=== PATIENT | female | born 1955 | race Caucasian/White ===

== ENCOUNTER 2019-07-07 17:21 | Emergency (ER) | payer OTHER, SELFPAY ==
[2019-07-07 17:22] VITALS: BP 211/124; PULSE 124; RESP 14; TEMP 36.8; O2SAT 100; BMI 29.2
--- NOTE | 2019-07-07 17:39 | EKG12_ITS ---
Test Reason : Blood Pressure : / mmHG Vent. Rate : 112 BPM Atrial Rate : 112 BPM P-R Int : 134 ms QRS Dur : 082 ms QT Int : 340 ms P-R-T Axes : 074 058 051 degrees QTc Int : 464 ms Sinus tachycardia Otherwise normal ECG Confirmed by BRANDIE FLYNN, JENNIFER ([id number]), editor trade journal AINSLEY MAZARIEGOS ([id number]) on 07/09/2019 9:37:09 AM Referred By: PANKAJ Confirmed By:LANDRY DIEGO MD
--- NOTE | 2019-07-07 17:43 | ED.VISSUMM ---
- ER Visit Summary Date of Service: 07/07/19 Chief Complaint: Left leg swelling History of Present Illness: The patient is a 63 F who presents with left leg swelling that is been getting worse over the past 2 months. Patient states it is gradually gotten worse over this time. Patient denies any trauma or injury. Patient states the swelling is been constant. Patient states she has some aching that is intermittent in her left leg. Patient states this is worse with prolonged standing. Patient states that walking actually helps with her pain. Patient does admit to some tingling in her toes. Patient does not have a primary care physician. Physical Examination: Vital signs are stable except for an elevated blood pressure of 211/124 and a tachycardia of 124. Patient is afebrile. Patient is in no acute distress. Oral mucosa is pink and moist. Neck is supple. Trachea is midline. There is no JVD. Heart was regular and tachycardic. Lungs are clear and equal bilaterally. Abdomen is soft. Bowel sounds are normal. There is no tenderness. Extremities are intact. There is edema of the left lower extremity from the mid thigh distally. There is some tenderness over the left medial calf. There are varicose veins noted. Pedal pulses are equal bilaterally. Sensation was intact to light touch in all digits. Test Results: EKG showed sinus tachycardia with a rate of 112. There are no acute ST or T wave changes. CBC was within normal limits. Basic metabolic profile showed an elevated glucose of 259. Troponin was normal. Venous duplex of the left lower extremity shows clot in the greater saphenous vein approximately 3 mm from the junction of the common femoral vein distally. There is no evidence of deep vein thrombosis. Emergency Department Course and Treatment: Patient was given a dose of labetalol here. Patient's blood pressure improved with this. Patient was given a prescription for amlodipine. Patient was also given a prescription for Eliquis since the greater saphenous clot is very close to the common femoral vein. Patient was referred to a primary care physician for follow-up care and further evaluation of her hyperglycemia. Patient was instructed to return if worse in any way. Patient understood and was agreeable with the plan. All questions were answered. Disposition: Discharge home Impression: 1. Superficial venous thrombophlebitis 2. Hypertension This note was generated with [employer] software. It may contain incorrect words, spelling, and punctuation that were not noted in review of the chart prior to signing ED Disposition - Plan for ED Patient: Disposition: Home or Assisted Living Diagnosis: Thrombophlebitis of superficial veins of left lower extremity, Hypertension, Hyperglycemia Instructions: ED Phlebitis Superficial, ED Hypertension New Begin Treatment, ED Hyperglycemia New Susp Diabetes Prescriptions: Apixaban [Eliquis] 5 mg PO BID #74 tab Prescription Printed Amlodipine [Norvasc] 5 mg PO DAILY #30 tab Prescription Printed Referrals: NOT,DEFINED [NON-STAFF] - Funmi Muller DO [STAFF PHYSICIAN] - 3-5 Days
--- NOTE | 2019-07-07 17:44 | NURSING ---
NO OLD EKGS
--- NOTE | 2019-07-07 17:46 | US_ITS ---
STUDY: VENOUS DOPPLER ULTRASOUND - LEFT LOWER EXTREMITY REASON FOR EXAM: Female, 63 years old. LT LEG SWELLING - X 2 MONTHS TECHNIQUE: Ultrasound evaluation of the deep vein system to include rodgesr-scale imaging and compression was performed. Rodgers-scale imaging and Doppler sonographic evaluation, including duplex spectral analysis and qualitative color flow sonography, was performed. COMPARISON: None. FINDINGS: Common Femoral Vein: Normal compression, spontaneity and augmentation. Normal color Doppler. Common Femoral Vein/Greater Saphenous Junction: Normal compression, spontaneity and augmentation. Normal color Doppler. Deep Femoral Vein: Normal compression, spontaneity and augmentation. Normal color Doppler. Femoral Proximal: Normal compression, spontaneity and augmentation. Normal color Doppler. Femoral Middle: Normal compression, spontaneity and augmentation. Normal color Doppler. Femoral Distal: Normal compression, spontaneity and augmentation. Normal color Doppler. Popliteal Vein: Normal compression, spontaneity and augmentation. Normal color Doppler. Posterior Tibial Vein: Normal compression, spontaneity and augmentation. Normal color Doppler. Peroneal Vein: Normal compression, spontaneity and augmentation. Normal color Doppler. Incidental finding of intraluminal clot within the greater saphenous vein extending 3 mm from the common femoral vein to the distal calf US/Venous Duplex Imag/Limited/Uni IMPRESSION: No evidence for deep venous thrombosis. Extensive superficial venous thrombosis involving the greater saphenous vein Electronically Signed: Baldev Archer MD at 19:06 EDT , Service support ,
[2019-07-07 18:18] LABS: Absolute Lymphocyte Count 1.41 X10^3/uL (0.83-4.51); Absolute Neutrophil Count 4.8 X10^3/uL (2.0-7.7); Basophil# 0.03 X10^3/uL; Basophil% 0.4 % (0-1); Eosinophil# 0.05 X10^3/uL; Eosinophils% 0.7 % (0-5); Hematocrit 41.7 % (37-47); Lymphocyte # 1.41 X10^3/ul (4.0); Lymphocyte % 20.9 % (19-41); Mean Corp Hgb Conc 33.6 g/dL (32-36); Mean Corpuscular Hgb 29.8 pg (27.0-32.0); Mean Corpuscular Volume 88.7 fL (81-99); Mean Platelet Vol. 9.9 fl (6.2-12.0); Monocyte# 0.48 X10^3/uL; Monocyte% 7.1 % (0-10); NRBC Flagged by Analyzer 0 % (0-5); Neutrophil # 4.75 X10^3/uL (2.7-7.7); Neutrophil % 70.6 % (47-70); Platelet Count 268 K/mm3 (150-450); RBC Distribution Width CV 12.3 % (11.6-14.6); RBC Distribution Width SD 39.9 fl (35.1-43.9); White Blood Count 6.7 K/mm3 (4.4-11.0)
[2019-07-07 18:24] VITALS: BP 224/96; PULSE 108; RESP 16; O2SAT 99
[2019-07-07 18:29] VITALS: BP 186/83; PULSE 79; RESP 16; O2SAT 100
[2019-07-07 18:41] LABS: Anion Gap 5 (5-15); BUN 14 mg/dL (7-18); BUN/Creat Ratio 16.3 RATIO (10-20); Calcium,Total 9.8 mg/dL (8.5-10.1); Chloride 105 mmol/L (98-107); Creatinine, Serum 0.86 mg/dL (0.55-1.02); EST Glomerular Filtration Rate 71 mL/min (>60); Est Glom Filt Rate - Afr Amer 85 mL/min (>60); Estimated Creatinine Clearance 61.05 ml/min; Glucose 259 mg/dL (74-106); Potassium 3.7 mmol/L (3.5-5.1); Sodium Level 138 mmol/L (136-145)
[2019-07-07 19:28] VITALS: BP 186/92; PULSE 80; RESP 18; O2SAT 97
[2019-07-07 20:02] VITALS: BP 192/85; PULSE 87; RESP 18; O2SAT 98
--- NOTE | 2019-07-08 12:15 | CM.ED ---
SOCIAL WORK PATIENT WAS SEEN IN ED ON 07/07/[address] LIRA. PATIENT DISCHARGED WITH PRESCRIPTION FOR ELIQUIS. UPDATED BY DR. MACK THIS DAY THAT PATIENT WAS UNABLE TO FILL PRESCRIPTION DUE TO NEEDING PRE AUTH. THIS WORKER ATTEMPTED PRE AUTH THROUGH PATIENT'S INSURANCE [employer]. WORKER WITH MMO ASKING FOR CPT CODE/PROCEDURE CODE. DISCUSSED WITH RADHA HODGE WHO ASSISTED THIS WORKER IN OBTAINING PRE AUTH FOR ELIQUIS. CALL TO PATIENT'S TO UPDATE AUTH FOR MEDICATION HAS BEEN APPROVED. TO HAVE SCRIPT FILLED. DISCUSSED CO-PAY CARD. TO CALL THIS WORKER BACK FOR ANY FURTHER NEEDS. Apurva OLGUIN, SENIOR SALES OPERATIONS ANALYST, FINANCE PROFESSIONAL.
--- NOTE | 2019-07-08 15:32 | CASEMGMT ---
Addendum entered by Dorothea Joyce 07/08/19 15:47: Pt was approved for Eliquis from 06/08/2019-07/07/2020 and Zeny CLAYTON CM Original Note: Per Laurie MALDONADO, pt was sent home on Eliquis yesterday and ED received a call that pt needs prior auth for med at this time. Per chart, pt has an extensive superficial venous thrombosis in the greater saphenous vein extending from 3mm from the femoral artery to the distal calf. Pt does not have a current PCP and pt/ were stressed the importance of obtaining PCP at this time, voiced understanding. Laurie had attempted to get prior auth without success as they kept asking her for a CPT/procedure code so this RN CM placed call to [facility] number provided at this time. The first rep at [facility] tried to get a procedure code from this RN CM and this RN CM advised that this was for prior auth, not pre-auth for procedure. After being transferred multiple times, this RN CM finally got through to a PA rep and after answering one question, prior auth was obtained for the Eliquis at this time. Laurie MALDONADO updated at this time-voices understanding and states will call pt/ back and also provide them with numbers for the $10co-pay card as well. Zeny CLAYTON CM
== END 2019-07-07 20:33 | disposition home or self-care (01) ==
PROVIDERS: Emergency Provider Emergency Medicine
DX: I80.02 Phlebitis and thrombophlebitis of superficial vessels of left lower extremity (principal); I10 Essential (primary) hypertension; R73.9 Hyperglycemia, unspecified; I83.90 Asymptomatic varicose veins of unspecified lower extremity; R00.0 Tachycardia, unspecified; Z79.899 Other long term (current) drug therapy
CPT/HCPCS: 80048; 84484; 85025; 93005; 93971; 96374; 99283; A4216

== ENCOUNTER 2019-07-15 19:08 | Emergency (ER) | payer OTHER, SELFPAY ==
[2019-07-15 19:09] VITALS: BP 189/101; PULSE 101; RESP 18; TEMP 36.7; O2SAT 96; BMI 28.4
--- NOTE | 2019-07-15 19:25 | CT_ITS ---
STUDY: CT ABDOMEN AND PELVIS WITHOUT CONTRAST REASON FOR EXAM: Female, 63 years old. LT FLANK PAIN,VAGINAL BLEEDING RADIATION DOSAGE (If Supplied By Facility): CTDIvol = ( 9.37 ) mGy, DLP = ( 447.05 ) mGycm TECHNIQUE: Transaxial images were obtained from the dome of the diaphragm to the symphysis pubis without oral contrast, and without intravenous contrast. Sagittal and coronal images were reconstructed. Individualized dose optimization techniques were used for this CT. COMPARISON: None. FINDINGS: The visualized lung bases are unremarkable. The visualized portions of the heart are within normal limits. Normal liver. Mild nonspecific gallbladder distention without calcified stones. If concern for gallbladder disease ultrasound recommended. Normal spleen. Fatty infiltrated atrophic pancreas.. Normal bilateral adrenal glands. Normal right kidney. Moderate left hydroureteronephrosis with dilatation of the ureter to the level of a large left adnexal mass likely compressing the ureter although not well visualized. Normal visualized stomach. Normal small intestine. Normal colon. No evidence for acute appendicitis Normal abdominal aorta. Normal inferior vena cava. Normal retroperitoneum. Uterus is enlarged for age depressing the dome of the bladder which is incompletely distended and thick-walled. Complex cystic left adnexal mass measuring approximately 6.9 x 5.3 cm displacing the uterus towards the right. Small anterior inferior pelvic wall hernia containing fat Lumbar spine demonstrates degenerative change. CT/Abdomen/Pelvis without Cont IMPRESSION: Enlarged uterus for stated age which is displaced towards the right by a large complex cystic mass in left adnexa measuring approximately 6.9 x 5.3 cm. There is also moderate left hydroureteronephrosis without definitive evidence for ureteral calculus possibly due to extrinsic compression by pelvic mass. Pelvic sonogram would be helpful for further evaluation Electronically Signed: Baldev Archer MD at 20:27 EDT , Service support ,
[2019-07-15 19:42] LABS: Bacteria 0 SEEN /hpf (None Seen); Mucous, Urine 0 SEEN /hpf (<or=2+)
[2019-07-15 19:46] LABS: Color, Urine Yellow (Yellow); Glucose, Dipstick 100 mg/dl (Normal); Leukocyte Esterase-Dipstick 500 /ul (Negative); Nitrite-Dipstick Negative (Negative); Occult Blood-Urine 250 /ul (Negative); Protein-Dipstick 30 mg/dl (Negative); Urine Bilirubin Dipstick Negative (Negative); Urine Clarity Clear (Clear); Urine Urobilinogen Normal (Normal)
[2019-07-15] MEDS: Ondansetron 4 MG/2 ML Vial IV (19:51)
[2019-07-15] MEDS: 0.9% Normal Saline 1,000 ML 125 ML IV (19:51)
[2019-07-15 19:52] LABS: Absolute Lymphocyte Count 0.94 X10^3/uL (0.83-4.51); Absolute Neutrophil Count 8.1 X10^3/uL (2.0-7.7); Basophil# 0.03 X10^3/uL; Basophil% 0.3 % (0-1); Eosinophil# 0.01 X10^3/uL; Eosinophils% 0.1 % (0-5); Hematocrit 40.6 % (37-47); Hemoglobin 13.4 g/dL (12.0-15.0); Lymphocyte # 0.94 X10^3/ul (4.0); Lymphocyte % 9.8 % (19-41); Mean Corpuscular Hgb 29.3 pg (27.0-32.0); Mean Corpuscular Volume 88.6 fL (81-99); Mean Platelet Vol. 10.2 fl (6.2-12.0); Monocyte# 0.48 X10^3/uL; NRBC Flagged by Analyzer 0 % (0-5); Neutrophil # 8.13 X10^3/uL (2.7-7.7); Neutrophil % 84.5 % (47-70); Platelet Count 269 K/mm3 (150-450); RBC Distribution Width CV 12.7 % (11.6-14.6); Red Blood Count 4.58 M/mm3 (4.2-5.4); White Blood Count 9.6 K/mm3 (4.4-11.0)
[2019-07-15 19:53] LABS: Ketone-Dipstick 150 mg/dl (Negative)
[2019-07-15 19:54] LABS: Red Blood Cells-Urine 25-50 SEEN /hpf (0-5); Squamous Epithelial Cells - UA 0-5 SEEN /hpf (5-10); White Blood Cells 5-10 SEEN /hpf (0-5)
[2019-07-15 19:55] LABS: Anion Gap 12 (5-15); BUN 21 mg/dL (7-18); BUN/Creat Ratio 19.6 RATIO (10-20); Calcium,Total 9.7 mg/dL (8.5-10.1); Chloride 101 mmol/L (98-107); Creatinine, Serum 1.07 mg/dL (0.55-1.02); EST Glomerular Filtration Rate 55 mL/min (>60); Est Glom Filt Rate - Afr Amer 66 mL/min (>60); Estimated Creatinine Clearance 49.07 ml/min; Glucose 227 mg/dL (74-106); Potassium 3.8 mmol/L (3.5-5.1); Sodium Level 136 mmol/L (136-145)
--- NOTE | 2019-07-15 20:29 | US_ITS ---
STUDY: ULTRASOUND OF THE FEMALE PELVIS - COMPLETE REASON FOR EXAM: Female, 63 years old. LT ADX MASS SEEN ON CT IRREG BLEEDING HX C- SECTIONS LMP: TECHNIQUE: TECHNICAL QUALITY: Adequate. COMPARISON: None. FINDINGS: The uterus is anteverted and is in a midline position. The uterus measures 9.2 x 6.8 x 5.3 cm. Normal uterine cervix. The endometrium measures 38 mm in thickness, and is slightly hyperemic.. There is fluid within the endometrial canal and a small hyperechoic density possibly representing small hematoma There is no demonstrated endometrial mass. There is no demonstrated myometrial mass. I.U.D. - The patient does not have an I.U.D. The right ovary is visualized. The right ovary measures 2.8 x 1.8 x 1.1 cm. There is no right ovarian cyst or ovarian mass. There is no visualized right adnexal mass or complex lesion. There is normal arterial and normal venous vascularity. The left ovary is visualized. The left ovary measures 6.3 x 6 x 5.5 cm. Complex cystic mass measuring 3.9 x 3.7 x 3.4 cm. There is normal arterial and normal venous vascularity. There is no fluid in the cul-de-sac. Mild intraluminal debris within the bladder of indeterminate etiology possibly due to infection or hemorrhage however clinical correlation recommended US/Transvaginal Non- IMPRESSION: Markedly thickened endometrial lining for stated age with fluid in the cul-de-sac and probable small hematoma. Possibility of endometrial hyperplasia or neoplasia not excluded. Complex cystic mass in the left ovary measuring approximately 3.9 x 3.7 x 3.4 cm of indeterminate etiology. Cannot exclude neoplasm. Clinical correlation recommended. MRI with contrast may be helpful for further evaluation if indicated Electronically Signed: Baldev Archer MD at 21:30 EDT , Service support ,
--- NOTE | 2019-07-15 21:41 | ED.VISSUMM ---
- ER Visit Summary Date of Service: 07/15/19 Chief Complaint: [Left flank pain] History of Present Illness: The patient is a 63 F [[place] to the emergency department left leg pain is started initially 2 days ago in the middle of the night and then kind of resolved. Patient started having more pain again this afternoon with some shivers. Patient has no urinary symptoms otherwise. She has been having vaginal bleeding off and on for several years but really has not followed up with anybody for that. Patient recently was started on Eliquis for superficial thrombophlebitis of her leg. Patient is a diabetic and has history of hypertension. No history of kidney stones.] Physical Examination: [HEENT-PERRLA, EOMI. Cranial nerves II through XII grossly intact. TMs clear. Mucous membranes moist. No adenopathy. Cardiovascular-regular rate and rhythm without murmur or ectopy Lungs-clear to auscultation, chest wall stable without crepitus or subcu emphysema Abdomen-normoactive bowel sounds, soft. Patient has some mild tenderness over the left lower quadrant. Patient has CVA tenderness on the left. Patient has no rebound, rigidity, or peritoneal signs. Extremities-intact ?4, normal range of motion, normal pulses, atraumatic] Test Results: [CBC with differential obtained showed a white blood cell count of 9.6, hemoglobin 13, hematocrit 41, placed 269. Chemistries unremarkable. BUN was 21 and creatinine 1.07. Urinalysis obtained showed 500 leukocyte esterase and 150 ketones. Patient had 5-10 WBCs and 25-[address] flank showed a thickened endometrium and left adnexal mass with hydroureter and hydronephrosis on the left. No obvious ureteral stone noted. Was unclear if the ureter was dilated secondary to external compression. It was recommended that we obtain a pelvic ultrasound. The ultrasound obtained was read by radiology as markedly thickened endometrial lining for stated age with fluid in the cul-de-sac and probable small hematoma. Possibility of endometrial hyperplasia or neoplasia not excluded. Complex cystic mass in the left ovary measuring 3.9 x 3.7 x 3.4 cm of indeterminate etiology. Cannot exclude neoplasm.] Emergency Department Course and Treatment: [Patient was given Zofran for nausea and she did not want a thing for pain.] Patient case was discussed with DIGITAL SOLUTION ARCHITECT on-call Dr. Darian Villa who would be happy to see patient in follow-up in the office. Treatment Plan: [Patient will be given a prescription for Zofran and [place] for pain.] Disposition: [Discharged home in stable condition] Impression: [Flank pain -suspect passed kidney stone versus external compression from left adnexal mass Dysfunctional uterine bleeding Left adnexal mass] This note was generated with [employer] dictation software. It may contain incorrect words, spelling, and punctuation that were not noted in review of the chart prior to signing ED Disposition - Plan for ED Patient: Referrals: Cindy Griffith MD [Primary Care Provider] -
--- NOTE | 2019-07-15 21:47 | ED.DEP ---
ED Disposition - Plan for ED Patient: Instructions: ED Flank Pain Uncertain Cause Prescriptions: Hydrocodone Bitart/Apap 5-325 [[place] 5MG-325MG] 1 tab PO Q4H PRN PRN 2 Days #10 tab PRN Reason: Pain Prescription Printed Ondansetron [Zofran Odt] 4 mg PO Q8H PRN PRN #10 tab PRN Reason: Nausea Prescription Printed Referrals: Cindy Griffith MD [Primary Care Provider] - Darian Villa MD [STAFF PHYSICIAN] - 3-5 Days Additional Instructions: See TYING MACHINE OPERATOR LUMBER for abnormal vaginal bleeding and abnormality of uterine lining with concern for uterine neoplasm or cancer. You also have a left ovarian mass that will need further investigation to rule out cancer.
[2019-07-15 22:02] VITALS: BP 167/78; PULSE 82; RESP 18; TEMP 36.8; O2SAT 97
== END 2019-07-15 22:13 | disposition home or self-care (01) ==
LOC: ED 19:47
PROVIDERS: Emergency Provider Emergency Medicine; PCP Family Medicine
DX: R10.9 Unspecified abdominal pain (principal); N83.9 Noninflammatory disorder of ovary, fallopian tube and broad ligament, unspecified; N93.8 Other specified abnormal uterine and vaginal bleeding; I80.00 Phlebitis and thrombophlebitis of superficial vessels of unspecified lower extremity; E11.9 Type 2 diabetes mellitus without complications; I10 Essential (primary) hypertension; Z79.01 Long term (current) use of anticoagulants; Z79.84 Long term (current) use of oral hypoglycemic drugs; Z79.899 Other long term (current) drug therapy
CPT/HCPCS: 74176; 76830; 80048; 81001; 85025; 93976; 96361; 96374; 99284; J7030; A4216; J2405

== ENCOUNTER → 2019-07-19 | Outpatient (CLI) | payer OTHER, SELFPAY ==
[2019-07-15 19:09] VITALS: BMI 28.4
--- NOTE | 2019-07-19 | EMB_PTH ---
PATIENT: NEWTON ALANIZ LOC: CAT U#:[id number] AGE/SX: 63/F ROOM: RE07/19/[address]: Dr. Darian Villa MD : 1955 BED: DIS: 07/19/2019 SPEC #: [id number] RECD: 07/19/19 17:25 STATUS: GABRIEL LASHA #: [id number] KILO: 07/19/19 00:[address]: Darian Villa DEPT: SURGICAL PATHOLOGY RECD BY: William Foote Tissues: Endometrium, NOS Procedures: Surgery Specimen Level IV HEADER OPERATION: Endometrial biopsy PRE-OP DIAGNOSIS: Postmenopausal bleeding TISSUE SUBMITTED: Endometrial biopsy MICROSCOPIC DIAGNOSIS Endometrial biopsy: Endometrial adenocarcinoma, endometrioid type, FIGO grade 1. See comment. WAYNE:bernadine 07/21/19 COMMENT Immunohistochemistry for mismatch repair of protein (microsatellite instability) will be performed and results will be reported separately ([id number]). Case has been reviewed in consultation with Dr. Manjarrez who concurs with the above diagnosis. IDC:AM MICROSCOPIC DESCRIPTION Slides are reviewed. GROSS DESCRIPTION Received in fixative is one container labeled with the patient's name and designated endometrial biopsy. The specimen consists of multiple fragments of hemorrhagic soft tissue that in aggregate measure 3 x 2.5 x 0.3 cm. The entire specimen is submitted in one cassette. / SJ:bernadine 07/20/19 TC:0 CPT: 01842
--- NOTE | 2019-07-19 | IMM_PTH ---
PATIENT: NEWTON ALANIZ LOC: CAT U#:[id number] AGE/SX: 63/F ROOM: RE07/19/[address]: Dr. Darian Villa MD : 1955 BED: DIS: 07/19/2019 SPEC #: [id number] RECD: 07/21/19 11:46 STATUS: GABRIEL REAshwin #: [id number] KILO: 07/19/19 00:[address]: Darian Villa DEPT: IMMUNOHISTOCHEMISTRY RECD BY: Divine York Tissues: Endometrium, NOS Procedures: MSH2 (add) MLH-1 (add) MSH6 (add) Anti-PMS2 (add) P53 (add) KI-67 (initial) PHYSICIAN & INSTITUTION [place] [id number] SPECIMEN INFORMATION: Tissue Source: Endometrial biopsy Clinical Info: Postmenopausal bleeding Specimen Number: [id number] CPT code: 77458, 42004 x5 METHODOLOGY: Deparaffinized sections of prefer/formalin-fixed tissue or PAP/DQ stained slides are incubated with monoclonal/polyclonal antibodies/oligonucleotide probes. Localization is made via biotin free immunoperoxidase method. Appropriate controls are performed and reacted as expected. Results on target cell population are indicated in the following table: RESULTS: ANTIBODY / CLONE RESULT Ki-67 (30-9) positive, high P53 (DO-7) positive, focal MLH-1 (M1) negative MSH2 (25D12) positive MSH6 (44) positive PMS2 (BWB0383) positive These tests were developed and their performance characteristics determined by [facility]. They may not have been cleared or approved by the U.S. Food and Drug Administration. The FDA has determined that such clearance or approval is not necessary. The above immunohistochemical/dualISH markers are ordered and reviewed by the Pathologist. INTERPRETATION: Endometrial biopsy: Endometrial adenocarcinoma, endometrioid type. Result of Microsatellite Instability Study: Positive (loss of mismatch protein; microsatellite instability detected). Complete loss of MLH1. SJ:bernadine 07/22/19 Case has been reviewed in consultation with Dr. Manjarrez who concurs with the above diagnosis. IDC:AM
[2019-07-21 14:01] LABS: Cancer Antigen 125 184.9 U/mL (0.0-38.1)
== END | disposition home or self-care (01) ==
PROVIDERS: Visit Provider Obstetrics & Gynecology
DX: N95.0 Postmenopausal bleeding (principal)
CPT/HCPCS: 86304; 88305; 88341; 88342

== ENCOUNTER → 2019-09-01 11:13 | Outpatient (CLI) | payer OTHER, SELFPAY ==
[2019-09-01 11:42] LABS: Absolute Lymphocyte Count 1.16 X10^3/uL (0.83-4.51); Absolute Neutrophil Count 3.8 X10^3/uL (2.0-7.7); Basophil# 0.02 X10^3/uL; Basophil% 0.4 % (0-1); Eosinophil# 0.07 X10^3/uL; Eosinophils% 1.3 % (0-5); Hemoglobin 11.7 g/dL (12.0-15.0); Lymphocyte # 1.16 X10^3/ul (4.0); Lymphocyte % 21.5 % (19-41); Mean Corp Hgb Conc 31.6 g/dL (32-36); Mean Corpuscular Hgb 29.2 pg (27.0-32.0); Mean Corpuscular Volume 92.3 fL (81-99); Mean Platelet Vol. 9.3 fl (6.2-12.0); Monocyte# 0.38 X10^3/uL; Monocyte% 7.1 % (0-10); NRBC Flagged by Analyzer 0 % (0-5); Neutrophil # 3.75 X10^3/uL (2.7-7.7); Neutrophil % 69.5 % (47-70); Platelet Count 394 K/mm3 (150-450); RBC Distribution Width CV 13.4 % (11.6-14.6); RBC Distribution Width SD 45.1 fl (35.1-43.9); Red Blood Count 4.01 M/mm3 (4.2-5.4); White Blood Count 5.4 K/mm3 (4.4-11.0)
[2019-09-01 12:06] LABS: ALB/GLOB Ratio 0.9 RATIO (0.9-2.4); AST(SGOT) 14 U/L (15-37); Alanine Aminotransfer ALT/SGPT 15 U/L (13-56); Albumin, Serum 3.1 g/dL (3.2-5.0); Alkaline Phosphatase 67 U/L (45-117); Anion Gap 6 (5-15); BUN 17 mg/dL (7-18); BUN/Creat Ratio 23.1 RATIO (10-20); Chloride 107 mmol/L (98-107); Creatinine, Serum 0.74 mg/dL (0.55-1.02); EST Glomerular Filtration Rate 84 mL/min (>60); Est Glom Filt Rate - Afr Amer 102 mL/min (>60); Globulin 3.6 g/dL (2.2-4.2); Glucose 102 mg/dL (74-106); Potassium 3.9 mmol/L (3.5-5.1); Protein, Total 6.7 g/dL (6.4-8.2); Sodium Level 141 mmol/L (136-145)
== END ==
PROVIDERS: PCP Family Medicine; Visit Provider Obstetrics & Gynecology Gynecologic Oncology
DX: C54.1 Malignant neoplasm of endometrium (principal)
CPT/HCPCS: 36415; 80053; 85025

== ENCOUNTER → 2019-09-22 14:05 | Outpatient (CLI) | payer OTHER, SELFPAY ==
[2019-09-22 14:32] LABS: Absolute Lymphocyte Count 1.32 X10^3/uL (0.83-4.51); Basophil# 0.02 X10^3/uL; Basophil% 0.5 % (0-1); Eosinophil# 0.04 X10^3/uL; Hemoglobin 12.1 g/dL (12.0-15.0); Lymphocyte # 1.32 X10^3/ul (4.0); Lymphocyte % 33.9 % (19-41); Mean Corp Hgb Conc 31.8 g/dL (32-36); Mean Corpuscular Hgb 29.2 pg (27.0-32.0); Mean Corpuscular Volume 91.6 fL (81-99); Mean Platelet Vol. 9.2 fl (6.2-12.0); Monocyte# 0.48 X10^3/uL; Monocyte% 12.3 % (0-10); NRBC Flagged by Analyzer 0 % (0-5); Neutrophil # 2.02 X10^3/uL (2.7-7.7); Platelet Count 233 K/mm3 (150-450); RBC Distribution Width CV 14.6 % (11.6-14.6); Red Blood Count 4.15 M/mm3 (4.2-5.4); White Blood Count 3.9 K/mm3 (4.4-11.0)
[2019-09-22 15:00] LABS: AST(SGOT) 15 U/L (15-37); Alanine Aminotransfer ALT/SGPT 17 U/L (13-56); Albumin, Serum 3.3 g/dL (3.2-5.0); Alkaline Phosphatase 90 U/L (45-117); Anion Gap 4 (5-15); BUN 16 mg/dL (7-18); BUN/Creat Ratio 26.4 RATIO (10-20); Chloride 112 mmol/L (98-107); EST Glomerular Filtration Rate 105 mL/min (>60); Est Glom Filt Rate - Afr Amer 128 mL/min (>60); Globulin 3.4 g/dL (2.2-4.2); Glucose 104 mg/dL (74-106); Potassium 3.8 mmol/L (3.5-5.1); Protein, Total 6.7 g/dL (6.4-8.2); Sodium Level 140 mmol/L (136-145)
== END ==
PROVIDERS: PCP Family Medicine; Referring Provider Obstetrics & Gynecology Gynecologic Oncology; Visit Provider Obstetrics & Gynecology Gynecologic Oncology
DX: C54.1 Malignant neoplasm of endometrium (principal)
CPT/HCPCS: 36415; 80053; 85025

== ENCOUNTER 2019-10-13 15:27 | Outpatient (RCR) | payer OTHER, SELFPAY ==
[2019-10-13 15:59] LABS: Absolute Lymphocyte Count 1.27 X10^3/uL (0.83-4.51); Absolute Neutrophil Count 1.1 X10^3/uL (2.0-7.7); Basophil# 0.02 X10^3/uL; Basophil% 0.7 % (0-1); Eosinophil# 0.02 X10^3/uL; Eosinophils% 0.7 % (0-5); Hematocrit 35.6 % (37-47); Lymphocyte # 1.27 X10^3/ul (4.0); Lymphocyte % 44.9 % (19-41); Mean Corp Hgb Conc 33.7 g/dL (32-36); Mean Corpuscular Hgb 29.9 pg (27.0-32.0); Mean Corpuscular Volume 88.8 fL (81-99); Mean Platelet Vol. 8.8 fl (6.2-12.0); Monocyte# 0.39 X10^3/uL; Monocyte% 13.8 % (0-10); NRBC Flagged by Analyzer 0 % (0-5); Neutrophil # 1.13 X10^3/uL (2.7-7.7); Neutrophil % 39.9 % (47-70); Platelet Count 200 K/mm3 (150-450); RBC Distribution Width SD 50.8 fl (35.1-43.9); Red Blood Count 4.01 M/mm3 (4.2-5.4); White Blood Count 2.8 K/mm3 (4.4-11.0)
[2019-10-13 16:37] LABS: ALB/GLOB Ratio 1.2 RATIO (0.9-2.4); AST(SGOT) 17 U/L (15-37); Alanine Aminotransfer ALT/SGPT 18 U/L (13-56); Albumin, Serum 3.6 g/dL (3.2-5.0); Alkaline Phosphatase 79 U/L (45-117); Anion Gap 4 (5-15); BUN 16 mg/dL (7-18); BUN/Creat Ratio 19.4 RATIO (10-20); Calcium,Total 9.1 mg/dL (8.5-10.1); Chloride 111 mmol/L (98-107); Creatinine, Serum 0.83 mg/dL (0.55-1.02); EST Glomerular Filtration Rate 74 mL/min (>60); Est Glom Filt Rate - Afr Amer 89 mL/min (>60); Globulin 3.1 g/dL (2.2-4.2); Glucose 125 mg/dL (74-106); Potassium 3.6 mmol/L (3.5-5.1); Protein, Total 6.7 g/dL (6.4-8.2); Sodium Level 142 mmol/L (136-145)
== END 2019-10-13 18:00 | disposition home or self-care (01) ==
LOC: LAB 15:27
PROVIDERS: PCP Family Medicine; Referring Provider Obstetrics & Gynecology Gynecologic Oncology; Visit Provider Obstetrics & Gynecology Gynecologic Oncology
DX: C54.1 Malignant neoplasm of endometrium (principal)
CPT/HCPCS: 36415; 80053; 85025

== ENCOUNTER 2019-11-24 15:12 | Outpatient (RCR) | payer OTHER, SELFPAY ==
[2019-11-03 15:40] LABS: AST(SGOT) 16 U/L (15-37); Alanine Aminotransfer ALT/SGPT 21 U/L (13-56); Albumin, Serum 3.5 g/dL (3.2-5.0); Alkaline Phosphatase 84 U/L (45-117); Anion Gap 4 (5-15); BUN 22 mg/dL (7-18); BUN/Creat Ratio 30.9 RATIO (10-20); Calcium,Total 9.1 mg/dL (8.5-10.1); Chloride 110 mmol/L (98-107); Creatinine, Serum 0.71 mg/dL (0.55-1.02); EST Glomerular Filtration Rate 87 mL/min (>60); Est Glom Filt Rate - Afr Amer 105 mL/min (>60); Globulin 3.5 g/dL (2.2-4.2); Glucose 94 mg/dL (74-106); Sodium Level 142 mmol/L (136-145)
[2019-11-24 15:34] LABS: Absolute Lymphocyte Count 1.36 X10^3/uL (0.83-4.51); Basophil# 0.03 X10^3/uL; Eosinophil# 0.01 X10^3/uL; Eosinophils% 0.3 % (0-5); Lymphocyte # 1.36 X10^3/ul (4.0); Lymphocyte % 47.6 % (19-41); Mean Corp Hgb Conc 33.3 g/dL (32-36); Mean Corpuscular Hgb 30.7 pg (27.0-32.0); Mean Corpuscular Volume 92.1 fL (81-99); Mean Platelet Vol. 8.7 fl (6.2-12.0); Monocyte# 0.43 X10^3/uL; NRBC Flagged by Analyzer 0 % (0-5); Neutrophil # 1.02 X10^3/uL (2.7-7.7); Neutrophil % 35.8 % (47-70); Platelet Count 174 K/mm3 (150-450); RBC Distribution Width SD 56.5 fl (35.1-43.9); Red Blood Count 3.91 M/mm3 (4.2-5.4); White Blood Count 2.9 K/mm3 (4.4-11.0)
[2019-11-24 16:16] LABS: ALB/GLOB Ratio 1.1 RATIO (0.9-2.4); AST(SGOT) 17 U/L (15-37); Alanine Aminotransfer ALT/SGPT 19 U/L (13-56); Albumin, Serum 3.5 g/dL (3.2-5.0); Alkaline Phosphatase 88 U/L (45-117); Anion Gap 6 (5-15); BUN 18 mg/dL (7-18); BUN/Creat Ratio 30.5 RATIO (10-20); Calcium,Total 8.9 mg/dL (8.5-10.1); Chloride 108 mmol/L (98-107); Creatinine, Serum 0.59 mg/dL (0.55-1.02); EST Glomerular Filtration Rate 108 mL/min (>60); Est Glom Filt Rate - Afr Amer 131 mL/min (>60); Globulin 3.2 g/dL (2.2-4.2); Glucose 92 mg/dL (74-106); Potassium 3.9 mmol/L (3.5-5.1); Protein, Total 6.7 g/dL (6.4-8.2); Sodium Level 141 mmol/L (136-145)
== END 2019-11-24 18:00 | disposition home or self-care (01) ==
LOC: LAB 15:12
PROVIDERS: PCP Family Medicine; Referring Provider Obstetrics & Gynecology Gynecologic Oncology; Visit Provider Obstetrics & Gynecology Gynecologic Oncology
DX: C54.1 Malignant neoplasm of endometrium (principal)
CPT/HCPCS: 36415; 80053; 85025

== ENCOUNTER 2019-12-15 15:11 | Outpatient (RCR) | payer OTHER, SELFPAY ==
[2019-12-15 15:51] LABS: Absolute Lymphocyte Count 1.37 X10^3/uL (0.83-4.51); Absolute Neutrophil Count 1.1 X10^3/uL (2.0-7.7); Basophil# 0.02 X10^3/uL; Basophil% 0.7 % (0-1); Eosinophil# 0.02 X10^3/uL; Eosinophils% 0.7 % (0-5); Hematocrit 33.4 % (37-47); Hemoglobin 11.2 g/dL (12.0-15.0); Lymphocyte # 1.37 X10^3/ul (4.0); Lymphocyte % 48.8 % (19-41); Mean Corp Hgb Conc 33.5 g/dL (32-36); Mean Corpuscular Hgb 31.7 pg (27.0-32.0); Mean Corpuscular Volume 94.6 fL (81-99); Mean Platelet Vol. 9.4 fl (6.2-12.0); Monocyte# 0.33 X10^3/uL; Monocyte% 11.7 % (0-10); NRBC Flagged by Analyzer 0 % (0-5); Neutrophil # 1.06 X10^3/uL (2.7-7.7); Neutrophil % 37.7 % (47-70); Platelet Count 174 K/mm3 (150-450); RBC Distribution Width CV 15.9 % (11.6-14.6); RBC Distribution Width SD 54.7 fl (35.1-43.9); Red Blood Count 3.53 M/mm3 (4.2-5.4); White Blood Count 2.8 K/mm3 (4.4-11.0)
[2019-12-15 16:18] LABS: ALB/GLOB Ratio 1.1 RATIO (0.9-2.4); AST(SGOT) 13 U/L (15-37); Alanine Aminotransfer ALT/SGPT 16 U/L (13-56); Albumin, Serum 3.7 g/dL (3.2-5.0); Alkaline Phosphatase 155 U/L (45-117); Anion Gap 3 (5-15); BUN 17 mg/dL (7-18); BUN/Creat Ratio 28.5 RATIO (10-20); Calcium,Total 9.3 mg/dL (8.5-10.1); Chloride 110 mmol/L (98-107); EST Glomerular Filtration Rate 107 mL/min (>60); Est Glom Filt Rate - Afr Amer 130 mL/min (>60); Globulin 3.3 g/dL (2.2-4.2); Glucose 117 mg/dL (74-106); Potassium 3.9 mmol/L (3.5-5.1); Sodium Level 142 mmol/L (136-145)
== END 2019-12-15 18:00 | disposition home or self-care (01) ==
LOC: LAB 15:11
PROVIDERS: PCP Family Medicine; Referring Provider Obstetrics & Gynecology Gynecologic Oncology; Visit Provider Obstetrics & Gynecology Gynecologic Oncology
DX: C54.1 Malignant neoplasm of endometrium (principal)
CPT/HCPCS: 36415; 80053; 85025

== ENCOUNTER → 2019-12-16 13:00 | Outpatient (CLI) | payer OTHER, SELFPAY ==
--- NOTE | 2019-12-16 13:04 | VDLE_ITS ---
Reason For Study: Acute DVT RIGHT LEFT CFV is compressible, spontaneous, phasic, FV is compressible, spontaneous, phasic, competent and demonstrates normal competent and demonstrates normal augmentation. augmentation. Procedure POP V is compressible, spontaneous, phasic, Exam performed in department. competent and demonstrates normal A preliminary report was called and/or faxed augmentation. to [facility]. T/P Trunk is compressible. PTV is compressible. LT PerV is compressible. Acute deep vein thrombosis is noted in the CFV and EIV. Clot is extending into the CFV from the GSV. Acute superficial vein thrombosis is noted in the GSV from junction to mid thigh and prox calf. Clot is extending in the CFV. Superficial vein thrombosis is noted in the SSV from mid calf to ankle. Thrombus filled varicose veins noted in the prox-mid calf. Interpretation Summary Acute deep venous thrombosis left external iliac and common femoral veins.Superficial thrombophlebitis left great saphenous vein, mid thigh and proximal calf with extension into the common femoral vein Superficial thrombophlebitis left small saphenous vein from mid calf to ankle Superficial thrombophlebitis left proximal to mid calf varicosities Normal flow patterns right common femoral vein Ordering Physician: Cholo Allison Referring Physician: Cindy Griffith Performed By: Dorothea Tapia RVT and Student
== END ==
PROVIDERS: PCP Family Medicine; Referring Provider Obstetrics & Gynecology Gynecologic Oncology; Visit Provider Obstetrics & Gynecology Gynecologic Oncology
DX: I82.422 Acute embolism and thrombosis of left iliac vein (principal); I82.412 Acute embolism and thrombosis of left femoral vein
CPT/HCPCS: 93971

== ENCOUNTER → 2020-04-18 14:54 | Outpatient (CLI) | payer OTHER, SELFPAY ==
[2020-04-20 14:48] LABS: Cancer Antigen 125 29.2 U/mL (0.0-38.1)
== END ==
PROVIDERS: PCP Family Medicine; Referring Provider Obstetrics & Gynecology Gynecologic Oncology; Visit Provider Obstetrics & Gynecology Gynecologic Oncology
DX: C54.1 Malignant neoplasm of endometrium (principal)
CPT/HCPCS: 36415; 86304

== ENCOUNTER → 2020-04-25 12:55 | Outpatient (CLI) | payer OTHER, SELFPAY ==
[2020-04-25 13:47] LABS: Hemoglobin A1c 5.4 % (3.8-5.6)
[2020-04-25 13:49] LABS: Microalbumin,Random Urine 11.1 mg/L (NO RANGE EST.); Microalbumin:Creatinine Ratio 17.6 mg/g CRE (<30 mg/g CRE)
[2020-04-25 14:03] LABS: Anion Gap 7 (5-15); BUN 18 mg/dL (7-18); Calcium,Total 9.1 mg/dL (8.5-10.1); Chloride 108 mmol/L (98-107); Cholesterol 144 mg/dL (200); Creatinine, Serum 0.75 mg/dL (0.55-1.02); EST Glomerular Filtration Rate 82 mL/min (>60); Est Glom Filt Rate - Afr Amer 99 mL/min (>60); Glucose 97 mg/dL (74-106); High Density Lipoprotein 67 mg/dL; Potassium 3.6 mmol/L (3.5-5.1); Sodium Level 141 mmol/L (136-145); Triglycerides 47 mg/dL; Very Low Density Lipoprotein 9 mg/dL (5-40)
== END ==
PROVIDERS: PCP Family Medicine; Referring Provider Family Medicine; Visit Provider Family Medicine
DX: C54.1 Malignant neoplasm of endometrium (principal); E11.9 Type 2 diabetes mellitus without complications; I10 Essential (primary) hypertension
CPT/HCPCS: 36415; 80048; 80061; 82043; 82570; 83036

== ENCOUNTER → 2020-05-03 10:48 | Outpatient (CLI) | payer OTHER, SELFPAY ==
--- NOTE | 2020-05-03 10:56 | CT_ITS ---
STUDY: CT ABDOMEN AND PELVIS WITH CONTRAST REASON FOR EXAM: Female, 64 years old. ENDOMETRIAL CA, SURGERY JUNE 2019, 5 CHEMO TREATMENTS RADIATION DOSAGE (If Supplied By Facility): CTDIvol = ( 15.78 ) mGy, DLP = ( 1123.66 ) mGycm TECHNIQUE: Transaxial images were obtained from the dome of the diaphragm to the symphysis pubis with oral contrast. Oral and amp; IV Readi-CAT and amp; 100mL Isovue-300 was administered. Sagittal and coronal images were reconstructed. Individualized dose optimization techniques were used for this CT. COMPARISON: Comparison is made with prior study dated 07/15/2019. FINDINGS: The visualized lung bases are unremarkable. The visualized portions of the heart are within normal limits. Normal liver. Normal gallbladder and extrahepatic biliary system. Normal spleen. Normal pancreas. Normal bilateral adrenal glands. Normal right kidney. There is a moderate degree of a left hydronephrosis and left hydroureter down to the region of the left hemipelvis. There is evidence of a 6.4 cm x 5.9 cm complex cystic mass in the left hemipelvis. The size of the masses such unchanged although it has become more cystic at this time. Normal visualized stomach. Normal small intestine. Normal colon. The appendix is visualized and appears normal. Normal abdominal aorta. There is an IVC filter in place. Normal retroperitoneum. Normal urinary bladder. There is absence of the uterus consistent with a prior hysterectomy. Calcified phleboliths are seen in the pelvis. Normal abdominal wall. There are mild degenerative changes of the visualized lumbar spine. CT/Abdomen/Pelvis WITH Contrast IMPRESSION: Persistent 6.4 cm x 5.9 cm complex cystic mass in the left hemipelvis. This mass has become more cystic as compared to prior study. Stable moderate degree of left hydronephrosis and left hydroureter down to the region of the left hemipelvis at the site of the mass. The patient is status post hysterectomy. Electronically Signed: Og Kaplan MD at 12:34 EST , Service support ,
== END ==
PROVIDERS: PCP Family Medicine
DX: C54.1 Malignant neoplasm of endometrium (principal); R10.30 Lower abdominal pain, unspecified; R14.0 Abdominal distension (gaseous)
CPT/HCPCS: 74177; Q9967

== ENCOUNTER → 2020-08-23 08:04 | Outpatient (CLI) | payer OTHER, SELFPAY ==
[2020-08-21 17:48] LABS: Anion Gap 5 (5-15); BUN 22 mg/dL (7-18); BUN/Creat Ratio 23.2 RATIO (10-20); Calcium,Total 9.2 mg/dL (8.5-10.1); Chloride 109 mmol/L (98-107); Creatinine, Serum 0.95 mg/dL (0.55-1.02); EST Glomerular Filtration Rate 62 mL/min (>60); Est Glom Filt Rate - Afr Amer 76 mL/min (>60); Glucose 126 mg/dL (74-106); Sodium Level 141 mmol/L (136-145)
--- NOTE | 2020-08-23 08:07 | CT_ITS ---
STUDY: CT ABDOMEN AND PELVIS WITH CONTRAST REASON FOR EXAM: Female, 64 years old. Malignant neoplasm of endometrium. Patient presents with a left lower quadrant mass. RADIATION DOSAGE (If Supplied By Facility): CTDIvol = ( 16.78 ) mGy, DLP = ( 1976.73 ) mGycm TECHNIQUE: Transaxial images were obtained from the dome of the diaphragm to the symphysis pubis with oral contrast. Oral and amp;amp; IV Readi-CAT and amp;amp; 100mL Isovue-300 was administered. Sagittal and coronal images were reconstructed. Individualized dose optimization techniques were used for this CT. COMPARISON: Comparison is made with prior study dated 05/03/2020. FINDINGS: Stable minimal linear increased markings at the left lung base suggestive of scarring. Coronary artery calcification. Normal liver. Normal gallbladder and extrahepatic biliary system. Normal spleen. Normal pancreas. Normal bilateral adrenal glands. Normal right kidney. Stable moderate degree of left hydronephrosis and left hydroureter. Normal visualized stomach. Normal small intestine. Normal colon. The appendix is visualized and appears normal. Normal abdominal aorta. There is an IVC filter in place. There is retroperitoneal lymphadenopathy with enlarged nodes greater than 10-15mm in the short axis. 7.2 cm x 6.6 cm complex solid and cystic mass is once again seen in the left hemipelvis. This has increased in size as compared to prior study. Normal urinary bladder. There is absence of the uterus consistent with a prior hysterectomy. Normal abdominal wall. There are degenerative changes of the visualized lumbar spine. Mild loss of white of the superior endplate of the T12 and L1 vertebrae. CT/Abdomen/Pelvis WITH Contrast IMPRESSION: Stable left hydronephrosis and left hydroureter. Enlarged retroperitoneal lymphadenopathy. Since prior study, there has been enlargement of the mass in the left side of the pelvis. Electronically Signed: Og Kaplan MD at 10:13 EDT , Service support ,
== END ==
PROVIDERS: PCP Family Medicine; Referring Provider Obstetrics & Gynecology Gynecologic Oncology; Visit Provider Obstetrics & Gynecology Gynecologic Oncology
DX: C54.1 Malignant neoplasm of endometrium (principal); R19.04 Left lower quadrant abdominal swelling, mass and lump
CPT/HCPCS: 36415; 74177; 80048; Q9967

== ENCOUNTER → 2020-08-29 15:58 | Outpatient (CLI) | payer OTHER, SELFPAY ==
[2020-08-31 09:06] LABS: Cancer Antigen 125 73.4 U/mL (0.0-38.1)
== END ==
PROVIDERS: PCP Family Medicine
DX: C54.1 Malignant neoplasm of endometrium (principal)
CPT/HCPCS: 36415; 86304

== ENCOUNTER → 2020-10-06 12:40 | Outpatient (CLI) | payer OTHER, SELFPAY ==
[2020-09-26 13:32] VITALS: BMI 29.2
--- NOTE | 2020-10-06 12:43 | VDLE_ITS ---
Reason For Study: LLE Swelling RIGHT LEFT CFV is compressible, spontaneous, phasic, Acute deep vein thrombosis is noted in the competent and demonstrates normal left EIV, CFV, ProfundaV, FV, PopV, T/P augmentation. Trunk, PTV and PeroV. Procedure Minimal blood flow noted in the popliteal This is a venous duplex using B-mode, color vein. flow and spectral Doppler. GSV is partially compressible with bright Exam performed in department. intraluminal echoes consistent with Chronic A preliminary report was called and/or faxed GIANLUCAT. adrian Posadas. Pt released home, office will call with instructions. VL/Venous Duplex US, Unilateral Interpretation Summary Extensive deep venous thrombosis left external iliac vein, common femoral vein, profunda femoral vein, femoral vein, popliteal vein, tibioperoneal trunk, posterior tibial vein, and peroneal vein. There is minimal blood flow noted in the left popliteal vein The left great saphenous vein demonstrates bright intraluminal echoes more cons istent with a chronic superficial venous thrombosis The right common femoral vein demonstrates normal patent and compressible flow. Ordering Physician: Cholo Allison Referring Physician: Cindy Griffith Performed By: Dorothea Tapia RVT
== END ==
PROVIDERS: PCP Family Medicine; Referring Provider Obstetrics & Gynecology Gynecologic Oncology; Visit Provider Obstetrics & Gynecology Gynecologic Oncology
DX: M79.89 Other specified soft tissue disorders (principal)
CPT/HCPCS: 93971

== ENCOUNTER 2020-10-06 14:45 | Emergency (ER) | payer OTHER, SELFPAY ==
[2020-09-26 13:32] VITALS: BMI 29.2
[2020-10-06 14:46] VITALS: BP 148/64; PULSE 76; RESP 16; TEMP 36.7; O2SAT 100; BMI 29.0
--- NOTE | 2020-10-06 17:06 | EDS_ITS ---
HPI History of Present Illness Chief Complaint: Lower Extremity Injury Detail of Chief Complaint: Extensive DVT left lower extremity Informant: patient and spouse/S.O. Onset/Context/Timing Onset: Weeks (Approximately 2+ weeks ago) Context: Sudden Onset Timing: Continuous Quality: Left lower extremity swelling Location: Left lower leg Current Severity: Severe Maximum Severity: Severe Worsened by: DVT Relieved by: Nothing Associated Symptoms Associated Symptoms: No associated symptoms Narrative Narrative: Patient is an elderly woman who has history of prior DVT. She was on anticoagulant. 3 days prior to gynecologic surgery for cancer the Eliquis was discontinued. 2 days after surgery the Eliquis was resumed. She started at normal dose of 5 mg twice daily. Patient states day of surgery was September 18. She was discharged on September 20. She noted swelling in the left lower extremity at that time. She noted significant swelling on September 22. Nothing was said to the surgeon until recently. Venous duplex study reveals clot in the left iliac vein, common femoral vein, profunda vein, femoral vein, popliteal vein, TP trunk, PTV. There is minimal blood flow noted which would suggest there is cannulation. She denies chest pain or shortness of breath. She denies dyspnea on exertion. She states she has not missed a dose of her Eliquis since she resumed. Prior similar symptoms: Yes Recent Illness/Hospitalization: Yes [facility] Medical History Diabetes Endometrial cancer Home Medications amlodipine 5 mg PO DAILY #30 tab 07/07/19 [Rx Last Taken Unknown] apixaban 5 mg PO BID #74 tab 07/07/19 [Rx Last Taken Unknown] glipizide-metformin 1 ea PO BID 07/15/19 [History Last Taken Unknown] ondansetron 4 mg PO Q8H PRN PRN #10 tab 07/15/19 [Rx Last Taken Unknown] metformin 500 mg tablet 500 mg PO BID 09/26/20 [History Last Taken Unknown] Allergy/AdvReac Type Severity Reaction Status Date / Time No Known Allergies Allergy Verified 09/26/20 13:35 Family History Mother Diabetes Hypertension Father Diabetes Hypertension Social History household members: spouse number of children: 4 current occupational status: retired Smoking Status: Never smoker alcohol intake: never do you feel safe at home: Yes ROS ROS ED Constitutional Constitutional ED: Denies chills, fever(s), subjective, sweats or weight loss Eyes Eyes: Denies blurry vision, change in vision or diplopia ENT ENT ED: Denies ear pain, rhinorrhea or sore throat Cardiovascular Cardiovascular: Denies chest pain, palpitations or racing heartbeat Respiratory/Chest Respiratory/Chest: Denies cough, dyspnea or dyspnea on exertion Gastrointestinal Gastrointestinal: Denies abdominal pain, nausea or vomiting Musculoskeletal Musculoskeletal: Denies arthralgias, back pain, myalgias or neck pain Integumentary Denies rash Neurologic Neurologic: Denies paresthesias or weakness Hematologic/Lymphatic Hematologic/Lymphatic: Denies easy bleeding, easy bruising or lymphadenopathy EXAM Physical Exam Const Vital Signs: 10/06/20 14:46 Temperature 98.1 F Temperature Source Temporal Pulse Rate 76 Respiratory Rate 16 Blood Pressure 148/64 H Blood Pressure Mean 92 Pulse Ox 100 Oxygen Delivery Method Room Air Positive well nourished, well developed and obese General Appearance ED: well developed and NAD Nutritional Appearance: obese HEENT Reports TM's clear trauma and tenderness Tympanic Membrane ED: Yes TM's clear Eyes PERRL and EOMs intact bilaterally General Eye ED: Negative for pale conjunctiva or scleral icterus Neck no lymphadenopathy, supple and no JVD Chest Wall inspection of chest normal Resp normal respiratory effort and clear to auscultation bilaterally Cardio regular rate, regular rhythm, S1 normal heart sound, S2 normal heart sound and no murmurs GI normal to inspection, nondistended, normoactive bowel sounds and non-tender Palpation: soft Back/Spine no CVA tenderness Cervical Spine: Negative for cervical spine tenderness Thoracic Spine / Upper Back: Negative for thoracic spinal tenderness or paraspi nal muscle tenderness Extremity Negative for normal to inspection Extremity Narrative: Patient has a significantly swollen left lower extremity. There is no evidence of phlegmasia Serola Kalen's or phlegmasia alba dolens. The venous duplex study results were documented in the HPI. General Extremety ED: Yes edema; Negative for tenderness General Extremity: edema Neuro oriented x3, CN's II-XII intact bilaterally and no sensory deficits noted Sensorium / Orientation: alert Motor Exam: strength 5/5 throughout Psych mental status grossly normal Skin no rashes or lesions noted and no wounds MDM MDM MDM Narrative Medical decision making narrative: Based on history it is my professional medical opinion clot probably started on day of discharge and was significantly worse on FridaySeptember 22. Since there is flow noted peripherally 1 would suspect that patient has areas of cannulization through the clot. Case was discussed with general surgery who does filters and treatment of DVT. Recommendation to discuss with hematology and specifically of Lovenox would be preferred versus keeping patient on Eliquis versus as the oncologist recommended admission for treatment. Did speak with drill operator automatic on-call, Dr. Eller. The history was given to him. The venous duplex report was read to him. He agrees since there is flow noted in the popliteal vein and this started approximate 2 weeks ago and there is no evidence of ischemia to left lower extremity nothing further needs to be done especially since she has a Tommy filter in place. Discharge Plan Triage Chief Complaint: Lower Extremity Injury ED Provider: Hasmukh Holbrook Dx/Rx/DC Orders Clinical Impression: Acute deep vein thrombosis (DVT) of iliac vein of left lower extremity Instructions: DVT Complications, DVT Dc Prescriptions: No Action metformin 500 mg tablet 500 mg PO BID RF: 0 amlodipine 5 MG tablet 5 mg PO DAILY Qty: 30 RF: 0 apixaban 5 MG tablet 5 mg PO BID Qty: 74 RF: 0 glipizide-metformin 1 EACH tablet 1 ea PO BID RF: 0 ondansetron 4 MG tablet 4 mg PO Q8H PRN PRN (Reason: Nausea) Qty: 10 RF: 0 Primary Care Provider: Cindy Griffith Referrals: Cindy Griffith MD [Primary Care Provider] - 5-7 Days Activity Restrictions/Additional Instructions: If your leg becomes red and discolored or pale white and you are experiencing increased pain return to the emergency department immediately. If you develop chest pain with shortness of breath return to the emergency department immediately Disposition Disposition: Home, Self Care
[2020-10-06 18:43] VITALS: PULSE 61; RESP 16; O2SAT 100
== END 2020-10-06 18:44 | disposition home or self-care (01) ==
PROVIDERS: Emergency Provider Emergency Medicine; PCP Family Medicine
DX: I82.422 Acute embolism and thrombosis of left iliac vein (principal); I82.412 Acute embolism and thrombosis of left femoral vein; I82.432 Acute embolism and thrombosis of left popliteal vein; I82.442 Acute embolism and thrombosis of left tibial vein; I82.452 Acute embolism and thrombosis of left peroneal vein; Z86.718 Personal history of other venous thrombosis and embolism; C54.1 Malignant neoplasm of endometrium; E11.9 Type 2 diabetes mellitus without complications; Z79.84 Long term (current) use of oral hypoglycemic drugs; Z79.01 Long term (current) use of anticoagulants; Z79.899 Other long term (current) drug therapy
CPT/HCPCS: 99282

== ENCOUNTER → 2020-10-24 15:14 | Outpatient (CLI) | payer OTHER, SELFPAY ==
[2020-10-11 09:23] VITALS: BMI 29.5
== END ==
PROVIDERS: PCP Family Medicine; Referring Provider Family Medicine; Visit Provider Family Medicine
DX: N39.0 Urinary tract infection, site not specified (principal)
CPT/HCPCS: 87077; 87086; 87088

== ENCOUNTER → 2020-11-16 14:11 | Outpatient (CLI) | payer OTHER, SELFPAY ==
[2020-11-16 15:19] LABS: Hemoglobin 10.7 g/dL (12.0-15.0); Mean Corp Hgb Conc 33.4 g/dL (32-36); Mean Corpuscular Hgb 31.8 pg (27.0-32.0); Mean Corpuscular Volume 95.2 fL (81-99); Mean Platelet Vol. 9.8 fl (6.2-12.0); Platelet Count 190 K/mm3 (150-450); RBC Distribution Width CV 13.2 % (11.6-14.6); RBC Distribution Width SD 46.3 fl (35.1-43.9); Red Blood Count 3.36 M/mm3 (4.2-5.4); White Blood Count 3.4 K/mm3 (4.4-11.0)
[2020-11-16 16:01] LABS: Anion Gap 6 (5-15); BUN 14 mg/dL (7-18); BUN/Creat Ratio 17.9 RATIO (10-20); Calcium,Total 8.5 mg/dL (8.5-10.1); Chloride 108 mmol/L (98-107); Creatinine, Serum 0.78 mg/dL (0.55-1.02); EST Glomerular Filtration Rate 78 mL/min (>60); Est Glom Filt Rate - Afr Amer 94 mL/min (>60); Glucose 169 mg/dL (74-106); Potassium 4.3 mmol/L (3.5-5.1); Sodium Level 140 mmol/L (136-145)
== END ==
PROVIDERS: PCP Family Medicine; Referring Provider Obstetrics & Gynecology Gynecologic Oncology; Visit Provider Obstetrics & Gynecology Gynecologic Oncology
DX: C54.1 Malignant neoplasm of endometrium (principal)
CPT/HCPCS: 36415; 80048; 85027

== ENCOUNTER → 2020-11-23 15:04 | Outpatient (CLI) | payer OTHER, SELFPAY ==
--- NOTE | 2020-11-23 15:07 | CT_ITS ---
STUDY: CT CHEST, ABDOMEN T PELVIS WITH CONTRAST REASON FOR EXAM: Female, 65 years old. RESTAGING ENDOMETRIAL CA RADIATION DOSAGE (If Supplied By Facility): CTDIvol = ( 13.77 ) mGy, DLP = ( 1325.78 ) mGycm TECHNIQUE: Transaxial imaging was performed following intravenous administration of IV 100mL Isovue-300. Individualized dose optimization techniques were used for this CT. COMPARISON: No relevant priors. FINDINGS: CHEST The lungs are normal. There is no demonstrated pleural abnormality. Normal heart and pericardium. Normal mediastinum. Normal hilar regions. Normal unenhanced pulmonary arteries. Normal aorta arch and descending thoracic aorta. Normal osseous structures. There is no demonstrated abnormality of the visualized upper abdomen. ABDOMEN The visualized lung bases are unremarkable. The visualized portions of the heart are within normal limits. Normal liver. Normal gallbladder and extrahepatic biliary system. Normal spleen. Normal pancreas. Normal bilateral adrenal glands. Normal right kidney. Ureteral stent with the proximal pigtail within the proximal left ureter with moderate hydronephrosis. Normal visualized stomach. Normal small intestine. Large amount of stool throughout the colon suggestive of constipation. The appendix is visualized and appears normal. Normal abdominal aorta. There is an IVC filter in place. Necrotic left. Periaortic Lymphadenopathy measuring 2 x 3 cm and 2.2 x 2.4 cm. Normal abdominal wall. Mild chronic compression fractures of T12 and L1. PELVIS Normal urinary bladder. Normal visualized small intestine. Large amount of stool throughout the colon suggestive of constipation. There is no pelvic fluid. Necrotic left iliac lymphadenopathy measuring 5.8 x 6.0 cm. Normal visualized pelvic arteries. Normal abdominal wall. Normal osseous structures. CT/CT Chest, Abd, Pel w/Contrast IMPRESSION: 1. Necrotic metastatic left iliac and periaortic lymphadenopathy. 2. Left ureteral stent with the proximal pigtail in the proximal ureter with moderate hydronephrosis. 3. Suspect constipation. Electronically Signed: Mikey Caro MD at 16:10 EDT Tel , Service support ,
== END ==
PROVIDERS: PCP Family Medicine; Referring Provider Obstetrics & Gynecology Gynecologic Oncology; Visit Provider Obstetrics & Gynecology Gynecologic Oncology
DX: C54.1 Malignant neoplasm of endometrium (principal)
CPT/HCPCS: 71260; 74177; Q9967

== ENCOUNTER → 2022-02-05 | Outpatient (CLI) | payer OTHER, SELFPAY ==
--- NOTE | 2022-02-05 14:14 | US_ITS ---
STUDY: ULTRASOUND BREAST - RIGHT REASON FOR EXAM: Female, 66 years old. Abnormal screening mammogram. TECHNIQUE: Axial and longitudinal images of the RIGHT breast were performed with a high resolution ultrasound transducer. # OF IMAGES: 36 COMPARISON: Comparison is made with prior mammogram done earlier today. FINDINGS: RIGHT Breast: The mammographic abnormality corresponds to a 2.3 cm x 2.7 cm x 2.4 cm hypoechoic slightly irregular solid mass at the 9 o''clock position of the breast at 5 to 6 cm from the nipple. There is evidence of increased vascularity. Biopsy recommended. US/Breast Limited Unilateral IMPRESSION: The mammographic and mildly corresponds to a 2.3 cm x 2.7 cm x 2.4 cm hypoechoic slightly irregular mass at the 9 o''clock position the breast at 5-6 on some nipple with increased vascularity. Biopsy recommended. ASSESSMENT CATEGORY: BIRADS Category 5: Highly Suggestive of Malignancy - Appropriate Action Should Be Taken. A letter regarding these results will be sent to the patient by the facility within 30 days. Electronically Signed: Og Kaplan MD at 15:37 EST ,
--- NOTE | 2022-02-05 14:14 | BI_ITS ---
MAMMOGRAPHY - BILATERAL DIAGNOSTIC REASON FOR EXAM: Female, [address] scan. PERTINENT HISTORY: Aunt with breast cancer. Personal history of uterine carcinoma. TECHNIQUE: Digital bilateral breast onur (3D mammographic acquisition) in the CC and MLO projections. 2-D mediolateral oblique (MLO) and craniocaudad (CC) views of both breasts were obtained. CAD: Full Field Digital Mammography with Computer Added Detection was performed. COMPARISON: None. FINDINGS: Breast Composition: The breasts are heterogeneously dense, which may obscure small masses. There is a 2.7 cm x 3 cm mass in the deep central lateral aspect of the right breast. Correlation with ultrasound is recommended. No other significant abnormalities are identified. BI/DIAG MAMM W/CAD, BILAT IMPRESSION: 2.7 cm x 3 cm mass in the deep central lateral aspect of the right breast. Correlation with ultrasound is recommended. ASSESSMENT CATEGORY: BIRADS Category 0: Incomplete. Need additional imaging evaluation. A letter regarding these results will be sent to the patient by the facility within 30 days. Approximately 10% of breast cancers are not detected by mammography. A normal mammogram should not delay biopsy of a clinically suspicious abnormality. Electronically Signed: Og Kaplan MD at 15:30 EST ,
== END | disposition home or self-care (01) ==
LOC: OPBI 14:12
PROVIDERS: PCP Family Medicine; Visit Provider Internal Medicine Hematology & Oncology
DX: N63.11 Unspecified lump in the right breast, upper outer quadrant (principal)
CPT/HCPCS: 76642; 77062; 77066; G0279

== ENCOUNTER 2022-09-18 11:59 | Inpatient (IN) | payer OTHER, SELFPAY ==
[2022-09-18] VITALS (12 sets, daily range): BP systolic 152–185; BP diastolic 73–136; PULSE 70–107; RESP 16–18; TEMP 35.5–37; O2SAT 98–100; BMI 30.3; BMI 25.3
--- NOTE | 2022-09-18 12:22 | EX.ED.DYSGE1 ---
HPI History of Present Illness Chief Complaint: GI Bleed [facility] Medical History Acute deep vein thrombosis (DVT) of iliac vein of left lower extremity Anemia Deep vein thrombosis, lower left extremity Diabetes Diabetes mellitus Endometrial cancer Hematuria History of blood clots Hypertension Lymphedema of left lower extremity Peripheral neuropathy Pre-procedure lab exam Regional lymph node metastasis present Home Medications amlodipine 5 mg tablet 5 mg PO DAILY #30 tabs 07/07/19 [Rx Last Taken Unknown] apixaban 5 mg tablet 5 mg PO BID #74 tabs 07/07/19 [Rx Last Taken Unknown] ondansetron 4 mg disintegrating tablet 4 mg PO Q8H PRN PRN Nausea #10 tabs 07/15/19 [Rx Last Taken Unknown] metformin 500 mg tablet 500 mg PO BID 09/26/20 [History Last Taken Unknown] furosemide 20 mg tablet (Lasix) 20 mg PO DAILY 01/10/22 [History Last Taken Unknown] simethicone 125 mg capsule (Gas-X Extra Strength) 125 mg PO QD-BID PRN 02/13/22 [History Last Taken Unknown] clonidine 0.1 mg/24 hr weekly transdermal patch 1 patch transdermal QWEEK 08/16/22 [History Last Taken Unknown] sodium bicarbonate 325 mg tablet 325 mg PO DAILY 08/16/22 [History Last Taken Unknown] Allergy/AdvReac Type Severity Reaction Status Date / Time No Known Allergies Allergy Verified 08/16/22 11:08 Family History Mother Diabetes Hypertension Father Diabetes Hypertension Surgical History History of section History of excision of pilonidal cyst History of hysterectomy History of laparoscopy S/P insertion of IVC (inferior vena caval) filter Social History household members: spouse number of children: 4 current occupational status: retired Smoking Status: Never smoker second hand exposure: No alcohol intake: never substance use type: does not use diet: vegan yesi/anglican: Restorationism seatbelt use: always do you feel safe at home: Yes EXAM Physical Exam Const Vital Signs: 09/18/22 12:00 09/18/22 13:04 Temperature 95.9 F L Temperature Source Temporal Pulse Rate 107 H 81 Respiratory Rate 18 16 Blood Pressure 164/136 H 162/78 H Blood Pressure Mean 145 106 Pulse Ox 100 99 Oxygen Delivery Method Room Air Room Air [facility] Narrative Medical decision making narrative: HISTORY OF PRESENT ILLNESS: 66-year-old female here with concern for GI bleeding. Told to come in by her oncologist (Dr. Sandhu) who called and provided history states he is concerned about a upper GI bleed in the setting of Eliquis. States her hemoglobin recently has been 7 and down to 5.1 most recently.. The patient states she is not feeling more fatigued, short of breath for the last several days to weeks. She denies any chest pain. My PE risk REVIEW OF SYSTEMS: Pertinent positives: Fatigue, shortness of breath Pertinent negatives: Syncope, chest pain PHYSICAL EXAM: Nursing triage notes reviewed, Vital signs reviewed Constitutional: please see mdm HENT: MMM Eyes: Pupils equal round and reactive to light, Extraocular muscles intact Neck: No stridor, no JVD, full neck ROM Lungs: Clear to auscultation, No wheezing or rales. No increased work of breathing, no conversational dyspnea, no accessory muscle use, no nasal flaring. No respiratory distress noted Heart: Regular rate and rhythm, No murmurs, No rubs and No gallops, 2+ distal pulses (radial, femoral, posterior tibial) in all extremities Abdomen: Soft, there is no tenderness, rigidity, rebound or guarding, no obvious peritoneal signs, no palpable pulsatile abdominal masses, no auscultated abdominal bruit : No CVAT Extremities: No edema Neuro: No focal neurological deficits, cranial nerves II through XII intact, 5/5 strength in all extremities. Intact sensation to light touch in all extremities, 2+ reflexes bilateral patella tendons. Normal gait. No ataxia. Skin: No rash or lesions noted MEDICAL DECISION MAKING: Chief Complaint: GI bleed External records reviewed: Per clinic sync patient is a positive occult blood sample on 09/05/2022 Factors affecting care: On Eliquis Social determinants of health: Elderly History obtained from others: The patient's oncologist Consults: Oncology, internal medicine (Dr. Farah), Gastroenterology (Dr. Rock) ALL IMAGES (IF OBTAINED) HAVE BEEN PERSONALLY REVIEWED AND INTERPRETED BY MYSELF. [facility] Narrative: 66-year-old female here with concern for GI bleed. States has been feeling more fatigued and tired with shortness of breath. has been compliant with Eliquis. Last dose was this morning. I considered the following differential diagnosis: GI bleed, anemia, pneumonia, heart failure, ACS, arrhythmia I obtained a broad lab work-up as well as a chest x-ray. Labs images are unremarkable for I suspect the etiology the patient complaint is anemia induced by GI bleed exacerbated by Eliquis. I did consult gastroenterology Dr. Rock who agrees to follow the patient in the hospital. I did talk to hospitalist as well who accepted the patient's case. The patient and/or family, caregivers express understanding. The patient and/or family, caregivers agrees with the plan. Total critical care time today provided was at least 0 minutes. This excludes separately billable procedures. Critical care time (if documented) is secondary to the patient having high probability of clinically significant/life threatening deterioration in the patient's condition which required my urgent intervention. Shared decision making: I will have a discussion with the patient and or visitors regarding risk/benefits of further testing or admission. They will be made aware of of the risk/benefits inherent in this decision they will be given the opportunity to voice understanding. Lab Data Attestation: I reviewed the patient's lab results. Lab results narrative: CBC with severe anemia, no leukocytosis, no thrombocytopenia BMP without significant [place] abnormalities, anion gap to suggest endorgan hypoperfusion, acute kidney injury noted LFTs show no evidence of hepatobiliary pathology. Troponin is negative, no evidence of myocardial ischemia Labs: Laboratory Results - last 24 hr 09/18/22 09/18/22 09/18/22 12:44 12:44 12:44 WBC 8.9 RBC 1.72 L Hgb 5.4 L* Hct 16.9 L MCV 98.3 MCH 31.4 MCHC 32.0 RDW Std Deviation 54.3 H RDW Coeff of Tiffanie 15.4 H Plt Count 256 MPV 8.9 Immature Gran % (Auto) 1.500 H Neut % (Auto) 91.8 H Lymph % (Auto) 2.7 L [place] % (Auto) 3.9 Eos % (Auto) 0.0 Baso % (Auto) 0.1 Absolute Neuts (auto) 8.2 H Absolute Lymphs (auto) 0.24 L Nucleated RBC % 0.2 Differential Comment SCANNED Diff Path Review May foll Sodium 138 Potassium 4.4 Chloride 112 H Carbon Dioxide 16.0 L Anion Gap 10 BUN 68 H Creatinine 2.92 H Estim Creat Clear Calc 17.93 Est GFR (MDRD) Af Amer 21 L Est GFR (MDRD) Non-Af 17 L BUN/Creatinine Ratio 23.3 H Glucose 177 H Calcium 8.4 L Total Bilirubin 0.30 AST 17 ALT 34 Alkaline Phosphatase 87 Troponin I High Sens 12 Total Protein 6.9 Albumin 3.6 Globulin 3.3 Albumin/Globulin Ratio 1.1 Crossmatch See Detail Radiography Diagnostic Testing: Clinical Impression(s) from Imaging Studies Chest X-Ray 09/18/22 12:52 IMPRESSION: No acute pulmonary process Electronically Signed: Minh Marinelli MD at 13:09 EDT , Discharge Plan Dx/Rx/DC Orders Clinical Impression: Acute GI bleeding, Acute kidney injury Disposition Disposition: Acute Care [facility]
--- NOTE | 2022-09-18 12:52 | RAD_ITS ---
STUDY: X-RAY CHEST REASON FOR EXAM: Female, 66 years old. SOB TECHNIQUE: Single AP portable view of the chest. COMPARISON: CT chest from 2020 FINDINGS: EKG leads overlie the chest The lungs are clear and expanded. There is no demonstrated pleural abnormality. Normal size heart. Normal mediastinum and ken. Normal visualized pulmonary arteries. Normal visualized aortic arch and descending thoracic aorta. There are diffuse degenerative changes of the visualized thoracic spine. Normal visualized ribs, clavicles, and shoulders. There is no demonstrated abnormality of the visualized soft tissue structures of the upper abdomen. RAD/Chest 1 View (Portable) IMPRESSION: No acute pulmonary process Electronically Signed: Minh Marinelli MD at 13:09 EDT ,
[2022-09-18 12:53] LABS: Absolute Lymphocyte Count 0.24 X10^3/uL (0.83-4.51); Absolute Neutrophil Count 8.2 X10^3/uL (2.0-7.7); Basophil# 0.01 X10^3/uL; Basophil% 0.1 % (0-1); Hematocrit 16.9 % (37-47); Lymphocyte # 0.24 X10^3/ul (0.83-4.51); Lymphocyte % 2.7 % (19-41); Mean Corpuscular Hgb 31.4 pg (27.0-32.0); Mean Corpuscular Volume 98.3 fL (81-99); Mean Platelet Vol. 8.9 fl (6.2-12.0); Monocyte# 0.35 X10^3/uL; Monocyte% 3.9 % (0-10); NRBC Flagged by Analyzer 0.2 % (0-5); Neutrophil # 8.17 X10^3/uL (2.7-7.7); Neutrophil % 91.8 % (47-70); POSITIVE COUNT YES; POSITIVE DIFFERENTIAL YES; Platelet Count 256 K/mm3 (150-450); RBC Distribution Width CV 15.4 % (11.6-14.6); RBC Distribution Width SD 54.3 fl (35.1-43.9); Red Blood Count 1.72 M/mm3 (4.2-5.4); White Blood Count 8.9 K/mm3 (4.4-11.0)
[2022-09-18 12:56] LABS: Differential Indicated SCAN CRITERIA MET
[2022-09-18 12:57] LABS: Hemoglobin 5.4 g/dL (12.0-15.0)
[2022-09-18 13:11] LABS: ALB/GLOB Ratio 1.1 RATIO (0.9-2.4); AST(SGOT) 17 U/L (15-37); Alanine Aminotransfer ALT/SGPT 34 U/L (13-56); Albumin, Serum 3.6 g/dL (3.2-5.0); Alkaline Phosphatase 87 U/L (45-117); Anion Gap 10 (5-15); BUN 68 mg/dL (7-18); BUN/Creat Ratio 23.3 RATIO (10-20); Calcium,Total 8.4 mg/dL (8.5-10.1); Chloride 112 mmol/L (98-107); Creatinine, Serum 2.92 mg/dL (0.55-1.02); EST Glomerular Filtration Rate 17 mL/min (>60); Est Glom Filt Rate - Afr Amer 21 mL/min (>60); Estimated Creatinine Clearance 17.93 ml/min; Globulin 3.3 g/dL (2.2-4.2); Glucose 177 mg/dL (74-106); Potassium 4.4 mmol/L (3.5-5.1); Protein, Total 6.9 g/dL (6.4-8.2); Sodium Level 138 mmol/L (136-145); Troponin-I HS 12 pg/mL (3.0-54.0)
[2022-09-18 13:21] LABS: Differential Comment SCANNED
[2022-09-18] MEDS: 0.9% Normal Saline 1,000 ML 999 ML IV (13:24)
[2022-09-18 14:11] LABS: Platelet Count 279 K/mm3 (150-450); RET-HE 29.8 pg (30-35); Reticulocyte Count 4.86 % (0.5-1.5)
--- NOTE | 2022-09-18 14:21 | PCM.HP.STD ---
HPI - General General Date of Admission: 09/18/22 Date of Service: 09/18/22 Chief Complaint: Severe anemia HPI Narrative NEWTON ALANIZ, is a 66 F with a history of endometrial cancer status post total abdominal hysterectomy and bilateral salpingo-oophorectomy, radiation treatment and chemotherapy/immunotherapy and more recently stage I right breast cancer status postlumpectomy, radiation therapy and currently on hormonal therapy. Patient presents to the hospital from oncologist office with severe anemia. Hemoglobin 5.4 from a recent baseline of about 7 and a baseline of about 12 several months ago. Patient also admits to fatigue and easy fatigability and exertional dyspnea and generalized weakness. States that her stools are dark but of note is that she is on iron supplements. Patient has a history of DVT status post IVC filter and currently on Eliquis. She has not noted any bright red blood per rectum and she is known to have hemorrhoids. FOBT in the ED was positive. She denies any abdominal pain nausea vomiting. [facility]MERLY [facility], [facility] Medical History Acute deep vein thrombosis (DVT) of iliac vein of left lower extremity Anemia Deep vein thrombosis, lower left extremity Diabetes Diabetes mellitus Endometrial cancer Hematuria History of blood clots Hypertension Lymphedema of left lower extremity Peripheral neuropathy Pre-procedure lab exam Regional lymph node metastasis present Home Medications simethicone 125 mg capsule (Gas-X Extra Strength) 125 mg PO DAILY PRN GAS RELIEF 02/13/22 [History Last Taken 2 Days Ago ~09/16/22] clonidine 0.1 mg/24 hr weekly transdermal patch 1 patch transdermal FR BLOOD PRESSURE 08/16/22 [History Last Taken 09/13/22] sodium bicarbonate 325 mg tablet 325 mg PO BID HEARTBURN RELIEF 08/16/22 [History Last Taken 09/18/22] amlodipine 10 mg tablet 10 mg PO DAILY BLOOD PRESSURE 09/18/22 [History Last Taken 09/18/22] anastrozole 1 mg tablet 1 mg PO DAILY BREAST CANCER 09/18/22 [History Last Taken 09/18/22] apixaban 5 mg tablet 5 mg PO BID BLOOD THINNER 09/18/22 [History Last Taken 09/18/22] ferrous gluconate 324 mg (38 mg iron) tablet 324 mg PO DAILY SUPPLEMENT 09/18/22 [History Last Taken 09/18/22] multivitamin 1 tab PO DAILY HEALTH MAINTENANCE 09/18/22 [History Last Taken 09/18/22] omeprazole 20 mg capsule,delayed release 20 mg PO DAILY ACID REFLUX 09/18/22 [History Last Taken 09/18/22] prednisone 10 mg tablet See Taper PO UD STEROID 09/18/22 [History Last Taken 09/18/22] sulfamethoxazole 400 mg-trimethoprim 80 mg tablet 1 tab PO DAILY ANTIBIOTIC 09/18/22 [History Last Taken 09/18/22] Allergy/AdvReac Type Severity Reaction Status Date / Time No Known Allergies Allergy Verified 08/16/22 11:08 Family History Mother Diabetes Hypertension Father Diabetes Hypertension Surgical History History of section History of excision of pilonidal cyst History of hysterectomy History of laparoscopy S/P insertion of IVC (inferior vena caval) filter Social History household members: spouse number of children: 4 current occupational status: retired Smoking Status: Never smoker second hand exposure: No alcohol intake: never substance use type: does not use diet: vegan yesi/bahai: Judaism seatbelt use: always do you feel safe at home: Yes ROS ROS Narrative Denies any chest pain or shortness of breath at rest. All other systems reviewed and essentially negative as above in the body of the history. Vital Signs Vital Signs Vital Signs: 09/18/22 12:00 09/18/22 13:04 09/18/22 14:10 Temperature 35.5 C L 36.4 C L Temperature Source Temporal Oral Pulse Rate 107 H 81 82 Respiratory Rate 18 16 18 Blood Pressure 164/136 H 162/78 H 174/83 H Blood Pressure Mean 145 106 113 Pulse Ox 100 99 99 Oxygen Delivery Method Room Air Room Air Room Air Weight Weight: 87.952 kg Body Mass Index (BMI) 30.3 Physical Exam Narrative General exam. Middle-aged woman, not in any obvious distress, not acutely ill looking, just generally weak appearing. Skin. Skin is quite pale. Neck. Neck is supple. Heart. First and second heart sounds heard, occasional ectopics and hemic murmur noted. Lungs. Clear to auscultation Abdomen. Obese. Nontender no organomegaly and no palpable masses. 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 Cranial 2-12 grossly intact. Extremities. No ulcers. Results Medical Records Data Attestation: I reviewed the patient's medical records Lab / Micro Data Attestation: I reviewed the patient's lab results. Result Diagrams: 09/18/22 12:44 09/18/22 12:44 Labs: Laboratory Results - last 24 hr 09/18/22 12:44: WBC 8.9, RBC 1.72 L, Hgb 5.4 L*, Hct 16.9 L, MCV 98.3, MCH 31.4, MCHC 32.0, RDW Std Deviation 54.3 H, RDW Coeff of Tiffanie 15.4 H, Plt Count 256, MPV 8.9, Immature Gran % (Auto) 1.500 H, Neut % (Auto) 91.8 H, Lymph % (Auto) 2.7 L, Tate % (Auto) 3.9, Eos % (Auto) 0.0, Baso % (Auto) 0.1, Absolute Neuts (auto) 8.2 H, Absolute Lymphs (auto) 0.24 L, Nucleated RBC % 0.2, Differential Comment SCANNED, Diff Path Review July09/18/22 12:44: Sodium 138, Potassium 4.4, Chloride 112 H, Carbon Dioxide 16.0 L, Anion Gap 10, BUN 68 H, Creatinine 2.92 H, Estim Creat Clear Calc 17.93, Est GFR (MDRD) Af Amer 21 L, Est GFR (MDRD) Non-Af 17 L, BUN/Creatinine Ratio 23.3 H, Glucose 177 H, Calcium 8.4 L, Total Bilirubin 0.30, AST 17, ALT 34, Alkaline Phosphatase 87, Troponin I High Sens 12, Total Protein 6.9, Albumin 3.6, Globulin 3.3, Albumin/Globulin Ratio 1.1 09/18/22 12:44: Blood Type A NEGATIVE, Antibody Screen NEGATIVE, Crossmatch See Detail 09/18/22 12:44: Retic Count 4.86 H, Immature Retic Fraction 42.40 H, Retic Hgb Equivalent 29.8 L Radiology Impression Chest X-Ray 09/18/22 12:52 IMPRESSION: No acute pulmonary process Electronically Signed: Minh Marinelli MD at 13:09 EDT , Assessment & Plan Assessment/Plan (1) Severe anemia: PLAN: Plan Assessment and plan 1. Severe anemia. Patient is on anticoagulation with Eliquis and has been on steroids and with elevation in BUN this raises the possibility of occult and possible upper GI bleeding. Nonetheless we will need to rule out other possible etiologies especially in light of her history of malignancies and treatments of the same. We will check iron studies, B12, reticulocyte count. 2 units of packed red blood cells being prepared already for transfusion by the ED. we will consult gastroenterology as well. Hold Eliquis. Keep n.p.o. after midnight. 2. Elevated BUN and creatinine. Based on patient report, she has had renal impairment for several months now which has been attributed to the Keytruda she was receiving. Was referred to a stress engineer and has been on steroids. Wonder if AIN. Unsure what patient's new baseline is. We will give gentle IV fluids and transfusion as above. 3. Endometrial cancer and breast cancer status post surgery, radiation, chemotherapy, immunotherapy and currently on hormonal therapy for breast cancer. Charges/Coding Visit Charges Inpatient E&M: 05972 Init Hosp L3
[2022-09-18 15:58] LABS: Ferritin 12 ng/mL (8-252); Iron 123 ug/dL (50-170); Iron Binding Capacity,Total 369 ug/dL (250-450); PERCENT IRON SATURATION 33.3 % (15.0-55.0)
[2022-09-18 18:04] LABS: Vitamin B12 > 2000 pg/mL (211-911)
[2022-09-18] MEDS: Polyethylene Glycol 3350 BOWEL PREP PO (18:14)
[2022-09-18] MEDS: Bisacodyl 5 MG Tablet 20 MG PO (18:14)
--- NOTE | 2022-09-18 18:16 | CON.PCM.GI_ITS ---
HPI Consult Data Date of Consult: 09/18/22 HPI Narrative Reason for Consultation: GI bleed HPI Narrative: NEWTON ALANIZ, is a 66 F who presents with dark stools, fatigue and weakness.with concern for GI bleeding.?She was told to come in by her oncologist (Dr. Sandhu) who called and provided history states he is concerned about a upper GI bleed in the setting of Eliquis.? States her hemoglobin recently has been 7 and down to 5.1 most recently..? The patient states she is not feeling more fatigued, short of breath for the last several days to weeks.? She was diagnosed with recurrent endometrial adenocarcinoma status post LATRELL/BSO, adjuvant chemotherapy completed November 2019, CT abdomen/pelvis and exploratory laparotomy and placement of left ureteral stent as well as biopsy .? She is now diagnosed with Stage IA (pT1b (m) N0 (sn) Mx) grade 2 invasive ductal carcinoma of the right breast s/p lumpectomy and SLNBx . I was consulted for management of anemia and possible GI blood loss. She has never had a colonoscopy. [facility] Medical History Acute deep vein thrombosis (DVT) of iliac vein of left lower extremity Anemia Deep vein thrombosis, lower left extremity Diabetes Diabetes mellitus Endometrial cancer Hematuria History of blood clots Hypertension Lymphedema of left lower extremity Peripheral neuropathy Pre-procedure lab exam Regional lymph node metastasis present Home Medications simethicone 125 mg capsule (Gas-X Extra Strength) 125 mg PO DAILY PRN GAS RELIEF 02/13/22 [History Last Taken 2 Days Ago ~09/16/22] clonidine 0.1 mg/24 hr weekly transdermal patch 1 patch transdermal FR BLOOD PRESSURE 08/16/22 [History Last Taken 09/13/22] sodium bicarbonate 325 mg tablet 325 mg PO BID HEARTBURN RELIEF 08/16/22 [History Last Taken 09/18/22] amlodipine 10 mg tablet 10 mg PO DAILY BLOOD PRESSURE 09/18/22 [History Last Taken 09/18/22] anastrozole 1 mg tablet 1 mg PO DAILY BREAST CANCER 09/18/22 [History Last Taken 09/18/22] apixaban 5 mg tablet 5 mg PO BID BLOOD THINNER 09/18/22 [History Last Taken 09/18/22] ferrous gluconate 324 mg (38 mg iron) tablet 324 mg PO DAILY SUPPLEMENT 09/18/22 [History Last Taken 09/18/22] multivitamin 1 tab PO DAILY HEALTH MAINTENANCE 09/18/22 [History Last Taken 09/18/22] omeprazole 20 mg capsule,delayed release 20 mg PO DAILY ACID REFLUX 09/18/22 [History Last Taken 09/18/22] prednisone 10 mg tablet See Taper PO UD STEROID 09/18/22 [History Last Taken 09/18/22] sulfamethoxazole 400 mg-trimethoprim 80 mg tablet 1 tab PO DAILY ANTIBIOTIC 09/18/22 [History Last Taken 09/18/22] Allergy/AdvReac Type Severity Reaction Status Date / Time No Known Allergies Allergy Verified 08/16/22 11:08 Family History Mother Diabetes Hypertension Father Diabetes Hypertension Surgical History History of section History of excision of pilonidal cyst History of hysterectomy History of laparoscopy S/P insertion of IVC (inferior vena caval) filter Social History household members: spouse number of children: 4 current occupational status: retired Smoking Status: Never smoker second hand exposure: No alcohol intake: never substance use type: does not use diet: vegan yesi/yazidism: Orthodoxy seatbelt use: always do you feel safe at home: Yes ROS ROS Narrative Denies any chest pain or shortness of breath at rest. All other systems reviewed and essentially negative as above in the body of the history. Physical Exam Narrative General exam. Middle-aged woman, not in any obvious distress, not acutely ill looking, just generally weak appearing. Skin. Skin is quite pale. Neck. Neck is supple. Heart. First and second heart sounds heard, occasional ectopics and hemic murmur noted. Lungs. Clear to auscultation Abdomen. Obese. Nontender no organomegaly and no palpable masses. 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 Cranial 2-12 grossly intact. Extremities. No ulcers. Lab / Micro Data Result Diagrams: 09/18/22 12:44 09/18/22 12:44 Labs: Laboratory Results - last 24 hr 09/18/22 12:44: WBC 8.9, RBC 1.72 L, Hgb 5.4 L*, Hct 16.9 L, MCV 98.3, MCH 31.4, MCHC 32.0, RDW Std Deviation 54.3 H, RDW Coeff of Tiffanie 15.4 H, Plt Count 256, MPV 8.9, Immature Gran % (Auto) 1.500 H, Neut % (Auto) 91.8 H, Lymph % (Auto) 2.7 L, Weld % (Auto) 3.9, Eos % (Auto) 0.0, Baso % (Auto) 0.1, Absolute Neuts (auto) 8.2 H, Absolute Lymphs (auto) 0.24 L, Nucleated RBC % 0.2, Differential Comment SCANNED, Diff Path Review July09/18/22 12:44: Sodium 138, Potassium 4.4, Chloride 112 H, Carbon Dioxide 16.0 L , Anion Gap 10, BUN 68 H, Creatinine 2.92 H, Estim Creat Clear Calc 17.93, Est GFR (MDRD) Af Amer 21 L, Est GFR (MDRD) Non-Af 17 L, BUN/Creatinine Ratio 23.3 H , Glucose 177 H, Calcium 8.4 L, Total Bilirubin 0.30, AST 17, ALT 34, Alkaline Phosphatase 87, Troponin I High Sens 12, Total Protein 6.9, Albumin 3.6, Globulin 3.3, Albumin/Globulin Ratio 1.1 09/18/22 12:44: Blood Type A NEGATIVE, Antibody Screen NEGATIVE, Crossmatch See Detail 09/18/22 12:44: Retic Count 4.86 H, Immature Retic Fraction 42.40 H, Retic Hgb Equivalent 29.8 L 09/18/22 12:44: Iron 123, TIBC 369, Iron Saturation 33.3, Ferritin 12 09/18/22 16:56: Vitamin B12 > 2000 H Radiology Impression Chest X-Ray 09/18/22 12:52 IMPRESSION: No acute pulmonary process Electronically Signed: Minh Marinelli MD at 13:09 EDT , Assessment & Plan Assessment/Plan (1) Severe anemia: PLAN: Plan 66-year-old with past medical history of breast cancer and endometrial cancer with metastasis status post radiation, chemotherapy and Keytruda who was recently started on prednisone therapy. She presents with fatigue and weakness and was discovered to have a hemoglobin of 5.1. Assessment and plan 1. Severe anemia. Patient is on anticoagulation with Eliquis and has been on steroids and with elevation in BUN this raises the possibility of occult and possible upper GI bleeding. She will undergo an upper and lower endoscopy to evaluate upper and lower GI tract. She is never had a colonoscopy in the past. She is high risk for colon malignancy due to history of endometrial and breast cancer. I suspect it is an upper GI bleed secondary to elevated BUN/creatinine ratio in a patient that recently started on prednisone. Recommend Protonix 40 mg IV every 12 hours. 2. Elevated BUN and creatinine. Based on patient report, she has had renal impairment for several months now which has been attributed to the Keytruda she was receiving. Was referred to a light technician and has been on steroids. Wonder if AIN. Unsure what patient's new baseline is. We will give gentle IV fluids and transfusion as above. 3. Endometrial cancer and breast cancer status post surgery, radiation, chemotherapy, immunotherapy and currently on hormonal therapy for breast cancer. Charges/Coding Visit Charges Inpatient E&M: 68879 Init Hosp L3
[2022-09-18] MEDS: 0.9% Normal Saline 1,000 ML 75 ML IV (18:51)
[2022-09-18] MEDS: Sodium Bicarbonate 650 MG Tablet 325 MG PO (21:37)
[2022-09-18] MEDS: Magnesium Hydroxide 30 ML UDC PO (23:16)
[2022-09-18] MEDS: 0.9% Saline Lock 10 ML Syringe IV (23:17)
[2022-09-18] MEDS: Ondansetron 4 MG/2 ML Vial IV (23:17)
[2022-09-19] VITALS (17 sets, daily range): BP systolic 122–193; BP diastolic 71–88; PULSE 72–81; RESP 16–18; TEMP 36.5–36.8; O2SAT 96–100; BMI 25.3
[2022-09-19] MEDS: hydrALAZINE 20 MG/ML Vial 5 MG IV (03:12)
[2022-09-19] MEDS: Metoclopramide 10 MG/2 ML Vial 5 MG IV (03:14)
[2022-09-19] MEDS: 0.9% Saline Lock 10 ML Syringe IV ×4 (03:15→18:38)
[2022-09-19] MEDS: 0.9% Normal Saline 1,000 ML 75 ML IV ×2 (05:04→22:21)
[2022-09-19 05:45] LABS: Absolute Lymphocyte Count 0.26 X10^3/uL (0.83-4.51); Basophil# 0.01 X10^3/uL; Basophil% 0.1 % (0-1); Hematocrit 24.3 % (37-47); Lymphocyte # 0.26 X10^3/ul (0.83-4.51); Lymphocyte % 2.1 % (19-41); Mean Corp Hgb Conc 32.9 g/dL (32-36); Mean Corpuscular Hgb 29.7 pg (27.0-32.0); Mean Corpuscular Volume 90.3 fL (81-99); Mean Platelet Vol. 8.5 fl (6.2-12.0); Monocyte# 0.76 X10^3/uL; Monocyte% 6.3 % (0-10); NRBC Flagged by Analyzer 0.2 % (0-5); Neutrophil # 10.96 X10^3/uL (2.7-7.7); Neutrophil % 90.1 % (47-70); POSITIVE DIFFERENTIAL YES; Platelet Count 250 K/mm3 (150-450); RBC Distribution Width CV 19.1 % (11.6-14.6); RBC Distribution Width SD 62.7 fl (35.1-43.9); Red Blood Count 2.69 M/mm3 (4.2-5.4); White Blood Count 12.2 K/mm3 (4.4-11.0)
[2022-09-19 05:46] LABS: Differential Indicated SCAN CRITERIA MET
[2022-09-19] MEDS: Labetalol (Prefilled) 20 MG/4 ML 10 MG IV (05:48)
[2022-09-19 05:53] LABS: International Normalized Ratio 1.3; Prothrombin Time (Protime)PT. 15.9 SECONDS (11.7-14.9)
[2022-09-19 05:54] LABS: Partial Thromboplast Time 25.9 Seconds (24.1-36.2)
[2022-09-19 06:04] LABS: Differential Comment SCANNED
[2022-09-19 06:05] LABS: Hypochromasia RARE
[2022-09-19 06:11] LABS: ALB/GLOB Ratio 1.1 RATIO (0.9-2.4); AST(SGOT) 20 U/L (15-37); Alanine Aminotransfer ALT/SGPT 39 U/L (13-56); Albumin, Serum 3.4 g/dL (3.2-5.0); Alkaline Phosphatase 90 U/L (45-117); Anion Gap 8 (5-15); BUN 66 mg/dL (7-18); BUN/Creat Ratio 23.2 RATIO (10-20); Calcium,Total 8.6 mg/dL (8.5-10.1); Chloride 113 mmol/L (98-107); Creatinine, Serum 2.84 mg/dL (0.55-1.02); EST Glomerular Filtration Rate 18 mL/min (>60); Est Glom Filt Rate - Afr Amer 21 mL/min (>60); Estimated Creatinine Clearance 18.44 ml/min; Globulin 3.1 g/dL (2.2-4.2); Glucose 231 mg/dL (74-106); Magnesium 1.8 mg/dL (1.6-2.6); Phosphorus 5.4 mg/dL (2.5-4.9); Potassium 4.4 mmol/L (3.5-5.1); Protein, Total 6.5 g/dL (6.4-8.2); Sodium Level 138 mmol/L (136-145); Thyroid Stim Hormone (TSH) 1.24 uIU/mL (0.358-3.74)
[2022-09-19 08:54] LABS: Hemoglobin A1c 5.1 % (3.8-5.6)
--- NOTE | 2022-09-19 09:01 | PCM.PN.HOSP ---
Subjective Subjective Doing well, hemoglobin is 2:08 units of blood transfusion so he was an appropriate correction Objective Data Objective Data Vital Signs: Vital Signs Temp Pulse Resp BP Pulse Ox O2 Del Method 97.8 F 81 18 172/76 H 100 Room Air 09/19/22 04:24 09/19/22 04:24 09/19/22 04:24 09/19/22 06:21 09/19/22 04:24 09/19/22 04:24 Oxygen Delivery Method Room Air Weight: 161 lb 13.109 oz Body Mass Index (BMI) 25.3 Intake & Output: Intake and Output for Last 24 Hours 09/18/22 09/19/22 09/20/22 03:59 03:59 03:59 Intake Total 2019 766.25 / 766.25 Balance 2019 766.25 / 766.25 Lab / Micro Data Result Diagrams: 09/19/22 05:30 09/19/22 05:30 Labs: Laboratory Results - last 24 hr 09/18/22 12:44: WBC 8.9, RBC 1.72 L, Hgb 5.4 L*, Hct 16.9 L, MCV 98.3, MCH 31.4, MCHC 32.0, RDW Std Deviation 54.3 H, RDW Coeff of Tiffanie 15.4 H, Plt Count 256, MPV 8.9, Immature Gran % (Auto) 1.500 H, Neut % (Auto) 91.8 H, Lymph % (Auto) 2.7 L, Billings % (Auto) 3.9, Eos % (Auto) 0.0, Baso % (Auto) 0.1, Absolute Neuts (auto) 8.2 H, Absolute Lymphs (auto) 0.24 L, Nucleated RBC % 0.2, Differential Comment SCANNED, Diff Path Review July09/18/22 12:44: Sodium 138, Potassium 4.4, Chloride 112 H, Carbon Dioxide 16.0 L, Anion Gap 10, BUN 68 H, Creatinine 2.92 H, Estim Creat Clear Calc 17.93, Est GFR (MDRD) Af Amer 21 L, Est GFR (MDRD) Non-Af 17 L, BUN/Creatinine Ratio 23.3 H, Glucose 177 H, Calcium 8.4 L, Total Bilirubin 0.30, AST 17, ALT 34, Alkaline Phosphatase 87, Troponin I High Sens 12, Total Protein 6.9, Albumin 3.6, Globulin 3.3, Albumin/Globulin Ratio 1.1 09/18/22 12:44: Blood Type A NEGATIVE, Antibody Screen NEGATIVE, Crossmatch See Detail 09/18/22 12:44: Retic Count 4.86 H, Immature Retic Fraction 42.40 H, Retic Hgb Equivalent 29.8 L 09/18/22 12:44: Iron 123, TIBC 369, Iron Saturation 33.3, Ferritin 12 09/18/22 16:56: Vitamin B12 > 2000 H 09/19/22 05:30: WBC 12.2 H, RBC 2.69 L, Hgb 8.0 L, Hct 24.3 L, MCV 90.3 D, MCH 29.7, MCHC 32.9, RDW Std Deviation 62.7 H, RDW Coeff of Tiffanie 19.1 H, Plt Count 250, MPV 8.5, Immature Gran % (Auto) 1.400 H, Neut % (Auto) 90.1 H, Lymph % (Auto) 2.1 L, Billings % (Auto) 6.3, Eos % (Auto) 0.0, Baso % (Auto) 0.1, Absolute Neuts (auto) 11.0 H, Absolute Lymphs (auto) 0.26 L, Nucleated RBC % 0.2, Differential Comment SCANNED, Hypochromasia RARE 09/19/22 05:30: Sodium 138, Potassium 4.4, Chloride 113 H, Carbon Dioxide 17.0 L, Anion Gap 8, BUN 66 H, Creatinine 2.84 H, Estim Creat Clear Calc 18.44, Est GFR (MDRD) Af Amer 21 L, Est GFR (MDRD) Non-Af 18 L, BUN/Creatinine Ratio 23.2 H, Glucose 231 H, Calcium 8.6, Phosphorus 5.4 H, Magnesium 1.8, Total Bilirubin 0.70, AST 20, ALT 39, Alkaline Phosphatase 90, Total Protein 6.5, Albumin 3.4, Globulin 3.1, Albumin/Globulin Ratio 1.1, TSH 1.24 09/19/22 05:30: PT 15.9 H, INR 1.3, APTT 25.9 09/19/22 05:30: Hemoglobin A1c 5.1 Radiography Diagnostic Testing: Radiology Impression Chest X-Ray 09/18/22 12:52 IMPRESSION: No acute pulmonary process Electronically Signed: Minh Marinelli MD at 13:09 EDT , Physical Exam Narrative General: Alert, Oriented x3, Cooperative, No apparent distress HEENT: Atraumatic, PERRLA, EOMI, Normocephalic, pale Oral: Moist Mucosa Neck: Supple, No JVD Lungs: Diminished, Normal air movement, No rhonchi, No wheeze, No rales Cardiovascular: Regular rate, Regular Rhythm, Normal S1, Normal S2, no murmurs Abdomen: Soft, Non Tender, Non-Distended, No Hepato-splenomegaly Extremities: No edema, Capillary Refill Less than 3 Seconds Skin: No rashes, No breakdown Musculoskeletal: No Tenderness to Palpation of Joints or Extremities Neurological: Motor Exam 5/5 strength throughout, Sensory exam intact to light touch and pain Psych/Mental Status: Normal Affect, Appropriate Assessment & Plan Assessment/Plan (1) Severe anemia: PLAN: Plan 1. Acute blood loss anemia/iron deficiency anemia ? Possibly due to upper GI bleed EGD is pending ? Continue with twice daily Protonix ? Of concern is her anticoagulation with Eliquis ? Her GI bleeding is potentially complicated by being on prednisone for her recent kidney failure that she is seeing a [facility] supervisor drapery hanging for ? We will continue with her iron replacement ?Hemoccult is positive 2. HTN ? Stable ? Continue with her home blood pressure medications 3. History of endometrial cancer and breast cancer status post surgery, radiation, chemotherapy, immunotherapy ? Currently undergoing hormonal therapy for breast cancer which we will continue DVT: SCDs Charges/Coding Visit Charges Inpatient E&M: 71207 Subs Hosp L2
--- NOTE | 2022-09-19 09:19 | NURSING ---
This RN went in to talk to pt about getting started with another gallon of prep per Dr. Rock. Pt stated she was nauseated and vomitted despite antimetics given last night with prep. 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 Pt does not think she can take more prep and refused at this time. Pt states Dr. Luis said she could have an NG tube and not the prep. Preeit, Charge Nurse is unaware of any plans for this pt. Dr. Rock was notfied this morning around 0715 via [employer] that pt is not clear. Ronit from [facility] is also aware.
[2022-09-19] MEDS: proCHLORPERazine 10 MG/2 ML Vial 5 MG IV (10:17)
[2022-09-19] MEDS: Electrolyte Solution/Peg's 4000 ML PO (10:57)
--- NOTE | 2022-09-19 11:55 | CASEMGMT ---
MATILDE HODGE Discharge Planning Assessment: Face to Face with patient for initial transition planning/care coordination assessment.?MATILDE HODGE introduced self and role at [facility], Pt alert, oriented, voices understanding and is agreeable to participating in assessment.? Care providers, pharmacy,?and demographics verified. ? Admitting Dx: Anemia PCP: Nacho Specialists: Edson (oncologist), Allison (radiation oncology), neurologist and vascular specialist both in [facility] Preferred Pharmacy: [facility] Insurance: MMO Prescription Benefit: Yes? Living Will/HPOA: none LNOK: spouse [place] Living Arrangements: Pt resides with her spouse in a single story home with a few steps to enter. Pt denies any concerns with navigating steps. Pt states she is independent with ADLs and IADLs Transportation: pt drives and family is able to assist if needed DME: has a cane and walker available if needed but does not use routinely. shower chair SNF/HHC: none Plan: Pt plans to return home with the support of her family and denies any dc needs at this time. Will continue to monitor and assist with DC needs as identified. Olimpia Rosado RN CM
[2022-09-19] MEDS: Ondansetron 4 MG/2 ML Vial IV (12:50)
[2022-09-19 13:42] LABS: Pathologist Review Reviewed
--- NOTE | 2022-09-19 14:56 | NURSING ---
Pt leaving floor at this time via bed to go to [facility].
--- NOTE | 2022-09-19 16:32 | OP.EGD_ITS ---
Patient Name: Thais Dubose Procedure Date: 09/19/2022 4:00 PM Date of : 1955 Age: 66 Procedure: Upper GI endoscopy Indications: Iron deficiency anemia Providers: Yousif Rock DO Medicines: Monitored Anesthesia Care Patient Profile: This is a 66 year old female. Refer to note in patient chart for documentation of history and physical. Patient has symptoms of acute nausea. Complications: No immediate complications. Procedure: Pre-Anesthesia Assessment: - Prior to the procedure, a History and Physical was performed, and patient medications and allergies were reviewed. The patient is competent. The risks and benefits of the procedure and the sedation options and risks were discussed with the patient. All questions were answered and informed consent was obtained. Patient identification and proposed procedure were verified by the physician in the pre-procedure area. Mental Status Examination: alert and oriented. Airway Examination: normal oropharyngeal airway and neck mobility. Respiratory Examination: clear to auscultation. CV Examination: normal. Prophylactic Antibiotics: The patient does not require prophylactic antibiotics. Prior Anticoagulants: The patient has taken no previous anticoagulant or antiplatelet agents. ASA Grade Assessment: II - A patient with mild systemic disease. After reviewing the risks and benefits, the patient was deemed in satisfactory condition to undergo the procedure. The anesthesia plan was to use monitored anesthesia care (MAC). Immediately prior to administration of medications, the patient was re-assessed for adequacy to receive sedatives. The heart rate, respiratory rate, oxygen saturations, blood pressure, adequacy of pulmonary ventilation, and response to care were monitored throughout the procedure. The physical status of the patient was re-assessed after the procedure. After obtaining informed consent, the endoscope was passed under direct vision. Throughout the procedure, the patient's blood pressure, pulse, and oxygen saturations were monitored continuously. The Endoscope was introduced through the mouth, and advanced to the second part of duodenum. The upper GI endoscopy was accomplished without difficulty. The patient tolerated the procedure well. Scope In: 4:23:05 PM Scope Out: 4:25:41 PM Total Procedure Duration Time 0 hours 2 minutes 36 seconds Findings: Non-severe esophagitis with no bleeding was found 34 to 37 cm from the incisors. Biopsies were taken with a cold forceps for histology. Verification of patient identification for the specimen was done. Estimated blood loss was minimal. A hiatal hernia was present. No other significant abnormalities were identified in a careful examination of the stomach. No gross lesions were noted in the second portion of the duodenum. Impression: - Non-severe non-erosive esophagitis. Biopsied. - Hiatal hernia. - No gross lesions in the second portion of the duodenum. Recommendation: - [facility] to [facility] care. - Resume previous diet. - Continue present medications. Procedure Code(s): --- Professional --- 26539, Esophagogastroduodenoscopy, flexible, transoral; with biopsy, single or multiple CPT copyright 2017 [employer]. All rights reserved. The codes documented in this report are preliminary and upon certified procedural coder review may be revised to meet current compliance requirements. Yousif Rock DO 09/19/2022 4:32:05 PM This report has been signed electronically. Number of Addenda: 0 Note Initiated On: 09/19/2022 4:00 PM
--- NOTE | 2022-09-19 16:33 | OP.CCLET_ITS ---
09/19/2022 Cindy Griffith [place] [id number] [address] Re : Upper GI endoscopy procedure for Thais Dubose Dear Dr. Griffith This procedure was performed on , September 19, 2022. My impressions and recommendations are as follows: Impressions : - Non-severe non-erosive esophagitis. Biopsied. - Hiatal hernia. - No gross lesions in the second portion of the duodenum. Recommendations : - [facility] patient to [facility]. - Resume previous diet. - Continue present medications. My findings are described in the full procedure note, which is enclosed. If I can be of further assistance, please feel free to contact me at . Sincerely, Yousif Rock, 09/19/2022 4:32:05 PM This report has been signed electronically.
[2022-09-19] MEDS: predniSONE 10 MG Tablet 60 MG PO (18:11)
[2022-09-19] MEDS: amLODIPine 10 MG Tablet PO (18:12)
[2022-09-19] MEDS: hydrALAZINE 20 MG/ML Vial 10 MG IV (18:37)
[2022-09-19 18:40] LABS: Hemoglobin 8.8 g/dL (12.0-15.0)
[2022-09-19] MEDS: Sodium Bicarbonate 650 MG Tablet 325 MG PO (20:34)
[2022-09-20] VITALS (11 sets, daily range): BP systolic 107–204; BP diastolic 49–132; PULSE 62–100; RESP 16–18; TEMP 36.2–37.1; O2SAT 96–100; BMI 25.4
[2022-09-20 05:39] LABS: Absolute Lymphocyte Count 0.23 X10^3/uL (0.83-4.51); Absolute Neutrophil Count 6.9 X10^3/uL (2.0-7.7); Hematocrit 26.6 % (37-47); Hemoglobin 9.1 g/dL (12.0-15.0); Lymphocyte # 0.23 X10^3/ul (0.83-4.51); Lymphocyte % 3.2 % (19-41); Mean Corp Hgb Conc 34.2 g/dL (32-36); Mean Corpuscular Hgb 31.2 pg (27.0-32.0); Mean Corpuscular Volume 91.1 fL (81-99); Mean Platelet Vol. 8.4 fl (6.2-12.0); Monocyte# 0.08 X10^3/uL; Monocyte% 1.1 % (0-10); NRBC Flagged by Analyzer 0 % (0-5); Neutrophil # 6.92 X10^3/uL (2.7-7.7); Neutrophil % 94.7 % (47-70); POSITIVE DIFFERENTIAL YES; Platelet Count 248 K/mm3 (150-450); RBC Distribution Width CV 19.1 % (11.6-14.6); RBC Distribution Width SD 63.8 fl (35.1-43.9); Red Blood Count 2.92 M/mm3 (4.2-5.4); White Blood Count 7.3 K/mm3 (4.4-11.0)
[2022-09-20 05:42] LABS: Differential Indicated SCAN CRITERIA MET
[2022-09-20 05:51] LABS: International Normalized Ratio 1.2; Prothrombin Time (Protime)PT. 15.5 SECONDS (11.7-14.9)
[2022-09-20 05:52] LABS: Partial Thromboplast Time 25.7 Seconds (24.1-36.2)
[2022-09-20 06:10] LABS: Anion Gap 12 (5-15); BUN 61 mg/dL (7-18); BUN/Creat Ratio 20.2 RATIO (10-20); Calcium,Total 8.5 mg/dL (8.5-10.1); Chloride 116 mmol/L (98-107); Creatinine, Serum 3.02 mg/dL (0.55-1.02); EST Glomerular Filtration Rate 16 mL/min (>60); Est Glom Filt Rate - Afr Amer 20 mL/min (>60); Estimated Creatinine Clearance 17.34 ml/min; Glucose 196 mg/dL (74-106); Potassium 4.6 mmol/L (3.5-5.1); Sodium Level 145 mmol/L (136-145)
[2022-09-20 06:18] LABS: Differential Comment SCANNED
[2022-09-20] MEDS: 0.9% Normal Saline 1,000 ML 75 ML IV (07:52)
[2022-09-20] MEDS: Ondansetron 4 MG/2 ML Vial IV (07:52)
[2022-09-20] MEDS: hydrALAZINE 20 MG/ML Vial 10 MG IV (07:52)
--- NOTE | 2022-09-20 11:05 | NURSING ---
off unit for procedure
--- NOTE | 2022-09-20 11:28 | NURSING ---
pt remains off unit for procedure
--- NOTE | 2022-09-20 13:10 | NURSING ---
pt remains off unit
--- NOTE | 2022-09-20 13:21 | OP.COLON_ITS ---
Patient Name: Thais Dubose Procedure Date: 09/20/2022 12:22 PM Date of : 1955 Age: 66 Procedure: Colonoscopy Indications: Iron deficiency anemia Providers: Yousif Rock DO Medicines: Monitored Anesthesia Care Patient Profile: This is a 66 year old female. Refer to note in patient chart for documentation of history and physical. Last Colonoscopy: none. The patient's first colonoscopy is today. Complications: No immediate complications. Procedure: Pre-Anesthesia Assessment: - Prior to the procedure, a History and Physical was performed, and patient medications and allergies were reviewed. The patient is competent. The risks and benefits of the procedure and the sedation options and risks were discussed with the patient. All questions were answered and informed consent was obtained. Patient identification and proposed procedure were verified by the physician. Mental Status Examination: alert and oriented. Airway Examination: normal oropharyngeal airway and neck mobility. Respiratory Examination: clear to auscultation. CV Examination: normal. Prophylactic Antibiotics: The patient does not require prophylactic antibiotics. Prior Anticoagulants: The patient has taken Coumadin (warfarin), last dose was 1 day prior to procedure. ASA Grade Assessment: III - A patient with severe systemic disease. After reviewing the risks and benefits, the patient was deemed in satisfactory condition to undergo the procedure. The anesthesia plan was to use monitored anesthesia care (MAC). Immediately prior to administration of medications, the patient was re-assessed for adequacy to receive sedatives. The heart rate, respiratory rate, oxygen saturations, blood pressure, adequacy of pulmonary ventilation, and response to care were monitored throughout the procedure. The physical status of the patient was re-assessed after the procedure. After I obtained informed consent, the scope was passed under direct vision. Throughout the procedure, the patient's blood pressure, pulse, and oxygen saturations were monitored continuously. The pediatric colonoscope was introduced through the anus and advanced to the cecum, identified by the appendiceal orifice, ileocecal valve and palpation. The colonoscopy was performed without difficulty. Scope In: 12:36:41 PM Scope Withdrawal Time 0 hours 9 minutes 19 seconds Scope Out: 12:59:23 PM Total Procedure Duration Time 0 hours 22 minutes 42 seconds Findings: The perianal and digital rectal examinations were normal. A few small-mouthed diverticula were found in the recto-sigmoid colon and sigmoid colon. Impression: - Diverticulosis in the recto-sigmoid colon and in the sigmoid colon. - No specimens collected. Recommendation: - Discharge patient to home. - Resume previous diet. - Continue present medications. - Repeat colonoscopy in 10 years for screening purposes. Procedure Code(s): --- Professional --- 06720, Colonoscopy, flexible; diagnostic, including collection of specimen(s) by brushing or washing, when performed (separate procedure) CPT copyright 2017 [employer]. All rights reserved. The codes documented in this report are preliminary and upon low heel builder review may be revised to meet current compliance requirements. Yousif Rock DO 09/20/2022 1:21:08 PM This report has been signed electronically. Number of Addenda: 0 Note Initiated On: 09/20/2022 12:22 PM
--- NOTE | 2022-09-20 13:21 | OP.CCLET_ITS ---
09/20/2022 Cindy Griffith [place] [id number] [address] Re : Colonoscopy procedure for Thais Dubose Dear Dr. Griffith This procedure was performed on Tuesday, September 20, 2022. My impressions and recommendations are as follows: Impressions : - Diverticulosis in the recto-sigmoid colon and in the sigmoid colon. - No specimens collected. Recommendations : - Discharge patient to home. - Resume previous diet. - Continue present medications. - Repeat colonoscopy in 10 years for screening purposes. My findings are described in the full procedure note, which is enclosed. If I can be of further assistance, please feel free to contact me at . Sincerely, Yousif Rock, 09/20/2022 1:21:08 PM This report has been signed electronically.
--- NOTE | 2022-09-20 13:43 | CASEMGMT ---
Social Work SW met w/pt briefly, offered support. Pt states has supportive family, has 4 children, , and 5 grandchildren. Pt states they are all supportive. No further needs at this time, SW available should any supportive needs arise, it is anticipated pt will go home today. MATTHIAS Conley
--- NOTE | 2022-09-20 14:02 | NURSING ---
pt being dc'd-wishes to take all her meds at home
--- NOTE | 2022-09-20 14:16 | DCINST_ITS ---
Discharge Instructions Diet Discharge Diet: Low fat / Low cholesterol Activity Discharge Activity: Return to Normal Activity Dressing / Incision Call your doctor if you observe: Fever of 101 or Higher, Shortness of breath, Dizziness, Fainting spells, Swelling in the ankles, Chest pain and Increased palpitations (irregular heartbeat) Follow Up Care Test Results: Test results from this visit will be discussed in further detail at your follow- up appointment, if applicable. Discharge Plan Admission Admit Date/Time: 09/18/22 14:10 Attending Provider: Jono Luis Primary Care Provider: Cindy Griffith Consulting Providers: Yousif Rock ; Madiha Farah Instructions Additional Instructions / Restrictions: Follow-up with your PCP in 3 to 5 days to obtain outpatient lab work to monitor your anemia. Discharge Orders/Prescriptions Prescriptions: Continued simethicone [Gas-X Extra Strength] 125 mg capsule 125 mg PO DAILY PRN (Reason: GAS RELIEF) clonidine 0.1 mg/24 hr patch weekly 1 patch transdermal FR sodium bicarbonate 325 mg tablet 325 mg PO BID multivitamin Tablet 1 tab PO DAILY anastrozole 1 mg tablet 1 mg PO DAILY prednisone 10 mg tablet See Taper PO UD Taper: Prednisone Taper 60 mg DAILY for 7 Days and 0 Hour 40 mg DAILY for 7 Days and 0 Hour 30 mg DAILY for 7 Days and 0 Hour 20 mg DAILY for 7 Days and 0 Hour 10 mg DAILY for 7 Days and 0 Hour 5 mg DAILY for 14 Days and 0 Hour sulfamethoxazole-trimethoprim 400-80 mg tablet 1 tab PO DAILY amlodipine 10 mg tablet 10 mg PO DAILY ferrous gluconate 324 mg (38 mg iron) Tablet 324 mg PO DAILY apixaban 5 MG tablet 5 mg PO BID Sutab 1.479-0.188- 0.225 gram tablet See Rx Instructions PO PER PKG DIR Qty: 24 0RF Rx Instructions: PO PER PKG DIR Changed omeprazole 20 mg capsule,delayed release(DR/EC) 40 mg PO DAILY Qty: 1 0RF Referrals / Follow Up: Cindy Griffith MD [Primary Care Provider] - Within 1 Week Disposition Disposition (needs filled in before D/C Order can be placed): Home, Self Care
--- NOTE | 2022-09-20 14:20 | DS.PCM_ITS ---
Providers Date of Admission: 09/18/22 Primary Care Physician: Dr. Cindy Griffith MD Consultations 09/18/22 14:09 Consult: Gastroenterology Routine Consulting Provider: Ra Pranavhsaan Reason for Consult: possible occult GI bleeding EMERGENT Consult: No MD Notified: Yes Date Notified: 09/18/22 Time Notified: 14:10 Method of Notification: via backline Reason For Visit: SEVERE ANEMIA Diagnosis Discharge Diagnosis (1) Severe anemia: Status: Acute Code(s): D64.9 - Anemia, unspecified Medications at Discharge Home Medications simethicone 125 mg capsule (Gas-X Extra Strength) 125 mg PO DAILY PRN GAS RELIEF 02/13/22 clonidine 0.1 mg/24 hr weekly transdermal patch 1 patch transdermal FR BLOOD PRESSURE 08/16/22 sodium bicarbonate 325 mg tablet 325 mg PO BID HEARTBURN RELIEF 08/16/22 amlodipine 10 mg tablet 10 mg PO DAILY BLOOD PRESSURE 09/18/22 anastrozole 1 mg tablet 1 mg PO DAILY BREAST CANCER 09/18/22 apixaban 5 mg tablet 5 mg PO BID BLOOD THINNER 09/18/22 ferrous gluconate 324 mg (38 mg iron) tablet 324 mg PO DAILY SUPPLEMENT 09/18/22 multivitamin 1 tab PO DAILY HEALTH MAINTENANCE 09/18/22 prednisone 10 mg tablet See Taper PO UD STEROID 09/18/22 sulfamethoxazole 400 mg-trimethoprim 80 mg tablet 1 tab PO DAILY ANTIBIOTIC 09/18/22 sodium sul 1.479 gram-potas ch 0.188 gram-magnes sul 0.225 gram tablet (Sutab) See Rx Instructions PO PER PKG DIR #24 tabs 09/19/22 omeprazole 20 mg capsule,delayed release 40 mg PO DAILY ACID REFLUX #1 cap 08/30 06/20 Hospital Course Operations None Procedures Colonoscopy and EGD Summary of Care Provided Minutes Spent on Discharge: 36 Hospital Course: Per HPI: NEWTON ALANIZ, is a 66 F with a history of endometrial cancer status post total abdominal hysterectomy and bilateral salpingo-oophorectomy, radiation treatment and chemotherapy/immunotherapy and more recently stage I right breast cancer status postlumpectomy, radiation therapy and currently on hormonal therapy.? Patient presents to the hospital from oncologist office with severe anemia.? Hemoglobin 5.4 from a recent baseline of about 7 and a baseline of about 12 several months ago.? Patient also admits to fatigue and easy fatigability and exertional dyspnea and generalized weakness.? States that her stools are dark but of note is that she is on iron supplements.? Patient has a history of DVT status post IVC filter and currently on Eliquis.? She has not noted any bright red blood per rectum and she is known to have hemorrhoids.? FOBT in the ED was positive.? She denies any abdominal pain nausea vomiting. Hospital Course: 1. Acute anemia iron deficiency versus anemia of chronic disease?66-year-old female presented to the hospital from her oncologist office with significant anemia. Her hemoglobin on arrival was 5.4. She was transfused 2 units and she corrected today on the day of discharge to 9.1. She did have a colonoscopy and an EGD both of which did not show any source of bleeding. Initially there was concern for possible gastric ulcer secondary to the prednisone she is on as an outpatient, but this was ruled out. We will increase her omeprazole to 40 mg daily p.o. I discussed with her the plan for discharge today she expressed understanding of the risk benefits of going home and would like to go home today. I do recommend that she follow-up with her PCP in 3 to 5 days for outpatient monitoring of her hemoglobin. 2. Chemo induced renal failure?history of endometrial cancer and breast cancer?she is on steroids for this and in discussion with nephrology who has access to her outpatient lab work, her renal function today of 3.02 is baseline for her. We will recommend that she follow-up with her look out tower fire watcher as an outpatient continue with the steroid taper that she has been prescribed. 3. Hypertension, DVTs are chronic medical conditions which complicate her care. Her home medications were continued where appropriate since there is no obvious source of bleeding she can restart her Eliquis. Physical Exam Narrative General: Alert, Oriented x3, Cooperative, No apparent distress HEENT: Atraumatic, PERRLA, EOMI, Normocephalic, pale Oral: Moist Mucosa Neck: Supple, No JVD Lungs: Diminished, Normal air movement, No rhonchi, No wheeze, No rales Cardiovascular: Regular rate, Regular Rhythm, Normal S1, Normal S2, no murmurs Abdomen: Soft, Non Tender, Non-Distended, No Hepato-splenomegaly Extremities: No edema, Capillary Refill Less than 3 Seconds Skin: No rashes, No breakdown Musculoskeletal: No Tenderness to Palpation of Joints or Extremities Neurological: Motor Exam 5/5 strength throughout, Sensory exam intact to light touch and pain Psych/Mental Status: Normal Affect, Appropriate Weight / BMI Weight Weight: 161 lb 13.109 oz Body Mass Index (BMI) 25.4 ABG / Lab / Microbiology Data Result Diagrams: 09/20/22 05:25 09/20/22 05:25 Laboratory: Laboratory Results - last 24 hr 09/19/22 18:32: Hgb 8.8 L, Hct 26.0 L 09/20/22 05:25: WBC 7.3, RBC 2.92 L, Hgb 9.1 L, Hct 26.6 L, MCV 91.1, MCH 31.2, MCHC 34.2, RDW Std Deviation 63.8 H, RDW Coeff of [place]iff[place] 19.1 H, Plt Count 248, MPV 8.4, Immature Gran % (Auto) 1.000 H, Neut % (Auto) 94.7 H, Lymph % (Auto) 3.2 L, [place] % (Auto) 1.1, Eos % (Auto) 0.0, Baso % (Auto) 0.0, Absolute Neuts (auto) 6.9, Absolute Lymphs (auto) 0.23 L, Nucleated RBC % 0, Differential Comment SCANNED 09/20/22 05:25: Sodium 145, Potassium 4.6, Chloride 116 H, Carbon Dioxide 17.0 L , Anion Gap 12, BUN 61 H, Creatinine 3.02 H, Estim Creat Clear Calc 17.34, Est GFR (MDRD) Af Amer 20 L, Est GFR (MDRD) Non-Af 16 L, BUN/Creatinine Ratio 20.2 H , Glucose 196 H, Calcium 8.5 09/20/22 05:25: PT 15.5 H, INR 1.2, APTT 25.7 D/C Instructions Discharge Diet: Low fat / Low cholesterol Call your doctor if you observe: Fever of 101 or Higher, Shortness of breath, Dizziness, Fainting spells, Swelling in the ankles, Chest pain and Increased palpitations (irregular heartbeat) Meaningful Use Info Meaningful Use Diagnoses (Choose all that apply): None applicable Discharge Plan Admission Admit Date/Time: 09/18/22 14:10 Attending Provider: Jono Luis Primary Care Provider: Cindy Griffith Consulting Providers: Yousif Rock ; Madiha Farah Instructions Additional Instructions / Restrictions: Follow-up with your PCP in 3 to 5 days to obtain outpatient lab work to monitor your anemia. Discharge Orders/Prescriptions Prescriptions: Continued simethicone [Gas-X Extra Strength] 125 mg capsule 125 mg PO DAILY PRN (Reason: GAS RELIEF) clonidine 0.1 mg/24 hr patch weekly 1 patch transdermal FR sodium bicarbonate 325 mg tablet 325 mg PO BID multivitamin Tablet 1 tab PO DAILY anastrozole 1 mg tablet 1 mg PO DAILY prednisone 10 mg tablet See Taper PO UD Taper: Prednisone Taper 60 mg DAILY for 7 Days and 0 Hour 40 mg DAILY for 7 Days and 0 Hour 30 mg DAILY for 7 Days and 0 Hour 20 mg DAILY for 7 Days and 0 Hour 10 mg DAILY for 7 Days and 0 Hour 5 mg DAILY for 14 Days and 0 Hour sulfamethoxazole-trimethoprim 400-80 mg tablet 1 tab PO DAILY amlodipine 10 mg tablet 10 mg PO DAILY ferrous gluconate 324 mg (38 mg iron) Tablet 324 mg PO DAILY apixaban 5 MG tablet 5 mg PO BID Sutab 1.479-0.188- 0.225 gram tablet See Rx Instructions PO PER PKG DIR Qty: 24 0RF Rx Instructions: PO PER PKG DIR Changed omeprazole 20 mg capsule,delayed release(DR/EC) 40 mg PO DAILY Qty: 1 0RF Referrals / Follow Up: Cindy Griffith MD [Primary Care Provider] - Within 1 Week Disposition Disposition (needs filled in before D/C Order can be placed): Home, Self Care Charges/Coding Visit Charges Inpatient E&M: 00000 Disch Hosp >30min
--- NOTE | 2022-09-20 15:17 | PHA.DC.MC ---
Pharmacy Service has performed discharge medication reconciliation and counseling for this patient. The patient was counseled on the following discharge medications and changes in medications for homegoing were reviewed. 1. PRILOSEC --> DOSE CHANGED FROM 20MG PO DAILY TO 40MG PO DAILY The Reason for Use, instructions for use, and potential side effects were reviewed for all new medications. The patient's questions regarding all of their medications were answered. The patient was able to verbally demonstrate an understanding of their discharge medications. Home Medications simethicone 125 mg capsule (Gas-X Extra Strength) 125 mg PO DAILY PRN GAS RELIEF 02/13/22 clonidine 0.1 mg/24 hr weekly transdermal patch 1 patch transdermal FR BLOOD PRESSURE 08/16/22 sodium bicarbonate 325 mg tablet 325 mg PO BID HEARTBURN RELIEF 08/16/22 amlodipine 10 mg tablet 10 mg PO DAILY BLOOD PRESSURE 09/18/22 anastrozole 1 mg tablet 1 mg PO DAILY BREAST CANCER 09/18/22 apixaban 5 mg tablet 5 mg PO BID BLOOD THINNER 09/18/22 ferrous gluconate 324 mg (38 mg iron) tablet 324 mg PO DAILY SUPPLEMENT 09/18/22 multivitamin 1 tab PO DAILY HEALTH MAINTENANCE 09/18/22 prednisone 10 mg tablet See Taper PO UD STEROID 09/18/22 sulfamethoxazole 400 mg-trimethoprim 80 mg tablet 1 tab PO DAILY ANTIBIOTIC 09/18/22 sodium sul 1.479 gram-potas ch 0.188 gram-magnes sul 0.225 gram tablet (Sutab) See Rx Instructions PO PER PKG DIR #24 tabs 09/19/22 omeprazole 20 mg capsule,delayed release 40 mg PO DAILY ACID REFLUX #1 cap 09/20/22 The patient's discharge medication list was reviewed for discrepancies and discrepancies were resolved.
== END 2022-09-20 15:35 | disposition home or self-care (01) | DRG 378 ==
LOC: ED 13:39 → MS3 14:29
PROVIDERS: Anesthesiology; Internal Medicine Gastroenterology; Admitting Provider Internal Medicine; Emergency Provider Emergency Medicine; PCP Family Medicine; Visit Provider Family Medicine
PROC: 0DJD8ZZ Inspection of Lower Intestinal Tract, Via Natural or Artificial Opening Endoscopic (ICD-10-PCS; CPT 45378; principal; 2022-09-19 11:25)
DX: K92.2 Gastrointestinal hemorrhage, unspecified (principal); D62 Acute posthemorrhagic anemia; N17.9 Acute kidney failure, unspecified; C50.911 Malignant neoplasm of unspecified site of right female breast; E11.42 Type 2 diabetes mellitus with diabetic polyneuropathy; I10 Essential (primary) hypertension; K44.9 Diaphragmatic hernia without obstruction or gangrene; K57.30 Diverticulosis of large intestine without perforation or abscess without bleeding; K20.90 Esophagitis, unspecified without bleeding; T45.1X5A Adverse effect of antineoplastic and immunosuppressive drugs, initial encounter; Z79.01 Long term (current) use of anticoagulants; Z79.811 Long term (current) use of aromatase inhibitors; Z79.2 Long term (current) use of antibiotics; Z79.899 Other long term (current) drug therapy; Z92.21 Personal history of antineoplastic chemotherapy; Z92.3 Personal history of irradiation; Z85.42 Personal history of malignant neoplasm of other parts of uterus; Z86.718 Personal history of other venous thrombosis and embolism
CPT/HCPCS: 36415; 71045; 80048; 80053; 82607; 82728; 83036; 83540; 83550; 83735; 84100; 84443; 84484; 85014; 85018; 85025; 85045; 85610; 85730; 86850; 86900; 86901; 86920; 86922; 93005; 99284; J7030; J7040; J7120; P9016; A4216; J2405

== ENCOUNTER 2022-09-24 08:42 | Outpatient (CLI) | payer OTHER, SELFPAY ==
[2022-09-24] MEDS: 0.9% NaCl Peripheral Flush Adult/Peds IV (08:56)
[2022-09-24 08:57] VITALS: BP 156/78; PULSE 62; RESP 16; TEMP 36.3; O2SAT 100; BMI 30.9
[2022-09-24 09:24] VITALS: BP 158/79; PULSE 61; RESP 14; TEMP 36.2; O2SAT 98
[2022-09-24 10:24] VITALS: BP 189/78; PULSE 66; RESP 16; TEMP 36.3
[2022-09-24 11:24] VITALS: BP 180/81; PULSE 67; RESP 16; TEMP 36.2; O2SAT 100
[2022-09-24 12:02] VITALS: BP 182/85; PULSE 79; RESP 16; TEMP 36.1; O2SAT 99
[2022-09-24 13:02] VITALS: BP 185/86; PULSE 72; RESP 16; TEMP 36.2
== END 2022-09-24 08:43 | disposition home or self-care (01) ==
LOC: MEDOUTP 08:42
PROVIDERS: PCP Family Medicine; Referring Provider Internal Medicine Hematology & Oncology; Visit Provider Internal Medicine Hematology & Oncology
DX: N18.9 Chronic kidney disease, unspecified (principal); D63.1 Anemia in chronic kidney disease
CPT/HCPCS: 36430; 86850; 86900; 86901; 86920; 86922; J7040; P9016; A4216

== ENCOUNTER 2022-10-08 20:32 | Emergency (ER) | payer OTHER, SELFPAY ==
[2022-10-08 20:33] VITALS: BP 232/116; PULSE 71; RESP 15; TEMP 36.4; O2SAT 100; BMI 32.4
[2022-10-08 21:49] VITALS: PULSE 68; RESP 15; O2SAT 98
--- NOTE | 2022-10-08 22:08 | EKG12_ITS ---
Test Reason : DYSRHYTHMIA Blood Pressure : / mmHG Vent. Rate : 064 BPM Atrial Rate : 064 BPM P-R Int : 140 ms QRS Dur : 082 ms QT Int : 416 ms P-R-T Axes : 057 047 041 degrees QTc Int : 429 ms Normal sinus rhythm Normal ECG Confirmed by TALI FLYNN, MARBELLA ([id number]), editor department LILIAN RAYMOND ([id number]) on 10/09/2022 10:46:43 AM Referred By: GAIL Confirmed By:MARBELLA CESAR MD
--- NOTE | 2022-10-08 22:09 | EX.ED.DYSGE1 ---
HPI <Dr. Ling Dockery DO - Last Filed: 10/09/22 01:08> History of Present Illness Chief Complaint: Hypertension Informant: patient Narrative Narrative: Patient is a 66-year-old female with history of endometrial cancer, right breast cancer, hypertension and diabetes mellitus as well as CKD presenting with elevated blood pressure reading. Patient appointment for radiation therapy today and her blood pressure was elevated (235/101). She is currently on 10 mg of amlodipine as well as a clonidine patch 0.1 mg per 24-hour. She is on a 7-week steroid taper due to diminished kidney function thought to be secondary to her Keytruda which she has been taken off of. She states she is 3 weeks left of this taper. Patient also notes that she was recently admitted for anemia and actually had an EGD and colonoscopy with Dr. Rock. She is currently not taking her Eliquis. She did receive a blood transfusion. She she had blood work yesterday. She had blurry vision a few weeks ago but has no acute complaints today. She states she only came in when her oncologist told her to come in because of elevated blood pressure. She denies any chest pain, shortness of breath difficulty breathing. She denies any numbness or tingling. Notes that since starting the steroid she has had elevated blood pressure readings at home as well and also states that she has been having worsening of her left lower leg. [facility] <Dr. Ling Dockery DO - Last Filed: 10/09/22 01:08> [facility] Medical History Acute deep vein thrombosis (DVT) of iliac vein of left lower extremity Acute kidney injury Anemia Deep vein thrombosis, lower left extremity Diabetes Diabetes mellitus Endometrial cancer Hematuria History of blood clots Hypertension Lymphedema of left lower extremity Peripheral neuropathy Pre-procedure lab exam Regional lymph node metastasis present Home Medications clonidine 0.1 mg/24 hr weekly transdermal patch 1 patch transdermal FR BLOOD PRESSURE 08/16/22 [History Last Taken 09/13/22] sodium bicarbonate 325 mg tablet 325 mg PO BID HEARTBURN RELIEF 08/16/22 [History Last Taken 09/18/22] amlodipine 10 mg tablet 10 mg PO DAILY BLOOD PRESSURE 09/18/22 [History Last Taken 09/18/22] anastrozole 1 mg tablet 1 mg PO DAILY BREAST CANCER 09/18/22 [History Last Taken 09/18/22] ferrous gluconate 324 mg (38 mg iron) tablet 324 mg PO DAILY SUPPLEMENT 09/18/22 [History Last Taken 09/18/22] multivitamin 1 tab PO DAILY HEALTH MAINTENANCE 09/18/22 [History Last Taken 09/18/22] prednisone 10 mg tablet See Taper PO UD STEROID 09/18/22 [History Last Taken 09/18/22] sulfamethoxazole 400 mg-trimethoprim 80 mg tablet 1 tab PO DAILY ANTIBIOTIC 09/18/22 [History Last Taken 09/18/22] omeprazole 20 mg capsule,delayed release 40 mg (2 x 20 mg) PO DAILY ACID REFLUX #1 cap 09/20/22 [Rx Last Taken 09/18/22] apixaban 5 mg tablet (Eliquis) mg 10/08/22 [History Last Taken Unknown] hydralazine 50 mg tablet 50 mg PO TID #90 tabs 10/09/22 [Rx Last Taken Unknown] Allergy/AdvReac Type Severity Reaction Status Date / Time No Known Allergies Allergy Verified 10/08/22 14:39 Family History Mother Diabetes Hypertension Father Diabetes Hypertension Surgical History History of section History of excision of pilonidal cyst History of hysterectomy History of laparoscopy S/P insertion of IVC (inferior vena caval) filter Social History household members: spouse number of children: 4 current occupational status: retired Smoking Status: Never smoker second hand exposure: No alcohol intake: never substance use type: does not use diet: vegan yesi/episcopalian: Restorationist seatbelt use: always do you feel safe at home: Yes ROS <Dr. Ling Dockery DO - Last Filed: 10/09/22 01:08> ROS ED Constitutional Constitutional ED: Denies chills or fever(s) Eyes Eyes: Reports blurry vision Cardiovascular Cardiovascular: Denies chest pain or palpitations Respiratory/Chest Respiratory/Chest: Denies cough or dyspnea Gastrointestinal Gastrointestinal: Denies abdominal pain, nausea or vomiting Musculoskeletal Musculoskeletal: Reports other Details: Lower extremity edema, left worse than right ; Denies arthralgias or myalgias Integumentary Denies rash Neurologic Neurologic: Denies headache(s), paresthesias or weakness Psychiatric Psychiatric: Denies anxiety Hematologic/Lymphatic Hematologic/Lymphatic: Reports easy bruising EXAM <Dr. Ling Dockery, DO - Last Filed: 10/09/22 01:08> Physical Exam Const Vital Signs: 10/08/22 20:33 10/08/22 21:49 10/08/22 21:57 Temperature 97.5 F L Temperature Source Temporal Pulse Rate 71 68 Respiratory Rate 15 15 Respiratory Effort Non-Labored Respiratory Pattern Normal Blood Pressure 232/116 H Blood Pressure Mean 154 Pulse Ox 100 98 Oxygen Delivery Method Room Air Room Air 10/08/22 22:31 10/08/22 23:55 10/09/22 02:00 Temperature Temperature Source Pulse Rate 64 68 64 Respiratory Rate 16 15 15 Respiratory Effort Respiratory Pattern Blood Pressure 218/95 H 220/97 H 240/110 H Blood Pressure Mean 136 138 153 Pulse Ox 99 98 99 Oxygen Delivery Method Room Air Room Air Room Air 10/09/22 03:10 Temperature Temperature Source Pulse Rate 64 Respiratory Rate 12 Respiratory Effort Respiratory Pattern Blood Pressure 230/100 H Blood Pressure Mean 143 Pulse Ox 99 Oxygen Delivery Method Room Air Positive well nourished and well developed General Appearance ED: well developed and NAD HEENT Reports moist mucous membranes Eyes PERRL and EOMs intact bilaterally Neck supple and no JVD Chest Wall inspection of chest normal and palpation of chest normal Resp normal respiratory effort and clear to auscultation bilaterally Cardio regular rate, regular rhythm and no murmurs GI normal to inspection, nondistended, normoactive bowel sounds and non-tender Extremity Extremity Narrative: Significant pitting edema of the left lower extremity compared to the right. Compartments are soft. No deformity appreciated. Neuro oriented x3, CN's II-XII intact bilaterally and no sensory deficits noted Motor Exam: strength 5/5 throughout Psych mental status grossly normal Skin no rashes or lesions noted and no wounds <Dr. Reymundo Vela, DO - Last Filed: 10/09/22 03:27> Physical Exam Const Vital Signs: 10/08/22 20:33 10/08/22 21:49 10/08/22 21:57 Temperature 97.5 F L Temperature Source Temporal Pulse Rate 71 68 Respiratory Rate 15 15 Respiratory Effort Non-Labored Respiratory Pattern Normal Blood Pressure 232/116 H Blood Pressure Mean 154 Pulse Ox 100 98 Oxygen Delivery Method Room Air Room Air 10/08/22 22:31 10/08/22 23:55 10/09/22 02:00 Temperature Temperature Source Pulse Rate 64 68 64 Respiratory Rate 16 15 15 Respiratory Effort Respiratory Pattern Blood Pressure 218/95 H 220/97 H 240/110 H Blood Pressure Mean 136 138 153 Pulse Ox 99 98 99 Oxygen Delivery Method Room Air Room Air Room Air 10/09/22 03:10 Temperature Temperature Source Pulse Rate 64 Respiratory Rate 12 Respiratory Effort Respiratory Pattern Blood Pressure 230/100 H Blood Pressure Mean 143 Pulse Ox 99 Oxygen Delivery Method Room Air [facility] <Dr. Ling Dockery, DO - Last Filed: 10/09/22 01:08> [facility] Narrative Medical decision making narrative: Patient evaluated for asymptomatic hypertension. She has no complaints at this time besides having elevated blood pressure reading. She did not initially want to come in but only came in at the insistence of her oncologist. She had blood work done yesterday which is reviewed by myself on Clinisync-CBC showed a hemoglobin of 8.4, Hemacrit of 25, white blood cell count of 5.62 and platelets of 111. BMP showed glucose of 174, BUN of 56, creatinine of 3.09, chloride of 111, sodium 141, CO2 of 16 with an anion gap of 14. EKG does not show any acute ischemic changes. This is asymptomatic hypertension. Her labs are at her baseline. She does not have shortness of breath/flash pulm edema, acute stroke, ACS or acute renal failure. Patient is given hydralazine orally in the ER. She has some mild improvement is still hypertensive and we will give her a dose of clonidine. Goal is for blood pressure reduction of 20%. Outpatient likely will be started on oral hydralazine. I did speak with her oncologist, Dr. Sandhu, who states she has been referred to sergeant of officers that specializes in oncologic patients at the [facility]. He will continue to follow-up with her outpatient. As patient is asymptomatic do not think she needs admission for this as it also sounds like she is had ongoing issues of high blood pressure for the least the past month. Patient does have clot in her greater saphenous vein but does not go into the femoral vein. It appears that this is likely more chronic if she does not have a prior chronic clot in that vein as well. Possible this could be superficial thrombophlebitis. I do not think she requires acute anticoagulation in this. This is also discussed with her oncologist who is agreeable. Radiography Diagnostic Testing: Clinical Impression(s) from Imaging Studies Venous Duplex 10/08/22 22:14 IMPRESSION: 1. Nonocclusive thrombus within the left greater saphenous vein near the junction of the common femoral vein consistent with superficial thrombophlebitis. No thrombus seen extending into the common femoral vein. 2. No evidence of deep venous thrombosis of the left lower extremity. Electronically Signed: Baldev Morton DO at 23:58 EDT , Rhythm Strip Rhythm Strip: Sinus Rhythm Rate: 64 Ectopy: None EKG Initial EKG: Attestation: I personally reviewed and interpreted this EKG as follows: Interpretation: Sinus Rhythm Comments: Normal sinus rhythm rate of 64 bpm Normal axis Normal intervals Normal ST segments Management Discussion w/another healthcare provider: [employer] <Dr. Reymundo Vela, - Last Filed: 10/09/22 03:27> MDM Radiography Diagnostic Testing: Clinical Impression(s) from Imaging Studies Venous Duplex 10/08/22 22:14 IMPRESSION: 1. Nonocclusive thrombus within the left greater saphenous vein near the junction of the common femoral vein consistent with superficial thrombophlebitis. No thrombus seen extending into the common femoral vein. 2. No evidence of deep venous thrombosis of the left lower extremity. Electronically Signed: Baldev Morton DO at 23:58 EDT , Treatment and Re-Evaluation Comments:: The patient was signed out to me while awaiting possible improvement of her blood pressure with medication. Despite adding further oral intervention there was no further improvement in her blood pressure. The patient was reevaluated and she is neurologically intact and awake and alert with GCS of 15. Her lab work that was done in the last 24 hours shows chronic kidney disease without acute kidney injury present and EKG reveals no signs of cardiovascular event or acute coronary syndrome. Therefore at this time patient does not have signs of endorgan damage. I discussed with patient the potential of placing an IV and providing IV medication to see if this helps reduce blood pressure between 15 and 25% or even possible admission secondary to the persistent hypertension. As she does not have signs of endorgan damage and there is reason for her persistent hypertension and the high-dose steroid and recent development of chronic kidney disease the patient states that she would prefer to treat this with further oral medications on an outpatient basis. The patient is awake and alert and competent to make this decision. At this time blood pressure remains elevated but she has no signs of endorgan. The treatment options have been reviewed with the patient at this time we will comply with her wishes and she will continue oral medications on outpatient basis as blood pressure will most likely remain high secondary to her persistent high-dose oral steroid use. Discharge Plan Triage Chief Complaint: Hypertension ED Provider: Ling Dockery Dx/Rx/DC Orders Clinical Impression: Hypertension, Anemia, CKD (chronic kidney disease), Leg edema, left Instructions: ED Peripheral Edema, Bilateral Prescriptions: New hydralazine 50 mg tablet 50 mg PO TID Qty: 90 0RF No Action clonidine 0.1 mg/24 hr patch weekly 1 patch transdermal FR sodium bicarbonate 325 mg tablet 325 mg PO BID multivitamin Tablet 1 tab PO DAILY anastrozole 1 mg tablet 1 mg PO DAILY prednisone 10 mg tablet See Taper PO UD Taper: Prednisone Taper 60 mg DAILY for 7 Days and 0 Hour 40 mg DAILY for 7 Days and 0 Hour 30 mg DAILY for 7 Days and 0 Hour 20 mg DAILY for 7 Days and 0 Hour 10 mg DAILY for 7 Days and 0 Hour 5 mg DAILY for 14 Days and 0 Hour sulfamethoxazole-trimethoprim 400-80 mg tablet 1 tab PO DAILY Hold Instructions: PT NOT TAKING amlodipine 10 mg tablet 10 mg PO DAILY ferrous gluconate 324 mg (38 mg iron) Tablet 324 mg PO DAILY omeprazole 20 mg capsule,delayed release(DR/EC) 40 mg PO DAILY Qty: 1 0RF Eliquis 5 mg tablet Hold Instructions: PT WAS TOLD NOT TO TAKE IT FOR NOW Patient Comments: TAKE 1 TABLET BY MOUTH TWICE A DAY Primary Care Provider: Cindy Griffith Referrals: Cindy Griffith MD [Primary Care Provider] - Activity Restrictions/Additional Instructions: Your EKG was normal today. No signs of acute heart stress. Your labs from yesterday are stable. Please continue to follow-up patient with your sergeant of officers and oncologist. We will start her on new blood pressure medicine to try to slowly bring it down. Continue your clonidine patch and amlodipine as well. Disposition Disposition: Home, Self Care
--- NOTE | 2022-10-08 22:14 | US_ITS ---
INDICATION: LT LEG SWELLING EXAMINATION: Ultrasound US Venous Duplex LE Unilat / Limited TECHNIQUE: Rodgers scale, pulse wave, and color flow Doppler imaging was performed of the left lower extremity venous system. The left greater saphenous, common femoral, femoral and popliteal veins were interrogated. COMPARISON: None. FINDINGS: No evidence of an intraluminal thrombus within the deep veins. There is nonocclusive thrombus seen within the left greater saphenous vein near the junction of the common femoral vein. The veins are compressible. Color and wave-form images appear normal. US/Venous Duplex Imag/Limited/Uni IMPRESSION: 1. Nonocclusive thrombus within the left greater saphenous vein near the junction of the common femoral vein consistent with superficial thrombophlebitis. No thrombus seen extending into the common femoral vein. 2. No evidence of deep venous thrombosis of the left lower extremity. Electronically Signed: Baldev Morton DO at 23:58 EDT ,
[2022-10-08] MEDS: hydrALAZINE 50 MG Tablet PO (22:27)
[2022-10-08 22:31] VITALS: BP 218/95; PULSE 64; RESP 16; O2SAT 99
[2022-10-08 23:55] VITALS: BP 220/97; PULSE 68; RESP 15; O2SAT 98
[2022-10-09] MEDS: cloNIDine HCl 0.1 MG Tablet PO (00:36)
[2022-10-09 02:00] VITALS: BP 240/110; PULSE 64; RESP 15; O2SAT 99
[2022-10-09] MEDS: hydrALAZINE 50 MG Tablet 100 MG PO (02:08)
[2022-10-09 03:10] VITALS: BP 230/100; PULSE 64; RESP 12; O2SAT 99
== END 2022-10-09 03:32 | disposition home or self-care (01) ==
PROVIDERS: Emergency Provider Emergency Medicine; PCP Family Medicine; Visit Provider Emergency Medicine
DX: I12.9 Hypertensive chronic kidney disease with stage 1 through stage 4 chronic kidney disease, or unspecified chronic kidney disease (principal); E11.22 Type 2 diabetes mellitus with diabetic chronic kidney disease; E11.42 Type 2 diabetes mellitus with diabetic polyneuropathy; I82.812 Embolism and thrombosis of superficial veins of left lower extremity; N18.9 Chronic kidney disease, unspecified; D64.9 Anemia, unspecified; Z79.899 Other long term (current) drug therapy
CPT/HCPCS: 93005; 93971; 99283

== ENCOUNTER → 2022-10-24 | Outpatient (CLI) | payer OTHER, SELFPAY ==
[2022-10-24 18:33] LABS: Anion Gap 11 (5-15); BUN 76 mg/dL (7-18); BUN/Creat Ratio 18.2 RATIO (10-20); Calcium,Total 8.2 mg/dL (8.5-10.1); Chloride 107 mmol/L (98-107); Creatinine, Serum 4.17 mg/dL (0.55-1.02); EST Glomerular Filtration Rate 11 mL/min (>60); Est Glom Filt Rate - Afr Amer 14 mL/min (>60); Glucose 131 mg/dL (74-106); Potassium 3.8 mmol/L (3.5-5.1); Sodium Level 141 mmol/L (136-145)
== END | disposition home or self-care (01) ==
LOC: BFHLAB 14:31
PROVIDERS: PCP Family Medicine; Referring Provider Family Medicine; Visit Provider Family Medicine
DX: N18.4 Chronic kidney disease, stage 4 (severe) (principal)
CPT/HCPCS: 36415; 80048

== ENCOUNTER 2022-11-02 12:13 | Emergency (ER) | payer OTHER, SELFPAY ==
[2022-11-02 12:13] VITALS: BP 162/88; PULSE 85; RESP 16; TEMP 35.9; O2SAT 100
--- NOTE | 2022-11-02 12:37 | EX.ED.DYSGE1 ---
HPI <MAIRA Caro - Last Filed: 11/02/22 16:58> History of Present Illness Chief Complaint: General Illness Narrative Narrative: 66-year-old female with PMH of uterine cancer presents with midsternal chest pain when taking a deep breath that started this morning. A couple days ago she had a fever, sore throat and headache she attributed to having a sick roommate during a recent hospitalization. These symptoms resolved but today she woke up with chest pain when taking a deep breath. She denies feeling short of breath or exertional pain or dyspnea. No cough. Regarding her history she discontinued Keytruda for uterine cancer 6 months ago due to issues with cytokine storms. Right now she is just on an aromatase inhibitor. She was hospitalized at [facility] about 1.5 weeks ago and they assessed her worsening renal function with a kidney biopsy. Due to worsening CKD they stopped Eliquis for history of DVT and started heparin and bridged to warfarin. She had lower extremity ultrasounds during her stay which showed left superficial phlebitis. PFSH <MAIRA Caro - Last Filed: 11/02/22 16:58> [facility] Medical History Acute deep vein thrombosis (DVT) of iliac vein of left lower extremity Acute kidney injury Anemia Deep vein thrombosis, lower left extremity Diabetes Diabetes mellitus Endometrial cancer Hematuria History of blood clots Hypertension Lymphedema of left lower extremity Peripheral neuropathy Pre-procedure lab exam Regional lymph node metastasis present Home Medications clonidine 0.1 mg/24 hr weekly transdermal patch 1 patch transdermal FR BLOOD PRESSURE 08/16/22 [History Last Taken 09/13/22] sodium bicarbonate 325 mg tablet 325 mg PO BID HEARTBURN RELIEF 08/16/22 [History Last Taken 09/18/22] amlodipine 10 mg tablet 10 mg PO DAILY BLOOD PRESSURE 09/18/22 [History Last Taken 09/18/22] anastrozole 1 mg tablet 1 mg PO DAILY BREAST CANCER 09/18/22 [History Last Taken 09/18/22] ferrous gluconate 324 mg (38 mg iron) tablet 324 mg PO DAILY SUPPLEMENT 09/18/22 [History Last Taken 09/18/22] multivitamin 1 tab PO DAILY HEALTH MAINTENANCE 09/18/22 [History Last Taken 09/18/22] prednisone 10 mg tablet See Taper PO UD STEROID 09/18/22 [History Last Taken 09/18/22] sulfamethoxazole 400 mg-trimethoprim 80 mg tablet 1 tab PO DAILY ANTIBIOTIC 09/18/22 [History Last Taken 09/18/22] omeprazole 20 mg capsule,delayed release 40 mg (2 x 20 mg) PO DAILY ACID REFLUX #1 cap 09/20/22 [Rx Last Taken 09/18/22] apixaban 5 mg tablet (Eliquis) mg 10/08/22 [History Last Taken Unknown] hydralazine 50 mg tablet 50 mg PO TID #90 tabs 10/09/22 [Rx Last Taken Unknown] enoxaparin 100 mg/mL subcutaneous syringe (Lovenox) 90 mg (0.9 mL) subcut DAILY #10 mL 11/02/22 [Rx Last Taken Unknown] Allergy/AdvReac Type Severity Reaction Status Date / Time No Known Allergies Allergy Verified 11/02/22 12:15 Family History Mother Diabetes Hypertension Father Diabetes Hypertension Surgical History History of section History of excision of pilonidal cyst History of hysterectomy History of laparoscopy S/P insertion of IVC (inferior vena caval) filter Social History household members: spouse number of children: 4 current occupational status: retired Smoking Status: Never smoker second hand exposure: No alcohol intake: never substance use type: does not use diet: vegan yesi/synagogue: [employer]od[employer] seatbelt use: always do you feel safe at home: Yes ROS <MAIRA Caro - Last Filed: 11/02/22 16:58> ROS ED ROS Narrative Constitutional: Negative for fever, chills, malaise. CVS: Positive for chest pain. Negative for palpitations, syncope. Respiratory: Negative for shortness of breath, cough, orthopnea. GI: Negative for abdominal pain, nausea, vomiting, diarrhea. Neuro: Negative for headache. EXAM <MAIRA Caro - Last Filed: 11/02/22 16:58> Physical Exam Narrative Exam Narrative: CONST: Patient sitting in no acute distress. EYES: Normal inspection. ENT: Normal oropharynx, moist mucous membranes. NECK: Normal inspection. No meningismus. RESP: No respiratory distress, CTAB. CVS: Regular rate and rhythm, no murmur, no gallop. ABD: Soft and nontender, no guarding or rebound, nondistended. SKIN: Color normal, no rash, warm, dry, intact. EXTREMITIES: Bilateral lower leg edema, left greater than right with compression hose on. NEURO: Oriented x4. PSYCH: Normal affect. Const Vital Signs: 11/02/22 12:13 11/02/22 12:32 11/02/22 14:13 Temperature 96.7 F L Temperature Source Temporal Pulse Rate 85 Respiratory Rate 16 16 Respiratory Effort Normal Non-Labored Respiratory Pattern Normal Blood Pressure 162/88 H Blood Pressure Mean 112 Pulse Ox 100 Oxygen Delivery Method Room Air 11/02/22 16:13 Temperature Temperature Source Pulse Rate Respiratory Rate 18 Respiratory Effort Respiratory Pattern Blood Pressure Blood Pressure Mean Pulse Ox Oxygen Delivery Method <Dr. Sina Bean DO - Last Filed: 11/03/22 08:03> Physical Exam Const Vital Signs: 11/02/22 12:13 11/02/22 12:32 11/02/22 14:13 Temperature 96.7 F L Temperature Source Temporal Pulse Rate 85 Respiratory Rate 16 16 Respiratory Effort Normal Non-Labored Respiratory Pattern Normal Blood Pressure 162/88 H Blood Pressure Mean 112 Pulse Ox 100 Oxygen Delivery Method Room Air 11/02/22 16:13 Temperature Temperature Source Pulse Rate Respiratory Rate 18 Respiratory Effort Respiratory Pattern Blood Pressure Blood Pressure Mean Pulse Ox Oxygen Delivery Method [facility] <MAIRA Caro - Last Filed: 11/02/22 16:58> [facility] Narrative Medical decision making narrative: History was gathered from the patient and her Patient was evaluated for pleuritic chest pain. She appears well and nontoxic. She is slightly hypertensive with otherwise normal vital signs. She has normal heart and lung sounds on exam. She has chronic lower extremity swelling with left greater than right. CBC shows normal white count at 6.1 and stable hemoglobin at 8.5. BMP has normal electrolytes and chronic kidney disease with creatinine of 3.91 around baseline. INR is subtherapeutic at 1.6. On my review 2 view chest x-ray shows tiny bilateral pleural effusions. I am concerned with her history of SVT/DVT and the subtherapeutic INR that her clot burden could have progressed and she could have a PE but due to her renal function I cannot order a CTA. I spoke with vascular surgeon Dr. Saucedo who agreed with this assessment and recommended admission with heparin bridge until Coumadin level is therapeutic. He also advised getting repeat lower extremity ultrasounds but this is not available today. On reassessment of the patient she states she has an IVC filter placed 3 years ago at [facility] by Dr. Saucedo. Since this is in place a large clot should not be able to pass through to the pulmonary system. If there is a small clot it is subclinical as her vital signs are stable. My attending spoke with pharmacy who stated that at her GFR level she can be on Lovenox 1 mg/kg once daily. In speaking with pharmacy, vascular surgery, and the hospitalist they feel she can be discharged with a Lovenox bridge until Coumadin level is therapeutic. I will speak with her primary care doctor to inform them of this and to make sure her INR is rechecked on Friday. Lovenox given here prior to discharge and all questions answered. Consults: Hospitalist, vascular surgery, pharmacy Differential: Viral URI, pneumonia, pleurisy, PE among others 35 minutes of critical care time were consumed by reevaluation of patient, treatment and planning, discussion with multiple consultants. Lab Data Attestation: I reviewed the patient's lab results. Labs: Laboratory Results - last 24 hr 11/02/22 11/02/22 12:57 13:17 WBC 6.1 RBC 2.76 L Hgb 8.5 L Hct 27.7 L MCV 100.4 H MCH 30.8 MCHC 30.7 L RDW Std Deviation 59.0 H RDW Coeff of Tiffanie 16.0 H Plt Count 179 MPV 9.5 Immature Gran % (Auto) 1.000 H Neut % (Auto) 84.4 H Lymph % (Auto) 5.6 L [place] % (Auto) 8.2 Eos % (Auto) 0.3 Baso % (Auto) 0.5 Absolute Neuts (auto) 5.1 Absolute Lymphs (auto) 0.34 L Nucleated RBC % 0 Differential Comment SCANNED PT 19.0 H INR 1.6 Sodium 139 Potassium 3.8 Chloride 110 H Carbon Dioxide 20.0 L Anion Gap 9 BUN 58 H Creatinine 3.91 H Est GFR (MDRD) Af Amer 15 L Est GFR (MDRD) Non-Af 12 L BUN/Creatinine Ratio 14.8 Glucose 104 Calcium 7.6 L Radiography Diagnostic Testing: Clinical Impression(s) from Imaging Studies Chest X-Ray 11/02/22 13:23 IMPRESSION: 1. Small bilateral pleural effusions are present. No demonstrated consolidation or infiltrates. Electronically Signed: Pavan Salas MD at 15:22 EDT Reading Location ID and State: [facility] / [place] , Service support , ED attending interpretation of chest x-ray shows normal heart size, small bilateral pleural effusions. <Dr. Sina Bean, DO - Last Filed: 11/03/22 08:03> [facility] Narrative Medical decision making narrative: History was gathered from the patient and her Patient was evaluated for pleuritic chest pain. She appears well and nontoxic. She is slightly hypertensive with otherwise normal vital signs. She has normal heart and lung sounds on exam. She has chronic lower extremity swelling with left greater than right. CBC shows normal white count at 6.1 and stable hemoglobin at 8.5. BMP has normal electrolytes and chronic kidney disease with creatinine of 3.91 around baseline. INR is subtherapeutic at 1.6. On my review 2 view chest x-ray shows tiny bilateral pleural effusions. I am concerned with her history of SVT/DVT and the subtherapeutic INR that her clot burden could have progressed and she could have a PE but due to her renal function I cannot order a CTA. I spoke with vascular surgeon Dr. Saucedo who agreed with this assessment and recommended admission with heparin bridge until Coumadin level is therapeutic. He also advised getting repeat lower extremity ultrasounds but this is not available today. On reassessment of the patient she states she has an IVC filter placed 3 years ago at [facility] by Dr. Saucedo. Since this is in place a large clot should not be able to pass through to the pulmonary system. If there is a small clot it is subclinical as her vital signs are stable. My attending spoke with pharmacy who stated that at her GFR level she can be on Lovenox 1 mg/kg once daily. In speaking with pharmacy, vascular surgery, and the hospitalist they feel she can be discharged with a Lovenox bridge until Coumadin level is therapeutic. I will speak with her primary care doctor to inform them of this and to make sure her INR is rechecked on Friday. Lovenox given here prior to discharge and all questions answered. Consults: Hospitalist, vascular surgery, pharmacy Differential: Viral URI, pneumonia, pleurisy, PE among others 35 minutes of critical care time were consumed by reevaluation of patient, treatment and planning, discussion with multiple consultants. This patient was seen with a PA/JET MECHANIC Individually assessed they patient including history and physical. I have reviewed everything on the chart that is available and agree with the documentation provided by the PA/JET MECHANIC including discussion about the assessment, treatment plan, discussion, and return precautions. Patient presenting with pleuritic chest pain cardiac work-up was otherwise normal. Her renal function is a little bit improved but still poor. INR ended up being subtherapeutic so we discussed the case with Dr. Saucedo who initially recommended admission and heparin drip to your therapeutic and bridge her. Discussed case with hospitalist who felt she could be discharged on Lovenox. Case was discussed with Dr. Saucedo again and he recommended discussing with the pharmacy. Case was discussed with pharmacy to get the correct dosing for her renal function. Patient also later told us that she had a had an IVC filter which was placed by Dr. Saucedo 3 years ago. We again spoke with Dr. Saucedo who recommended following the pharmacy guidelines and an INR on Friday. Patient will be discharged on Lovenox. Case was discussed with her primary care physician to have an INR checked on Friday. Return precautions discussed at length. Lab Data Labs: Laboratory Results - last 24 hr 11/02/22 11/02/22 12:57 13:17 WBC 6.1 RBC 2.76 L Hgb 8.5 L Hct 27.7 L MCV 100.4 H MCH 30.8 MCHC 30.7 L RDW Std Deviation 59.0 H RDW Coeff of Tiffanie 16.0 H Plt Count 179 MPV 9.5 Immature Gran % (Auto) 1.000 H Neut % (Auto) 84.4 H Lymph % (Auto) 5.6 L [place] % (Auto) 8.2 Eos % (Auto) 0.3 Baso % (Auto) 0.5 Absolute Neuts (auto) 5.1 Absolute Lymphs (auto) 0.34 L Nucleated RBC % 0 Differential Comment SCANNED PT 19.0 H INR 1.6 Sodium 139 Potassium 3.8 Chloride 110 H Carbon Dioxide 20.0 L Anion Gap 9 BUN 58 H Creatinine 3.91 H Est GFR (MDRD) Af Amer 15 L Est GFR (MDRD) Non-Af 12 L BUN/Creatinine Ratio 14.8 Glucose 104 Calcium 7.6 L Radiography Diagnostic Testing: Clinical Impression(s) from Imaging Studies Chest X-Ray 11/02/22 13:23 IMPRESSION: 1. Small bilateral pleural effusions are present. No demonstrated consolidation or infiltrates. Electronically Signed: Pavan Salas MD at 15:22 EDT Reading Location ID and State: [facility] / [place] , Service support , Discharge Plan Triage Chief Complaint: General Illness ED Midlevel Provider: Funmi Bradford ED Provider: Sina Bean Dx/Rx/DC Orders Clinical Impression: Subtherapeutic international normalized ratio (INR), Pleuritic chest pain Instructions: ED Chest Pain, Uncertain Cause Prescriptions: New enoxaparin [Lovenox] 100 mg/mL syringe 90 mg subcut DAILY Qty: 10 0RF Rx Instructions: pt weighs 91 kg. she is taking 1 mg/kg daily to bridge her warfarin until INR is therapeutic No Action clonidine 0.1 mg/24 hr patch weekly 1 patch transdermal FR sodium bicarbonate 325 mg tablet 325 mg PO BID multivitamin Tablet 1 tab PO DAILY anastrozole 1 mg tablet 1 mg PO DAILY prednisone 10 mg tablet See Taper PO UD Taper: Prednisone Taper 60 mg DAILY for 7 Days and 0 Hour 40 mg DAILY for 7 Days and 0 Hour 30 mg DAILY for 7 Days and 0 Hour 20 mg DAILY for 7 Days and 0 Hour 10 mg DAILY for 7 Days and 0 Hour 5 mg DAILY for 14 Days and 0 Hour sulfamethoxazole-trimethoprim 400-80 mg tablet 1 tab PO DAILY Hold Instructions: PT NOT TAKING amlodipine 10 mg tablet 10 mg PO DAILY ferrous gluconate 324 mg (38 mg iron) Tablet 324 mg PO DAILY omeprazole 20 mg capsule,delayed release(DR/EC) 40 mg PO DAILY Qty: 1 0RF Eliquis 5 mg tablet Hold Instructions: PT WAS TOLD NOT TO TAKE IT FOR NOW Patient Comments: TAKE 1 TABLET BY MOUTH TWICE A DAY hydralazine 50 mg tablet 50 mg PO TID Qty: 90 0RF Primary Care Provider: Cindy Griffith Referrals: Cindy Griffith MD [Primary Care Provider] - Activity Restrictions/Additional Instructions: Continue your Coumadin and take the Lovenox injections once a day and see your primary care doctor on Friday to have them recheck your INR. Disposition Disposition: Home, Self Care Discharge Date/Time: 11/02/22 17:28
[2022-11-02 13:08] LABS: Absolute Lymphocyte Count 0.34 X10^3/uL (0.83-4.51); Absolute Neutrophil Count 5.1 X10^3/uL (2.0-7.7); Basophil# 0.03 X10^3/uL; Basophil% 0.5 % (0-1); Eosinophil# 0.02 X10^3/uL; Eosinophils% 0.3 % (0-5); Hematocrit 27.7 % (37-47); Hemoglobin 8.5 g/dL (12.0-15.0); Lymphocyte # 0.34 X10^3/ul (0.83-4.51); Lymphocyte % 5.6 % (19-41); Mean Corp Hgb Conc 30.7 g/dL (32-36); Mean Corpuscular Hgb 30.8 pg (27.0-32.0); Mean Corpuscular Volume 100.4 fL (81-99); Mean Platelet Vol. 9.5 fl (6.2-12.0); Monocyte% 8.2 % (0-10); NRBC Flagged by Analyzer 0 % (0-5); Neutrophil # 5.12 X10^3/uL (2.7-7.7); Neutrophil % 84.4 % (47-70); POSITIVE DIFFERENTIAL YES; Platelet Count 179 K/mm3 (150-450); Red Blood Count 2.76 M/mm3 (4.2-5.4); White Blood Count 6.1 K/mm3 (4.4-11.0)
[2022-11-02 13:13] LABS: Differential Indicated SCAN CRITERIA MET
[2022-11-02 13:20] LABS: Anion Gap 9 (5-15); BUN 58 mg/dL (7-18); BUN/Creat Ratio 14.8 RATIO (10-20); Calcium,Total 7.6 mg/dL (8.5-10.1); Chloride 110 mmol/L (98-107); Creatinine, Serum 3.91 mg/dL (0.55-1.02); EST Glomerular Filtration Rate 12 mL/min (>60); Est Glom Filt Rate - Afr Amer 15 mL/min (>60); Glucose 104 mg/dL (74-106); Potassium 3.8 mmol/L (3.5-5.1); Sodium Level 139 mmol/L (136-145)
--- NOTE | 2022-11-02 13:23 | RAD_ITS ---
STUDY: X-RAY CHEST REASON FOR EXAM: Female, 66 years old. chest pain TECHNIQUE: PA and lateral views of the chest. COMPARISON: September 18, 2022 FINDINGS: Small bilateral pleural effusions are present. No demonstrated consolidation or infiltrates. Normal size heart. Normal mediastinum and ken. Normal visualized pulmonary arteries. There is atherosclerotic calcification of the aortic arch with tortuosity. There are diffuse degenerative changes of the visualized thoracic spine. Normal visualized ribs, clavicles, and shoulders. There is no demonstrated abnormality of the visualized soft tissue structures of the upper abdomen. IVC filter noted. RAD/Chest PA and Lateral IMPRESSION: 1. Small bilateral pleural effusions are present. No demonstrated consolidation or infiltrates. Electronically Signed: Pavan Salas MD at 15:22 EDT ,
[2022-11-02 13:33] LABS: International Normalized Ratio 1.6
[2022-11-02 13:58] LABS: Differential Comment SCANNED
[2022-11-02 14:13] VITALS: RESP 16
[2022-11-02 16:13] VITALS: RESP 18
[2022-11-02 16:14] VITALS: BMI 32.5
[2022-11-02] MEDS: Enoxaparin 100 MG/ML Syringe 90 MG SC (17:04)
--- NOTE | 2022-11-02 17:13 | ED.RN ---
THIS RN GIVES STEP BY STEP INSTRUCTION ON HOW TO ADMINISTER LOVENOX SHOTS AT HOME TO PT AND PTS . PT AND DEMONSTRATE ADEQUATE KNOWLEDGE FOR HOME FILM OR TAPE LIBRARIAN. DENIES QUESTIONS OR CONCERNS AT THIS TIME.
== END 2022-11-02 17:28 | disposition home or self-care (01) ==
PROVIDERS: Physician Assistant; Emergency Provider Student in an Organized Health Care Education/Training Program; PCP Family Medicine; Visit Provider Student in an Organized Health Care Education/Training Program
DX: R79.1 Abnormal coagulation profile (principal); E11.22 Type 2 diabetes mellitus with diabetic chronic kidney disease; E11.42 Type 2 diabetes mellitus with diabetic polyneuropathy; R07.81 Pleurodynia; M79.89 Other specified soft tissue disorders; N18.9 Chronic kidney disease, unspecified; I12.9 Hypertensive chronic kidney disease with stage 1 through stage 4 chronic kidney disease, or unspecified chronic kidney disease; Z79.01 Long term (current) use of anticoagulants; Z86.718 Personal history of other venous thrombosis and embolism
CPT/HCPCS: 71046; 80048; 85025; 85610; 87428; 96372; 99283; A4216

== ENCOUNTER 2022-11-12 14:30 | Outpatient (RCR) | payer OTHER, SELFPAY ==
--- NOTE | 2022-10-30 09:48 | HP.OTEVAL_ITS ---
Patient's Visit Information Visit Information Visit Information: NEWTON ALANIZ is a 66 year old F, referred to Occupational Therapy by Dr. Luis Cooper DO, with a diagnosis of lymphedema. Date of Evaluation: 10/29/22 Occupational Therapist: CARMEL Larios/Pan, CHT Subjective Subjective: This 66 year old female presented with a dx of lymphedema. Pt reports she has experiencing swelling for the last 3 years that has been off and on. In August she noted more swelling and at the time was taking Eliquis, Eliquis was discontinued on 09/18. Pt on prednisone and states she noted R ankle swelling due to medication. Then pt was receiving an ultrasound for a blood clot and US tech with a chronic superficial clot with a clot on top of it, was on Heparin ~3-4 days now has been on Warfarin for 4 days thus far, will be on for 14 days. Pt wa s recently hospitalized with is now on Warfarin. Pt has tried multiple avenues to assist in decreasing edema such as exercise, has an athletic automatic compression and notes an increase in utilizing bathroom post utilizing it. Pt reports a decrease in edema after laying down. Pt reports decrease in edema when in cooler months such as December/November. Pt does report she has a filter in her groin by Dr Saucedo. Pt reports the edema has affected ability to walk at times and has to pick her leg up to get to into her vehicle. Pt currently wearing 15mmHg compression socks. pt would like to know what more she can do to decrease her limb size. Lymphedema (Circumferential Measure) Mid-foot: R 24cm L 25cm Ankle: R 28cm L 32.5cm Lower calf: R 29cm L 33cm Largest calf: R 42.5cm L 54cm Below knee: R 40cm L 53cm Above knee: R 47.5cm L 60cm Mid-thigh: R 51.5cm L 62.5cm Lower Limb Functional Index Lower Extremity Functional Score: 45 Goals Goal: Patient will demonstrate a 20% reduction in edema by discharge: Yes Goal: Patient will demonstrate adequate knowledge of self-bandaging by the end of the first week.: Yes Goal: Patient will demonstrate adequate knowledge of self-massage by the end of the second week.: Yes Goal: Patient will demonstrate adequate knowledge of skin care and precautions by the end of the first week.: Yes Goal: Patient will demonstrate adequate knowledge of therapeutic exercises by discharge.: Yes Goal: Patient will select an appropriate compression garment and demonstrate adequate knowledge of correct donning technique, care and wearing schedule by discharge.: Yes Goal: Patient will voice understanding of need to replace compression garment every four to six months by discharge.: Yes Rehabilitation General Assessment: Pt arrived for OT eval for lymphedema of bilateral lower limb. Pt demonstrates increased edema L>R. The edema is limiting the patients ability to perform ADL and IADL tasks effectively as pt reports will she has been stumbling and decreased endurance. Pt will benefit from skilled occupational therapist for 2-3 more visits to ed. pt on life long mtg of LE lymphedema, decrease pts left LLE skin tightness/edema, education in garments and application, and cont with lymphedema treatments. Therapist educated patient in lymphedema management including self-massage techniques, healing process, and garment recommendations 20-30mmHg thigh high compression sock. Pt agreeable to POC and verbalizes understanding of exercises given. therapy session was directly supervised and doc. approved by Dolly BURT/Pan,CHT. Rehabilitation Potential: Good Anticipated Interventions Anticipated Interventions: Edema Control, Joint Protection/Energy Conservation, Ergonomic Education, Education re assistive Equipment, Education re Diagnosis, Manual Lymph Drainage, Education re Life-long lymphedema Management, Education re Skin Care and Precautions, Education re Self Massage Techniques, Education re Correct Donning Tech,Care&Wearing Sched Comp Garments and Home Program Visit Plan General Plan: Self-care and massage Garment education Dx education Joint protection TEXT: Thank you for the opportunity to evaluate your patient. For Medicare and Medicare HMO plans, please review the plan of care and approve it. It will need to be FAXED BACK to us at [phone] for Medicare purposes. Please let me know if there are questions or concerns regarding this plan of care. Physician Signature: Date:
== END 2022-11-12 19:00 | disposition home or self-care (01) ==
LOC: OT 14:30
PROVIDERS: PCP Family Medicine; Referring Provider Student in an Organized Health Care Education/Training Program; Visit Provider Student in an Organized Health Care Education/Training Program
DX: I89.0 Lymphedema, not elsewhere classified (principal)
CPT/HCPCS: 97166; 97530

== ENCOUNTER 2022-11-15 10:31 | Outpatient (CLI) | payer OTHER, SELFPAY ==
[2022-11-15 10:52] VITALS: BP 130/76; PULSE 71; RESP 16; TEMP 36.4; O2SAT 98; BMI 31.4
[2022-11-15 11:36] VITALS: BP 129/57; PULSE 67; RESP 16; TEMP 36.5; O2SAT 94
[2022-11-15 12:31] VITALS: BP 135/65; PULSE 69; RESP 16; TEMP 36.9
[2022-11-15 13:07] VITALS: BP 124/61; PULSE 70; RESP 14; TEMP 36.6; O2SAT 96
== END 2022-11-15 10:32 | disposition home or self-care (01) ==
LOC: MEDOUTP 10:31
PROVIDERS: PCP Family Medicine; Visit Provider Internal Medicine Hematology & Oncology
DX: D64.89 Other specified anemias (principal)
CPT/HCPCS: 36430; 86850; 86900; 86901; 86920; 86922; J7040; P9016; A4216

== ENCOUNTER 2023-02-05 15:28 | Inpatient (IN) | payer OTHER, SELFPAY ==
[2023-02-05 15:29] VITALS: BP 213/112; PULSE 85; RESP 18; TEMP 36.2; O2SAT 99
--- NOTE | 2023-02-05 16:08 | EX.ED.DYSGE1 ---
HPI History of Present Illness Chief Complaint: Other, Pain/Inj Informant: patient Onset/Context/Timing Onset: Weeks Context: Gradual Onset Timing: Continuous Quality: Aching but sharp with ambulation Location: Bilateral lower extremities Worsened by: Ambulation Relieved by: Nothing Narrative Narrative: Presents with possible cellulitis to both lower extremities that has been getting worse over the past 1-1/2 weeks. Patient states she was started on Keytruda several weeks ago. Patient states she was having difficulty tolerating this and affected her kidneys. Patient states she was then started on prednisone. The patient has been taking the prednisone for a couple weeks with no improvement of her symptoms. Patient states she was then started on Keflex 4 days ago for possible cellulitis in her legs. Patient states she has been having high fevers at home but did not take her temperature. Patient also admits to some sweats. Patient admits to some nausea and vomiting a few days ago but currently denies any nausea or vomiting. Patient admits to some urinary frequency but denies any dysuria or hematuria. [facility] Medical History Acute deep vein thrombosis (DVT) of iliac vein of left lower extremity Acute kidney injury Anemia Deep vein thrombosis, lower left extremity Diabetes Diabetes mellitus Endometrial cancer Hematuria History of blood clots Hypertension Lymphedema of left lower extremity Peripheral neuropathy Pre-procedure lab exam Regional lymph node metastasis present Home Medications sodium bicarbonate 325 mg tablet 325 mg PO TID HEARTBURN RELIEF 08/16/22 [History Last Taken 09/18/22] anastrozole 1 mg tablet 1 mg PO DAILY BREAST CANCER 09/18/22 [History Last Taken 09/18/22] multivitamin 1 tab PO DAILY HEALTH MAINTENANCE 09/18/22 [History Last Taken 09/18/22] potassium citrate 5 mEq (540 mg) tablet,extended release 5 meq PO DAILY 11/15/22 [History Last Taken Unknown] warfarin 2 mg tablet 5 mg PO QODAY 11/15/22 [History Last Taken Unknown] warfarin 2.5 mg tablet 4 mg PO QODAY 11/15/22 [History Last Taken Unknown] clonidine 0.2 mg/24 hr weekly transdermal patch 1 patch transdermal .COMPLEX 02/05/23 [History Last Taken Unknown] nifedipine 90 mg tablet,extended release 90 mg PO BID 02/05/23 [History Last Taken Unknown] Allergy/AdvReac Type Severity Reaction Status Date / Time No Known Allergies Allergy Verified 02/05/23 15:29 Family History Mother Diabetes Hypertension Father Diabetes Hypertension Surgical History History of section History of excision of pilonidal cyst History of hysterectomy History of laparoscopy S/P insertion of IVC (inferior vena caval) filter Social History household members: spouse number of children: 4 current occupational status: retired Smoking Status: Never smoker second hand exposure: No alcohol intake: never substance use type: does not use diet: vegan yesi/adventist: Voodoo seatbelt use: always do you feel safe at home: Yes ROS ROS ED Constitutional Constitutional ED: Reports fever(s), subjective and sweats; Denies chills Eyes Eyes: Denies blurry vision or change in vision ENT ENT ED: Reports rhinorrhea; Denies sore throat Cardiovascular Cardiovascular: Denies chest pain or palpitations Respiratory/Chest Respiratory/Chest: Denies cough or dyspnea Gastrointestinal Gastrointestinal: Reports nausea and vomiting Genitourinary Genitourinary ED: Reports urinary frequency; Denies dysuria or hematuria Musculoskeletal Musculoskeletal: Denies back pain or neck pain Integumentary Reports rash; Denies abscess Neurologic Neurologic: Denies headache(s) or weakness Allergic/Immunologic Allergic/Immunologic ED: Denies mouth swelling or urticaria EXAM Physical Exam Const Vital Signs: 02/05/23 15:29 02/05/23 15:49 02/05/23 17:48 Temperature 97.2 F L Temperature Source Temporal Pulse Rate 85 72 Respiratory Rate 18 16 Respiratory Effort Normal Non-Labored Respiratory Pattern Normal Blood Pressure 213/112 H 124/69 H Blood Pressure Mean 145 87 Pulse Ox 99 98 Oxygen Delivery Method Room Air 02/05/23 20:26 Temperature 98 F Temperature Source Pulse Rate 65 Respiratory Rate 18 Respiratory Effort Respiratory Pattern Blood Pressure 216/86 H Blood Pressure Mean 129 Pulse Ox 98 Oxygen Delivery Method Positive well nourished and well developed General Appearance ED: well developed and NAD HEENT Reports moist mucous membranes Neck supple and no JVD Extremity General Extremety ED: Yes tenderness; Negative for edema General Extremity: Negative for edema Neuro oriented x3, CN's II-XII intact bilaterally and no sensory deficits noted Sensorium / Orientation: alert Motor Exam: strength 5/5 throughout Psych mental status grossly normal Skin Skin Narrative: There is some mild erythema over the lateral aspect of the left distal thigh. There is no fluctuance. There is mild induration. There is tenderness to palpation over this area. There is no discharge or drainage. There is some mild erythema and ecchymotic areas over the right distal lower leg. There is no discharge or drainage. There is no fluctuance. There is no bleeding noted. There is no edema noted. MDM MDM MDM Narrative Medical decision making narrative: Differential diagnosis includes vasculitis, cellulitis, nonspecific dermatitis, and urinary tract infection. CBC will be obtained to assess for leukocytosis and anemia. Basic metabolic profile will be obtained to assess for electrolyte abnormality and renal function. Urinalysis will be obtained to assess for urinary tract infection. History & Record Review Additional record(s) reviewed:: Prior labs Lab Data Attestation: I reviewed the patient's lab results. Lab results narrative: CBC was reviewed. White blood cell count was normal. There is a mild anemia with a hemoglobin of 7.8 and hematocrit 23.7. Platelets were normal. Basic metabolic profile was reviewed. CO2 was low at 17. BUN was elevated at 73 and creatinine was 6.33. These are increased from previous results. Urinalysis was reviewed. There is no evidence of urinary tract infection or hematuria. Labs: Laboratory Results - last 24 hr 02/05/23 02/05/23 16:38 17:57 WBC 5.5 RBC 2.43 L Hgb 7.8 L Hct 23.7 L MCV 97.5 MCH 32.1 H MCHC 32.9 RDW Std Deviation 47.6 H RDW Coeff of Tiffanie 13.3 Plt Count 185 MPV 9.6 Immature Gran % (Auto) 0.700 Neut % (Auto) 90.4 H Lymph % (Auto) 3.3 L [place] % (Auto) 4.9 Eos % (Auto) 0.5 Baso % (Auto) 0.2 Absolute Neuts (auto) 4.9 Absolute Lymphs (auto) 0.18 L Nucleated RBC % 0 Differential Comment Sodium 136 Potassium 4.3 Chloride 111 H Carbon Dioxide 17.0 L Anion Gap 8 BUN 73 H Creatinine 6.33 H Est GFR (MDRD) Af Amer 8 L Est GFR (MDRD) Non-Af 7 L BUN/Creatinine Ratio 11.5 Glucose 152 H Calcium 8.5 Urine Color Yellow Urine Clarity Clear Urine pH 5.0 Ur Specific [place] 1.020 Urine Protein 100 H Urine Glucose (UA) Normal Urine Ketones Negative Urine Occult Blood 25 H Urine Nitrite Negative Urine Bilirubin Negative Urine Urobilinogen Normal Ur Leukocyte Esterase 25 H Urine RBC 0 SEEN Urine WBC 0-5 SEEN Ur Squamous Epith Cells 0 SEEN Ur Transition Epith Cell 0-5 SEEN Urine Bacteria 0 SEEN Urine Mucus 0 SEEN Management Discussion w/another healthcare provider: Hospitalist Treatment and Re-Evaluation :: Patient was given IV fluids. Patient was advised of her findings. Case was discussed with the hospitalist. He will admit the patient to his service. Patient understood and was agreeable with the plan. All questions were answered. Discharge Plan Triage Chief Complaint: Other, Pain/Inj ED Provider: Kehinde Crowe Dx/Rx/DC Orders Clinical Impression: Diabetes mellitus, Anemia, Acute kidney injury superimposed on CKD Prescriptions: No Action sodium bicarbonate 325 mg tablet 325 mg PO TID multivitamin Tablet 1 tab PO DAILY anastrozole 1 mg tablet 1 mg PO DAILY warfarin 2 mg tablet 5 mg PO QODAY warfarin 2.5 mg tablet 4 mg PO QODAY potassium citrate 5 mEq (540 mg) tablet extended release 5 meq PO DAILY nifedipine 90 mg tablet extended release 90 mg PO BID Patient Comments: TAKE 1 TABLET BY MOUTH TWICE A DAY clonidine 0.2 mg/24 hr patch weekly 1 patch transdermal .COMPLEX Patient Comments: APPLY 1 PATCH DIRECTED ONE TIME A WEEK. Rx Instructions: 1 patch transdermally; placed on saturdays Primary Care Provider: Cindy Griffith Referrals: Cindy Griffith MD [Primary Care Provider] - Disposition Disposition: Acute Care Hospital [facility]
[2023-02-05 16:50] LABS: Absolute Lymphocyte Count 0.18 X10^3/uL (0.83-4.51); Absolute Neutrophil Count 4.9 X10^3/uL (2.0-7.7); Basophil# 0.01 X10^3/uL; Basophil% 0.2 % (0-1); Eosinophil# 0.03 X10^3/uL; Eosinophils% 0.5 % (0-5); Hematocrit 23.7 % (37-47); Hemoglobin 7.8 g/dL (12.0-15.0); Lymphocyte # 0.18 X10^3/ul (0.83-4.51); Lymphocyte % 3.3 % (19-41); Mean Corp Hgb Conc 32.9 g/dL (32-36); Mean Corpuscular Hgb 32.1 pg (27.0-32.0); Mean Corpuscular Volume 97.5 fL (81-99); Mean Platelet Vol. 9.6 fl (6.2-12.0); Monocyte# 0.27 X10^3/uL; Monocyte% 4.9 % (0-10); NRBC Flagged by Analyzer 0 % (0-5); Neutrophil # 4.93 X10^3/uL (2.7-7.7); Neutrophil % 90.4 % (47-70); POSITIVE DIFFERENTIAL YES; Platelet Count 185 K/mm3 (150-450); RBC Distribution Width CV 13.3 % (11.6-14.6); RBC Distribution Width SD 47.6 fl (35.1-43.9); Red Blood Count 2.43 M/mm3 (4.2-5.4); White Blood Count 5.5 K/mm3 (4.4-11.0)
[2023-02-05 16:52] LABS: Differential Indicated SCAN CRITERIA MET
[2023-02-05 17:01] LABS: Anion Gap 8 (5-15); BUN 73 mg/dL (7-18); BUN/Creat Ratio 11.5 RATIO (10-20); Calcium,Total 8.5 mg/dL (8.5-10.1); Chloride 111 mmol/L (98-107); Creatinine, Serum 6.33 mg/dL (0.55-1.02); EST Glomerular Filtration Rate 7 mL/min (>60); Est Glom Filt Rate - Afr Amer 8 mL/min (>60); Glucose 152 mg/dL (74-106); Potassium 4.3 mmol/L (3.5-5.1); Sodium Level 136 mmol/L (136-145)
[2023-02-05 17:48] VITALS: BP 124/69; PULSE 72; RESP 16; O2SAT 98
[2023-02-05 17:56] VITALS: BMI 26.2
[2023-02-05 18:02] LABS: Bacteria 0 SEEN /hpf (None Seen); Mucous, Urine 0 SEEN /hpf (<or=2+); Red Blood Cells-Urine 0 SEEN /hpf (0-5); Squamous Epithelial Cells - UA 0 SEEN /hpf (5-10)
[2023-02-05 18:06] LABS: Color, Urine Yellow (Yellow); Glucose, Dipstick Normal (Normal); Ketone-Dipstick Negative (Negative); Leukocyte Esterase-Dipstick 25 /ul (Negative); Nitrite-Dipstick Negative (Negative); Occult Blood-Urine 25 /ul (Negative); Protein-Dipstick 100 mg/dl (Negative); Urine Bilirubin Dipstick Negative (Negative); Urine Clarity Clear (Clear); Urine Urobilinogen Normal (Normal)
[2023-02-05 18:13] LABS: Transitional Epithelial - Ur 0-5 SEEN /hpf (0-5); White Blood Cells 0-5 SEEN /hpf (0-5)
[2023-02-05] MEDS: 0.9% Normal Saline (1000mL) 1,000 ML 1000 ML IV (20:20)
[2023-02-05 20:26] VITALS: BP 216/86; PULSE 65; RESP 18; TEMP 36.6; O2SAT 98
--- NOTE | 2023-02-05 20:27 | PCM.HP.STD ---
[facility] - General General Date of Admission: 02/05/23 Date of Service: 02/05/23 Chief Complaint: Leg pain, dehydration and malaise. [facility] Narrative NEWTON DUBOSE, is a 67 F with a past medical history of essential hypertension, diabetes mellitus type 2; of unknown control, chronic kidney disease; stage IV followed by Dr. Horta of nephrology, history of endometrial carcinoma first diagnosed in the spring 2019; status post hysterectomy treated with Keytruda for approximately 18 months (which had to be stopped due to side effects) now on anastrozole, history of DVT of the left lower extremity; status post IVC filter placement (06/2020) by Dr. Saucedo of vascular surgery on chronic Coumadin (since Eliquis had to be stopped due to worsening chronic kidney disease), chronic left lower extremity lymphedema, peripheral neuropathy; with chronic left lower extremity pain, chronic anemia; likely primarily due to chronic kidney disease and recently diagnosed cellulitis proximately 4 days ago; with the patient started on Keflex who presents to [facility] ER complaining of severe and worsening bilateral leg pain, dehydration and malaise. Mrs. Dubose reports her symptoms began approximately 1-1/2 weeks prior to admission after she began taking prednisone. She then noticed reddish blotchy discoloration of her right lower extremity with pain that was made worse with movement, was gradual in onset and continuous but became aching and sharp with ambulation, ~10/10 and was improved with rest but made significantly better by nothing. She also admits to feeling dehydrated with poor oral intake of solids and liquids due to severe pain and distress. Her decided to take off of work for the past 2 days to help care for her at home due to her escalating pattern of illness and decreasing ability to function independently. Her also reports that she had a near syncopal event approximately 3 days ago when she stood up and nearly passed out with her blood pressure cuff reading low so she removed her clonidine patch and tried to increase her fluid intake. She admits to having high subjective fevers at night with associated night sweats (but she never did take her temperature) along with some urinary frequency but she denies dysuria or hematuria. Both the patient and her suspect she was retaining fluid secondary to her prednisone and she had contacted her grain unloader machine about not being able to take this agent due to side effects. She also was apparently recently supratherapeutic on her Coumadin with an INR greater than 6 with dizziness, fatigue and malaise. In the ER she was noted to have laboratory evidence of severe acute kidney injury on stage IV chronic kidney disease with a baseline creatinine of approximately 3.91 on her last admission now up to 6.33 mg/dL this admission complicated by clinical evidence of right lower extremity cellulitis with near syncope due to a combination of severe dehydration compounded by an adverse drug reaction to prednisone with labile hypertension with a blood pressure of 213/112 mm Hg present on admission. She was then admitted to the general medical floor for ongoing care for a stay that is expected to be greater than 48 hours. [facility] Medical History Acute deep vein thrombosis (DVT) of iliac vein of left lower extremity Acute kidney injury Anemia Deep vein thrombosis, lower left extremity Diabetes Diabetes mellitus Endometrial cancer Hematuria History of blood clots Hypertension Lymphedema of left lower extremity Peripheral neuropathy Pre-procedure lab exam Regional lymph node metastasis present Home Medications sodium bicarbonate 325 mg tablet 325 mg PO TID HEARTBURN RELIEF 08/16/22 [History Last Taken 09/18/22] anastrozole 1 mg tablet 1 mg PO DAILY BREAST CANCER 09/18/22 [History Last Taken 09/18/22] multivitamin 1 tab PO DAILY HEALTH MAINTENANCE 09/18/22 [History Last Taken 09/18/22] potassium citrate 5 mEq (540 mg) tablet,extended release 5 meq PO DAILY 11/15/22 [History Last Taken Unknown] warfarin 2 mg tablet 5 mg PO QODAY 11/15/22 [History Last Taken Unknown] warfarin 2.5 mg tablet 4 mg PO QODAY 11/15/22 [History Last Taken Unknown] cephalexin 500 mg capsule 500 mg PO Q8H atb 02/05/23 [History Last Taken 02/05/23] clonidine 0.2 mg/24 hr weekly transdermal patch 1 patch transdermal .COMPLEX 02/05/23 [History Last Taken Unknown] nifedipine 90 mg tablet,extended release 90 mg PO BID 02/05/23 [History Last Taken Unknown] Allergy/AdvReac Type Severity Reaction Status Date / Time No Known Allergies Allergy Verified 02/05/23 15:29 Family History Mother Diabetes Hypertension Father Diabetes Hypertension Surgical History History of section History of excision of pilonidal cyst History of hysterectomy History of laparoscopy S/P insertion of IVC (inferior vena caval) filter Social History household members: spouse number of children: 4 current occupational status: retired Smoking Status: Never smoker second hand exposure: No alcohol intake: never substance use type: does not use diet: vegan yesi/cheondoism: Temple seatbelt use: always do you feel safe at home: Yes ROS ROS Narrative Review of systems: Constitutional: Patient admits to subjective fever and night sweats along with severe malaise Eyes: Patient denies blurry vision or changes in her vision ENT: Patient reports rhinorrhea but denies dysphagia or sore throat Cardiovascular: Patient denies chest pain or palpitations Gastrointestinal: Patient reports nausea and bilious emesis Genitourinary: Patient admits to urinary frequency but denies dysuria or hematuria Musculoskeletal: Patient admits to severe pain in her legs that is made worse with with ambulation suspicious for claudication Skin: Patient has a blotchy red spots over the anterior surface of her right lower extremity that are tender and painful to palpation Neurologic: Patient denies headache or focal neurologic weakness Allergic: Patient denies mild swelling or urticaria 14 point review systems otherwise negative except for positives noted in HPI above. Vital Signs Vital Signs Vital Signs: 02/05/23 15:29 02/05/23 15:49 02/05/23 17:48 Temperature 97.2 F L Temperature Source Temporal Pulse Rate 85 72 Respiratory Rate 18 16 Respiratory Effort Normal Non-Labored Respiratory Pattern Normal Blood Pressure 213/112 H 124/69 H Blood Pressure Mean 145 87 Pulse Ox 99 98 Oxygen Delivery Method Room Air 02/05/23 20:26 Temperature 98 F Temperature Source Pulse Rate 65 Respiratory Rate 18 Respiratory Effort Respiratory Pattern Blood Pressure 216/86 H Blood Pressure Mean 129 Pulse Ox 98 Oxygen Delivery Method Weight Weight: 162 lb 6.4 oz Body Mass Index (BMI) 26.2 Physical Exam Const alert, oriented x3, no apparent distress, average body habitus and healthy appearing General Appearance: cooperative HEENT normocephalic, head/scalp atraumatic and hearing grossly normal bilaterally HEENT Narrative: Mucous membranes dry. Eyes PERRL, EOMs intact bilaterally and conjunctivae normal Neck no lymphadenopathy, supple, no JVD and no carotid bruits Resp normal respiratory effort, no retractions, no use of accessory muscles and clear to auscultation bilaterally Cardio regular rate and regular rhythm GI normal to inspection, nondistended, normoactive bowel sounds, soft to palpation, non-tender and non-distended Extremity Extremity Narrative: Patient has splotchy reddened discoloration of the anterior lennon approximately 2.5 cm in diameter lesions that are tender to palpation. Neuro oriented x3, CN's II-XII intact bilaterally, moves all extremities and no focal motor deficits Sensorium / Orientation: awake, alert, oriented to person, oriented to place and oriented to time Speech: speech normal Motor Exam: strength 5/5 throughout Psych affect normal Results Medical Records Data Attestation: I reviewed the patient's medical records Lab / Micro Data Attestation: I reviewed the patient's lab results. 02/05/23 16:38 02/05/23 16:38 Labs: Laboratory Results - last 24 hr 02/05/23 16:38: WBC 5.5, RBC 2.43 L, Hgb 7.8 L, Hct 23.7 L, MCV 97.5, MCH 32.1 H, MCHC 32.9, RDW Std Deviation 47.6 H, RDW Coeff of [place]iffanie 13.3, Plt Count 185, MPV 9.6, Immature Gran % (Auto) 0.700, Neut % (Auto) 90.4 H, Lymph % (Auto) 3.3 L, [place] % (Auto) 4.9, Eos % (Auto) 0.5, Baso % (Auto) 0.2, Absolute Neuts (auto) 4.9, Absolute Lymphs (auto) 0.18 L, Nucleated RBC % 0, Differential Comment , Sodium 136, Potassium 4.3, Chloride 111 H, Carbon Dioxide 17.0 L, Anion Gap 8, BUN 73 H, Creatinine 6.33 H, Est GFR (MDRD) Af Amer 8 L, Est GFR (MDRD) Non-Af 7 L, BUN/Creatinine Ratio 11.5, Glucose 152 H, Calcium 8.5 02/05/23 17:57: Urine Color Yellow, Urine Clarity Clear, Urine pH 5.0, Ur Specific [place] 1.020, Urine Protein 100 H, Urine Glucose (UA) Normal, Urine Ketones Negative, Urine Occult Blood 25 H, Urine Nitrite Negative, Urine Bilirubin Negative, Urine Urobilinogen Normal, Ur Leukocyte Esterase 25 H, Urine RBC 0 SEEN, Urine WBC 0-5 SEEN, Ur Squamous Epith Cells 0 SEEN, Ur Transition Epith Cell 0-5 SEEN, Urine Bacteria 0 SEEN, Urine Mucus 0 SEEN Assessment & Plan Assessment/Plan (1) Acute kidney injury superimposed on CKD: PLAN: Plan 1. Severe acute kidney injury complicating chronic kidney disease stage IV with baseline creatinine of 3.91 mg/dL on her last admission now up to 6.33 mg/dL this admission - Admit to general medical floor. Continue volume resuscitation with IV fluid and recheck BMP in the a.m. to ensure improvement. Avoid potentially nephrotoxic medications. Finally, we will consult Dr. Horta of the nephrology service to see this patient on rounds in the a.m. for further recommendations with help appreciated in advance. 2. Right lower extremity cellulitis that failed outpatient treatment with Keflex with clinical signs of claudication including severe pain with activity in the setting of a known history of left lower extremity DVT with IVC filter in place on chronic Coumadin after Eliquis had to be stopped due to declining kidney function complicating #1 - Continue IV Rocephin and monitor for improvement. Check bilateral lower extremity ultrasounds to evaluate for DVT. PT/OT and case management to consult and treat in case this patient with require subacute rehabilitation with help appreciated in advance. Finally, we will consult Dr. Saucedo of vascular surgery to see this patient in the a.m. on rounds for further recommendations with help appreciated in advance. 3. Hypertensive urgency with a blood pressure of 213/112 mmHg present on admission suspected to be due at least in part to an adverse drug reaction to prednisone - Stop prednisone. Give IV hydralazine as needed for systolic blood pressure greater than 180 mmHg. 4. Recent near syncopal event likely due to dehydration culminating in patient removing her clonidine patch - Patient's antihypertensive regimen will likely need to be further optimized given her increasingly brittle health as evidenced by #1 through #3. 5. History of Endometrial carcinoma (2019); status post hysterectomy initially treated with Keytruda for approximately 18 months but had to be stopped due to side effects with patient now on anastrozole - Resume anastrozole as previous. Continue supportive care. 6. Diabetes mellitus type 2 of unknown control -ADA/renal diet. Check fingerstick blood sugars before every meal and at bedtime plus sliding scale insulin. Check hemoglobin A1c. 7. DVT prophylaxis - Patient is already on Coumadin which will be continued. Check daily PT and INR with goal from 2-3. Total time: Approximately 75 minutes. Charges/Coding Visit Charges Inpatient E&M: 47909 Init Hosp L3
[2023-02-05 21:00] VITALS: BP 212/80; PULSE 68
--- NOTE | 2023-02-05 21:03 | VDLE_ITS ---
Reason For Study: Bilateral leg pain RIGHT LEFT GSV is normal. CFV is compressible, spontaneous, phasic, CFV is compressible, spontaneous, phasic, competent, and demonstrates normal competent and demonstrates normal augmentation. augmentation. FV is compressible, spontaneous, phasic, Acute deep vein thrombosis is noted in the FV competent and demonstrates normal mid-distal, PopV, T/P Trunk,PTV, PeroV and augmentation. SoleusV. It is dilated and NONCOMPRESSIBLE. POP V is compressible, spontaneous, phasic, Procedure competent and demonstrates normal This is a venous duplex using B-mode, color augmentation. flow and spectral Doppler. T/P Trunk is compressible. Exam performed portable in patient room. PTV is compressible. A preliminary report was called and/or faxed LT PerV is compressible. to Jade RAO. Acute superficial vein thrombosis is noted in the left GSV from junction to prox calf and SSV. It is dilated an NONCOMPRESSIBLE. Thrombus is 0.68 cm from CFV. Thrombus filled varicose veins noted in the prox calf, connect GSV to SSV. VL/Venous Duplex US - Darin Extrem Interpretation Summary Acute deep vein thrombosis is noted in the right femoral vein, popliteal vein, tibioperoneal trunk vein, peroneal vein, soleus vein. Acute superficial vein thrombosis is noted in the left great saphenous vein, sm all saphenous vein and adjacent varicosities Ordering Physician: Keith Butler Referring Physician: Cindy Griffith Performed By: Dorothea Tapia RVT
[2023-02-05 21:16] VITALS: BMI 25.8
[2023-02-05 21:28] VITALS: BP 226/102; PULSE 68; RESP 18; TEMP 36.6; O2SAT 100
[2023-02-05] MEDS: Morphine 4 MG/ML Syringe IV (21:37)
[2023-02-05 21:38] VITALS: BP 226/102; PULSE 68
[2023-02-05] MEDS: hydrALAZINE 20 MG/ML Vial 5 MG IV (21:38)
[2023-02-05] MEDS: CLARIFY ORDER NOTE (21:49)
[2023-02-05] MEDS: 0.9% Normal Saline (1000mL) 1,000 ML 125 ML IV (22:19)
[2023-02-05] MEDS: NIFEdipine 90 MG Tablet PO (22:20)
[2023-02-05] MEDS: Sodium Bicarbonate 650 MG Tablet 325 MG PO (22:20)
[2023-02-05] MEDS: Ceftriaxone 1 GM/50 ML BAG IV (22:24)
[2023-02-05] MEDS: Ondansetron 4 MG/2 ML Vial IV (22:24)
[2023-02-05] MEDS: Vancomycin HCl 1,750 MG in 0.9% Normal Saline (500mL Bag) 500 ML 250 MG IV (22:36)
[2023-02-06] VITALS (11 sets, daily range): BP systolic 146–198; BP diastolic 63–101; PULSE 79–124; RESP 14–18; TEMP 36.6–37.3; O2SAT 98–100; BMI 25.7; BMI 26.6
[2023-02-06] MEDS: Acetaminophen 325 MG Tablet 650 MG PO ×3 (02:30→22:04)
[2023-02-06] MEDS: hydrALAZINE 20 MG/ML Vial 5 MG IV ×2 (02:37→17:13)
[2023-02-06] MEDS: 0.9% Normal Saline (1000mL) 1,000 ML 125 ML IV (04:56)
[2023-02-06] MEDS: Sodium Bicarbonate 650 MG Tablet 325 MG PO ×3 (06:19→22:05)
[2023-02-06 07:57] LABS: Absolute Lymphocyte Count 0.33 X10^3/uL (0.83-4.51); Absolute Neutrophil Count 3.1 X10^3/uL (2.0-7.7); Basophil# 0.01 X10^3/uL; Basophil% 0.3 % (0-1); Eosinophil# 0.13 X10^3/uL; Eosinophils% 3.3 % (0-5); Hematocrit 21.8 % (37-47); Hemoglobin 7.1 g/dL (12.0-15.0); Lymphocyte # 0.33 X10^3/ul (0.83-4.51); Lymphocyte % 8.4 % (19-41); Mean Corp Hgb Conc 32.6 g/dL (32-36); Mean Corpuscular Hgb 32.3 pg (27.0-32.0); Mean Corpuscular Volume 99.1 fL (81-99); Mean Platelet Vol. 9.5 fl (6.2-12.0); Monocyte# 0.31 X10^3/uL; Monocyte% 7.9 % (0-10); NRBC Flagged by Analyzer 0 % (0-5); Neutrophil % 78.6 % (47-70); POSITIVE DIFFERENTIAL YES; Platelet Count 166 K/mm3 (150-450); RBC Distribution Width CV 13.3 % (11.6-14.6); RBC Distribution Width SD 47.5 fl (35.1-43.9); White Blood Count 3.9 K/mm3 (4.4-11.0)
[2023-02-06 08:02] LABS: Differential Indicated SCAN CRITERIA MET
[2023-02-06 08:06] LABS: International Normalized Ratio 1.4; Prothrombin Time (Protime)PT. 17.1 SECONDS (11.7-14.9)
[2023-02-06 08:42] LABS: ALB/GLOB Ratio 0.7 RATIO (0.9-2.4); AST(SGOT) 10 U/L (15-37); Alanine Aminotransfer ALT/SGPT 11 U/L (13-56); Albumin, Serum 2.4 g/dL (3.2-5.0); Alkaline Phosphatase 86 U/L (45-117); Anion Gap 9 (5-15); BUN 66 mg/dL (7-18); BUN/Creat Ratio 11.3 RATIO (10-20); Calcium,Total 8.1 mg/dL (8.5-10.1); Chloride 115 mmol/L (98-107); Creatinine, Serum 5.82 mg/dL (0.55-1.02); EST Glomerular Filtration Rate 8 mL/min (>60); Est Glom Filt Rate - Afr Amer 9 mL/min (>60); Estimated Creatinine Clearance 8.54 ml/min; Globulin 3.5 g/dL (2.2-4.2); Glucose 103 mg/dL (74-106); Protein, Total 5.9 g/dL (6.4-8.2); Sodium Level 138 mmol/L (136-145); Thyroid Stim Hormone (TSH) 2.04 uIU/mL (0.358-3.74)
--- NOTE | 2023-02-06 08:46 | PN.HOSP_ITS ---
Reason for Visit Reason for Visit: Diagnoses Acute kidney failure, unspecified (02/05/23) Chronic kidney disease, unspecified (02/05/23) Objective Data Objective Data Vital Signs: Vital Signs Temp Pulse Resp BP Pulse Ox O2 Del Method 98.8 F 79 16 158/63 H 98 Room Air 02/06/23 02:33 02/06/23 02:37 02/06/23 02:33 02/06/23 03:07 02/06/23 07:25 02/06/23 07:25 Oxygen Delivery Method Room Air Weight: 160 lb 0.889 oz Body Mass Index (BMI) 25.7 Intake & Output: Intake and Output for Last 24 Hours 02/04/23 02/05/23 02/06/23 23:59 23:59 23:59 Intake Total 1050 / 1350 1962.08 / 1962.08 Output Total 200 / 200 Balance 1050 / 1150 1762.08 / 1762.08 Lab / Micro Data 02/06/23 07:35 02/06/23 07:35 Labs: Laboratory Results - last 24 hr 02/05/23 16:38: WBC 5.5, RBC 2.43 L, Hgb 7.8 L, Hct 23.7 L, MCV 97.5, MCH 32.1 H , MCHC 32.9, RDW Std Deviation 47.6 H, RDW Coeff of Tiffanie 13.3, Plt Count 185, MPV 9.6, Immature Gran % (Auto) 0.700, Neut % (Auto) 90.4 H, Lymph % (Auto) 3.3 L, [place] % (Auto) 4.9, Eos % (Auto) 0.5, Baso % (Auto) 0.2, Absolute Neuts (auto) 4.9, Absolute Lymphs (auto) 0.18 L, Nucleated RBC % 0, Differential Comment , Sodium 136, Potassium 4.3, Chloride 111 H, Carbon Dioxide 17.0 L, Anion Gap 8, B UN 73 H, Creatinine 6.33 H, Est GFR (MDRD) Af Amer 8 L, Est GFR (MDRD) Non-Af 7 L, BUN/Creatinine Ratio 11.5, Glucose 152 H, Calcium 8.5 02/05/23 17:57: Urine Color Yellow, Urine Clarity Clear, Urine pH 5.0, Ur Specific [place] 1.020, Urine Protein 100 H, Urine Glucose (UA) Normal, Urine Ketones Negative, Urine Occult Blood 25 H, Urine Nitrite Negative, Urine Bilirubin Negative, Urine Urobilinogen Normal, Ur Leukocyte Esterase 25 H, Urine RBC 0 SEEN, Urine WBC 0-5 SEEN, Ur Squamous Epith Cells 0 SEEN, Ur Transition Epith Cell 0-5 SEEN, Urine Bacteria 0 SEEN, Urine Mucus 0 SEEN 02/06/23 07:35: WBC 3.9 L, RBC 2.20 L, Hgb 7.1 L, Hct 21.8 L, MCV 99.1 H, MCH 32.3 H, MCHC 32.6, RDW Std Deviation 47.5 H, RDW Coeff of [place] 13.3, Plt Count 166, MPV 9.5, Immature Gran % (Auto) 1.500 H, Neut % (Auto) 78.6 H, Lymph % (Auto) 8.4 L, [place] % (Auto) 7.9, Eos % (Auto) 3.3, Baso % (Auto) 0.3, Absolute Neuts (auto) 3.1, Absolute Lymphs (auto) 0.33 L, Nucleated RBC % 0, PT 17.1 H, INR 1.4, Sodium 138, Potassium 4.0, Chloride 115 H, Carbon Dioxide 14.0 L, Anion Gap 9, BUN 66 H, Creatinine 5.82 H, Estim Creat Clear Calc 8.54, Est GFR (MDRD) Af Amer 9 L, Est GFR (MDRD) Non-Af 8 L, BUN/Creatinine Ratio 11.3, Glucose 103, Calcium 8.1 L, Magnesium 2.0, Total Bilirubin 0.20, AST 10 L, ALT 11 L, Alkaline Phosphatase 86, Total Protein 5.9 L, Albumin 2.4 L, Globulin 3.5, Albumin/Globulin Ratio 0.7 L, TSH 2.04 Physical Exam Narrative Seen and examined. She has history of DVT x2, last 1 left lower extremity status post IVC filter. Patient complaining of bilateral lower extremity pain more on the left lateral aspect of thigh. Physical exam General: Alert, Oriented x3, Cooperative HEENT: Atraumatic, PERRLA, EOMI, Normocephalic Oral: Oral mucosa moist. No Gingival or Mucosal Lesions/ Ulcerations Neck: Supple, No JVD, Negative Carotid Bruits Lungs: Air entry diminished in bilateral lung bases. No crepitation/rhonchi Cardiovascular: Regular rate, Regular Rhythm, Normal S1, Normal S2, No murmurs Abdomen: Bowel Sounds Present, Soft, Non Tender, Non-Distended : No renal angle tenderness. No suprapubic tenderness. Extremities: No edema, Capillary Refill Less than 3 Seconds Skin: No rashes, No breakdown Musculoskeletal: Tenderness present over left lateral aspect of thigh. Right knee and right calf is swollen. ROM severely restricted at left hip and knee due to pain. Neurological: Cranial nerves II-XII grossly intact, DTR 2+/4. No acute focal neurological deficit. Psych/Mental Status: Flat affect. Assessment & Plan Assessment/Plan (1) Acute kidney injury superimposed on CKD: PLAN: Plan 1. Severe acute kidney injury most likely prerenal from volume depletion complicating chronic kidney disease stage IV with baseline creatinine of 3.91 mg/dL on her last admission now up to 6.33 mg/dL this admission [facility] pressure is on higher side will 75/83. Neurologist consulted. Does not have obstructive symptoms. IV fluid changed. Avoid potentially nephrotoxic medications. Dr. Horta was consulted and discussed with him. 2. Acute diffuse DVT of right lower extremity from femoral vein to soleus vein and superficial vein thrombosis of left great saphenous vein, small saphenous vein: Patient hemoglobin is 7-1. Patient has IVC filter. Patient is on warfarin at home and warfarin was held because of coagulopathy, was high more than 6. Currently INR is subtherapeutic. Vascular surgery consulted and discussed with him. IV heparin drip without bolus. PT OT and case management. Warfarin low-dose 3 mg started. Check H&H at 9 PM. She has IVC filter inserted by Dr. Saucedo couple years ago in [place]. 3. Hypertensive urgency with a blood pressure of 213/112 mmHg present on admission suspected to be due at least in part to an adverse drug reaction to prednisone - Stop prednisone. Give IV hydralazine as needed for systolic blood pressure greater than 180 mmHg. 4. Severe anemia, hemoglobin is 7.1. Platelet count 160,000. Patient has double-edged sword problem of severe anemia and acute DVT of right lower extremity and generalized superficial vein thrombosis of left lower extremity and therefore IV heparin drip with careful monitoring of H&H. Recent near syncopal event likely due to dehydration culminating in patient removing her clonidine patch - Patient's antihypertensive regimen will likely need to be further optimized given her increasingly brittle health as evidenced by #1 through #3. 5. History of Endometrial carcinoma (2019); status post hysterectomy initially treated with Keytruda for approximately 18 months but had to be stopped due to side effects with patient now on anastrozole - Resume anastrozole as previous. Continue supportive care. After discussion with Dr. Saucedo it seems patient has history of endometrial cancer and breast cancer. 6. Diabetes mellitus type 2 of unknown control -ADA/renal diet. Check fingerstick blood sugars before every meal and at bedtime plus sliding scale insulin. Check hemoglobin A1c. 7. DVT prophylaxis - Patient is already on Coumadin, dose lowered as mentioned below. Check daily PT and INR with goal from 2-3. Clinical Impression(s) from Imaging Studies Venous Doppler Study 02/05/23 21:03 Interpretation Summary Acute deep vein thrombosis is noted in the right femoral vein, popliteal vein, tibioperoneal trunk vein, peroneal vein, soleus vein. Acute superficial vein thrombosis is noted in the left great saphenous vein, small saphenous vein and adjacent varicosities Lower Extremity CT 02/06/23 10:53 IMPRESSION: Swelling of the left lower extremity with evidence of a increased markings in the subcutaneous fat as well as skin thickening suggestive of a cellulitis. No focal hematoma or fluid collection is seen. Atherosclerotic calcification. Total time: Approximately 75 minutes. Charges/Coding Addendum Addendum: Total time of the visit including total time spent in counseling or coordination of care, (more than 50% of the total time, spent in obtaining medical information from nurses and other ancillary care providers,explaining to the patient about labs, imaging, diagnosis and management of active complex medical conditions), discussion with vascular surgeon and head filter tank tender helper, review of labs and imaging and clinical update given to the patient is 50 minutes. Visit Charges Inpatient E&M: 43114 Subs Hosp L3
[2023-02-06 09:13] LABS: CPK Total, Creatine Kinase 35 U/L (26-192)
[2023-02-06 09:25] LABS: Differential Comment SCANNED
[2023-02-06] MEDS: Sodium Bicarbonate 150 MEQ in Dextrose 5%-Water (1000mL Bag) 1,000 ML 100 MEQ IV (09:26)
[2023-02-06] MEDS: NIFEdipine 90 MG Tablet PO ×2 (09:27→22:05)
[2023-02-06] MEDS: Multivitamins,Therapeutic Tablet 1 TABLET PO (09:27)
[2023-02-06] MEDS: Anastrozole 1 MG TABLET PO (09:28)
--- NOTE | 2023-02-06 10:53 | CT_ITS ---
CT BILATERAL LOWER EXTREMITY WITH 3-D IMAGING CLINICAL INDICATION: hematoma? In both legs, coagulopathy TECHNIQUE: Axial CT images of the BILATERAL lower extremity was performed without IV contrast material. Coronal and sagittal reformats were provided. RADIATION DOSAGE (If Supplied By Facility): CTDIvol = ( 15.86 ) mGy, DLP = ( 1431.87 ) mGycm COMPARISON: No relevant prior comparison study available FINDINGS: Bones: Osseous structures are normal without evidence of fracture or dislocation. No lytic or blastic osseous masses. Soft Tissues: Lower anterior abdominal pelvic ventral hernia containing nondilated bowel. The left lower extremity is larger than the right. This evidence of subcutaneous edema involving the left lower extremity with overlying skin thickening suggestive of cellulitis. No focal fluid collection or hematoma is seen. Diffuse vascular atherosclerotic changes. CT/Extremity Lower without Contra IMPRESSION: Swelling of the left lower extremity with evidence of a increased markings in the subcutaneous fat as well as skin thickening suggestive of a cellulitis. No focal hematoma or fluid collection is seen. Atherosclerotic calcification. Electronically Signed: Og Kaplan MD at 13:38 EST ,
--- NOTE | 2023-02-06 11:50 | CASEMGMT ---
MATILDE HODGE Assessment: Face to Face with pt for initial transition planning/care coordination assessment. MATILDE HODGE introduced self and role at [facility], pt voices understanding and consents to assessment. Pt is A&O x4 and answers all questions appropriately at this time. Care providers, pharmacy, and demographics verified/updated. Admitting Dx: Severe BRITTNEY PCP: Nacho Specialists: Mychal (Nephrology), Sarahi (Oncologist) Preferred Pharmacy:[facility] ([place]) Insurance: MMO Prescription Benefit: yes LNOK: [place] () Living Will/HCPOA: No and no. Pt. declines to receive information on ADs. Pt. informed that is it a free service offered through [facility] if she desires. Living Arrangements: Pt lives with her in a 1 story home FFSU except laundry. 9 steps w/railing to basement and 2 steps no railing to eneter home. Prior to this admission pt. states she did well ambulating most of the time but did have a misstep on her steps earlier this year and fell. Pt. states she has not fallen since then. Pt. states she is I in all ADLs/IADLs. Transportation: Self and DME: Tub Bench, cane, walker, glucometer/supplies (states she does not take medication to manage her diabetes and does not check her BG every day but feels comfortable with know how to check her BG). Asked pt. if her PCP recommends checking her BG daily and pt. states she was not instructed to do so at her most recent PCP visit. Pt. states she would like information on medical alert systems and this information was provided to pt. Pt. denies need for any additional DME. HHC/SNF: Denies any previous HHC/SNF Pt states no concerns with going home at time of dc. Pt states no further concerns/needs. CM to follow. Advised pt to ask CM if any further question/concerns/needs arise, voices understanding. Pt Goal: Home with family support Plan: Home with family support and follow-up plans in place. Follow PT/OT.
--- NOTE | 2023-02-06 12:56 | CON.PCM.RE_ITS ---
Assessment & Plan Assessment/Plan (1) Acute kidney injury superimposed on CKD: PLAN: CKD stage IV, baseline creatinine was around 3.0. At the time of last visit, creatinine was 4. We increased the prednisone at that time empirically. Now presents with acute renal failure with creatinine of more than 6. Denies any obstructive symptoms. Urine output is present. She had nausea, vomiting, diarrhea for last several days. Poor appetite. Likely volume depletion related. Creatinine is already improved. We will change IV fluids Lower extremity? Cellulitis. On examination she has somewhat tender, hard lesions over the left thigh laterally and over the right lenn[place] just above the ankle. Does not have erythema to suggest cellulitis. Apparently her INR was high at 6. Is possible that she has small hematoma. Acidosis. Change IV fluids to bicarbonate Anemia. Hemoglobin has dropped significantly. Possible hematoma. She does see Dr. Gayle and was recommended Aranesp for chronic anemia in the setting of CKD. Apparently she did not like the side effect profile and has not started it yet. Advised her to start since she may need blood transfusions if she does not take Aranesp. Hypertension. Blood pressure was fairly high, again. She usually has a clonidine patch which she took it off about 3 to 4 days ago when she had syncopal episode. Most likely this is clonidine withdrawal. Resume clonidine patch. Blood pressure is better Discussed with hospitalist HPI Consult Data Date of Consult: 02/06/23 HPI Narrative Reason for Consultation: Acute renal failure HPI Narrative: NEWTON ALANIZ, is a 67 F who presents To the hospital with high blood pressure, lower extremity pain. Nephrology on consultation in view of acute renal failure. She is well-known to me from office. She had somewhat subacute renal failure over the last 1 year. Most recent creatinine is between 3.5-4. She had known history of endometrial carcinoma, s/p hysterectomy. Received Keytruda. 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 Kidney biopsy was not impressive. We saw her last in November and at that time her creatinine went from 3.0-4.0. Empirically started on prednisone again. She did extremely poorly with the prednisone and stopped taking it about 2 weeks ago. Started having chills, lumpy painful lesions in the lower extremity. She saw her primary care physician and was told that her INR was high at 6.0. Coumadin was held for few days. Received cephalexin for suspected cellulitis. No urinary complaints. She also had nausea, vomiting, diarrhea. Extremely poor appetite over the last several days. Denies any obstructive symptoms. [facility] Medical History Acute deep vein thrombosis (DVT) of iliac vein of left lower extremity Acute kidney injury Anemia Deep vein thrombosis, lower left extremity Diabetes Diabetes mellitus Endometrial cancer Hematuria History of blood clots Hypertension Lymphedema of left lower extremity Peripheral neuropathy Pre-procedure lab exam Regional lymph node metastasis present Home Medications sodium bicarbonate 325 mg tablet 325 mg PO TID HEARTBURN RELIEF 08/16/22 [History Last Taken 09/18/22] anastrozole 1 mg tablet 1 mg PO DAILY BREAST CANCER 09/18/22 [History Last Taken 09/18/22] multivitamin 1 tab PO DAILY HEALTH MAINTENANCE 09/18/22 [History Last Taken 09/18/22] potassium citrate 5 mEq (540 mg) tablet,extended release 5 meq PO DAILY 11/15/22 [History Last Taken Unknown] warfarin 2 mg tablet 5 mg PO QODAY 11/15/22 [History Last Taken Unknown] warfarin 2.5 mg tablet 4 mg PO QODAY 11/15/22 [History Last Taken Unknown] cephalexin 500 mg capsule 500 mg PO Q8H atb 02/05/23 [History Last Taken 11/20] clonidine 0.2 mg/24 hr weekly transdermal patch 1 patch transdermal .COMPLEX 02/05/23 [History Last Taken Unknown] nifedipine 90 mg tablet,extended release 90 mg PO BID 02/05/23 [History Last Ta katherine Unknown] Allergy/AdvReac Type Severity Reaction Status Date / Time No Known Allergies Allergy Verified 02/05/23 15:29 Family History Mother Diabetes Hypertension Father Diabetes Hypertension Surgical History History of section History of excision of pilonidal cyst History of hysterectomy History of laparoscopy S/P insertion of IVC (inferior vena caval) filter Social History household members: spouse number of children: 4 current occupational status: retired Smoking Status: Never smoker second hand exposure: No alcohol intake: never substance use type: does not use diet: vegan yesi/sabianist: Holiness seatbelt use: always do you feel safe at home: Yes ROS ROS Narrative Negative except above Physical Exam Narrative Alert awake oriented x 3 no obvious distress no pallor no icterus no JVD s1s2 no murmurs lungs clear abdomen soft no organomegaly no edema no cyanosis Lab / Micro Data 02/06/23 07:35 02/06/23 07:35 Labs: Laboratory Results - last 24 hr 02/05/23 16:38: WBC 5.5, RBC 2.43 L, Hgb 7.8 L, Hct 23.7 L, MCV 97.5, MCH 32.1 H , MCHC 32.9, RDW Std Deviation 47.6 H, RDW Coeff of [place] 13.3, Plt Count 185, MPV 9.6, Immature Gran % (Auto) 0.700, Neut % (Auto) 90.4 H, Lymph % (Auto) 3.3 L, [place] % (Auto) 4.9, Eos % (Auto) 0.5, Baso % (Auto) 0.2, Absolute Neuts (auto) 4.9, Absolute Lymphs (auto) 0.18 L, Nucleated RBC % 0, Differential Comment , Sodium 136, Potassium 4.3, Chloride 111 H, Carbon Dioxide 17.0 L, Anion Gap 8, BUN 73 H, Creatinine 6.33 H, Est GFR (MDRD) Af Amer 8 L, Est GFR (MDRD) Non-Af 7 L, BUN/Creatinine Ratio 11.5, Glucose 152 H, Calcium 8.5 02/05/23 17:57: Urine Color Yellow, Urine Clarity Clear, Urine pH 5.0, Ur Specific [place] 1.020, Urine Protein 100 H, Urine Glucose (UA) Normal, Urine Ketones Negative, Urine Occult Blood 25 H, Urine Nitrite Negative, Urine Bilirubin Negative, Urine Urobilinogen Normal, Ur Leukocyte Esterase 25 H, Urine RBC 0 SEEN, Urine WBC 0-5 SEEN, Ur Squamous Epith Cells 0 SEEN, Ur Transition Epith Cell 0-5 SEEN, Urine Bacteria 0 SEEN, Urine Mucus 0 SEEN 02/06/23 07:35: WBC 3.9 L, RBC 2.20 L, Hgb 7.1 L, Hct 21.8 L, MCV 99.1 H, MCH 32.3 H, MCHC 32.6, RDW Std Deviation 47.5 H, RDW Coeff of [place] 13.3, Plt Count 166, MPV 9.5, Immature Gran % (Auto) 1.500 H, Neut % (Auto) 78.6 H, Lymph % (Auto) 8.4 L, [place] % (Auto) 7.9, Eos % (Auto) 3.3, Baso % (Auto) 0.3, Absolute Neuts (auto) 3.1, Absolute Lymphs (auto) 0.33 L, Nucleated RBC % 0, Differential Comment SCANNED, PT 17.1 H, INR 1.4, Sodium 138, Potassium 4.0, Chloride 115 H, Carbon Dioxide 14.0 L, Anion Gap 9, BUN 66 H, Creatinine 5.82 H, Estim Creat Clear Calc 8.54, Est GFR (MDRD) Af Amer 9 L, Est GFR (MDRD) Non-Af 8 L, BUN/Creatinine Ratio 11.3, Glucose 103, Calcium 8.1 L, Magnesium 2.0, Total Bilirubin 0.20, AST 10 L, ALT 11 L, Alkaline Phosphatase 86, Total Creatine Kinase 35, Total Protein 5.9 L, Albumin 2.4 L, Globulin 3.5, Albumin/Globulin Ratio 0.7 L, TSH 2.04 02/06/23 11:10: Blood Type A NEGATIVE, Antibody Screen NEGATIVE, Crossmatch See Detail
[2023-02-06] MEDS: oxyCODONE 5 MG Tablet PO ×3 (14:45→22:04)
--- NOTE | 2023-02-06 16:44 | CON.PCM.SX_ITS ---
Assessment & Plan Assessment/Plan (1) Deep vein thrombosis (DVT) of right lower extremity: (2) Acute superficial venous thrombosis of left lower extremity: (3) Presence of IVC filter: PLAN: Plan Venous Doppler today revealed acute DVT in the right femoral, popliteal, TP trunk, peroneal, soleus veins as well as acute DVT in the left great saphenous vein, small saphenous vein, and the adjacent/adjoining varicosities. Patient had IVC filter placed in 2019 and reports this remains in place. She is typically chronically anticoagulated with Coumadin though would appear that this has been held for uncertain amount of time leading up to her presentation and current INR is 1.6. With IVC filter in place and DVT only up to the mid right femoral vein, no surgical intervention indicated at this time. Ultimately, patient would benefit symptomatically from returning to therapeutic dose of Coumadin once H&H are stable/improved. For now, can apply warm compresses to the legs to help ease her symptoms. If she can tolerate, she would also benefit from compression to help with the edema. CT did not reveal any evidence of hematoma or abscess. It did reveal increased markings in the subcutaneous fat as well as skin thickening in the general area of the noted thrombosed superficial veins/varicosities so suspect this is related to her superficial thrombophlebitis over a cellulitis. Based on symptoms and exam, do not think she has significant peripheral arterial disease which would be contributing to her current presentation. Will defer arterial studies for now. She may follow-up with us in the office as an outpatient for potential work-up of PAD as indicated. HPI Consult Data Date of Consult: 02/06/23 HPI Narrative HPI Narrative: NEWTON ALANIZ, is a 67 F who presented to the [facility] ER with complaints of redness, swelling, pain in the lower extremities that have been getting progressively worse over the last 1 to 2 weeks. Patient was also noted to have BRITTNEY superimposed on chronic stage IV kidney disease. She was admitted for management of her kidney disease as well as question of lower extremity cellulitis. Patient does have a history of breast and endometrial cancer. She is status post hysterectomy in 2019 at which time she had also had extensive left lower extremity DVT and is status post IVC filter placement by Dr. Saucedo at [facility]. She has been on Keytruda for continued treatment of her cancer, but this was felt to possibly be contributing to her worsening kidney disease so she was switched to anastrozole. She follows with Dr. Horta for management of her kidney disease and he is seeing her here in the hospital as well. Regarding the lower extremity, she started noticing this increased pain bilaterally about 2 weeks ago. At the same time noticed increased redness and focal swelling to the left thigh. She did call her PCP and describe her symptoms and they empirically started on Keflex but this did not help. She denies any known injury or wounds. Both legs but particularly the left are tender to touch. The pain gets worse with movement/ambulation so there has been some question of claudication but she denies claudication prior to the onset of this redness/swelling. She does have a history of prior extensive DVT as mentioned above and subsequent chronic swelling of the left lower extremity. About 2 weeks ago as well her Coumadin was reportedly held due to supratherapeutic INRs. Today, INR is 1.6. She is also noted to have acute on chronic anemia with hemoglobin 7.1 today. She has been recommended Aranesp in the past but has not received. [facility] Medical History Acute deep vein thrombosis (DVT) of iliac vein of left lower extremity Acute kidney injury Anemia Deep vein thrombosis, lower left extremity Diabetes Diabetes mellitus Endometrial cancer Hematuria History of blood clots Hypertension Lymphedema of left lower extremity Peripheral neuropathy Pre-procedure lab exam Regional lymph node metastasis present Home Medications sodium bicarbonate 325 mg tablet 325 mg PO TID HEARTBURN RELIEF 08/16/22 [History Last Taken 09/18/22] anastrozole 1 mg tablet 1 mg PO DAILY BREAST CANCER 09/18/22 [History Last Taken 09/18/22] multivitamin 1 tab PO DAILY HEALTH MAINTENANCE 09/18/22 [History Last Taken 09/18/22] potassium citrate 5 mEq (540 mg) tablet,extended release 5 meq PO DAILY 11/15/22 [History Last Taken Unknown] warfarin 2 mg tablet 5 mg PO QODAY 11/15/22 [History Last Taken Unknown] warfarin 2.5 mg tablet 4 mg PO QODAY 11/15/22 [History Last Taken Unknown] cephalexin 500 mg capsule 500 mg PO Q8H atb 02/05/23 [History Last Taken 02/05/23] clonidine 0.2 mg/24 hr weekly transdermal patch 1 patch transdermal .COMPLEX 02/05/23 [History Last Taken Unknown] nifedipine 90 mg tablet,extended release 90 mg PO BID 02/05/23 [History Last Taken Unknown] Allergy/AdvReac Type Severity Reaction Status Date / Time No Known Allergies Allergy Verified 02/05/23 15:29 Family History Mother Diabetes Hypertension Father Diabetes Hypertension Surgical History History of section History of excision of pilonidal cyst History of hysterectomy History of laparoscopy S/P insertion of IVC (inferior vena caval) filter Social History household members: spouse number of children: 4 current occupational status: retired Smoking Status: Never smoker second hand exposure: No alcohol intake: never substance use type: does not use diet: vegan yesi/mandaen: Yazidism seatbelt use: always do you feel safe at home: Yes Physical Exam Const alert, oriented x3 and no apparent distress General Appearance: cooperative HEENT normocephalic, head/scalp atraumatic, hearing grossly normal bilaterally, external ears normal and external nose normal Eyes EOMs intact bilaterally General Eye: normal appearance of both eyes Neck General: normal visual inspection and trachea midline Resp normal respiratory effort, normal air movement, no retractions and no use of accessory muscles Effort and Inspection: able to speak in complete sentences Cardio Rate: regular rate Rhythm: regular rhythm Extremity Extremity Narrative: Bilateral lower extremity edema, left worse than right. Left medial thigh with focal swelling, redness, and hardness and tenderness to palpation consistent with superficial thrombophlebitis. No apparent hematoma/ecchymosis in this area and no fluctuance. Do not notice any disruption of the skin integrity. No streaking of erythema towards the groin or throughout the rest of the leg. Right calf and thigh tender to palpation but do not appreciate any skin erythema, focal swelling. Neuro oriented x3, CN's II-XII intact bilaterally, moves all extremities, no focal motor deficits and no sensory deficits noted Psych mental status grossly normal Appearance: grossly normal Attitude: calm and engaged Activity / Motor Behavior: appropriate eye contact Speech: normal speech Mood & Affect: euthymic mood Judgement: judgement good Lab / Micro Data 02/06/23 07:35 02/06/23 07:35 Labs: Laboratory Results - last 24 hr 02/05/23 16:38: WBC 5.5, RBC 2.43 L, Hgb 7.8 L, Hct 23.7 L, MCV 97.5, MCH 32.1 H , MCHC 32.9, RDW Std Deviation 47.6 H, RDW Coeff of Tiffanie 13.3, Plt Count 185, MPV 9.6, Immature Gran % (Auto) 0.700, Neut % (Auto) 90.4 H, Lymph % (Auto) 3.3 L, [place] % (Auto) 4.9, Eos % (Auto) 0.5, Baso % (Auto) 0.2, Absolute Neuts (auto) 4.9, Absolute Lymphs (auto) 0.18 L, Nucleated RBC % 0, Differential Comment , Sodium 136, Potassium 4.3, Chloride 111 H, Carbon Dioxide 17.0 L, Anion Gap 8, BUN 73 H, Creatinine 6.33 H, Est GFR (MDRD) Af Amer 8 L, Est GFR (MDRD) Non-Af 7 L, BUN/Creatinine Ratio 11.5, Glucose 152 H, Calcium 8.5 02/05/23 17:57: Urine Color Yellow, Urine Clarity Clear, Urine pH 5.0, Ur Specific [place] 1.020, Urine Protein 100 H, Urine Glucose (UA) Normal, Urine Ketones Negative, Urine Occult Blood 25 H, Urine Nitrite Negative, Urine Bilirubin Negative, Urine Urobilinogen Normal, Ur Leukocyte Esterase 25 H, Urine RBC 0 SEEN, Urine WBC 0-5 SEEN, Ur Squamous Epith Cells 0 SEEN, Ur Transition Epith Cell 0-5 SEEN, Urine Bacteria 0 SEEN, Urine Mucus 0 SEEN 02/06/23 07:35: WBC 3.9 L, RBC 2.20 L, Hgb 7.1 L, Hct 21.8 L, MCV 99.1 H, MCH 32.3 H, MCHC 32.6, RDW Std Deviation 47.5 H, RDW Coeff of Tiffanie 13.3, Plt Count 166, MPV 9.5, Immature Gran % (Auto) 1.500 H, Neut % (Auto) 78.6 H, Lymph % (Auto) 8.4 L, [place] % (Auto) 7.9, Eos % (Auto) 3.3, Baso % (Auto) 0.3, Absolute Neuts (auto) 3.1, Absolute Lymphs (auto) 0.33 L, Nucleated RBC % 0, Differential Comment SCANNED, PT 17.1 H, INR 1.4, Sodium 138, Potassium 4.0, Chloride 115 H, Carbon Dioxide 14.0 L, Anion Gap 9, BUN 66 H, Creatinine 5.82 H, Estim Creat Clear Calc 8.54, Est GFR (MDRD) Af Amer 9 L, Est GFR (MDRD) Non-Af 8 L, BUN/Creatinine Ratio 11.3, Glucose 103, Calcium 8.1 L, Magnesium 2.0, Total Bilirubin 0.20, AST 10 L, ALT 11 L, Alkaline Phosphatase 86, Total Creatine Kinase 35, Total Protein 5.9 L, Albumin 2.4 L, Globulin 3.5, Albumin/Globulin Ratio 0.7 L, TSH 2.04 02/06/23 11:10: Blood Type A NEGATIVE, Antibody Screen NEGATIVE, Crossmatch See Detail Radiology Impression Venous Doppler Study 02/05/23 21:03 Interpretation Summary Acute deep vein thrombosis is noted in the right femoral vein, popliteal vein, tibioperoneal trunk vein, peroneal vein, soleus vein. Acute superficial vein thrombosis is noted in the left great saphenous vein, small saphenous vein and adjacent varicosities Ordering Physician: Keith Butler Referring Physician: Cindy Griffith Performed By: Dorothea Tapia RVT Lower Extremity CT 02/06/23 10:53 IMPRESSION: Swelling of the left lower extremity with evidence of a increased markings in the subcutaneous fat as well as skin thickening suggestive of a cellulitis. No focal hematoma or fluid collection is seen. Atherosclerotic calcification. Electronically Signed: Og Kaplan MD at 13:38 EST , Charges/Coding Visit Charges Inpatient E&M: 36548 Init Hosp L2
[2023-02-06] MEDS: 0.9% Saline Lock 10 ML Syringe IV (17:13)
[2023-02-06] MEDS: cloNIDine HCl 0.2 MG Tablet PO (18:23)
--- NOTE | 2023-02-06 18:57 | NURSING ---
lab is now in room drawing ptt. unable to start 2nd iv site, will notify next shift nurse
[2023-02-06 19:28] LABS: Partial Thromboplast Time 40.3 Seconds (24.1-36.2)
[2023-02-06 19:48] LABS: Hematocrit 27.8 % (37-47); Hemoglobin 9.2 g/dL (12.0-15.0)
[2023-02-06] MEDS: Ceftriaxone 1 GM/50 ML BAG IV (20:40)
[2023-02-06] MEDS: HEPARIN/D5w 25,000 UNITS 25,000 UNITS/250 ML IV.SOLN. 0.1 UNITS CONT INF (20:46)
[2023-02-06] MEDS: Heparin Injection (Vial) 5,000 UNIT/ML VIAL IV (20:48)
[2023-02-07 02:55] LABS: Absolute Lymphocyte Count 0.34 X10^3/uL (0.83-4.51); Absolute Neutrophil Count 3.6 X10^3/uL (2.0-7.7); Basophil# 0.01 X10^3/uL; Basophil% 0.2 % (0-1); Eosinophil# 0.21 X10^3/uL; Eosinophils% 4.6 % (0-5); Hematocrit 22.6 % (37-47); Hemoglobin 7.5 g/dL (12.0-15.0); Lymphocyte # 0.34 X10^3/ul (0.83-4.51); Lymphocyte % 7.4 % (19-41); Mean Corp Hgb Conc 33.2 g/dL (32-36); Mean Corpuscular Hgb 32.1 pg (27.0-32.0); Mean Corpuscular Volume 96.6 fL (81-99); Mean Platelet Vol. 9.6 fl (6.2-12.0); Monocyte# 0.34 X10^3/uL; Monocyte% 7.4 % (0-10); NRBC Flagged by Analyzer 0 % (0-5); Neutrophil # 3.64 X10^3/uL (2.7-7.7); Neutrophil % 78.9 % (47-70); POSITIVE DIFFERENTIAL YES; Platelet Count 151 K/mm3 (150-450); RBC Distribution Width CV 13.9 % (11.6-14.6); RBC Distribution Width SD 49.1 fl (35.1-43.9); Red Blood Count 2.34 M/mm3 (4.2-5.4); White Blood Count 4.6 K/mm3 (4.4-11.0)
[2023-02-07 03:09] LABS: International Normalized Ratio 1.5; Prothrombin Time (Protime)PT. 17.8 SECONDS (11.7-14.9)
[2023-02-07 03:10] LABS: Differential Indicated SCAN CRITERIA MET
[2023-02-07 03:11] LABS: Anion Gap 10 (5-15); BUN 66 mg/dL (7-18); BUN/Creat Ratio 11.7 RATIO (10-20); Calcium,Total 7.7 mg/dL (8.5-10.1); Chloride 112 mmol/L (98-107); Creatinine, Serum 5.63 mg/dL (0.55-1.02); EST Glomerular Filtration Rate 8 mL/min (>60); Est Glom Filt Rate - Afr Amer 10 mL/min (>60); Estimated Creatinine Clearance 8.83 ml/min; Glucose 154 mg/dL (74-106); Partial Thromboplast Time 232.4 Seconds (24.1-36.2); Potassium 4.1 mmol/L (3.5-5.1); Sodium Level 140 mmol/L (136-145)
[2023-02-07] MEDS: Sodium Bicarbonate 150 MEQ in Dextrose 5%-Water (1000mL Bag) 1,000 ML 100 MEQ IV ×2 (03:23→15:30)
[2023-02-07] MEDS: oxyCODONE 5 MG Tablet PO ×3 (03:23→21:26)
[2023-02-07 03:36] LABS: Differential Comment SCANNED
[2023-02-07 05:00] VITALS: BP 127/64; PULSE 74; RESP 16; TEMP 37.1; O2SAT 97
[2023-02-07 06:00] VITALS: BMI 26.6
[2023-02-07] MEDS: Sodium Bicarbonate 650 MG Tablet 325 MG PO ×3 (06:37→20:37)
[2023-02-07 06:45] LABS: Partial Thromboplast Time 49.7 Seconds (24.1-36.2)
[2023-02-07 07:09] VITALS: O2SAT 96
[2023-02-07 08:23] VITALS: BP 119/60; PULSE 77; RESP 18; TEMP 36.5; O2SAT 97
[2023-02-07] MEDS: NIFEdipine 90 MG Tablet PO ×2 (08:26→20:35)
[2023-02-07] MEDS: Multivitamins,Therapeutic Tablet 1 TABLET PO (08:27)
[2023-02-07] MEDS: Anastrozole 1 MG TABLET PO (08:27)
[2023-02-07] MEDS: Acetaminophen 325 MG Tablet 650 MG PO ×2 (12:58→20:06)
[2023-02-07 13:33] LABS: Partial Thromboplast Time 47.9 Seconds (24.1-36.2)
[2023-02-07] MEDS: Heparin Injection (Vial) 5,000 UNIT/ML VIAL IV (14:14)
[2023-02-07 14:22] VITALS: BP 121/61; PULSE 80; RESP 18; TEMP 37.3; O2SAT 97
--- NOTE | 2023-02-07 16:19 | PN.RENAL_ITS ---
Subjective Subjective no new complaints. feels better somewhat. urine output has improved Objective Data Objective Data Vital Signs: Vital Signs Temp Pulse Resp BP Pulse Ox O2 Del Method 99.1 F 80 18 121/61 H 97 Room Air 02/07/23 14:22 02/07/23 14:22 02/07/23 14:22 02/07/23 14:22 02/07/23 14:22 02/07/23 14:22 Oxygen Delivery Method Room Air Weight: 75 kg Body Mass Index (BMI) 26.6 Intake & Output: Intake and Output for Last 24 Hours 02/05/23 02/06/23 02/07/23 23:59 23:59 23:59 Intake Total 1050 / 1350 2831.25 / 2831.25 2468.21 / 2468.21 Output Total 200 / 200 Balance 1050 / 1150 2631.25 / 2631.25 2468.21 / 2468.21 Lab / Micro Data 02/07/23 02:45 02/07/23 02:45 Labs: Laboratory Results - last 24 hr 02/06/23 11:10: Crossmatch See Detail 02/06/23 19:00: Hgb 9.2 L, Hct 27.8 L, APTT 40.3 H 02/07/23 02:45: WBC 4.6, RBC 2.34 L, Hgb 7.5 L, Hct 22.6 L, MCV 96.6, MCH 32.1 H , MCHC 33.2, RDW Std Deviation 49.1 H, RDW Coeff of Tiffanie 13.9, Plt Count 151, MPV 9.6, Immature Gran % (Auto) 1.500 H, Neut % (Auto) 78.9 H, Lymph % (Auto) 7.4 L, [place] % (Auto) 7.4, Eos % (Auto) 4.6, Baso % (Auto) 0.2, Absolute Neuts (auto) 3.6, Absolute Lymphs (auto) 0.34 L, Nucleated RBC % 0, Differential Comment SCANNED, PT 17.8 H, INR 1.5, APTT 232.4 H*, Sodium 140, Potassium 4.1, Chloride 112 H, Carbon Dioxide 18.0 L, Anion Gap 10, BUN 66 H, Creatinine 5.63 H, Estim Creat Clear Calc 8.83, Est GFR (MDRD) Af Amer 10 L, Est GFR (MDRD) Non-Af 8 L, BUN/Creatinine Ratio 11.7, Glucose 154 H, Calcium 7.7 L 02/07/23 05:30: APTT 49.7 H 02/07/23 12:54: APTT 47.9 H Physical Exam Narrative Alert awake oriented x 3 no obvious distress no pallor no icterus no JVD s1s2 no murmurs lungs clear abdomen soft no organomegaly no edema no cyanosis Assessment & Plan Assessment/Plan (1) Acute kidney injury superimposed on CKD: PLAN: CKD stage IV, baseline creatinine was around 3.0. At the time of last office visit, creatinine was 4. We increased the prednisone at that time empirically. Now presents with acute renal failure with creatinine of more than 6. Denies any obstructive symptoms. Urine output is present. She had nausea, vomiting, diarrhea for last several days. Poor appetite. Likely volume depletion related. Creatinine is already improved. I have explained to her she will probably need dialysis soon. she understands. wants to see if fluids will improve renal function. Background CKD etiology unclear. 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 she did not tolerate prednisone due to adverse events. Lower extremity? Cellulitis. On examination she has somewhat tender, hard lesions over the left thigh laterally and over the right lennon just above the ankle. Does not have erythema to suggest cellulitis. Apparently her INR was high at 6. Is possible that she has small hematoma. CT is reading as cellulitis. pain is improving, more softer lesions today Acidosis. better. continue bicarbonate one more day Anemia. Hemoglobin has dropped significantly. She does see Dr. Sandhu and was recommended Aranesp for chronic anemia in the setting of CKD. Apparently she did not like the side effect profile. Advised her to start since she may need blood transfusions if she does not take Aranesp. Hypertension. Blood pressure was fairly high. She usually has a clonidine patch which she took it off about 3 to 4 days ago when she had syncopal episode. Most likely this is clonidine withdrawal. Resumed clonidine patch. Blood pressure is better
--- NOTE | 2023-02-07 16:24 | PN.HOSP_ITS ---
Reason for Visit Reason for Visit: Diagnoses Acute kidney failure, unspecified (02/05/23) Chronic kidney disease, unspecified (02/05/23) Subjective Subjective Follow-up for diffuse right lower extremity DVT and left saphenous vein thrombosis with severe anemia Objective Data Objective Data Vital Signs: Vital Signs Temp Pulse Resp BP Pulse Ox O2 Del Method 99.1 F 80 18 121/61 H 97 Room Air 02/07/23 14:22 02/07/23 14:22 02/07/23 14:22 02/07/23 14:22 02/07/23 14:22 02/07/23 14:22 Oxygen Delivery Method Room Air Weight: 165 lb 5.547 oz Body Mass Index (BMI) 26.6 Intake & Output: Intake and Output for Last 24 Hours 02/05/23 02/06/23 02/07/23 23:59 23:59 23:59 Intake Total 1050 / 1350 2831.25 / 2831.25 2468.21 / 2468.21 Output Total 200 / 200 Balance 1050 / 1150 2631.25 / 2631.25 2468.21 / 2468.21 Lab / Micro Data 02/07/23 02:45 02/07/23 02:45 Labs: Laboratory Results - last 24 hr 02/06/23 11:10: Crossmatch See Detail 02/06/23 19:00: Hgb 9.2 L, Hct 27.8 L, APTT 40.3 H 02/07/23 02:45: WBC 4.6, RBC 2.34 L, Hgb 7.5 L, Hct 22.6 L, MCV 96.6, MCH 32.1 H , MCHC 33.2, RDW Std Deviation 49.1 H, RDW Coeff of Tiffanie 13.9, Plt Count 151, MPV 9.6, Immature Gran % (Auto) 1.500 H, Neut % (Auto) 78.9 H, Lymph % (Auto) 7.4 L, [place] % (Auto) 7.4, Eos % (Auto) 4.6, Baso % (Auto) 0.2, Absolute Neuts (auto) 3.6, Absolute Lymphs (auto) 0.34 L, Nucleated RBC % 0, Differential Comment SCANNED, PT 17.8 H, INR 1.5, APTT 232.4 H*, Sodium 140, Potassium 4.1, Chloride 112 H, Carbon Dioxide 18.0 L, Anion Gap 10, BUN 66 H, Creatinine 5.63 H, Estim Creat Clear Calc 8.83, Est GFR (MDRD) Af Amer 10 L, Est GFR (MDRD) Non-Af 8 L, BUN/Creatinine Ratio 11.7, Glucose 154 H, Calcium 7.7 L 02/07/23 05:30: APTT 49.7 H 02/07/23 12:54: APTT 47.9 H Physical Exam Narrative Seen and examined. Overall feels better than yesterday. Lower extremity pain is better. Hemoglobin low but patient tolerating IV heparin drip. She has history of DVT x2, last 1 left lower extremity status post IVC filter. Patient complaining of bilateral lower extremity pain more on the left lateral aspect of thigh. Physical exam General: Alert, Oriented x3, Cooperative HEENT: Atraumatic, PERRLA, EOMI, Normocephalic Oral: Oral mucosa moist. No Gingival or Mucosal Lesions/ Ulcerations Neck: Supple, No JVD, Negative Carotid Bruits Lungs: Air entry diminished in bilateral lung bases. No crepitation/rhonchi Cardiovascular: Regular rate, Regular Rhythm, Normal S1, Normal S2, No murmurs Abdomen: Bowel Sounds Present, Soft, Non Tender, Non-Distended : No renal angle tenderness. No suprapubic tenderness. Extremities: No edema, Capillary Refill Less than 3 Seconds Skin: No rashes, No breakdown Musculoskeletal: Tenderness present over left lateral aspect of thigh. Improvement in right knee and right calf swelling. ROM restricted at left hip and knee due to pain. Neurological: Cranial nerves II-XII grossly intact, DTR 2+/4. No acute focal neurological deficit. Psych/Mental Status: Flat affect. Assessment & Plan Assessment/Plan (1) Acute kidney injury superimposed on CKD: PLAN: Plan 1. Severe acute kidney injury most likely prerenal from volume depletion complicating chronic kidney disease stage IV with baseline creatinine of 3.91 mg/dL on her last admission now up to 6.33 mg/dL this admission [facility]Blood pressure is on higher side will 75/83. Neurologist consulted. Does not have obstructive symptoms. IV fluid changed. Avoid potentially nephrotoxic medications. Dr. Horta was consulted and discussed with him. 2. Acute diffuse DVT of right lower extremity from femoral vein to soleus vein and superficial vein thrombosis of left great saphenous vein, small saphenous vein: Patient hemoglobin is 7-1. Patient has IVC filter. Patient is on warfarin at home and warfarin was held because of coagulopathy, was high more than 6. Currently INR is subtherapeutic. Vascular surgery consulted and discussed with him. IV heparin drip without bolus. PT OT and case management. Warfarin low-dose 3 mg started. She has IVC filter inserted by Dr. Saucedo couple years ago in [place]. 02/07: Hemoglobin 9.2 yesterday and today 7.5. Iron infusion ordered. Continue IV heparin drip and warfarin. INR gradually increasing 1.5. 3. Hypertensive urgency with a blood pressure of 213/112 mmHg present on admission suspected to be due at least in part to an adverse drug reaction to prednisone - Stop prednisone. Give IV hydralazine as needed for systolic blood pressure greater than 180 mmHg. 4. Severe anemia, hemoglobin is 7.1. Platelet count 160,000. Patient has double-edged sword problem of severe anemia and acute DVT of right lower extremity and generalized superficial vein thrombosis of left lower extremity and therefore IV heparin drip with careful monitoring of H&H. 02/07: Patient took Anasept for about 2-[address] Sandhu. She likes side/adverse effect profile and concerned about hypertension, stroke and polycythemia. Ordnance Engineering Technician also reconcile that she should take it but hold it if hemoglobin is 10 g. Iron infusion ordered. Recent near syncopal event likely due to dehydration culminating in patient removing her clonidine patch - Patient's antihypertensive regimen will likely need to be further optimized given her increasingly brittle health as evidenced by #1 through #3. 5. History of Endometrial carcinoma (2019); status post hysterectomy initially treated with Keytruda for approximately 18 months but had to be stopped due to side effects with patient now on anastrozole - Resume anastrozole as previous. Continue supportive care. After discussion with Dr. Saucedo it seems patient has history of endometrial cancer and breast cancer. 6. Diabetes mellitus type 2 of unknown control -ADA/renal diet. Check fingerstick blood sugars before every meal and at bedtime plus sliding scale insulin. Check hemoglobin A1c. 7. DVT prophylaxis - Patient is already on Coumadin, dose lowered as mentioned below. Check daily PT and INR with goal from 2-3. Clinical Impression(s) from Imaging Studies Venous Doppler Study 02/05/23 21:03 Interpretation Summary Acute deep vein thrombosis is noted in the right femoral vein, popliteal vein, tibioperoneal trunk vein, peroneal vein, soleus vein. Acute superficial vein thrombosis is noted in the left great saphenous vein, small saphenous vein and adjacent varicosities Lower Extremity CT 02/06/23 10:53 IMPRESSION: Swelling of the left lower extremity with evidence of a increased markings in the subcutaneous fat as well as skin thickening suggestive of a cellulitis. No focal hematoma or fluid collection is seen. Atherosclerotic calcification. Total time: Approximately 75 minutes. Charges/Coding Visit Charges Inpatient E&M: 56739 Subs Hosp L2
[2023-02-07] MEDS: 0.9% Normal Saline (250mL Bag) 250 ML 15 ML IV (18:42)
[2023-02-07] MEDS: 0.9% Saline Lock 10 ML Syringe IV ×2 (18:42→19:06)
[2023-02-07] MEDS: Sodium Ferric Gluconat/Sucrose 250 MG in 0.9% Normal Saline (250mL Bag) 250 ML 135 MG IV (18:42)
[2023-02-07 20:34] VITALS: BP 126/59; PULSE 78; RESP 18; TEMP 36.7; O2SAT 95
[2023-02-07 20:43] LABS: Partial Thromboplast Time 152.3 Seconds (24.1-36.2)
[2023-02-07 21:24] VITALS: BP 127/56; PULSE 75; RESP 18; TEMP 36.7; O2SAT 98
[2023-02-07] MEDS: Ceftriaxone 1 GM/50 ML BAG IV (21:29)
[2023-02-08] VITALS (9 sets, daily range): BP systolic 122–147; BP diastolic 57–76; PULSE 70–93; RESP 16–18; TEMP 36.7–37.3; O2SAT 92–99; BMI 26.8
[2023-02-08] MEDS: oxyCODONE 5 MG Tablet PO ×2 (01:27→10:07)
[2023-02-08] MEDS: MELATONIN 3 MG TABLET PO (01:27)
[2023-02-08] MEDS: Sodium Bicarbonate 150 MEQ in Dextrose 5%-Water (1000mL Bag) 1,000 ML 100 MEQ IV ×2 (02:50→13:26)
[2023-02-08] MEDS: Acetaminophen 325 MG Tablet 650 MG PO ×3 (03:22→20:06)
[2023-02-08 05:38] LABS: Absolute Lymphocyte Count 0.51 X10^3/uL (0.83-4.51); Absolute Neutrophil Count 4.2 X10^3/uL (2.0-7.7); Basophil# 0.01 X10^3/uL; Basophil% 0.2 % (0-1); Eosinophil# 0.26 X10^3/uL; Eosinophils% 4.7 % (0-5); Hematocrit 22.7 % (37-47); Hemoglobin 7.3 g/dL (12.0-15.0); Lymphocyte # 0.51 X10^3/ul (0.83-4.51); Lymphocyte % 9.1 % (19-41); Mean Corp Hgb Conc 32.2 g/dL (32-36); Mean Corpuscular Hgb 31.3 pg (27.0-32.0); Mean Corpuscular Volume 97.4 fL (81-99); Mean Platelet Vol. 9.4 fl (6.2-12.0); Monocyte# 0.55 X10^3/uL; Monocyte% 9.8 % (0-10); NRBC Flagged by Analyzer 0 % (0-5); Neutrophil # 4.21 X10^3/uL (2.7-7.7); Neutrophil % 75.3 % (47-70); POSITIVE DIFFERENTIAL YES; Platelet Count 152 K/mm3 (150-450); RBC Distribution Width CV 13.7 % (11.6-14.6); RBC Distribution Width SD 48.7 fl (35.1-43.9); Red Blood Count 2.33 M/mm3 (4.2-5.4); White Blood Count 5.6 K/mm3 (4.4-11.0)
[2023-02-08 05:46] LABS: Differential Indicated SCAN CRITERIA MET
[2023-02-08 06:09] LABS: International Normalized Ratio 1.5; Prothrombin Time (Protime)PT. 18.2 SECONDS (11.7-14.9)
[2023-02-08 06:12] LABS: Partial Thromboplast Time 95.9 Seconds (24.1-36.2)
[2023-02-08 06:13] LABS: Anion Gap 10 (5-15); BUN 61 mg/dL (7-18); Calcium,Total 7.5 mg/dL (8.5-10.1); Chloride 103 mmol/L (98-107); Creatinine, Serum 5.55 mg/dL (0.55-1.02); EST Glomerular Filtration Rate 8 mL/min (>60); Est Glom Filt Rate - Afr Amer 10 mL/min (>60); Estimated Creatinine Clearance 8.96 ml/min; Glucose 129 mg/dL (74-106); Potassium 3.5 mmol/L (3.5-5.1); Sodium Level 138 mmol/L (136-145)
[2023-02-08] MEDS: Sodium Bicarbonate 650 MG Tablet 325 MG PO ×3 (06:48→20:08)
[2023-02-08 07:22] LABS: Differential Comment SCANNED
[2023-02-08] MEDS: HEPARIN/D5w 25,000 UNITS 25,000 UNITS/250 ML IV.SOLN. 4 UNITS CONT INF (07:44)
--- NOTE | 2023-02-08 08:36 | PN.HOSP_ITS ---
Reason for Visit Reason for Visit: Diagnoses Acute kidney failure, unspecified (02/05/23) Chronic kidney disease, unspecified (02/05/23) Objective Data Objective Data Vital Signs: Vital Signs Temp Pulse Resp BP Pulse Ox O2 Del Method 98.0 F 84 18 128/70 H 94 Room Air 02/08/23 03:19 02/08/23 03:19 02/08/23 03:19 02/08/23 03:19 02/08/23 08:20 02/08/23 08:20 Oxygen Delivery Method Room Air Weight: 166 lb 0.129 oz Body Mass Index (BMI) 26.8 Intake & Output: Intake and Output for Last 24 Hours 02/06/23 02/07/23 02/08/23 23:59 23:59 23:59 Intake Total 2831.25 / 2831.25 3455.04 / 3455.04 743.55 / 743.55 Output Total 200 / 200 900 / 900 Balance 2631.25 / 2631.25 2555.04 / 2555.04 743.55 / 743.55 Lab / Micro Data 02/08/23 05:29 02/08/23 05:29 Labs: Laboratory Results - last 24 hr 02/07/23 12:54: APTT 47.9 H 02/07/23 20:00: APTT 152.3 H* 02/08/23 05:29: WBC 5.6, RBC 2.33 L, Hgb 7.3 L, Hct 22.7 L, MCV 97.4, MCH 31.3, MCHC 32.2, RDW Std Deviation 48.7 H, RDW Coeff of Tiffanie 13.7, Plt Count 152, MPV 9.4, Immature Gran % (Auto) 0.900, Neut % (Auto) 75.3 H, Lymph % (Auto) 9.1 L, [place] % (Auto) 9.8, Eos % (Auto) 4.7, Baso % (Auto) 0.2, Absolute Neuts (auto) 4.2, Absolute Lymphs (auto) 0.51 L, Nucleated RBC % 0, Differential Comment SCANNED, PT 18.2 H, INR 1.5, APTT 95.9 H*, Sodium 138, Potassium 3.5, Chloride 103, Carbon Dioxide 25.0, Anion Gap 10, BUN 61 H, Creatinine 5.55 H, Estim Creat Clear Calc 8.96, Est GFR (MDRD) Af Amer 10 L, Est GFR (MDRD) Non-Af 8 L, BUN/Creatinine Ratio 11.0, Glucose 129 H, Calcium 7.5 L Physical Exam Narrative Seen and examined. Today she was feeling good in the morning but around noon time she complained of severe pain in the lower extremity. Hemoglobin is still 7.3 even after giving IV iron infusion. Warfarin dose increased to 4 mg daily with continuation of IV heparin drip for bridging. She has history of DVT x2, last 1 left lower extremity status post IVC filter. Patient complaining of bilateral lower extremity pain more on the left lateral aspect of thigh. Physical exam General: Alert, Oriented x3, Cooperative HEENT: Atraumatic, PERRLA, EOMI, Normocephalic Oral: Oral mucosa moist. No Gingival or Mucosal Lesions/ Ulcerations Neck: Supple, No JVD, Negative Carotid Bruits Lungs: Air entry diminished in bilateral lung bases. No crepitation/rhonchi Cardiovascular: Regular rate, Regular Rhythm, Normal S1, Normal S2, No murmurs Abdomen: Bowel Sounds Present, Soft, Non Tender, Non-Distended : No renal angle tenderness. No suprapubic tenderness. Extremities: No edema, Capillary Refill Less than 3 Seconds Skin: No rashes, No breakdown Musculoskeletal: Tenderness with hardness and induration present over left lateral aspect of thigh. Improvement in right knee and right calf swelling. ROM restricted at left hip and knee due to pain. Neurological: Cranial nerves II-XII grossly intact, DTR 2+/4. No acute focal neurological deficit. Psych/Mental Status: Flat affect. Assessment & Plan Assessment/Plan (1) Acute kidney injury superimposed on CKD: PLAN: Plan 1. Severe acute kidney injury most likely prerenal from volume depletion complicating chronic kidney disease stage IV with baseline creatinine of 3.91 mg/dL on her last admission now up to 6.33 mg/dL this admission -[facility].Blood pressure is on higher side will 75/83. Neurologist consulted. Does not have obstructive symptoms. IV fluid changed. Avoid potentially nephrotoxic medications. Dr. Horta was consulted and discussed with him. 2. Acute diffuse DVT of right lower extremity from femoral vein to soleus vein and superficial vein thrombosis of left great saphenous vein, small saphenous vein: Patient hemoglobin is 7-1. Patient has IVC filter. Patient is on warfar in at home and warfarin was held because of coagulopathy, was high more than 6. Currently INR is subtherapeutic. Vascular surgery consulted and discussed with him. IV heparin drip without bolus. PT OT and case management. Warfarin low- dose 3 mg started. She has IVC filter inserted by Dr. Saucedo couple years ago in [place]. 02/07: Hemoglobin 9.2 yesterday and today 7.5. Iron infusion ordered. Continue IV heparin drip and warfarin. INR gradually increasing 1.5. 02/08: Hemoglobin 7.3. Warfarin dose increased to 4 mg as INR remains 1.5. Work-up ordered for tomorrow a.m. but my believe is she might have high ferritin with kidney failure and might be benefited by darbepoetin geni. Pain medication also increased and changed to morphine to Dilaudid. 3. Hypertensive urgency with a blood pressure of 213/112 mmHg present on admission suspected to be due at least in part to an adverse drug reaction to prednisone - Stop prednisone. Give IV hydralazine as needed for systolic blood pressure greater than 180 mmHg. 4. Severe anemia, hemoglobin is 7.1. Platelet count 160,000. Patient has double-edged sword problem of severe anemia and acute DVT of right lower extremity and generalized superficial vein thrombosis of left lower extremity and therefore IV heparin drip with careful monitoring of H&H. 02/07: Patient took darbepoetin geni for about 2-[address] Sandhu. She likes side/adverse effect profile and concerned about hypertension, stroke and polycythemia. [employer] Consultant also reconcile that she should take it but hold it if hemoglobin is 10 g. Iron infusion ordered. Recent near syncopal event likely due to dehydration culminating in patient removing her clonidine patch - Patient's antihypertensive regimen will likely need to be further optimized given her increasingly brittle health as evidenced by #1 through #3. 5. History of Endometrial carcinoma (2019); status post hysterectomy initially treated with Keytruda for approximately 18 months but had to be stopped due to side effects with patient now on anastrozole - Resume anastrozole as previous. Continue supportive care. After discussion with Dr. Saucedo it seems patient has history of endometrial cancer and breast cancer. 6. Diabetes mellitus type 2 of unknown control -ADA/renal diet. Check fingerstick blood sugars before every meal and at bedtime plus sliding scale insulin. Check hemoglobin A1c. 7. DVT prophylaxis - Patient is already on Coumadin, dose lowered as mentioned below. Check daily PT and INR with goal from 2-3. Clinical Impression(s) from Imaging Studies Venous Doppler Study 02/05/23 21:03 Interpretation Summary Acute deep vein thrombosis is noted in the right femoral vein, popliteal vein, tibioperoneal trunk vein, peroneal vein, soleus vein. Acute superficial vein thrombosis is noted in the left great saphenous vein, small saphenous vein and adjacent varicosities Lower Extremity CT 02/06/23 10:53 IMPRESSION: Swelling of the left lower extremity with evidence of a increased markings in the subcutaneous fat as well as skin thickening suggestive of a cellulitis. No focal hematoma or fluid collection is seen. Atherosclerotic calcification. Total time: Approximately 75 minutes. Charges/Coding Visit Charges Inpatient E&M: 85665 Subs Hosp L2
[2023-02-08] MEDS: Multivitamins,Therapeutic Tablet 1 TABLET PO (09:59)
[2023-02-08] MEDS: Anastrozole 1 MG TABLET PO (10:00)
[2023-02-08] MEDS: NIFEdipine 90 MG Tablet PO ×2 (10:01→20:05)
--- NOTE | 2023-02-08 10:17 | CASEMGMT ---
Updated by PT that they are recommending placement for pt as she is very painful and had 2 LOB and needs 1x assist during session today. RN CM into pt room, pt sitting up in chair. She states her is home in the mornings and works second shift. She states that she would consider a SNF. She is aware that SW will provide a list and she would like to speak to her about this.
[2023-02-08] MEDS: Ondansetron 4 MG/2 ML Vial IV (11:42)
[2023-02-08] MEDS: Morphine 2 MG/ML Syringe IV (11:43)
--- NOTE | 2023-02-08 11:51 | NURSING ---
pt up in chair, tearful w/ burning pain in BLE which are elevated on foot rest-k-pad to BLE for comfort as suggested per TEMPERING MACHINE OPERATOR/vascular-oxy 5 mg and tylenol don't seem to be effective for her pain and she is still crying out-morphine 2 mg and zofran given iv for hx of vomiting after last dose of morphone without zofran
[2023-02-08] MEDS: HYDROmorphone 0.5 MG/0.5 ML SYRINGE IV (12:48)
[2023-02-08 14:21] LABS: Partial Thromboplast Time 59.2 Seconds (24.1-36.2)
--- NOTE | 2023-02-08 15:25 | CASEMGMT ---
Social Work SW notified that patient could use additional therapy and PT is recommending SNF. A list SNF of providers including quality and resource use data and consistent with patient?s preferred geographic region, medical needs, and insurance network were provided from the [employer] Guide. Pt is requesting to review list with her spouse. SW to follow up. Ashleigh Mitchell DRUG DEPARTMENT WORKER, DIRECTOR APPOINTMENT
[2023-02-08] MEDS: tiZANidine HCl 2 MG Tablet 4 MG PO (17:31)
[2023-02-08] MEDS: cloNIDine HCl 0.1 MG Tablet PO (20:07)
[2023-02-08] MEDS: Ceftriaxone 1 GM/50 ML BAG IV (20:21)
[2023-02-08 20:26] LABS: Partial Thromboplast Time 62.7 Seconds (24.1-36.2)
[2023-02-09] VITALS (11 sets, daily range): BP systolic 107–169; BP diastolic 57–86; PULSE 69–90; RESP 18–20; TEMP 36.9–37.3; O2SAT 93–98; BMI 28.6
[2023-02-09] MEDS: MELATONIN 3 MG TABLET PO ×2 (00:18→22:50)
[2023-02-09] MEDS: oxyCODONE 5 MG Tablet PO ×4 (00:18→19:47)
[2023-02-09] MEDS: Sodium Bicarbonate 150 MEQ in Dextrose 5%-Water (1000mL Bag) 1,000 ML 100 MEQ IV ×2 (00:20→10:40)
[2023-02-09] MEDS: 0.9% Saline Lock 10 ML Syringe IV ×2 (00:52→22:36)
[2023-02-09] MEDS: HYDROmorphone 0.5 MG/0.5 ML SYRINGE IV ×2 (00:52→22:35)
[2023-02-09] MEDS: tiZANidine HCl 2 MG Tablet 4 MG PO (01:46)
[2023-02-09] MEDS: Acetaminophen 325 MG Tablet 650 MG PO ×2 (04:30→19:47)
[2023-02-09] MEDS: Sodium Bicarbonate 650 MG Tablet 325 MG PO ×3 (04:33→20:23)
[2023-02-09 05:55] LABS: International Normalized Ratio 1.5; Prothrombin Time (Protime)PT. 18.3 SECONDS (11.7-14.9)
[2023-02-09 06:00] LABS: Ferritin 918 ng/mL (8-252); Iron 35 ug/dL (50-170); Iron Binding Capacity,Total 215 ug/dL (250-450); PERCENT IRON SATURATION 16.3 % (15.0-55.0)
[2023-02-09] MEDS: Multivitamins,Therapeutic Tablet 1 TABLET PO (08:55)
--- NOTE | 2023-02-09 09:49 | PCM.PN.HOSP ---
Reason for Visit Reason for Visit: Diagnoses Acute kidney failure, unspecified (02/05/23) Chronic kidney disease, unspecified (02/05/23) Objective Data Objective Data Vital Signs: Vital Signs Temp Pulse Resp BP Pulse Ox O2 Del Method 99.1 F 81 18 109/64 94 Room Air 02/09/23 08:43 02/09/23 08:48 02/09/23 08:43 02/09/23 08:43 02/09/23 08:43 02/09/23 08:43 Oxygen Delivery Method Room Air Weight: 177 lb 7.554 oz Body Mass Index (BMI) 28.6 Intake & Output: Intake and Output for Last 24 Hours 02/07/23 02/08/23 02/09/23 23:59 23:59 23:59 Intake Total 3455.04 / 3455.04 3248.08 / 3248.08 1090 / 1090 Output Total 900 / 900 500 / 500 Balance 2555.04 / 2555.04 2748.08 / 2748.08 1090 / 1090 Lab / Micro Data 02/09/23 05:20 02/09/23 05:20 Labs: Laboratory Results - last 24 hr 02/08/23 13:52: APTT 59.2 H 02/08/23 19:47: APTT 62.7 H 02/09/23 05:20: PT 18.3 H, INR 1.5, APTT 62.0 H, Iron 35 L, TIBC 215 L, Iron Saturation 16.3, Ferritin 918 H Physical Exam Narrative Seen and examined. Patient complaining of intermittent spasm over right posterior lateral calf region. Hemoglobin dropped to 7.0. On warfarin 5 mg daily. She has history of DVT x2, last 1 left lower extremity status post IVC filter. Patient complaining of bilateral lower extremity pain more on the left lateral aspect of thigh. Physical exam General: Alert, Oriented x3, Cooperative HEENT: Atraumatic, PERRLA, EOMI, Normocephalic Oral: Oral mucosa moist. No Gingival or Mucosal Lesions/ Ulcerations Neck: Supple, No JVD, Negative Carotid Bruits Lungs: Air entry diminished in bilateral lung bases. No crepitation/rhonchi Cardiovascular: Regular rate, Regular Rhythm, Normal S1, Normal S2, No murmurs Abdomen: Bowel Sounds Present, Soft, Non Tender, Non-Distended : No renal angle tenderness. No suprapubic tenderness. Extremities: No edema, Capillary Refill Less than 3 Seconds Skin: No rashes, No breakdown Musculoskeletal: Tenderness present on right posterior lateral calf but seems soft and dorsalis pedis and PT palpable therefore does not seem compartment syndrome. Tenderness with hardness and induration present over distal left lateral aspect of thigh with improvement in proximal posterior lateral thigh. ROM restricted at left hip and knee due to pain. Neurological: Cranial nerves II-XII grossly intact, DTR 2+/4. No acute focal neurological deficit. Psych/Mental Status: Flat affect. Assessment & Plan Assessment/Plan (1) Acute kidney injury superimposed on CKD: PLAN: Plan 1. Severe acute kidney injury most likely prerenal from volume depletion complicating chronic kidney disease stage IV with baseline creatinine of 3.91 mg/dL on her last admission now up to 6.33 mg/dL this admission -patient admitted to [facility] floor.Blood pressure is on higher side will 75/83. Neurologist consulted. Does not have obstructive symptoms. IV fluid changed. Avoid potentially nephrotoxic medications. Dr. Horta was consulted and discussed with him. 02/09: BUNs/creatinine not improving, 60/5.6. Patient is making urine. Corrected serum calcium is 8.4. I would not give calcium supplement as it might theoretically increase the chances of clotting. 2. Acute diffuse DVT of right lower extremity from femoral vein to soleus vein and superficial vein thrombosis of left great saphenous vein, small saphenous vein: Patient hemoglobin is 7-1. Patient has IVC filter. Patient is on warfarin at home and warfarin was held because of coagulopathy, was high more than 6. Currently INR is subtherapeutic. Vascular surgery consulted and discussed with him. IV heparin drip without bolus. PT OT and case management. Warfarin low-dose 3 mg started. She has IVC filter inserted by Dr. Saucedo couple years ago in [place]. 02/07: Hemoglobin 9.2 yesterday and today 7.5. Iron infusion ordered. Continue IV heparin drip and warfarin. INR gradually increasing 1.5. 02/08: Hemoglobin 7.3. Warfarin dose increased to 4 mg as INR remains 1.5. Work-up ordered for tomorrow a.m. but my believe is she might have high ferritin with kidney failure and might be benefited by darbepoetin geni. Pain medication also increased and changed to morphine to Dilaudid. 02/09: Hemoglobin dropped to 7.0, hematocrit 21%. Iron profile shows low iron, iron saturation 16.3% ferritin 918 high. LDH and folate normal. Immature reticulocyte fraction high therefore suggestive of reactive bone marrow. 1 unit of PRBC ordered. Continue IV heparin drip. Warfarin 5 mg daily. INR 1.5 for last 3 days. 3. Hypertensive urgency with a blood pressure of 213/112 mmHg present on admission suspected to be due at least in part to an adverse drug reaction to prednisone - Stop prednisone. Give IV hydralazine as needed for systolic blood pressure greater than 180 mmHg. 4. Severe anemia, hemoglobin is 7.1. Platelet count 160,000. Patient has double-edged sword problem of severe anemia and acute DVT of right lower extremity and generalized superficial vein thrombosis of left lower extremity and therefore IV heparin drip with careful monitoring of H&H. 02/07: Patient took darbepoetin geni for about 2-[address] Sandhu. She likes side/adverse effect profile and concerned about hypertension, stroke and polycythemia. Oil Pipe Inspector also reconcile that she should take it but hold it if hemoglobin is 10 g. Iron infusion ordered. Recent near syncopal event likely due to dehydration culminating in patient removing her clonidine patch -clonidine patch was changed to clonidine tablet. Blood pressure is better controlled 136/64. 5. History of Endometrial carcinoma (2019); status post hysterectomy initially treated with Keytruda for approximately 18 months but had to be stopped due to side effects with patient now on anastrozole - Resume anastrozole as previous. Continue supportive care. After discussion with Dr. Saucedo it seems patient has history of endometrial cancer and breast cancer. 6. Diabetes mellitus type 2 of unknown control -ADA/renal diet. Check fingerstick blood sugars before every meal and at bedtime plus sliding scale insulin. Check hemoglobin A1c. 7. DVT prophylaxis - Patient is already on Coumadin, dose lowered as mentioned below. Check daily PT and INR with goal from 2-3. Laboratory Results 02/08/23 13:52: APTT 59.2 H 02/08/23 19:47: APTT 62.7 H 02/09/23 05:20: WBC 4.8, RBC 2.12 L, Hgb 7.0 L, Hct 20.9 L, MCV 98.6, MCH 33.0 H, MCHC 33.5, RDW Std Deviation 47.4 H, RDW Coeff of Tiffanie 13.2, Plt Count 172, MPV 10.8, Immature Gran % (Auto) 1.000 H, Neut % (Auto) 79.0 H, Lymph % (Auto) 6.7 L, [place] % (Auto) 10.8 H, Eos % (Auto) 2.3, Baso % (Auto) 0.2, Absolute Neuts (auto) 3.8, Absolute Lymphs (auto) 0.32 L, Nucleated RBC % 0, Retic Count 1.44, Immature Retic Fraction 19.90 H, Retic Hgb Equivalent 31.4, PT 18.3 H, INR 1.5, APTT 62.0 H, Sodium 135 L, Potassium 3.8, Chloride 98, Carbon Dioxide 27.0, Anion Gap 10, BUN 60 H, Creatinine 5.60 H, Estim Creat Clear Calc 8.88, Est GFR (MDRD) Af Amer 10 L, Est GFR (MDRD) Non-Af 8 L, BUN/Creatinine Ratio 10.7, Glucose 136 H, Calcium 7.1 L, Iron 35 L, TIBC 215 L, Iron Saturation 16.3, Ferritin 918 H, Lactate Dehydrogenase 210, Folate 12.50 Clinical Impression(s) from Imaging Studies Venous Doppler Study 02/05/23 21:03 Interpretation Summary Acute deep vein thrombosis is noted in the right femoral vein, popliteal vein, tibioperoneal trunk vein, peroneal vein, soleus vein. Acute superficial vein thrombosis is noted in the left great saphenous vein, small saphenous vein and adjacent varicosities Lower Extremity CT 02/06/23 10:53 IMPRESSION: Swelling of the left lower extremity with evidence of a increased markings in the subcutaneous fat as well as skin thickening suggestive of a cellulitis. No focal hematoma or fluid collection is seen. Atherosclerotic calcification. Total time: Approximately 75 minutes. Charges/Coding Addendum Addendum: Total time of the visit including total time spent in counseling or coordination of care, (more than 50% of the total time, spent in obtaining medical information from nurses and other ancillary care providers,explaining to the patient about labs, imaging, diagnosis and management of active complex medical conditions), discussion with consulting vascular surgeon and complex management issues of severe anemia and diffuse DVT, review of labs and imaging is 40 minutes. Visit Charges Inpatient E&M: 33819 Subs Hosp L3
[2023-02-09] MEDS: NIFEdipine 90 MG Tablet PO ×2 (09:58→20:24)
[2023-02-09] MEDS: tiZANidine HCl 2 MG Tablet PO ×3 (09:59→20:24)
[2023-02-09] MEDS: Anastrozole 1 MG TABLET PO (10:00)
[2023-02-09 10:09] LABS: Absolute Lymphocyte Count 0.32 X10^3/uL (0.83-4.51); Absolute Neutrophil Count 3.8 X10^3/uL (2.0-7.7); Basophil# 0.01 X10^3/uL; Basophil% 0.2 % (0-1); Eosinophil# 0.11 X10^3/uL; Eosinophils% 2.3 % (0-5); Hematocrit 20.9 % (37-47); Lymphocyte # 0.32 X10^3/ul (0.83-4.51); Lymphocyte % 6.7 % (19-41); Mean Corp Hgb Conc 33.5 g/dL (32-36); Mean Corpuscular Volume 98.6 fL (81-99); Mean Platelet Vol. 10.8 fl (6.2-12.0); Monocyte# 0.52 X10^3/uL; Monocyte% 10.8 % (0-10); NRBC Flagged by Analyzer 0 % (0-5); Neutrophil # 3.79 X10^3/uL (2.7-7.7); POSITIVE DIFFERENTIAL YES; Platelet Count 172 K/mm3 (150-450); RBC Distribution Width CV 13.2 % (11.6-14.6); RBC Distribution Width SD 47.4 fl (35.1-43.9); RET-HE 31.4 pg (30-35); Red Blood Count 2.12 M/mm3 (4.2-5.4); Reticulocyte Count 1.44 % (0.5-1.5); White Blood Count 4.8 K/mm3 (4.4-11.0)
[2023-02-09 10:24] LABS: Differential Indicated SCAN CRITERIA MET
[2023-02-09 10:43] LABS: Anion Gap 10 (5-15); BUN 60 mg/dL (7-18); BUN/Creat Ratio 10.7 RATIO (10-20); Calcium,Total 7.1 mg/dL (8.5-10.1); Chloride 98 mmol/L (98-107); EST Glomerular Filtration Rate 8 mL/min (>60); Est Glom Filt Rate - Afr Amer 10 mL/min (>60); Estimated Creatinine Clearance 8.88 ml/min; Glucose 136 mg/dL (74-106); LDH 210 U/L (84-246); Potassium 3.8 mmol/L (3.5-5.1); Sodium Level 135 mmol/L (136-145)
[2023-02-09] MEDS: Gabapentin 100 MG Capsule PO ×3 (10:48→22:50)
[2023-02-09] MEDS: Sodium Ferric Gluconat/Sucrose 250 MG in 0.9% Normal Saline (250mL Bag) 250 ML 135 MG IV (10:49)
[2023-02-09] MEDS: cloNIDine HCl 0.1 MG Tablet PO (20:24)
[2023-02-10 03:58] VITALS: BP 119/60; PULSE 78; RESP 16; TEMP 36.4; O2SAT 95
[2023-02-10] MEDS: oxyCODONE 5 MG Tablet PO ×3 (03:58→15:49)
[2023-02-10] MEDS: Acetaminophen 325 MG Tablet 650 MG PO ×3 (03:59→15:49)
[2023-02-10] MEDS: Sodium Bicarbonate 150 MEQ in Dextrose 5%-Water (1000mL Bag) 1,000 ML 100 MEQ IV (03:59)
[2023-02-10] MEDS: Sodium Bicarbonate 650 MG Tablet 325 MG PO ×3 (04:01→21:45)
[2023-02-10] MEDS: tiZANidine HCl 2 MG Tablet PO ×3 (04:01→21:52)
[2023-02-10 05:22] LABS: Absolute Lymphocyte Count 0.33 X10^3/uL (0.83-4.51); Absolute Neutrophil Count 4.8 X10^3/uL (2.0-7.7); Basophil# 0.03 X10^3/uL; Basophil% 0.5 % (0-1); Eosinophil# 0.12 X10^3/uL; Hematocrit 26.3 % (37-47); Hemoglobin 8.5 g/dL (12.0-15.0); Lymphocyte # 0.33 X10^3/ul (0.83-4.51); Lymphocyte % 5.6 % (19-41); Mean Corp Hgb Conc 32.3 g/dL (32-36); Mean Corpuscular Hgb 31.6 pg (27.0-32.0); Mean Corpuscular Volume 97.8 fL (81-99); Mean Platelet Vol. 10.1 fl (6.2-12.0); Monocyte# 0.47 X10^3/uL; NRBC Flagged by Analyzer 0 % (0-5); Neutrophil # 4.84 X10^3/uL (2.7-7.7); Neutrophil % 82.7 % (47-70); POSITIVE DIFFERENTIAL YES; Platelet Count 192 K/mm3 (150-450); RBC Distribution Width CV 13.8 % (11.6-14.6); RBC Distribution Width SD 48.4 fl (35.1-43.9); Red Blood Count 2.69 M/mm3 (4.2-5.4); White Blood Count 5.9 K/mm3 (4.4-11.0)
[2023-02-10 05:35] LABS: Differential Indicated SCAN CRITERIA MET
[2023-02-10 05:44] LABS: International Normalized Ratio 2.8
[2023-02-10 05:46] LABS: Anion Gap 10 (5-15); BUN 59 mg/dL (7-18); BUN/Creat Ratio 9.9 RATIO (10-20); Calcium,Total 7.5 mg/dL (8.5-10.1); Chloride 95 mmol/L (98-107); Creatinine, Serum 5.98 mg/dL (0.55-1.02); EST Glomerular Filtration Rate 7 mL/min (>60); Est Glom Filt Rate - Afr Amer 9 mL/min (>60); Estimated Creatinine Clearance 8.31 ml/min; Glucose 134 mg/dL (74-106); Potassium 3.8 mmol/L (3.5-5.1); Sodium Level 136 mmol/L (136-145)
[2023-02-10 06:00] VITALS: BMI 29.7
[2023-02-10 06:16] LABS: Differential Comment SCANNED
[2023-02-10 07:42] VITALS: BP 102/59; PULSE 62; RESP 18; TEMP 36.6; O2SAT 95
[2023-02-10] MEDS: Gabapentin 100 MG Capsule PO ×2 (07:51→15:49)
[2023-02-10] MEDS: Multivitamins,Therapeutic Tablet 1 TABLET PO (07:51)
[2023-02-10] MEDS: Folic Acid 1 MG Tablet PO (07:51)
[2023-02-10] MEDS: NIFEdipine 90 MG Tablet PO ×2 (07:52→21:51)
[2023-02-10] MEDS: Anastrozole 1 MG TABLET PO (07:52)
--- NOTE | 2023-02-10 09:38 | NURSING ---
heparin gtt stopped per MD order- unable to document on MAY for some reason
[2023-02-10] MEDS: Docusate Sodium 100 MG Capsule PO (09:42)
[2023-02-10 11:41] LABS: Vitamin B12 > 2000 pg/mL (211-911)
--- NOTE | 2023-02-10 11:44 | PCM.PN.REN ---
Documented by User: IVANA Peoples 02/10/23 11:58 Subjective Subjective Resting in bed. No overnight events. Reports appetite is fair but she is trying to follow a plant based diet, limiting protein. Denies any vomiting or diarrhea. Complains of feeling tired. Complains of pain in both legs. Objective Data Objective Data Vital Signs: Vital Signs Temp Pulse Resp BP Pulse Ox O2 Del Method 97.9 F 62 18 102/59 L 95 Room Air 02/10/23 07:42 02/10/23 07:42 02/10/23 07:42 02/10/23 07:42 02/10/23 07:42 02/10/23 07:42 Oxygen Delivery Method Room Air Weight: 83.4 kg Body Mass Index (BMI) 29.7 Intake & Output: Intake and Output for Last 24 Hours 02/08/23 02/09/23 02/10/23 23:59 23:59 23:59 Intake Total 3248.08 / 3248.08 5248.06 / 5248.06 55.33 / 55.33 Output Total 500 / 500 Balance 2748.08 / 2748.08 5248.06 / 5248.06 55.33 / 55.33 Lab / Micro Data 02/11/23 07:10 02/10/23 05:06 Labs: Laboratory Results - last 24 hr 02/06/23 11:10: Crossmatch See Detail 02/09/23 13:45: Blood Type A NEGATIVE, Antibody Screen NEGATIVE, Crossmatch See Detail 02/10/23 05:06: WBC 5.9, RBC 2.69 L, Hgb 8.5 L, Hct 26.3 L, MCV 97.8, MCH 31.6, MCHC 32.3, RDW Std Deviation 48.4 H, RDW Coeff of [place]iffanie 13.8, Plt Count 192, MPV 10.1, Immature Gran % (Auto) 1.200 H, Neut % (Auto) 82.7 H, Lymph % (Auto) 5.6 L, [place] % (Auto) 8.0, Eos % (Auto) 2.0, Baso % (Auto) 0.5, Absolute Neuts (auto) 4.8, Absolute Lymphs (auto) 0.33 L, Nucleated RBC % 0, Differential Comment SCANNED, PT 30.0 H, INR 2.8, Sodium 136, Potassium 3.8, Chloride 95 L, Carbon Dioxide 31.0, Anion Gap 10, BUN 59 H, Creatinine 5.98 H, Estim Creat Clear Calc 8.31, Est GFR (MDRD) Af Amer 9 L, Est GFR (MDRD) Non-Af 7 L, BUN/Creatinine Ratio 9.9 L, Glucose 134 H, Calcium 7.5 L, Vitamin B12 > 2000 H Physical Exam Narrative Alert awake oriented x 3 no obvious distress s1s2 no murmurs lungs clear, no wheezes, rhonchi or rales noted abdomen soft, nontender Trace edema bilateral lower legs Assessment & Plan Assessment/Plan (1) Acute kidney injury superimposed on CKD: PLAN: - CKD stage IV, baseline creatinine was around 3.0. At the time of last office visit, creatinine was 4. We increased the prednisone at that time empirically. Background CKD etiology unclear. 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 she did not tolerate prednisone due to adverse events. - Patient presented to [facility] with acute renal failure with creatinine of more than 6. No obstructive symptoms. Urine output is present. She had nausea, vomiting, diarrhea for several days with poor appetite before admission therefore it was felt creatinine of 6.33 possibly from volume depletion related and with IV fluids kidney function did improve with serum creatinine improved to 5.55 on 02/08 however today creatinine is back up to 5.98 mg/dL still with IV fluids. Quite possibly patient is heading towards needing renal replacement therapy. She is having some mild uremic symptoms. Today I had a very long discussion with patient about hemodialysis, role of hemodialysis, risks and benefits of doing dialysis versus not doing dialysis. Patient reports she wants to discuss her options with her . At this time there is no emergent or acute indication for renal replacement therapy today, potassium and acid-base acceptable and volume status acceptable. If patient does decide to undergo starting hemodialysis in hospital then would recommend for patient to have tunneled hemodialysis catheter placed and arrangements for outpatient ANTICHECKING IRON WORKER - Acute diffuse DVT of right lower extremity from femoral vein to soleus vein and superficial vein thrombosis of left great saphenous vein, small saphenous vein, on Coumadin. Vascular consulted. Patient did have IVC filter placed 2019, CT lower extremities did not reveal evidence of hematoma or abscess, no intervention at this time - Acidosis. Bicarb was 14, improved on bicarb drip. Today bicarb 31.0. We will stop bicarb drip. She is also on oral bicarb. Will monitor bicarb level - Anemia. Hemoglobin has dropped significantly. She does see Dr. Sandhu and was recommended [facility] for chronic anemia in the setting of CKD. Apparently she did not like the side effect profile. Hemoglobin is 8.5, patient did receive PRBC and iron transfusion - Hypertension. Blood pressures have improved, currently on nifedipine and clonidine twice daily Documented by User: Dr. Robbie Horta MD 02/11/23 09:28 Objective Data Lab / Micro Data 02/11/23 07:10 02/10/23 05:06 Assessment & Plan Assessment/Plan (1) Acute kidney injury superimposed on CKD: PLAN: - CKD stage IV, baseline creatinine was around 3.0. At the time of last office visit, creatinine was 4. We increased the prednisone at that time empirically. Background CKD etiology unclear. 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 she did not tolerate prednisone due to adverse events. - Patient presented to [facility] with acute renal failure with creatinine of more than 6. No obstructive symptoms. Urine output is present. She had nausea, vomiting, diarrhea for several days with poor appetite before admission therefore it was felt creatinine of 6.33 possibly from volume depletion related and with IV fluids kidney function did improve with serum creatinine improved to 5.55 on 02/08 however today creatinine is back up to 5.98 mg/dL still with IV fluids. Quite possibly patient is heading towards needing renal replacement therapy. She is having some mild uremic symptoms. Today I had a very long discussion with patient about hemodialysis, role of hemodialysis, risks and benefits of doing dialysis versus not doing dialysis. Patient reports she wants to discuss her options with her . At this time there is no emergent or acute indication for renal replacement therapy today, potassium and acid-base acceptable and volume status acceptable. If patient does decide to undergo starting hemodialysis in hospital then would recommend for patient to have tunneled hemodialysis catheter placed and arrangements for outpatient ANTICHECKING IRON WORKER - Acute diffuse DVT of right lower extremity from femoral vein to soleus vein and superficial vein thrombosis of left great saphenous vein, small saphenous vein, on Coumadin. Vascular consulted. Patient did have IVC filter placed 2019, CT lower extremities did not reveal evidence of hematoma or abscess, no intervention at this time - Acidosis. Bicarb was 14, improved on bicarb drip. Today bicarb 31.0. We will stop bicarb drip. She is also on oral bicarb. Will monitor bicarb level - Anemia. Hemoglobin has dropped significantly. She does see Dr. Sandhu and was [facility] for [facility] anemia in the setting of CKD. Apparently she did not like the side effect profile. Hemoglobin is 8.5, patient did receive PRBC and iron transfusion - Hypertension. Blood pressures have improved, currently on nifedipine and clonidine twice daily Attending addendum abdi TORRES. cr is not significantly better. she is pretty close to dialysis even before but has been hesitant. so far no uremia
[2023-02-10] MEDS: 0.9% Saline Lock 10 ML Syringe IV (12:15)
[2023-02-10] MEDS: HYDROmorphone 0.5 MG/0.5 ML SYRINGE IV (12:15)
[2023-02-10 14:42] VITALS: BP 121/75; PULSE 85; RESP 20; TEMP 37.1; O2SAT 93
--- NOTE | 2023-02-10 16:17 | PCM.PN.HOSP ---
Reason for Visit Reason for Visit: Diagnoses Acute embolism and thrombosis of unspecified deep veins of right lower extremity (02/05/23) Embolism and thrombosis of superficial veins of left lower extremity (02/05/23) Acute kidney failure, unspecified (02/05/23) Chronic kidney disease, unspecified (02/05/23) Presence of other vascular implants and grafts (02/05/23) Subjective Subjective Patient seen at bedside this morning. Laying comfortably in bed, conversing normally, no acute distress. Patient states that she does feel more fatigued than her baseline, similar to previous days. States she did have 1 episode of urination overnight, is unsure if she is urinating much less than normal. Does report continued bilateral leg pain, cramping in upper left leg and neuropathic type pain in right lower leg, mildly improved yesterday. Denies any fever/chills, chest pain, shortness of breath at rest. Denies any other acute pain or discomfort. No other acute concerns this time. Objective Data Objective Data Vital Signs: Vital Signs Temp Pulse Resp BP Pulse Ox O2 Del Method 98.7 F 85 20 H 121/75 H 93 Room Air 02/10/23 14:42 02/10/23 14:42 02/10/23 14:42 02/10/23 14:42 02/10/23 14:42 02/10/23 14:42 Oxygen Delivery Method Room Air Weight: 83.4 kg Body Mass Index (BMI) 29.7 Intake & Output: Intake and Output for Last 24 Hours 02/08/23 02/09/23 02/10/23 23:59 23:59 23:59 Intake Total 3248.08 / 3248.08 5248.06 / 5248.06 882.00 / 882.00 Output Total 500 / 500 Balance 2748.08 / 2748.08 5248.06 / 5248.06 882.00 / 882.00 Lab / Micro Data 02/10/23 05:06 02/10/23 05:06 Labs: Laboratory Results - last 24 hr 02/06/23 11:10: Crossmatch See Detail 02/09/23 13:45: Blood Type A NEGATIVE, Antibody Screen NEGATIVE, Crossmatch See Detail 02/10/23 05:06: WBC 5.9, RBC 2.69 L, Hgb 8.5 L, Hct 26.3 L, MCV 97.8, MCH 31.6, MCHC 32.3, RDW Std Deviation 48.4 H, RDW Coeff of Tiffanie 13.8, Plt Count 192, MPV 10.1, Immature Gran % (Auto) 1.200 H, Neut % (Auto) 82.7 H, Lymph % (Auto) 5.6 L, Zavala % (Auto) 8.0, Eos % (Auto) 2.0, Baso % (Auto) 0.5, Absolute Neuts (auto) 4.8, Absolute Lymphs (auto) 0.33 L, Nucleated RBC % 0, Differential Comment SCANNED, PT 30.0 H, INR 2.8, Sodium 136, Potassium 3.8, Chloride 95 L, Carbon Dioxide 31.0, Anion Gap 10, BUN 59 H, Creatinine 5.98 H, Estim Creat Clear Calc 8.31, Est GFR (MDRD) Af Amer 9 L, Est GFR (MDRD) Non-Af 7 L, BUN/Creatinine Ratio 9.9 L, Glucose 134 H, Calcium 7.5 L, Vitamin B12 > 2000 H Physical Exam Const alert, oriented x3, no apparent distress, average body habitus, healthy appearing and well nourished General Appearance: cooperative and comfortable HEENT normocephalic, head/scalp atraumatic, hearing grossly normal bilaterally, nasal mucous membranes and turbinates normal and moist oral mucous membranes Eyes PERRL, EOMs intact bilaterally and conjunctivae normal Neck full ROM, no lymphadenopathy and supple Lymph Lymphatic: no lymphadenopathy noted Chest inspection of chest normal Resp normal respiratory effort, normal air movement, no use of accessory muscles and clear to auscultation bilaterally Cardio regular rate, regular rhythm, no murmurs and peripheral pulses 2+ throughout GI normal to inspection, nondistended, normoactive bowel sounds, soft to palpation, non-tender and non-distended Back/Spine normal ROM Extremity normal to inspection, full ROM and no pedal edema Skin no rashes or lesions noted Psych mental status grossly normal Assessment & Plan Assessment/Plan (1) Deep vein thrombosis (DVT) of right lower extremity: (2) Acute kidney injury superimposed on CKD: (3) Anemia: QUALIFIERS: Anemia type: unspecified type Qualified Code(s): D64.9 - Anemia, unspecified PLAN: Plan Patient is a 67-year-old female who presented to [facility] ED on 02/05/2023 with worsening bilateral leg pain, dehydration and malaise. 1. BRITTNEY on CKD stage IV Suspected prerenal etiology complaint patient on admission, now with concern for some degree of ATN. No obstructive symptoms noted. Baseline creatinine around 3.9, creatinine 6.33 on admit. ? Nephrology following. Creatinine unfortunately has remained significantly elevated between 5.5 and 6.0 during admission. Patient has had fairly minimal urine output. Seems to have some mild uremic symptoms at this time. No urgent need for dialysis but per nephrology, patient may need dialysis during this admission. Patient to discuss further with her . If she decides to undergo dialysis, recommendation is for tunneled HD catheter placement and initiation of dialysis while inpatient. Monitor BMP daily. Continue bicarbonate supplement. Pain control with Tylenol as needed, scheduled gabapentin, IV Dilaudid as needed, oxycodone as needed, tizanidine as needed. 2. 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 Warfarin was being held apparently due to supratherapeutic INR prior to admission. Patient also had recently been diagnosed with right lower extremity cellulitis and was being treated with Keflex for this. Patient had previous history of DVT, had IVC filter inserted by Dr. Saucedo with vascular surgery a few years ago, IVC filter remains in place. Patient was initially anticoagulated with Eliquis, was switched to warfarin due to declining kidney function. Lower extremity Doppler admission showed acute DVT in right femoral vein down to soleus vein, as well as acute SVT in left great saphenous vein. ? Vascular surgery evaluated, no surgical intervention indicated at this time. Recommended heparin drip as bridge to therapeutic INR; INR reached therapeutic level on 02/10, heparin drip discontinued. Continue home warfarin. 3. Acute on chronic anemia Baseline hemoglobin around 8-9. Hemoglobin 7.8 on admission, slowly down trended to hemoglobin 7.0 on 02/09. Chronic anemia presumed secondary to severe chronic kidney disease. Patient took darbepoetin geni for about 2-[address] Sandhu, however she was concerned about the side/adverse effect profile of hypertension, stroke and polycythemia and discontinued it. S/p transfusion of 1 unit of packed red blood cells on 02/09 with improvement hemoglobin 8.5 on 02/10. ? Monitor CBC daily. Appreciate nephrology input regarding EPO versus iron infusion as needed. 4. Hypertension BP significantly elevated to 213/112 on admission. Suspected this was in part due to drug reaction to prednisone, prednisone discontinued on admission. Blood pressure has remained stable and much improved since that time. ? Continue home nifedipine and clonidine. 5. Debility ? Secondary to multiple medical issues as noted above. PT/OT/case management consulted. Chronic medical conditions: ? History of endometrial carcinoma: Diagnosed in spring 2019, s/p hysterectomy and treated with Keytruda for approximately 18 months (discontinued due to side effects). Continue home anastrozole. DVT prophylaxis: Warfarin CODE STATUS: Full code, verified Expected disposition: Home with C vs SNF, TBD Total clinical time spent by myself addressing the patient's medical issues, reviewing all the data, and collaborating with patient's care team: 35 minutes. Charges/Coding Visit Charges Inpatient E&M: 17652 Subs Hosp L2
--- NOTE | 2023-02-10 17:00 | CASEMGMT ---
Social Work Noted that patient was given choice list for [facility] facilities, and open to discussion regarding this. Presented to patient's room to discuss, and patient sleeping soundly, even with this administrative underwriter knocking on the door and entering the room and calling the patient's name loudly. Decided to allow patient to sleep. Undetermined when patient will be ready, this administrative underwriter received report dialysis is still a possibility of needing to be set up. Plan: Social work to follow and will try again to meet with patient for SNF choices. -MATTHIAS Menjivar, TRACING [employer] SET UP OPERATOR
[2023-02-10 21:54] VITALS: BP 111/56; PULSE 72; RESP 16; TEMP 36.8; O2SAT 95
[2023-02-10 22:50] VITALS: O2SAT 90
[2023-02-11] VITALS (7 sets, daily range): BP systolic 112–122; BP diastolic 54–70; PULSE 71–83; RESP 16–20; TEMP 36.6–38.2; O2SAT 87–97; BMI 29.7
[2023-02-11] MEDS: Gabapentin 100 MG Capsule PO ×3 (00:21→15:48)
[2023-02-11] MEDS: oxyCODONE 5 MG Tablet PO ×3 (03:56→14:37)
[2023-02-11] MEDS: Acetaminophen 325 MG Tablet 650 MG PO ×3 (03:56→22:31)
[2023-02-11 05:07] LABS: Haptoglobin 308 mg/dL (37-355)
[2023-02-11] MEDS: HYDROmorphone 0.5 MG/0.5 ML SYRINGE IV ×2 (05:35→12:34)
[2023-02-11] MEDS: Sodium Bicarbonate 650 MG Tablet 325 MG PO ×3 (05:35→22:31)
[2023-02-11] MEDS: tiZANidine HCl 2 MG Tablet PO ×2 (05:36→13:37)
[2023-02-11 07:51] LABS: Hematocrit 24.7 % (37-47); Hemoglobin 7.8 g/dL (12.0-15.0); Mean Corp Hgb Conc 31.6 g/dL (32-36); Mean Corpuscular Hgb 31.5 pg (27.0-32.0); Mean Corpuscular Volume 99.6 fL (81-99); Mean Platelet Vol. 10.3 fl (6.2-12.0); Platelet Count 208 K/mm3 (150-450); RBC Distribution Width CV 13.1 % (11.6-14.6); RBC Distribution Width SD 47.1 fl (35.1-43.9); Red Blood Count 2.48 M/mm3 (4.2-5.4); White Blood Count 8.1 K/mm3 (4.4-11.0)
[2023-02-11 07:57] LABS: International Normalized Ratio 2.2; Prothrombin Time (Protime)PT. 24.3 SECONDS (11.7-14.9)
[2023-02-11] MEDS: Docusate Sodium 100 MG Capsule PO (09:02)
[2023-02-11] MEDS: Anastrozole 1 MG TABLET PO (09:03)
[2023-02-11] MEDS: NIFEdipine 90 MG Tablet PO (09:03)
[2023-02-11] MEDS: Multivitamins,Therapeutic Tablet 1 TABLET PO (09:03)
[2023-02-11] MEDS: Folic Acid 1 MG Tablet PO (09:03)
[2023-02-11 09:44] LABS: Pathologist Review Reviewed
[2023-02-11 09:51] LABS: Anion Gap 10 (5-15); BUN 66 mg/dL (7-18); BUN/Creat Ratio 10.2 RATIO (10-20); Calcium,Total 7.5 mg/dL (8.5-10.1); Chloride 95 mmol/L (98-107); Creatinine, Serum 6.47 mg/dL (0.55-1.02); EST Glomerular Filtration Rate 7 mL/min (>60); Est Glom Filt Rate - Afr Amer 8 mL/min (>60); Estimated Creatinine Clearance 7.68 ml/min; Glucose 108 mg/dL (74-106); Potassium 4.2 mmol/L (3.5-5.1); Sodium Level 135 mmol/L (136-145)
[2023-02-11] MEDS: Lactulose 20 GM/30 ML UDC 10 GM PO (10:15)
--- NOTE | 2023-02-11 10:29 | CASEMGMT ---
Social Work SW spoke w/pt in room in regard to discharge plan. Pt aware will likely need dialysis and is undecided about whether or not to do dialysis. Support offered. SW reiterated to pt it's her choice, if she starts dialysis and decides she does not want to continue, this is okay also. Pt states understanding. Pt has some questions for the renal doctor, SW encouraged her to write down the questions to ask when the PUBLIC RELATIONS COUNSELOR or doctor comes in. We then talked about plans once she is ready to leave the hospital. Pt does seem agreeable to SNF, has a list that was given to her by the SW earlier in the stay. SW explained that if she does go with dialysis, [facility] has it on site. SW explained other places may be able to transport her back and forth, explained we would send referrals and see who is able to take pt. Pt states understanding. The renal PUBLIC RELATIONS COUNSELOR then walked in to speak w/pt. SW will continue to follow for potential placement and support. MATTHIAS Conley
--- NOTE | 2023-02-11 11:20 | PN.RENAL_ITS ---
Subjective Subjective Patient is resting in bed. No overnight events. Denies any nausea, vomiting or diarrhea. Reports appetite is good. Objective Data Objective Data Vital Signs: Vital Signs Temp Pulse Resp BP Pulse Ox O2 Del Method O2 Flow Rate 98.7 F 71 18 112/64 94 Nasal Cannula 2 02/11/23 08:29 02/11/23 08:29 02/11/23 08:29 02/11/23 08:29 02/11/23 08:29 02/11/23 08:29 02/11/23 08:29 Oxygen Flow Rate (L/min) 2 Oxygen Delivery Method Nasal Cannula Weight: 83.5 kg Body Mass Index (BMI) 29.7 Intake & Output: Intake and Output for Last 24 Hours 02/09/23 02/10/23 02/11/23 23:59 23:59 23:59 Intake Total 5248.06 / 5248.06 1082.00 / 1082.00 Output Total 200 / 200 Balance 5248.06 / 5248.06 1082.00 / 1082.00 -200 / -200 Lab / Micro Data 02/11/23 07:10 02/11/23 07:10 Labs: Laboratory Results - last 24 hr 02/07/23 02:45: Diff Path Review Reviewed 02/10/23 05:06: Haptoglobin 308, Vitamin B12 > 2000 H 02/11/23 07:10: WBC 8.1, RBC 2.48 L, Hgb 7.8 L, Hct 24.7 L, MCV 99.6 H, MCH 31.5, MCHC 31.6 L, RDW Std Deviation 47.1 H, RDW Coeff of Tiffanie 13.1, Plt Count 208, MPV 10.3, PT 24.3 H, INR 2.2, Sodium 135 L, Potassium 4.2, Chloride 95 L, Carbon Dioxide 30.0, Anion Gap 10, BUN 66 H, Creatinine 6.47 H, Estim Creat Clear Calc 7.68, Est GFR (MDRD) Af Amer 8 L, Est GFR (MDRD) Non-Af 7 L, BUN/Creatinine Ratio 10.2, Glucose 108 H, Calcium 7.5 L, Phosphorus 7.0 H Physical Exam Narrative Alert awake oriented x 3 no obvious distress s1s2 no murmurs lungs clear, no wheezes, rhonchi or rales noted abdomen soft, nontender Trace edema bilateral lower legs Assessment & Plan Assessment/Plan (1) Acute kidney injury superimposed on CKD: PLAN: - CKD stage IV, baseline creatinine was around 3.0. At the time of last office visit, creatinine was 4. We increased the prednisone at that time empirically. Background CKD etiology unclear. 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 she did not tolerate prednisone due to adverse events. - Patient presented to [facility] with acute renal failure with creatinine of more than 6. No obstructive symptoms. Urine output is present. She had nausea, vomiting, diarrhea for several days with poor appetite before admission therefore it was felt creatinine of 6.33 possibly from volume depletion related and with IV fluids kidney function did improve with serum creatinine improved to 5.55 on 02/08 however SCr increased to 5.98 mg/dL with IV fluids. IVF stopped yester day due to worsening lower extremity edema and patient had been eating/drinking without any problems. Today SCr is up to 6.47. Patient is heading towards needing renal replacement therapy. Yesterday and again today I had a very long discussion with patient about hemodialysis, role of hemodialysis, risks and benefits of doing dialysis versus not doing dialysis. Patient reports she discussed hemodialysis with her last evening but she still has not made decision of whether or not she wants to start hemodialysis. Patient reports prior to hospitalization she had bought three books on plant based diet with hope to improve renal function by diet/amino acids alone. Patient remains unde cided as to whether or not she would start dialysis. Patient reports she will talk with her again tonight and make final decision this evening. At this time there is no emergent or acute indication for renal replacement therapy today, potassium and acid-base acceptable and volume status acceptable. If patient does decide to undergo starting hemodialysis in hospital then would recommend for patient to have tunneled hemodialysis catheter placed and arrangements for outpatient ELEVATOR OPERATOR [employer]. She is on coumadin so likely would need bridging with heparin drip. I explained this in detail with patient. Questions were answered. - Acute diffuse DVT of right lower extremity from femoral vein to soleus vein and superficial vein thrombosis of left great saphenous vein, small saphenous vein, on Coumadin. Vascular consulted. Patient did have IVC filter placed 2019, CT lower extremities did not reveal evidence of hematoma or abscess, no intervention at this time - Acidosis. Bicarb was 14, improved on bicarb drip. Continue oral bicarb - Anemia. Hemoglobin had dropped significantly. She does see Dr. Sandhu and was recommended Aranesp for chronic anemia in the setting of CKD. Apparently she did not like the side effect profile. Hemoglobin improved this hospitalization after receiving PRBC and iron transfusion - Hypertension. Blood pressures have improved, currently on nifedipine and clonidine twice daily - discussed nephrology plan with Dr. Brown
[2023-02-11] MEDS: 0.9% Saline Lock 10 ML Syringe IV ×3 (12:34→22:31)
--- NOTE | 2023-02-11 13:11 | CT_ITS ---
CT LEFT LOWER EXTREMITY WITH 3-D IMAGING CLINICAL INDICATION: worsening pain and swelling, known DVT/cellulitis TECHNIQUE: Axial CT images of the LEFT lower extremity was performed without IV contrast material. Coronal and sagittal reformats were provided. RADIATION DOSAGE (If Supplied By Facility): CTDIvol = ( 15.5 ) mGy, DLP = ( 1340.39 ) mGycm COMPARISON: Prior study dated: February 06, 2023. FINDINGS: Bones: Osseous structures are normal without evidence of fracture or dislocation. No lytic or blastic osseous masses. Soft Tissues: Surgical clips are seen in the left groin. Small benign-appearing lymph nodes are seen in the left groin. Diffuse vascular calcification. There is evidence of skin thickening as well as increased markings in the subcutaneous tissues suggestive of a cellulitis. CT/Extremity Lower without Contra IMPRESSION: Stable cellulitis of the left lower extremity with overlying skin thickening and increased markings in the subcutaneous tissues. Electronically Signed: Og Kaplan MD at 14:35 EST ,
[2023-02-11] MEDS: Furosemide 40 MG/4 ML Vial IV ×2 (15:48→22:30)
--- NOTE | 2023-02-11 17:11 | PN.HOSP_ITS ---
Reason for Visit Reason for Visit: Diagnoses Anemia, unspecified (02/05/23) Acute embolism and thrombosis of unspecified deep veins of right lower extremity (02/05/23) Embolism and thrombosis of superficial veins of left lower extremity (02/05/23) Acute kidney failure, unspecified (02/05/23) Chronic kidney disease, unspecified (02/05/23) Presence of other vascular implants and grafts (02/05/23) Subjective Subjective Patient seen at bedside this morning. Sitting in bedside chair, conversing normally. Patient is in mild distress due to bilateral lower extremity pain. States that her upper legs feel fairly tense and fluid overloaded, and she has significant pain with palpation. Has mild tenderness with palpation in lower legs as well. Patient also reports mild abdominal discomfort and bloating this morning. Has not been eating or drinking much. Reports fairly minimal urine output. Denies any nausea or vomiting. Has not been able to get up out of bed without assistance and has not ambulated much at all due to her lower extremity pain. No other acute concerns at this time. Objective Data Objective Data Vital Signs: Vital Signs Temp Pulse Resp BP Pulse Ox O2 Del Method O2 Flow Rate 98.8 F 83 20 H 122/70 H 97 Room Air 2 02/11/23 14:30 02/11/23 14:30 02/11/23 14:30 02/11/23 14:30 02/11/23 14:30 02/11/23 14:30 02/11/23 11:32 Oxygen Flow Rate (L/min) 2 Oxygen Delivery Method Room Air Weight: 83.5 kg Body Mass Index (BMI) 29.7 Intake & Output: Intake and Output for Last 24 Hours 02/09/23 02/10/23 02/11/23 23:59 23:59 23:59 Intake Total 5248.06 / 5248.06 1082.00 / 1082.00 Output Total 1400 / 1400 Balance 5248.06 / 5248.06 1082.00 / 1082.00 -1400 / -1400 Lab / Micro Data 02/11/23 07:10 02/11/23 07:10 Labs: Laboratory Results - last 24 hr 02/07/23 02:45: Diff Path Review Reviewed 02/10/23 05:06: Haptoglobin 308 02/11/23 07:10: WBC 8.1, RBC 2.48 L, Hgb 7.8 L, Hct 24.7 L, MCV 99.6 H, MCH 31.5, MCHC 31.6 L, RDW Std Deviation 47.1 H, RDW Coeff of Tiffanie 13.1, Plt Count 208, MPV 10.3, PT 24.3 H, INR 2.2, Sodium 135 L, Potassium 4.2, Chloride 95 L, Carbon Dioxide 30.0, Anion Gap 10, BUN 66 H, Creatinine 6.47 H, Estim Creat Clear Calc 7.68, Est GFR (MDRD) Af Amer 8 L, Est GFR (MDRD) Non-Af 7 L, BUN/Creatinine Ratio 10.2, Glucose 108 H, Calcium 7.5 L, Phosphorus 7.0 H Radiography Diagnostic Testing: Radiology Impression Lower Extremity CT 02/11/23 13:11 IMPRESSION: Stable cellulitis of the left lower extremity with overlying skin thickening and increased markings in the subcutaneous tissues. Electronically Signed: Og Kaplan MD at 14:35 EST , Physical Exam Const alert, oriented x3 and average body habitus General Appearance: cooperative HEENT normocephalic, head/scalp atraumatic, hearing grossly normal bilaterally, nasal mucous membranes and turbinates normal and moist oral mucous membranes Eyes PERRL, EOMs intact bilaterally and conjunctivae normal Neck full ROM, no lymphadenopathy and supple Lymph Lymphatic: no lymphadenopathy noted Chest inspection of chest normal Resp normal respiratory effort, normal air movement, no use of accessory muscles and clear to auscultation bilaterally Cardio regular rate, regular rhythm, no murmurs and peripheral pulses 2+ throughout GI normal to inspection, nondistended, normoactive bowel sounds, soft to palpation and non-tender GI Narrative: Mildly distended. Back/Spine normal ROM Extremity Extremity Narrative: Moderate to severe tenderness to palpation in upper legs bilaterally, mild to moderate tenderness in lower legs bilaterally. No overt findings of cellulitis. +3-4 bilateral lower extremity pitting edema. Skin no rashes or lesions noted Psych mental status grossly normal Assessment & Plan Assessment/Plan (1) Deep vein thrombosis (DVT) of right lower extremity: (2) Acute kidney injury superimposed on CKD: (3) Anemia: QUALIFIERS: Anemia type: unspecified type Qualified Code(s): D64.9 - Anemia, unspecified PLAN: Plan Patient is a 67-year-old female who presented to [facility] ED on 02/05/2023 with worsening bilateral leg pain, dehydration and malaise. 1. BRITTNYE on CKD stage IV Suspected prerenal etiology complaint patient on admission, now with concern for some degree of ATN. No obstructive symptoms noted. Baseline creatinine around 3.9, creatinine 6.33 on admit. Creatinine mildly improved to 5.5, now mildly worsening on a daily basis, most recent creatinine 6.47, BUN 66 on 02/11. ? Nephrology following. No urgent need for dialysis but it appears likely that patient will need dialysis in the near future. Nephrology myself have had multiple discussions with patient regarding need for dialysis, patient has been hesitant on decision to this point. If patient decides to undergo dialysis, will need tunneled HD catheter placement and dialysis initiation while inpatient. Continue to monitor BMP daily. Monitor urine output. Continue bicarbonate supplement. 2. 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 Warfarin was being held apparently due to supratherapeutic INR prior to admission. Patient also had recently been diagnosed with right lower extremity cellulitis and was being treated with Keflex for this. Patient had previous history of DVT, had IVC filter inserted by Dr. Saucedo with vascular surgery a few years ago, IVC filter remains in place. Patient was initially anticoagulated with Eliquis, was switched to warfarin due to declining kidney function. Lower extremity Doppler admission showed acute DVT in right femoral vein down to soleus vein, as well as acute SVT in left great saphenous vein. Patient required heparin drip as bridge to therapeutic INR on admission, reached therapeutic level on 02/10, heparin drip discontinued. ? Patient appeared to have worsening bilateral lower extremity pain 02/11. Repeat CT lower extremity stable. Does appear overly volume overloaded and with Marcus catheter now and for urinary retention as below, will initiate IV diuresis and assess response. Continue pain management medications as needed. Vascular surgery evaluated on admission, no surgical invention indicated at this time. Continue home warfarin, monitor daily INR. 3. Acute on chronic anemia Baseline hemoglobin around 8-9. Hemoglobin 7.8 on admission, slowly down trended to hemoglobin 7.0 on 02/09. Chronic anemia presumed secondary to severe chronic kidney disease. Patient took darbepoetin geni for about 2-[address] Sandhu, however she was concerned about the side/adverse effect profile of hypertension, stroke and polycythemia and discontinued it. S/p transfusion of 1 unit of packed red blood cells on 02/09 with improvement hemoglobin 8.5 on 02/10. Mildly worsened to hemoglobin 7.8 on 02/11. ? Monitor CBC daily. Appreciate nephrology input regarding EPO versus iron infusion as needed. 4. Acute urinary retention ? Suspect secondary to acute lower extremity pain and effective immobility since admission. Bladder scan on 02/11 revealed greater than 800 cc of urine in bladder, s/p Marcus placement. Monitor urine output. Will plan for void trial prior to discharge. 4. Hypertension BP significantly elevated to 213/112 on admission. Suspected this was in part due to drug reaction to prednisone, prednisone discontinued on admission. Blood pressure has remained stable and much improved since that time. ? Continue home nifedipine and clonidine. 5. Debility ? Secondary to multiple medical issues as noted above. PT/OT/case management consulted. Chronic medical conditions: ? History of endometrial carcinoma: Diagnosed in spring 2019, s/p hysterectomy and treated with Keytruda for approximately 18 months (discontinued due to side effects). Continue home anastrozole. DVT prophylaxis: Warfarin CODE STATUS: Full code, verified Expected disposition: SNF, D Total clinical time spent by myself addressing the patient's medical issues, reviewing all the data, and collaborating with patient's care team: 50 minutes. Charges/Coding Visit Charges Inpatient E&M: 29784 Subs Hosp L3
[2023-02-12] VITALS (9 sets, daily range): BP systolic 106–139; BP diastolic 50–67; PULSE 69–82; RESP 16; TEMP 36.8–38.2; O2SAT 92–98; BMI 28.9
[2023-02-12] MEDS: Gabapentin 100 MG Capsule PO ×2 (00:34→14:18)
[2023-02-12] MEDS: Sodium Bicarbonate 650 MG Tablet 325 MG PO ×3 (06:39→23:22)
[2023-02-12] MEDS: tiZANidine HCl 2 MG Tablet PO ×3 (06:39→23:22)
[2023-02-12 08:46] LABS: Hematocrit 23.6 % (37-47); Hemoglobin 7.6 g/dL (12.0-15.0); Mean Corp Hgb Conc 32.2 g/dL (32-36); Mean Corpuscular Hgb 32.3 pg (27.0-32.0); Mean Corpuscular Volume 100.4 fL (81-99); Mean Platelet Vol. 9.9 fl (6.2-12.0); Platelet Count 190 K/mm3 (150-450); RBC Distribution Width CV 12.8 % (11.6-14.6); RBC Distribution Width SD 45.8 fl (35.1-43.9); Red Blood Count 2.35 M/mm3 (4.2-5.4); White Blood Count 7.1 K/mm3 (4.4-11.0)
[2023-02-12 09:06] LABS: Anion Gap 12 (5-15); BUN 71 mg/dL (7-18); BUN/Creat Ratio 10.1 RATIO (10-20); Calcium,Total 7.5 mg/dL (8.5-10.1); Chloride 97 mmol/L (98-107); Creatinine, Serum 7.05 mg/dL (0.55-1.02); EST Glomerular Filtration Rate 6 mL/min (>60); Est Glom Filt Rate - Afr Amer 7 mL/min (>60); Estimated Creatinine Clearance 7.05 ml/min; Glucose 100 mg/dL (74-106); Sodium Level 137 mmol/L (136-145)
--- NOTE | 2023-02-12 09:06 | WOUNDNOTE ---
wound photo: left posterior thigh
--- NOTE | 2023-02-12 09:07 | WOUNDNOTE ---
wound photo: left medial thigh
--- NOTE | 2023-02-12 09:09 | WOUNDNOTE ---
Was asked to see patient to monitor blisters to the left thigh. there are intact fluid filled blisters to the left posterolateral and medial thigh. some mild redness noted. patient states the legs are both very tender to touch. did not drain blisters at this time. will monitor. WBC normal and patient denies any fever or chills.
[2023-02-12] MEDS: Furosemide 40 MG/4 ML Vial IV (09:15)
[2023-02-12] MEDS: 0.9% Saline Lock 10 ML Syringe IV ×5 (09:15→19:52)
[2023-02-12 09:23] LABS: International Normalized Ratio 2.8; Prothrombin Time (Protime)PT. 29.6 SECONDS (11.7-14.9)
--- NOTE | 2023-02-12 10:37 | PN.RENAL_ITS ---
Subjective Subjective Very sleepy today. Objective Data Objective Data Vital Signs: Vital Signs Temp Pulse Resp BP Pulse Ox O2 Del Method O2 Flow Rate 99.1 F 69 16 112/59 L 98 Nasal Cannula 3 02/12/23 09:07 02/12/23 09:07 02/12/23 09:07 02/12/23 09:07 02/12/23 09:07 02/12/23 09:07 02/12/23 09:07 Oxygen Flow Rate (L/min) 3 Oxygen Delivery Method Nasal Cannula Weight: 81.647 kg Body Mass Index (BMI) 28.9 Intake & Output: Intake and Output for Last 24 Hours 02/10/23 02/11/23 02/12/23 23:59 23:59 23:59 Intake Total 1082.00 / 1082.00 Output Total 1750 / 1750 1250 / 1250 Balance 1082.00 / 1082.00 -1750 / -1750 -1250 / -1250 Lab / Micro Data 02/12/23 08:20 02/12/23 08:20 Labs: Laboratory Results - last 24 hr 02/12/23 08:20: WBC 7.1, RBC 2.35 L, Hgb 7.6 L, Hct 23.6 L, MCV 100.4 H, MCH 32.3 H, MCHC 32.2, RDW Std Deviation 45.8 H, RDW Coeff of Tiffanie 12.8, Plt Count 190, MPV 9.9, PT 29.6 H, INR 2.8, Sodium 137, Potassium 4.0, Chloride 97 L, Ca rbon Dioxide 28.0, Anion Gap 12, BUN 71 H, Creatinine 7.05 H, Estim Creat Clear Calc 7.05, Est GFR (MDRD) Af Amer 7 L, Est GFR (MDRD) Non-Af 6 L, BUN/Creatinine Ratio 10.1, Glucose 100, Calcium 7.5 L Radiography Diagnostic Testing: Radiology Impression Lower Extremity CT 02/11/23 13:11 IMPRESSION: Stable cellulitis of the left lower extremity with overlying skin thickening and increased markings in the subcutaneous tissues. Electronically Signed: Og Kaplan MD at 14:35 EST , Physical Exam Narrative Alert awake oriented x 3 no obvious distress s1s2 no murmurs lungs clear, no wheezes, rhonchi or rales noted abdomen soft, nontender +++ edema bilateral lower legs Assessment & Plan Assessment/Plan (1) Acute kidney injury superimposed on CKD: PLAN: - CKD stage IV, baseline creatinine was around 3.0. At the time of last office visit, creatinine was 4. We increased the prednisone at that time empirically. Background CKD etiology unclear. 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 she did not tolerate prednisone due to adverse events. -Creatinine is worsening, now up to 7. She is agreeable for dialysis. We will have a catheter placed and start dialysis today if possible. She is on full anticoagulation in view of DVT. Remote history of IVC filter. She may need a heparin bridge for a while. Will wait on surgery input. Anemia. We will start erythropoietin with dialysis Discussed with hospitalist
[2023-02-12] MEDS: HYDROmorphone 0.5 MG/0.5 ML SYRINGE IV ×3 (11:48→23:21)
[2023-02-12] MEDS: Furosemide 100 MG/10 ML Vial 80 MG IV ×2 (11:58→18:31)
[2023-02-12 12:12] LABS: Partial Thromboplast Time 71.2 Seconds (24.1-36.2)
--- NOTE | 2023-02-12 12:59 | CASEMGMT ---
Addendum entered by Leena Juares 02/12/23 16:21: Social Work SW spoke with Wandy at [facility] and they are unable to accept pt due to transportation to dialysis. SW updated pt and next choice is [facility] for Rehab. Referral made via [facility]. SW spoke with pt regarding transportation and pt confirms family cannot provide transportation. HUGO Shields Addendum entered by Leena Juares 02/12/23 15:09: Social work [facility] is not able to accept pt. SW met with pt and updated and pt's next choice of facility is [facility]. Referral sent in [facility] and VM left for Celsa at [facility]. HUGO Mitchell Original Note: Social Work SW met with pt and introduced self and role of SW. Pt stating she and have decided to accept dialysis treatments. pt is aware that she will need short term SNF and preferred provider is [facility]. Referral sent to [facility]. SW will await determination of acceptance. HUGO Shields
[2023-02-12] MEDS: HEPARIN/D5w 25,000 UNITS 25,000 UNITS/250 ML IV.SOLN. 12 UNITS CONT INF (13:02)
[2023-02-12] MEDS: Phytonadione (Vit K1) 5 MG TABLET PO (13:11)
--- NOTE | 2023-02-12 14:36 | EX.PCM.CON.S ---
Assessment & Plan Assessment/Plan (1) Acute kidney injury superimposed on CKD: PLAN: I have been consulted in conjunction with Dr. Reyes. He will independently evaluate this patient. Dr. Reyes will plan to perform a right possible left chest tunneled dialysis catheter tomorrow in the OR. Procedure details, risks and benefits have been explained. Patient and her have had the opportunity to ask and have questions answered. Plan to give Vitamin K today and FFP tomorrow morning. Plan to hold Heparin 6 hours prior to the procedure. Patient verbally understands and agrees with the plan. Thank you for allowing us to participate in this patient's care. HPI Consult Data Date of Consult: 02/12/23 HPI Narrative HPI Narrative: NEWTON ALANIZ, is a 67 F who presents to the [facility] ED with complaints of bilateral lower extremity weakness, redness and swelling. Patient notes she was not able to walk due to the pain. She notes her symptoms were progressively becoming worse over the last 1-2 weeks. She was noted to have worsening renal function. Patient states she has a history of metastatic endometrial cancer diagnosed in 2019. Patient notes she was started on Keytruda for cancer treatment by her oncologist. Patient started having severe side effects, one being worsening renal function. Patient was referred to a quilt sewer at [facility]. She was placed on prednisone and an antibiotic to assist with renal function, patient believes. She was then established with Dr. Horta who she has seen twice prior to her hospitalization. Patient has since been switched from Keytruda to anastrozole. Patient was also recently diagnosed with breast cancer in May and had a lumpectomy. She has also been receiving radiation by Dr. Cooper. She has never been on dialysis or had a tunneled dialysis catheter placed. Patient creatinine continues to increase and is currently 7.05. Patient also notes a history of lower extremity blood clots. Patient notes she was placed on Eliquis and developed blood clot son Eliquis and was switched to Coumadin. Patient notes she was evaluated by her PCP approximately 2 weeks ago due to increased bilateral lower extremity pain. Patient's INR was 6 at that time. Patient's Coumadin was held by her PCP. Patient notes she has an IVC filter placed by Dr. Saucedo several years ago. An ultrasound duplex on 02/05 demonstrates that she currently has bilateral acute DVT's. Patient has also noted developing fluid filled blisters on the medial and lateral aspect of the left thigh. [facility] Medical History Acute deep vein thrombosis (DVT) of iliac vein of left lower extremity Acute kidney injury Anemia Deep vein thrombosis, lower left extremity Diabetes Diabetes mellitus Endometrial cancer Hematuria History of blood clots Hypertension Lymphedema of left lower extremity Peripheral neuropathy Pre-procedure lab exam Regional lymph node metastasis present Home Medications sodium bicarbonate 325 mg tablet 325 mg PO TID HEARTBURN RELIEF 08/16/22 [History Last Taken 09/18/22] anastrozole 1 mg tablet 1 mg PO DAILY BREAST CANCER 09/18/22 [History Last Taken 09/18/22] multivitamin 1 tab PO DAILY HEALTH MAINTENANCE 09/18/22 [History Last Taken 09/18/22] potassium citrate 5 mEq (540 mg) tablet,extended release 5 meq PO DAILY 11/15/22 [History Last Taken Unknown] warfarin 2 mg tablet 5 mg PO QODAY 11/15/22 [History Last Taken Unknown] warfarin 2.5 mg tablet 4 mg PO QODAY 11/15/22 [History Last Taken Unknown] cephalexin 500 mg capsule 500 mg PO Q8H atb 02/05/23 [History Last Taken 02/05/23] clonidine 0.2 mg/24 hr weekly transdermal patch 1 patch transdermal .COMPLEX 02/05/23 [History Last Taken Unknown] nifedipine 90 mg tablet,extended release 90 mg PO BID 02/05/23 [History Last Taken Unknown] Allergy/AdvReac Type Severity Reaction Status Date / Time No Known Allergies Allergy Verified 02/05/23 15:29 Family History Mother Diabetes Hypertension Father Diabetes Hypertension Surgical History History of section History of excision of pilonidal cyst History of hysterectomy History of laparoscopy S/P insertion of IVC (inferior vena caval) filter Social History household members: spouse number of children: 4 current occupational status: retired Smoking Status: Never smoker second hand exposure: No alcohol intake: never substance use type: does not use diet: vegan yesi/nondenominational: Confucianist seatbelt use: always do you feel safe at home: Yes ROS Constitutional Constitutional: Reports fatigue, lethargy and weakness Eyes Eyes: Reports systems reviewed and no addt'l complaints, except as documented ENT HEENT: Reports systems reviewed and no addt'l complaints, except as documented Cardiovascular Cardiovascular: Reports systems reviewed and no addt'l complaints, except as documented Respiratory/Chest Respiratory/Chest: Reports systems reviewed and no addt'l complaints, except as documented Gastrointestinal Gastrointestinal: Reports systems reviewed and no addt'l complaints, except as documented Genitourinary Genitourinary: Reports systems reviewed and no addt'l complaints, except as documented Musculoskeletal Musculoskeletal: Reports systems reviewed and no addt'l complaints, except as documented Integumentary Integumentary: Reports systems reviewed and no addt'l complaints, except as documented Neurologic Neurologic: Reports systems reviewed and no addt'l complaints, except as documented Psychiatric Psychiatric: Reports systems reviewed and no addt'l complaints, except as documented Endocrine Endocrinology: Reports systems reviewed and no addt'l complaints, except as documented Hematologic/Lymphatic Hematologic/Lymphatic: Reports systems reviewed and no addt'l complaints, except as documented Allergic/Immunologic Allergic/Immunologic: Reports systems reviewed and no addt'l complaints, except as documented Physical Exam Const alert, oriented x3 and no apparent distress HEENT normocephalic and head/scalp atraumatic Eyes PERRL Neck full ROM Chest inspection of chest normal Resp normal respiratory effort and clear to auscultation bilaterally Cardio regular rate and regular rhythm GI normal to inspection, nondistended, normoactive bowel sounds no CVA tenderness Back/Spine no CVA tenderness Extremity Extremity Narrative: Bilateral lower extremities- swelling noted bilaterally. Fluid-filled blister noted on the lateral aspect of the thigh. Medial aspect of the thigh with resolving cellulitis with another elongated fluid filled blisters. Skin Lesions: lesion noted Neuro oriented x3 Psych mental status grossly normal Mood & Affect: tearful Lab / Micro Data 02/12/23 08:20 02/12/23 08:20 Labs: Laboratory Results - last 24 hr 02/12/23 08:20: WBC 7.1, RBC 2.35 L, Hgb 7.6 L, Hct 23.6 L, MCV 100.4 H, MCH 32.3 H, MCHC 32.2, RDW Std Deviation 45.8 H, RDW Coeff of Tiffanie 12.8, Plt Count 190, MPV 9.9, PT 29.6 H, INR 2.8, Sodium 137, Potassium 4.0, Chloride 97 L, Carbon Dioxide 28.0, Anion Gap 12, BUN 71 H, Creatinine 7.05 H, Estim Creat Clear Calc 7.05, Est GFR (MDRD) Af Amer 7 L, Est GFR (MDRD) Non-Af 6 L, BUN/Creatinine Ratio 10.1, Glucose 100, Calcium 7.5 L 02/12/23 11:50: APTT 71.2 H Radiology Impression Lower Extremity CT 02/11/23 13:11 IMPRESSION: Stable cellulitis of the left lower extremity with overlying skin thickening and increased markings in the subcutaneous tissues. Electronically Signed: Og Kaplan MD at 14:35 EST , Charges/Coding Visit Charges Office Visits / Consults: 09187 IP Consult L3
--- NOTE | 2023-02-12 15:34 | PN.HOSP_ITS ---
Reason for Visit Reason for Visit: Diagnoses Anemia, unspecified (02/05/23) Acute embolism and thrombosis of unspecified deep veins of right lower extremity (02/05/23) Embolism and thrombosis of superficial veins of left lower extremity (02/05/23) Acute kidney failure, unspecified (02/05/23) Chronic kidney disease, unspecified (02/05/23) Presence of other vascular implants and grafts (02/05/23) Subjective Subjective No acute events overnight. Patient seen at bedside this morning. Was sleeping on my arrival to the room. Upon awakening, patient reports feeling very fatigued this morning. Feels more fatigued than previous days. Continues to report bilateral upper leg pain, similar to previous days. States that the blistering on her upper legs is similar to yesterday. Patient reports having minimal appetite today. She otherwise denies any chest pain, shortness of breath, fevers or chills. No other acute concerns this morning. Objective Data Objective Data Vital Signs: Vital Signs Temp Pulse Resp BP Pulse Ox O2 Del Method O2 Flow Rate 99.1 F 69 16 112/59 L 98 Nasal Cannula 3 02/12/23 09:07 02/12/23 09:07 02/12/23 09:07 02/12/23 09:07 02/12/23 09:07 02/12/23 09:07 02/12/23 09:07 Oxygen Flow Rate (L/min) 3 Oxygen Delivery Method Nasal Cannula Weight: 81.647 kg Body Mass Index (BMI) 28.9 Intake & Output: Intake and Output for Last 24 Hours 02/10/23 02/11/23 02/12/23 23:59 23:59 23:59 Intake Total 1082.00 / 1082.00 Output Total 1750 / 1750 2049 Balance 1082.00 / 1082.00 -1750 / -1750 -2049 / -2049 Lab / Micro Data 02/12/23 08:20 02/12/23 08:20 Labs: Laboratory Results - last 24 hr 02/12/23 08:20: WBC 7.1, RBC 2.35 L, Hgb 7.6 L, Hct 23.6 L, MCV 100.4 H, MCH 32.3 H, MCHC 32.2, RDW Std Deviation 45.8 H, RDW Coeff of Tiffanie 12.8, Plt Count 190, MPV 9.9, PT 29.6 H, INR 2.8, Sodium 137, Potassium 4.0, Chloride 97 L, Carbon Dioxide 28.0, Anion Gap 12, BUN 71 H, Creatinine 7.05 H, Estim Creat Clear Calc 7.05, Est GFR (MDRD) Af Amer 7 L, Est GFR (MDRD) Non-Af 6 L, BUN/Creatinine Ratio 10.1, Glucose 100, Calcium 7.5 L 02/12/23 11:50: APTT 71.2 H Physical Exam Const alert, oriented x3 and average body habitus Constitutional Narrative: Pleasant elderly female, fatigued and chronically ill-appearing, laying in bed, conversing normally. Mild distress due to lower extremity pain. General Appearance: cooperative HEENT normocephalic, head/scalp atraumatic, hearing grossly normal bilaterally, nasal mucous membranes and turbinates normal and moist oral mucous membranes Eyes PERRL, EOMs intact bilaterally and conjunctivae normal Neck full ROM, no lymphadenopathy and supple Lymph Lymphatic: no lymphadenopathy noted Chest inspection of chest normal Resp normal respiratory effort, normal air movement, no use of accessory muscles and clear to auscultation bilaterally Cardio regular rate, regular rhythm, no murmurs and peripheral pulses 2+ throughout GI normal to inspection, nondistended, normoactive bowel sounds, soft to palpation and non-tender GI Narrative: Mildly distended. Back/Spine normal ROM Extremity Extremity Narrative: Moderate to severe tenderness to palpation in upper legs bilaterally, mild to moderate tenderness in lower legs bilaterally. No overt findings of cellulitis. +3-4 bilateral lower extremity pitting edema. Small areas of blistering noted on upper thighs bilaterally. Skin no rashes or lesions noted Psych mental status grossly normal Assessment & Plan Assessment/Plan (1) Deep vein thrombosis (DVT) of right lower extremity: (2) Acute kidney injury superimposed on CKD: (3) Anemia: QUALIFIERS: Anemia type: unspecified type Qualified Code(s): D64.9 - Anemia, unspecified PLAN: Plan Patient is a 67-year-old female who presented to [facility] ED on 02/05/2023 with worsening bilateral leg pain, dehydration and malaise. 1. BRITTNEY on CKD stage IV Suspected prerenal etiology complaint patient on admission, now with concern for some degree of ATN. No obstructive symptoms noted. Baseline creatinine around 3.9, creatinine 6.33 on admit. Creatinine mildly improved to 5.5, now mildly worsening on a daily basis, most recent creatinine 7.05, BUN 71 on 02/12. ? Nephrology following. Patient agreeable to dialysis. Surgery consulted, planning for tunneled HD catheter line placement tomorrow. Reversing anticoagulation for procedure as noted below. Continue to monitor BMP daily. Monitor urine output. Continue bicarbonate supplement. 2. 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 Warfarin was being held apparently due to supratherapeutic INR prior to admission. Patient also had recently been diagnosed with right lower extremity cellulitis and was being treated with Keflex for this. Patient had previous history of DVT, had IVC filter inserted by Dr. Saucedo with vascular surgery a few years ago, IVC filter remains in place. Patient was initially anticoagulated with Eliquis, was switched to warfarin due to declining kidney function. Lower extremity Doppler admission showed acute DVT in right femoral vein down to soleus vein, as well as acute SVT in left great saphenous vein. Patient required heparin drip as bridge to therapeutic INR on admission, reached therapeutic level on 02/10, heparin drip discontinued. ? INR 2.8 on 02/12, currently on home warfarin dosing. Home warfarin will be held tomorrow. Per surgery, will need INR to be less than 1.[address] tunneled HD line tomorrow. Patient given 1 dose of p.o. vitamin K 5 mg on afternoon 02/12. We will plan to give 1 dose of FFP tonight at 10 PM. Check INR tomorrow morning at 4 AM. If INR remains above 1.5, will need to give another dose of FFP and recheck INR 2 to 4 hours after that. Plan is for HD catheter placement tomorrow in early afternoon. 3. Bilateral lower extremity pain Patient presumed to have bilateral lower extremity pain on admission due to acute DVT and SVT extremities. However, patient has now developed blistering and areas of upper thighs and has moderate to severe tenderness to palpation in those areas. Also has bruising noted in lower legs bilaterally with moderate tenderness to palpation. Repeat CT lower extremity on 02/11 was stable from previous. Initiated on IV Lasix 40 mg twice daily on 02/11 as patient had severe lower extremity volume overload. ? Vascular surgery consulted for further recommendations. Continue IV Lasix for now. Continue pain control medications as needed. 4. Acute on chronic anemia Baseline hemoglobin around 8-9. Hemoglobin 7.8 on admission, slowly down trended to hemoglobin 7.0 on 02/09. Chronic anemia presumed secondary to severe chronic kidney disease. Patient took darbepoetin geni for about 2-[address] Sandhu, however she was concerned about the side/adverse effect profile of hypertension, stroke and polycythemia and discontinued it. S/p transfusion of 1 unit of packed red blood cells on 02/09 with improvement hemoglobin 8.5 on 01/29 3. Slowly downtrending, hemoglobin 7.6 on 02/12. ? Monitor CBC daily. Appreciate nephrology input regarding EPO versus iron infusion as needed. Plan to transfuse for hemoglobin less than 7 as needed. 5. Acute urinary retention ? Suspect secondary to acute lower extremity pain and effective immobility since admission. Bladder scan on 02/11 revealed greater than 800 cc of urine in bladder, s/p Marcus placement. Monitor urine output. Will plan for void trial prior to discharge. 6. Hypertension BP significantly elevated to 213/112 on admission. Suspected this was in part due to drug reaction to prednisone, prednisone discontinued on admission. Blood pressure has remained stable and much improved since that time. ? Continue home nifedipine and clonidine. 7. Debility ? Secondary to multiple medical issues as noted above. PT/OT/case management consulted. Planning for SNF on discharge. Chronic medical conditions: ? History of endometrial carcinoma: Diagnosed in spring 2019, s/p hysterectomy and treated with Keytruda for approximately 18 months (discontinued due to side effects). Continue home anastrozole. DVT prophylaxis: Warfarin CODE STATUS: Full code, verified Expected disposition: SNF, TBD Total clinical time spent by myself addressing the patient's medical issues, reviewing all the data, and collaborating with patient's care team: 50 minutes. Charges/Coding Visit Charges Inpatient E&M: 68593 [facility] Hosp L3
[2023-02-12 20:08] LABS: Partial Thromboplast Time 159.5 Seconds (24.1-36.2)
[2023-02-12] MEDS: Acetaminophen 325 MG Tablet 650 MG PO (20:12)
[2023-02-12] MEDS: NIFEdipine 90 MG Tablet PO (23:22)
[2023-02-12] MEDS: cloNIDine HCl 0.1 MG Tablet PO (23:22)
[2023-02-13] VITALS (23 sets, daily range): BP systolic 75–154; BP diastolic 53–80; PULSE 70–95; RESP 14–19; TEMP 36.3–37.6; O2SAT 91–99; BMI 29.5; BMI 29.2
[2023-02-13 05:35] LABS: Hematocrit 23.6 % (37-47); Hemoglobin 7.5 g/dL (12.0-15.0); Mean Corp Hgb Conc 31.8 g/dL (32-36); Mean Corpuscular Hgb 31.4 pg (27.0-32.0); Mean Corpuscular Volume 98.7 fL (81-99); Mean Platelet Vol. 9.5 fl (6.2-12.0); Platelet Count 169 K/mm3 (150-450); RBC Distribution Width CV 12.4 % (11.6-14.6); RBC Distribution Width SD 45.2 fl (35.1-43.9); Red Blood Count 2.39 M/mm3 (4.2-5.4); White Blood Count 8.2 K/mm3 (4.4-11.0)
[2023-02-13 05:47] LABS: International Normalized Ratio 1.8; Prothrombin Time (Protime)PT. 20.8 SECONDS (11.7-14.9)
[2023-02-13 06:00] LABS: Partial Thromboplast Time 123.2 Seconds (24.1-36.2)
[2023-02-13 06:45] LABS: Anion Gap 13 (5-15); BUN 77 mg/dL (7-18); BUN/Creat Ratio 10.1 RATIO (10-20); Calcium,Total 7.2 mg/dL (8.5-10.1); Chloride 96 mmol/L (98-107); Creatinine, Serum 7.65 mg/dL (0.55-1.02); EST Glomerular Filtration Rate 6 mL/min (>60); Est Glom Filt Rate - Afr Amer 7 mL/min (>60); Glucose 106 mg/dL (74-106); Potassium 3.8 mmol/L (3.5-5.1); Sodium Level 136 mmol/L (136-145)
--- NOTE | 2023-02-13 09:03 | PN.RENAL_ITS ---
Subjective Subjective No overnight events. No nausea, vomiting or diarrhea. Complains of leg pain. Objective Data Objective Data Vital Signs: Vital Signs Temp Pulse Resp BP Pulse Ox O2 Del Method O2 Flow Rate 98.8 F 70 16 128/61 H 94 Nasal Cannula 2 02/13/23 08:09 02/13/23 08:09 02/13/23 08:09 02/13/23 08:09 02/13/23 08:09 02/13/23 08:09 02/13/23 08:09 Oxygen Flow Rate (L/min) 2 Oxygen Delivery Method Nasal Cannula Weight: 83.3 kg Body Mass Index (BMI) 29.5 Intake & Output: Intake and Output for Last 24 Hours 02/11/23 02/12/23 02/13/23 23:59 23:59 23:59 Intake Total 85.8 / 85.8 267.65 / 267.65 Output Total 1750 / 1750 3950 / 3950 1600 / 1600 Balance -1750 / -1750 -3864.2 / -3864.2 -1332.35 / -1332.35 Lab / Micro Data 02/13/23 05:20 02/13/23 05:20 Labs: Laboratory Results - last 24 hr 02/12/23 08:20: PT 29.6 H, INR 2.8, Sodium 137, Potassium 4.0, Chloride 97 L, Carbon Dioxide 28.0, Anion Gap 12, BUN 71 H, Creatinine 7.05 H, Estim Creat Clear Calc 7.05, Est GFR (MDRD) Af Amer 7 L, Est GFR (MDRD) Non-Af 6 L, BUN/Creatinine Ratio 10.1, Glucose 100, Calcium 7.5 L 02/12/23 11:50: APTT 71.2 H 02/12/23 19:15: APTT 159.5 H*, Blood Type A NEGATIVE 02/13/23 05:20: WBC 8.2, RBC 2.39 L, Hgb 7.5 L, Hct 23.6 L, MCV 98.7, MCH 31.4, MCHC 31.8 L, RDW Std Deviation 45.2 H, RDW Coeff of Tiffanie 12.4, Plt Count 169, MPV 9.5, PT 20.8 H, INR 1.8, APTT 123.2 H*, Sodium 136, Potassium 3.8, Chloride 96 L , Carbon Dioxide 27.0, Anion Gap 13, BUN 77 H, Creatinine 7.65 H*, Estim Creat Clear Calc 6.50, Est GFR (MDRD) Af Amer 7 L, Est GFR (MDRD) Non-Af 6 L, BUN/Creatinine Ratio 10.1, Glucose 106, Calcium 7.2 L Physical Exam Narrative Alert awake oriented x 3 no obvious distress s1s2 no murmurs lungs clear, no wheezes, rhonchi or rales noted abdomen soft, nontender +++ edema bilateral lower legs Assessment & Plan Assessment/Plan (1) Acute kidney injury superimposed on CKD: PLAN: - CKD stage IV, baseline creatinine was around 3.0. At the time of last office visit, creatinine was 4. We increased the prednisone at that time empirically. Background CKD etiology unclear. 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 she did not tolerate prednisone due to adverse events. -Creatinine is worsening, now up to 7.6. On lasix for worsening edema. She is agreeable for dialysis. Appreciate surgery seeing patient for tunneled dialysis catheter placement. Patient to have tunneled HD catheter placed today and then will dialyze. Plan for dialysis again tomorrow with fluid removal - Outpatient dialysis arrangements underway, Dx: ESRD. Discharge planning possibly to ECF for therapy.
[2023-02-13 09:15] LABS: Hemoglobin A1c 5.2 % (3.8-5.6)
--- NOTE | 2023-02-13 09:20 | WOUNDNOTE ---
blisters remain intact to the left medial and lateral thigh. patient tearful this am about getting a dialysis catheter placed and needing dialysis. Pt comforted. will continue to monitor the blisters.
[2023-02-13 09:59] LABS: Hepatitis B Surface Antigen Non-Reactive (Nonreactive)
[2023-02-13] MEDS: oxyCODONE 5 MG Tablet PO ×2 (10:03→18:05)
[2023-02-13] MEDS: Anastrozole 1 MG TABLET PO (10:04)
[2023-02-13] MEDS: Gabapentin 100 MG Capsule PO ×2 (10:04→17:52)
[2023-02-13] MEDS: Multivitamins,Therapeutic Tablet 1 TABLET PO (10:04)
[2023-02-13] MEDS: Folic Acid 1 MG Tablet PO (10:04)
[2023-02-13] MEDS: NIFEdipine 90 MG Tablet PO (10:05)
[2023-02-13] MEDS: cloNIDine HCl 0.1 MG Tablet PO (10:05)
[2023-02-13] MEDS: Furosemide 100 MG/10 ML Vial 80 MG IV ×2 (10:05→17:52)
[2023-02-13] MEDS: HYDROmorphone 0.5 MG/0.5 ML SYRINGE IV (11:32)
[2023-02-13 13:05] LABS: International Normalized Ratio 1.6; Prothrombin Time (Protime)PT. 18.7 SECONDS (11.7-14.9)
[2023-02-13] MEDS: Cefazolin 2 GM in 0.9% Normal Saline (100mL Bag) 100 ML IV (14:04)
[2023-02-13] MEDS: Lidocaine 1%/Epi 1:200 (30ml) 30 ML AMPUL (14:08)
[2023-02-13] MEDS: Heparin 10,000 UNITS/10 ML Vial 10000 UNITS (14:09)
--- NOTE | 2023-02-13 14:27 | OP.PCM_ITS ---
Report of Operation Date of Procedure: 02/13/23 Pre-Operative Diagnosis: Acute on chronic kidney disease with need for dialysis access Post-Operative Diagnosis: Same Surgery/Procedure Performed:: Ultrasound and fluoroscopy guided right tunneled dialysis temporary catheter placement utilizing right IJ Type of Anesthesia: Local MAC Specimen's removed: None Estimated Blood Loss (mL): 5 Description of Procedure: Patient was brought back to the operating room and MAC anesthesia was induced. The right neck and chest were prepped and draped in usual sterile fashion. Ul trasound was used to localize the right IJ and the skin overlying it was injected with local anesthetic. A small area of the chest was chosen and this was injected with local anesthetic as well as was the tract between the 2 incisions. Both incisions were made with a scalpel. Next under ultrasound guidance the IJ was accessed with the access needle and the guidewire was placed through the needle under fluoroscopy guidance. There was no resistance. The needle was removed and over the guidewire serial dilators were placed as well as the peel-away sheath and the wire was removed and the peel-away sheath was capped. The catheter was then tunneled from the lower incision to the upper incision and placed through the peel-away sheath and the peel-away sheath was removed. This was done under fluoroscopy and it showed good placement in the superior vena cava. Next each catheter was drawn and flushed. They each cyndi and flushed easily. They were then flushed with 2 cc of heparinized saline each and then capped and clamped. The upper neck incision was closed with a 3-0 Vicryl suture. The catheter was then sutured to the skin using 3-0 nylon. Dressings were applied. Patient tolerated the procedure well was brought to PACU in stable condition and x-ray of the chest will be obtained. Grafts/Implants Used: 23 cm curved palindrome temporary dialysis catheters
--- NOTE | 2023-02-13 14:40 | RAD_ITS ---
STUDY: X-RAY CHEST REASON FOR EXAM: Female, 67 years old. Line placement -- in pacu TECHNIQUE: Single AP portable view of the chest. COMPARISON: Comparison is made with prior chest regressed and November 02, 2022. FINDINGS: A right-sided double-lumen catheter is seen with the tip in the right atrium. EKG electrodes are seen. Mild increased markings are seen in the right middle lobe as well as in the posterior segment of the left lower lobe. This may represent either atelectasis and/or early infiltrate. There is blunting of the left costophrenic angle. Normal size heart. Normal mediastinum and ken. Normal visualized pulmonary arteries. There is atherosclerotic tortuosity of the aortic arch and descending thoracic aorta. There are diffuse degenerative changes of the visualized thoracic spine. Normal visualized ribs, clavicles, and shoulders. There is no demonstrated abnormality of the visualized soft tissue structures of the upper abdomen. RAD/CXR for Line Placement IMPRESSION: Increased markings in the right middle lobe and posterior medial segment of the left lower lobe suggestive of atelectasis/early infiltrate. Follow-up is recommended. Electronically Signed: Og Kaplan MD at 15:11 [facility] ,
[2023-02-13] MEDS: 0.9% Normal Saline 1,000 ML IV.SOLN. 1000 ML OPERA.SITE (15:28)
[2023-02-13] MEDS: 0.9% Saline Lock 10 ML Syringe IV (15:28)
[2023-02-13] MEDS: PureFlow B 2K Dialysis Soln 1 BAG 6 BAG PF (15:28)
--- NOTE | 2023-02-13 15:41 | PCM.PN.HOSP ---
Reason for Visit Reason for Visit: Diagnoses Anemia, unspecified (02/05/23) Acute embolism and thrombosis of unspecified deep veins of right lower extremity (02/05/23) Embolism and thrombosis of superficial veins of left lower extremity (02/05/23) Acute kidney failure, unspecified (02/05/23) Chronic kidney disease, unspecified (02/05/23) Presence of other vascular implants and grafts (02/05/23) Subjective Subjective No acute events overnight. Patient seen at bedside this morning. Patient continues to report moderate to severe bilateral upper leg pain, similar to previous days. States she has not tried getting out of bed since yesterday because of the pain. Patient has been tolerating the Marcus catheter without issue, has been having good urine output. States that she feels like her legs are still fairly swollen at this time. Patient does feel fatigued this morning, similar to yesterday. Does not have much of an appetite this morning. No other acute concerns at this point. Objective Data Objective Data Vital Signs: Vital Signs Temp Pulse Resp BP Pulse Ox O2 Del Method O2 Flow Rate 98.4 F 81 15 132/67 H 97 Room Air 4 02/13/23 15:07 02/13/23 15:37 02/13/23 15:37 02/13/23 15:37 02/13/23 15:07 02/13/23 15:37 02/13/23 14:25 Oxygen Flow Rate (L/min) 4 Oxygen Delivery Method Room Air Weight: 83.3 kg Body Mass Index (BMI) 29.5 Intake & Output: Intake and Output for Last 24 Hours 02/11/23 02/12/23 02/13/23 23:59 23:59 23:59 Intake Total 85.8 / 85.8 577.65 / 577.65 Output Total 1750 / 1750 3950 / 3950 2400 / 2400 Balance -1750 / -1750 -3864.2 / -3864.2 -1822.35 / -1822.35 Lab / Micro Data 02/13/23 05:20 02/13/23 05:20 Labs: Laboratory Results - last 24 hr 02/12/23 19:15: APTT 159.5 H*, Blood Type A NEGATIVE 02/13/23 05:20: WBC 8.2, RBC 2.39 L, Hgb 7.5 L, Hct 23.6 L, MCV 98.7, MCH 31.4, MCHC 31.8 L, RDW Std Deviation 45.2 H, RDW Coeff of Tiffanie 12.4, Plt Count 169, MPV 9.5, PT 20.8 H, INR 1.8, APTT 123.2 H*, Sodium 136, Potassium 3.8, Chloride 96 L, Carbon Dioxide 27.0, Anion Gap 13, BUN 77 H, Creatinine 7.65 H*, Estim Creat Clear Calc 6.50, Est GFR (MDRD) Af Amer 7 L, Est GFR (MDRD) Non-Af 6 L, BUN/Creatinine Ratio 10.1, Glucose 106, Hemoglobin A1c 5.2, Calcium 7.2 L, Hep Bs Antigen Non-Reactive 02/13/23 12:40: PT 18.7 H, INR 1.6 Radiography Diagnostic Testing: Radiology Impression Chest X-Ray 02/13/23 14:40 IMPRESSION: Increased markings in the right middle lobe and posterior medial segment of the left lower lobe suggestive of atelectasis/early infiltrate. Follow-up is recommended. Electronically Signed: Og Kaplan MD at 15:11 EST , Physical Exam Const alert, oriented x3 and average body habitus Constitutional Narrative: Pleasant elderly female, fatigued and chronically ill-appearing, laying in bed, conversing normally. Mild distress due to lower extremity pain. General Appearance: cooperative HEENT normocephalic, head/scalp atraumatic, hearing grossly normal bilaterally, nasal mucous membranes and turbinates normal and moist oral mucous membranes Eyes PERRL, EOMs intact bilaterally and conjunctivae normal Neck full ROM, no lymphadenopathy and supple Lymph Lymphatic: no lymphadenopathy noted Chest inspection of chest normal Resp normal respiratory effort, normal air movement, no use of accessory muscles and clear to auscultation bilaterally Cardio regular rate, regular rhythm, no murmurs and peripheral pulses 2+ throughout GI normal to inspection, nondistended, normoactive bowel sounds, soft to palpation and non-tender GI Narrative: Mildly distended. Back/Spine normal ROM Extremity Extremity Narrative: Moderate to severe tenderness to palpation in upper legs bilaterally, mild to moderate tenderness in lower legs bilaterally. No overt findings of cellulitis. +3-4 bilateral lower extremity pitting edema. Small areas of blistering noted on upper thighs bilaterally. Skin no rashes or lesions noted Psych mental status grossly normal Assessment & Plan Assessment/Plan (1) Deep vein thrombosis (DVT) of right lower extremity: (2) Acute kidney injury superimposed on CKD: (3) Anemia: QUALIFIERS: Anemia type: unspecified type Qualified Code(s): D64.9 - Anemia, unspecified PLAN: Plan Patient is a 67-year-old female who presented to [facility] ED on 02/05/2023 with worsening bilateral leg pain, dehydration and malaise. 1. BRITTNEY on CKD stage IV Suspected prerenal etiology complaint patient on admission, now with concern for some degree of ATN. No obstructive symptoms noted. Baseline creatinine around 3.9, creatinine 6.33 on admit. Creatinine mildly improved to 5.5, now mildly worsening on a daily basis, most recent creatinine 7.65, BUN 77 on 02/13. S/p placement of tunneled HD catheter line on 02/13 by surgery, patient tolerated line placement without issue. ? Nephrology following. Planning to initiate dialysis either tonight or tomorrow morning. Will need 3 dialysis sessions prior to discharge. Case management following for assistance with finding SNF for patient that will accommodate her dialysis needs. Continue BMP daily. Once dialysis is started, can remove Marcus catheter with no need to monitor urine output closely. 2. 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 Warfarin was being held apparently due to supratherapeutic INR prior to admission. Patient also had recently been diagnosed with right lower extremity cellulitis and was being treated with Keflex for this. Patient had previous history of DVT, had IVC filter inserted by Dr. Saucedo with vascular surgery a few years ago, IVC filter remains in place. Patient was initially anticoagulated with Eliquis, was switched to warfarin due to declining kidney function. Lower extremity Doppler admission showed acute DVT in right femoral vein down to soleus vein, as well as acute SVT in left great saphenous vein. Patient required heparin drip as bridge to therapeutic INR on admission, reached therapeutic level on 02/10, heparin drip discontinued. ? Patient given 1 dose of p.o. vitamin K 5 mg and 2 doses of FFP on 02/12- in preparation for HD catheter placement as noted above. INR 1.6 prior to catheter placement. We will plan to restart home warfarin tomorrow. May need to bridge with heparin drip again to reach therapeutic INR. 3. Bilateral lower extremity pain Patient presumed to have bilateral lower extremity pain on admission due to acute DVT and SVT extremities. However, patient has now developed blistering and areas of upper thighs and has moderate to severe tenderness to palpation in those areas. Also has bruising noted in lower legs bilaterally with moderate tenderness to palpation. Repeat CT lower extremity on 02/11 was stable from previous. Initiated on IV Lasix 40 mg twice daily on 02/11 as patient had severe lower extremity volume overload. ? Vascular surgery consulted for further recommendations. Continue IV Lasix for now. Continue pain control medications as needed. 4. Acute on chronic anemia Baseline hemoglobin around 8-9. Hemoglobin 7.8 on admission, slowly down trended to hemoglobin 7.0 on 02/09. Chronic anemia presumed secondary to severe chronic kidney disease. Patient took darbepoetin geni for about 2-[address] Sandhu, however she was concerned about the side/adverse effect profile of hypertension, stroke and polycythemia and discontinued it. S/p transfusion of 1 unit of packed red blood cells on 02/09 with improvement hemoglobin 8.5 on 02/10. Slowly downtrending, hemoglobin 7.6 on 02/12. ? Monitor CBC daily. Appreciate nephrology input regarding EPO versus iron infusion as needed. Plan to transfuse for hemoglobin less than 7 as needed. 5. Acute urinary retention ? Suspect secondary to acute lower extremity pain and effective immobility since admission. Bladder scan on 02/11 revealed greater than 800 cc of urine in bladder, s/p Marcus placement. Monitor urine output. Will plan for void trial prior to discharge. 6. Hypertension BP significantly elevated to 213/112 on admission. Suspected this was in part due to drug reaction to prednisone, prednisone discontinued on admission. Blood pressure has remained stable and much improved since that time. ? Continue home nifedipine and clonidine. 7. Debility ? Secondary to multiple medical issues as noted above. PT/OT/case management consulted. Planning for SNF on discharge. Chronic medical conditions: ? History of endometrial carcinoma: Diagnosed in spring 2019, s/p hysterectomy and treated with Keytruda for approximately 18 months (discontinued due to side effects). Continue home anastrozole. DVT prophylaxis: Warfarin CODE STATUS: Full code, verified Expected disposition: SNF, TBD Total clinical time spent by myself addressing the patient's medical issues, reviewing all the data, and collaborating with patient's care team: 35 minutes. Charges/Coding Visit Charges Inpatient E&M: 78563 Subs Hosp L2
[2023-02-13] MEDS: Heparin 10,000 UNITS/10 ML Vial IV (16:46)
--- NOTE | 2023-02-13 17:05 | VDLE_ITS ---
Reason For Study: LLE Swelling Procedure LEFT This is a venous duplex using B-mode, color Acute superficial vein thrombosis is noted in flow and spectral Doppler. the left GSV from junction to prox calf and Exam performed portable in patient room. SSV. It is dilated and NONCOMPRESSIBLE. The study was technically difficult. Thrombus appears approximately at origin and Limited views were obtained. slightly into FV but no flow disturbance is A preliminary report was called and/or faxed noted in the FV. to Jade Carney [facility] PA. UNABLE TO VISUALIZE CFV and Mid / Dist FV due to patient intolerance to transducer pressure and compressions. POP V is compressible, spontaneous, phasic, competent and demonstrates normal augmentation. T/P Trunk is compressible. PTV is PARTIALLY COMPRESSIBLE with mixed intraluminal echoes consistent with chronic DVT. LT PerV is compressible. VL/Venous Duplex US, Unilateral Interpretation Summary Acute superficial vein thrombosis is noted in the left saphenofemoral junction and great saphenous vein. Chronic deep vein thrombosis is noted in the left posterior tibial vein. Ordering Physician: Jade Carney Referring Physician: Cindy Griffith Performed By: Saji Valderrama RVT
--- NOTE | 2023-02-13 17:06 | PCM.PN.SRG ---
Subjective Subjective Patient is examined while receiving dialysis. She continues to report a lot of lower extremity pain, especially in the left lower extremity. Her LLE is hypersensitive to touch. She has more recently developed 2 large blisters, one on the medial aspect of her left thigh and one on the lateral aspect of her left thigh, both overlying/surrounded by some ecchymosis. Her LLE is also significantly more swollen than the right. She had tunneled catheter placed for dialysis earlier today. This is her first dialysis session. Her coumadin was held and she was given Vitamin K and FFP to lower INR in preparation for catheter placement. Per hemodialysis patient care specialist, patient is still +8 in fluid balance after session today, she will have another dialysis session tomorrow morning. Objective Data Objective Data Vital Signs: Vital Signs Temp Pulse Resp BP Pulse Ox O2 Del Method O2 Flow Rate 98.4 F 94 15 130/54 H 97 Room Air 2 02/13/23 16:00 02/13/23 16:40 02/13/23 16:40 02/13/23 16:40 02/13/23 16:00 02/13/23 16:40 02/13/23 16:00 Oxygen Flow Rate (L/min) 2 Oxygen Delivery Method Room Air Weight: 183 lb 10.321 oz Body Mass Index (BMI) 29.5 Intake & Output: Intake and Output for Last 24 Hours 02/11/23 02/12/23 02/13/23 23:59 23:59 23:59 Intake Total 85.8 / 85.8 577.65 / 577.65 Output Total 1750 / 1750 3950 / 3950 2400 / 2400 Balance -1750 / -1750 -3864.2 / -3864.2 -1822.35 / -1822.35 Lab / Micro Data 02/13/23 05:20 02/13/23 05:20 Labs: Laboratory Results - last 24 hr 02/12/23 19:15: APTT 159.5 H*, Blood Type A NEGATIVE 02/13/23 05:20: WBC 8.2, RBC 2.39 L, Hgb 7.5 L, Hct 23.6 L, MCV 98.7, MCH 31.4, MCHC 31.8 L, RDW Std Deviation 45.2 H, RDW Coeff of Tiffanie 12.4, Plt Count 169, MPV 9.5, PT 20.8 H, INR 1.8, APTT 123.2 H*, Sodium 136, Potassium 3.8, Chloride 96 L, Carbon Dioxide 27.0, Anion Gap 13, BUN 77 H, Creatinine 7.65 H*, Estim Creat Clear Calc 6.50, Est GFR (MDRD) Af Amer 7 L, Est GFR (MDRD) Non-Af 6 L, BUN/Creatinine Ratio 10.1, Glucose 106, Hemoglobin A1c 5.2, Calcium 7.2 L, Hep Bs Antigen Non-Reactive 02/13/23 12:40: PT 18.7 H, INR 1.6 Radiography Diagnostic Testing: Radiology Impression Chest X-Ray 02/13/23 14:40 IMPRESSION: Increased markings in the right middle lobe and posterior medial segment of the left lower lobe suggestive of atelectasis/early infiltrate. Follow-up is recommended. Electronically Signed: Og Kaplan MD at 15:11 EST , Physical Exam Const alert and oriented x3 General Appearance: cooperative HEENT normocephalic, head/scalp atraumatic, hearing grossly normal bilaterally, external ears normal and external nose normal Eyes EOMs intact bilaterally General Eye: normal appearance of both eyes Neck General: normal visual inspection and trachea midline Resp normal respiratory effort, normal air movement, no retractions and no use of accessory muscles Effort and Inspection: able to speak in complete sentences Cardio Rate: regular rate Rhythm: regular rhythm Extremity Extremity Narrative: Bilateral lower extremity edema, left significantly worse than right. Left medial thigh with focal redness, and hardness and tenderness to palpation consistent with superficial thrombophlebitis which is stable from prior exam. Now left leg with 1 large blister on the medial aspect of the thigh and 1 large blister on the lateral aspect of the thigh. The blisters overly/are surrounded by an area of ecchymosis but do not necessarily correlate in location to her known SVT. Neuro oriented x3, CN's II-XII intact bilaterally, moves all extremities, no focal motor deficits and no sensory deficits noted Psych mental status grossly normal Appearance: grossly normal Attitude: calm and engaged Activity / Motor Behavior: appropriate eye contact Speech: normal speech Mood & Affect: euthymic mood Judgement: judgement good Assessment & Plan Assessment/Plan (1) Deep vein thrombosis (DVT) of right lower extremity: (2) Acute superficial venous thrombosis of left lower extremity: (3) Presence of IVC filter: PLAN: Plan Venous Doppler on 02/05/23 revealed acute DVT in the right femoral, popliteal, TP trunk, peroneal, soleus veins as well as acute SVT in the left great saphenous vein, small saphenous vein, and the adjacent/adjoining varicosities. She does have IVC filter in place. Will plan to repeat a venous duplex to see if DVT/SVT have propagated further which could also be contributing to her swelling and pain. Continue to favor conservative management in light of her renal failure, but could consider intervention if significant increase in clot burden/IVC filter blocked. The blisters on her left thigh do not appear to be associated to her known SVT. Possible these areas of skin were already somewhat compromised by ecchymosis/hematoma and then swelling compounded this leading to blistering given her significant fluid positive state.
[2023-02-13] MEDS: tiZANidine HCl 2 MG Tablet PO (17:52)
[2023-02-13] MEDS: Sodium Bicarbonate 650 MG Tablet 325 MG PO ×2 (17:53→21:27)
[2023-02-13] MEDS: HEPARIN/D5w 25,000 UNITS 25,000 UNITS/250 ML IV.SOLN. 9 UNITS CONT INF (21:26)
[2023-02-14] VITALS (20 sets, daily range): BP systolic 91–176; BP diastolic 47–76; PULSE 60–149; RESP 16–18; TEMP 36.9–37.4; O2SAT 96–99; BMI 29.5
--- NOTE | 2023-02-14 02:34 | NURSING ---
Pt was extremely drowsy at the beginning of the shift. She had received her first round of dialysis this afternoon. her daughter was at the bedside and told me that her and her tried to wake the patient and couldn't. I tried waking the patient while performing Vital signs and assessment and she would not wake up. I grabbed Lorena Alicia the charge nurse and we moved the patient around in the bed and while lowering the head of the bed she immediately woke up. She has been more awake but I did hold some of her medications due to Lethargy. Pt's vital signs are stable and she is on 2l o2 NC.
[2023-02-14] MEDS: oxyCODONE 5 MG Tablet PO ×3 (03:19→23:33)
[2023-02-14 03:35] LABS: Hematocrit 23.1 % (37-47); Hemoglobin 7.3 g/dL (12.0-15.0); Mean Corp Hgb Conc 31.6 g/dL (32-36); Mean Corpuscular Hgb 31.9 pg (27.0-32.0); Mean Corpuscular Volume 100.9 fL (81-99); Mean Platelet Vol. 9.6 fl (6.2-12.0); Platelet Count 181 K/mm3 (150-450); RBC Distribution Width CV 12.6 % (11.6-14.6); Red Blood Count 2.29 M/mm3 (4.2-5.4); White Blood Count 6.3 K/mm3 (4.4-11.0)
[2023-02-14 03:46] LABS: Partial Thromboplast Time 86.9 Seconds (24.1-36.2)
[2023-02-14 04:00] LABS: Anion Gap 12 (5-15); BUN 71 mg/dL (7-18); BUN/Creat Ratio 10.4 RATIO (10-20); Calcium,Total 7.5 mg/dL (8.5-10.1); Chloride 98 mmol/L (98-107); Creatinine, Serum 6.84 mg/dL (0.55-1.02); EST Glomerular Filtration Rate 6 mL/min (>60); Est Glom Filt Rate - Afr Amer 8 mL/min (>60); Estimated Creatinine Clearance 7.27 ml/min; Glucose 106 mg/dL (74-106); Sodium Level 138 mmol/L (136-145)
[2023-02-14] MEDS: Sodium Bicarbonate 650 MG Tablet 325 MG PO ×3 (06:13→23:34)
[2023-02-14] MEDS: tiZANidine HCl 2 MG Tablet PO ×3 (06:13→23:33)
--- NOTE | 2023-02-14 08:34 | PCM.PN.REN ---
Subjective Subjective Seen and examined on dialysis this morning. Denies any complaints. Objective Data Objective Data Vital Signs: Vital Signs Temp Pulse Resp BP Pulse Ox O2 Del Method O2 Flow Rate 98.6 F 62 16 109/49 L 97 Nasal Cannula 3 02/14/23 02:50 02/14/23 07:57 02/14/23 07:57 02/14/23 07:57 02/14/23 07:57 02/14/23 07:57 02/14/23 07:57 Oxygen Flow Rate (L/min) 3 Oxygen Delivery Method Nasal Cannula Weight: 83.5 kg Body Mass Index (BMI) 29.5 Intake & Output: Intake and Output for Last 24 Hours 02/12/23 02/13/23 02/14/23 23:59 23:59 23:59 Intake Total 85.8 / 85.8 817.65 / 817.65 659.1 / 659.1 Output Total 3950 / 3950 3950 / 3950 1200 / 1200 Balance -3864.2 / -3864.2 -3132.35 / -3132.35 -540.9 / -540.9 Lab / Micro Data 02/14/23 03:24 02/14/23 03:24 Labs: Laboratory Results - last 24 hr 02/13/23 05:20: Hemoglobin A1c 5.2, Hep Bs Antigen Non-Reactive 02/13/23 12:40: PT 18.7 H, INR 1.6 02/14/23 03:24: WBC 6.3, RBC 2.29 L, Hgb 7.3 L, Hct 23.1 L, MCV 100.9 H, MCH 31.9, MCHC 31.6 L, RDW Std Deviation 46.0 H, RDW Coeff of Tiffanie 12.6, Plt Count 181, MPV 9.6, APTT 86.9 H, Sodium 138, Potassium 4.0, Chloride 98, Carbon Dioxide 28.0, Anion Gap 12, BUN 71 H, Creatinine 6.84 H, Estim Creat Clear Calc 7.27, Est GFR (MDRD) Af Amer 8 L, Est GFR (MDRD) Non-Af 6 L, BUN/Creatinine Ratio 10.4, Glucose 106, Calcium 7.5 L Radiography Diagnostic Testing: Radiology Impression Chest X-Ray 02/13/23 14:40 IMPRESSION: Increased markings in the right middle lobe and posterior medial segment of the left lower lobe suggestive of atelectasis/early infiltrate. Follow-up is recommended. Electronically Signed: Og Kaplan MD at 15:11 EST , Physical Exam Narrative Alert awake oriented x 3 no obvious distress s1s2 no murmurs lungs clear, no wheezes, rhonchi or rales noted abdomen soft, nontender +++ edema bilateral lower legs Tunneled dialysis catheter right chest dressing clean, dry and intact Assessment & Plan Assessment/Plan (1) Acute kidney injury superimposed on CKD: PLAN: - CKD stage IV, baseline creatinine was around 3.0. At the time of last office visit, creatinine was 4. We increased the prednisone at that time empirically. Background CKD etiology unclear. 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 she did not tolerate prednisone due to adverse events. -New ESRD. Creatinine peaked 7.6 and patient hypervolemic. Patient began first HD treatment on 02/13 with around 1 L fluid removal. Plan for dialysis again today and attempt to 2 -3L fluid removal as patient/blood pressure tolerates. Can continue lasix as patient is non-oliguric -Anemia of chronic disease; starting RAUL with HD -urinary retention; now has cardoso but to try voiding trial prior to discharge - Outpatient dialysis arrangements underway, Dx: ESRD. Discharge planning possibly to ECF for therapy.
[2023-02-14] MEDS: Folic Acid 1 MG Tablet PO (08:50)
[2023-02-14] MEDS: Multivitamins,Therapeutic Tablet 1 TABLET PO (08:50)
[2023-02-14 09:12] LABS: International Normalized Ratio 1.6; Prothrombin Time (Protime)PT. 18.7 SECONDS (11.7-14.9)
--- NOTE | 2023-02-14 09:33 | PCM.PN.SRG ---
Subjective Subjective Patient is currently getting dialysis no issues with the catheter. Objective Data Objective Data Vital Signs: Vital Signs Temp Pulse Resp BP Pulse Ox O2 Del Method O2 Flow Rate 98.6 F 61 17 101/52 L 97 Nasal Cannula 3 02/14/23 02:50 02/14/23 09:28 02/14/23 09:28 02/14/23 09:28 02/14/23 09:28 02/14/23 09:28 02/14/23 09:28 Oxygen Flow Rate (L/min) 3 Oxygen Delivery Method Nasal Cannula Weight: 184 lb 1.376 oz Body Mass Index (BMI) 29.5 Intake & Output: Intake and Output for Last 24 Hours 02/12/23 02/13/23 02/14/23 23:59 23:59 23:59 Intake Total 85.8 / 85.8 817.65 / 817.65 659.1 / 659.1 Output Total 3950 / 3950 3950 / 3950 1200 / 1200 Balance -3864.2 / -3864.2 -3132.35 / -3132.35 -540.9 / -540.9 Lab / Micro Data 02/14/23 03:24 02/14/23 03:24 Labs: Laboratory Results - last 24 hr 02/13/23 05:20: Hep Bs Antigen Non-Reactive 02/13/23 12:40: PT 18.7 H, INR 1.6 02/14/23 03:24: WBC 6.3, RBC 2.29 L, Hgb 7.3 L, Hct 23.1 L, MCV 100.9 H, MCH 31.9, MCHC 31.6 L, RDW Std Deviation 46.0 H, RDW Coeff of Tiffanie 12.6, Plt Count 181, MPV 9.6, PT 18.7 H, INR 1.6, APTT 86.9 H, Sodium 138, Potassium 4.0, Chloride 98, Carbon Dioxide 28.0, Anion Gap 12, BUN 71 H, Creatinine 6.84 H, Estim Creat Clear Calc 7.27, Est GFR (MDRD) Af Amer 8 L, Est GFR (MDRD) Non-Af 6 L, BUN/Creatinine Ratio 10.4, Glucose 106, Calcium 7.5 L Radiography Diagnostic Testing: Radiology Impression Chest X-Ray 02/13/23 14:40 IMPRESSION: Increased markings in the right middle lobe and posterior medial segment of the left lower lobe suggestive of atelectasis/early infiltrate. Follow-up is recommended. Electronically Signed: Og Kaplan MD at 15:11 EST , Physical Exam Narrative Right chest tunneled dialysis catheter in place clean dry and intact currently on dialysis. Const no apparent distress Assessment & Plan Assessment/Plan (1) Acute kidney injury superimposed on CKD: PLAN: Status post right chest tunneled dialysis catheter placement. PLAN: Plan Patient's right chest tunneled dialysis catheter clean dry and intact. No issues with dialysis. We will sign off call with questions. Leora Dunlap M.D. Pager: [phone] [facility] [address] [place] [address], [facility], [address] [place] [address] Office: [phone]
--- NOTE | 2023-02-14 09:57 | WOUNDNOTE ---
Blisters remain intact to the left medial and lateral thigh. more fluid noted in the blisters today. patient currently getting dialysis. will continue to monitor. there is no redness noted around the blisters. pt states thighs are linseed oil press tender.
--- NOTE | 2023-02-14 09:58 | CASEMGMT ---
Social Work Pt requesting a SNF list in the [place] area. SW met with pt and provided list and notified pt on facilities on the list that have on site dialysis. Pt reviewed list and requested referral be sent to [facility]. Referral has been sent. SW to await determination. HUGO Mitchell
[2023-02-14] MEDS: 0.9% Saline Lock 10 ML Syringe IV (10:38)
[2023-02-14] MEDS: Heparin 10,000 UNITS/10 ML Vial IV (10:38)
[2023-02-14 10:39] LABS: Partial Thromboplast Time 75.7 Seconds (24.1-36.2)
[2023-02-14] MEDS: 0.9% Normal Saline 1,000 ML IV.SOLN. 1000 ML OPERA.SITE (10:39)
[2023-02-14] MEDS: PureFlow B 2K Dialysis Soln 1 BAG 6 BAG PF (10:39)
[2023-02-14] MEDS: NIFEdipine 90 MG Tablet PO ×2 (12:00→23:33)
[2023-02-14] MEDS: HYDROmorphone 0.5 MG/0.5 ML SYRINGE IV ×2 (12:01→16:45)
[2023-02-14] MEDS: Furosemide 100 MG/10 ML Vial 80 MG IV ×2 (12:01→16:53)
[2023-02-14] MEDS: Anastrozole 1 MG TABLET PO (12:01)
[2023-02-14] MEDS: Gabapentin 100 MG Capsule PO ×3 (12:01→23:33)
--- NOTE | 2023-02-14 13:20 | NURSING ---
pt was ordered 14748 units of retacrit to be given during dialysis. pt states would rather not take this medication r/t possibility of increased risk for blood clots. pt educated on medication, and possibility of needing a future blood transfusion without the medication. pt verbally acknowledged understanding. medication held per pt request & freight sorter informed
--- NOTE | 2023-02-14 13:40 | PN.HOSP_ITS ---
Reason for Visit Reason for Visit: Diagnoses Anemia, unspecified (02/05/23) Acute embolism and thrombosis of unspecified deep veins of right lower extremity (02/05/23) Embolism and thrombosis of superficial veins of left lower extremity (02/05/23) Acute kidney failure, unspecified (02/05/23) Chronic kidney disease, unspecified (02/05/23) Presence of other vascular implants and grafts (02/05/23) Subjective Subjective Patient completed first hemodialysis session yesterday evening. No acute events overnight. Patient seen at bedside this morning. Was having second hemodialysis session done during my interview. States she tolerated the first HD session well. Continues to have significant upper leg pain, similar to previous days. Continues to feel fatigued, similar to yesterday. Denies any fevers or chills, chest pain, shortness of breath. No other acute concerns currently. Objective Data Objective Data Vital Signs: Vital Signs Temp Pulse Resp BP Pulse Ox O2 Del Method O2 Flow Rate 98.6 F 81 18 115/54 L 97 Nasal Cannula 3 02/14/23 02:50 02/14/23 10:58 02/14/23 10:58 02/14/23 10:58 02/14/23 10:58 02/14/23 10:58 02/14/23 10:58 Oxygen Flow Rate (L/min) 3 Oxygen Delivery Method Nasal Cannula Weight: 83.5 kg Body Mass Index (BMI) 29.5 Intake & Output: Intake and Output for Last 24 Hours 02/12/23 02/13/23 02/14/23 23:59 23:59 23:59 Intake Total 85.8 / 85.8 817.65 / 817.65 659.1 / 659.1 Output Total 3950 / 3950 3950 / 3950 5080 / 5080 Balance -3864.2 / -3864.2 -3132.35 / -3132.35 -4420.9 / -4420.9 Lab / Micro Data 02/14/23 03:24 02/14/23 03:24 Labs: Laboratory Results - last 24 hr 02/14/23 03:24: WBC 6.3, RBC 2.29 L, Hgb 7.3 L, Hct 23.1 L, MCV 100.9 H, MCH 31.9, MCHC 31.6 L, RDW Std Deviation 46.0 H, RDW Coeff of Tiffanie 12.6, Plt Count 181, MPV 9.6, PT 18.7 H, INR 1.6, APTT 86.9 H, Sodium 138, Potassium 4.0, Chloride 98, Carbon Dioxide 28.0, Anion Gap 12, BUN 71 H, Creatinine 6.84 H, Estim Creat Clear Calc 7.27, Est GFR (MDRD) Af Amer 8 L, Est GFR (MDRD) Non-Af 6 L, BUN/Creatinine Ratio 10.4, Glucose 106, Calcium 7.5 L 02/14/23 10:11: APTT 75.7 H Radiography Diagnostic Testing: Radiology Impression Chest X-Ray 02/13/23 14:40 IMPRESSION: Increased markings in the right middle lobe and posterior medial segment of the left lower lobe suggestive of atelectasis/early infiltrate. Follow-up is recommended. Electronically Signed: Og Kaplan MD at 15:11 EST , Physical Exam Const alert, oriented x3 and average body habitus Constitutional Narrative: Pleasant elderly female, fatigued and chronically ill-appearing, laying in bed, conversing normally. Mild distress due to lower extremity pain. General Appearance: cooperative HEENT normocephalic, head/scalp atraumatic, hearing grossly normal bilaterally, nasal mucous membranes and turbinates normal and moist oral mucous membranes Eyes PERRL, EOMs intact bilaterally and conjunctivae normal Neck full ROM, no lymphadenopathy and supple Lymph Lymphatic: no lymphadenopathy noted Resp Resp Narrative: Satting well on 2 L nasal cannula, no increased work of breathing noted. Mildly decreased breath sounds bilaterally. Cardio regular rate, regular rhythm, no murmurs and peripheral pulses 2+ throughout GI normal to inspection, nondistended, normoactive bowel sounds, soft to palpation and non-tender GI Narrative: Mildly distended. Back/Spine normal ROM Extremity Extremity Narrative: Moderate to severe tenderness to palpation in upper legs bilaterally, mild to moderate tenderness in lower legs bilaterally. No overt findings of cellulitis. +3-4 bilateral lower extremity pitting edema. Small areas of blistering noted on upper thighs bilaterally. Skin no rashes or lesions noted Skin Narrative: Tunneled HD catheter in place, site appears clean and dry. Psych mental status grossly normal Assessment & Plan Assessment/Plan (1) Deep vein thrombosis (DVT) of right lower extremity: (2) Acute kidney injury superimposed on CKD: (3) Anemia: QUALIFIERS: Anemia type: unspecified type Qualified Code(s): D64.9 - Anemia, unspecified PLAN: Plan Patient is a 67-year-old female who presented to [facility] ED on 02/05/2023 with worsening bilateral leg pain, dehydration and malaise. 1. BRITTNEY on CKD stage IV Suspected prerenal etiology complaint patient on admission, now with concern for some degree of ATN. No obstructive symptoms noted. Baseline creatinine around 3.9, creatinine 6.33 on admit. Creatinine mildly improved to 5.5, now mildly worsening on a daily basis, most recent creatinine 7.65, BUN 77 on 02/13. S/p placement of tunneled HD catheter line on 02/13 by surgery, patient tolerated line placement without issue. ? Nephrology following. Completed first HD session on evening of 02/13, second HD session on morning of 02/14. Planning for third session tomorrow. Case management following for assistance with finding SNF for patient that will accommodate her dialysis needs. Continue BMP daily. 2. 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 Warfarin was being held apparently due to supratherapeutic INR prior to admission. Patient also had recently been diagnosed with right lower extremity cellulitis and was being treated with Keflex for this. Patient had previous history of DVT, had IVC filter inserted by Dr. Saucedo with vascular surgery a few years ago, IVC filter remains in place. Patient was initially anticoagulated with Eliquis, was switched to warfarin due to declining kidney function. Lower extremity Doppler admission showed acute DVT in right femoral vein down to soleus vein, as well as acute SVT in left great saphenous vein. Patient required heparin drip as bridge to therapeutic INR on admission, reached therapeutic level on 02/10, heparin drip discontinued. INR was reversed on 02/13 for HD catheter placement, heparin drip restarted on evening of 02/13. ? Restarted home warfarin on 02/14, continue heparin drip for bridge to therapeutic INR. Monitor INR daily. 3. Bilateral lower extremity pain Patient presumed to have bilateral lower extremity pain on admission due to acute DVT and SVT extremities. However, patient has now developed blistering and areas of upper thighs and has moderate to severe tenderness to palpation in those areas. Also has bruising noted in lower legs bilaterally with moderate te nderness to palpation. Repeat CT lower extremity on 02/11 was stable from previous. Initiated on IV Lasix 40 mg twice daily on 02/11 as patient had severe lower extremity volume overload. ? Vascular surgery following. Repeat lower extremity duplex ultrasound ordered for today. Continue IV Lasix for now. Continue pain control medications as needed. 4. Acute on chronic anemia Baseline hemoglobin around 8-9. Hemoglobin 7.8 on admission, slowly down trended to hemoglobin 7.0 on 02/09. Chronic anemia presumed secondary to severe chronic kidney disease. Patient took darbepoetin geni for about 2-[address] Sandhu, however she was concerned about the side/adverse effect profile of hypertension, stroke and polycythemia and discontinued it. S/p transfusion of 1 unit of packed red blood cells on 02/09 with improvement hemoglobin 8.5 on 02/10. Slowly downtrending, hemoglobin 7.6 on 02/12. ? Monitor CBC daily. Appreciate nephrology input regarding EPO versus iron infusion as needed. Plan to transfuse for hemoglobin less than 7 as needed. 5. Acute urinary retention ? Suspect secondary to acute lower extremity pain and effective immobility since admission. Bladder scan on 02/11 revealed greater than 800 cc of urine in bladder, s/p Marcus placement. Monitor urine output. Will plan for void trial prior to discharge. 6. Hypertension BP significantly elevated to 213/112 on admission. Suspected this was in part due to drug reaction to prednisone, prednisone discontinued on admission. Blood pressure has remained stable and much improved since that time. ? Continue home nifedipine and clonidine. 7. Debility ? Secondary to multiple medical issues as noted above. PT/OT/case management consulted. Planning for SNF on discharge. Chronic medical conditions: ? History of endometrial carcinoma: Diagnosed in spring 2019, s/p hysterectomy and treated with Keytruda for approximately 18 months (discontinued due to side effects). Continue home anastrozole. DVT prophylaxis: Warfarin with heparin drip for bridging CODE STATUS: Full code, verified Expected disposition: SNF, TBD Total clinical time spent by myself addressing the patient's medical issues, reviewing all the data, and collaborating with patient's care team: 35 minutes. Charges/Coding Visit Charges Inpatient E&M: 93120 Subs Hosp L2
--- NOTE | 2023-02-14 15:53 | CASEMGMT ---
Social Work SW met with pt multiple times to discuss discharge plan. Pt's dgt now present and assisting pt with decision making. Pt's dgt educated to SNF list and options. Facilities of choice obtained and referrals made. Preferred Providers: 1. [facility] - unable to accept dialysis patients 2. [facility] - no beds available 3. [facility] - unable to accept dialysis patients 4. [facility] - able to accept pt, pt responsible for transportation or cost of transportation at $300/day 5. [facility] - unable to give determination of acceptance until a dialysis chair time is obtained. Unable to obtain a chair time until there is an accepting facility. Phone calls to discuss this not returned from [facility] 6. [facility] (in house dialysis) - No beds available 7. [facility] (in house dialysis) - Referral currently being reviewed 8. [facility] (in house dialysis) - Able to accept pt. Pt and dgt updated on all of this information. Family considering if they can provide transportation. Bedside nurse advised family of difficulty with transferring pt due to physical limitations. Pt and family with difficulty in making a decision. Pt and family advised to have a firm choice of facilities by Friday so referrals to dialysis center can be made. SW to follow up for decision and continued referrals. HUGO Shields
[2023-02-14 17:42] LABS: Partial Thromboplast Time 60.9 Seconds (24.1-36.2)
[2023-02-14 23:13] LABS: Partial Thromboplast Time 67.7 Seconds (24.1-36.2)
[2023-02-15] VITALS (18 sets, daily range): BP systolic 1–134; BP diastolic 47–91; PULSE 58–87; RESP 14–18; TEMP 36.4–37; O2SAT 92–98; BMI 29.7; BMI 31.6; BMI 31.3
[2023-02-15] MEDS: HEPARIN/D5w 25,000 UNITS 25,000 UNITS/250 ML IV.SOLN. 8 UNITS CONT INF (03:44)
[2023-02-15] MEDS: oxyCODONE 5 MG Tablet PO ×4 (03:44→19:41)
[2023-02-15] MEDS: Sodium Bicarbonate 650 MG Tablet 325 MG PO (05:52)
[2023-02-15] MEDS: tiZANidine HCl 2 MG Tablet PO (05:52)
[2023-02-15 07:08] LABS: Hematocrit 23.2 % (37-47); Hemoglobin 7.2 g/dL (12.0-15.0); Mean Corpuscular Hgb 31.2 pg (27.0-32.0); Mean Corpuscular Volume 100.4 fL (81-99); Mean Platelet Vol. 10.4 fl (6.2-12.0); Platelet Count 187 K/mm3 (150-450); RBC Distribution Width CV 12.4 % (11.6-14.6); RBC Distribution Width SD 45.1 fl (35.1-43.9); Red Blood Count 2.31 M/mm3 (4.2-5.4); White Blood Count 5.9 K/mm3 (4.4-11.0)
[2023-02-15 07:33] LABS: Anion Gap 8 (5-15); BUN 60 mg/dL (7-18); BUN/Creat Ratio 10.2 RATIO (10-20); Calcium,Total 8.3 mg/dL (8.5-10.1); Chloride 97 mmol/L (98-107); Creatinine, Serum 5.87 mg/dL (0.55-1.02); EST Glomerular Filtration Rate 8 mL/min (>60); Est Glom Filt Rate - Afr Amer 9 mL/min (>60); Estimated Creatinine Clearance 8.47 ml/min; Glucose 119 mg/dL (74-106); Potassium 3.9 mmol/L (3.5-5.1); Sodium Level 134 mmol/L (136-145)
[2023-02-15 07:40] LABS: International Normalized Ratio 1.6; Prothrombin Time (Protime)PT. 19.3 SECONDS (11.7-14.9)
[2023-02-15 08:09] LABS: Partial Thromboplast Time 53.3 Seconds (24.1-36.2)
[2023-02-15] MEDS: PureFlow B 2K Dialysis Soln 1 BAG 6 BAG PF (08:09)
[2023-02-15] MEDS: 0.9% Normal Saline 1,000 ML IV.SOLN. 1000 ML OPERA.SITE (08:09)
[2023-02-15] MEDS: Heparin Injection (Vial) 5,000 UNIT/ML VIAL IV (08:55)
--- NOTE | 2023-02-15 10:10 | NURSING ---
This Nurse got a call from lab that Raúl Dubose's ptt that was recently drawn at approximately 0900 this morning was 210.0 This RN is Relief Charge today and went and stopped the Heparin gtt at 1000 and informed Aleah RN. Aleah RN had just bolused pt 10 min prior to lab coming in and drawing pt and Aleah had consulted with this RN about PTT level this morning being 53.3 and bolus' pt. remotely piloted vehicle controller in room with pt and stated that lab came in to see pt 10 minutes after Aleah Bolused pt. Dr. Brown happened to be here on the floor and is aware of the PTT of 53.3 this morning at 0640 and the PTT of 210.0 and that Heparin gtt is turned off now. Dr. Brown wants Nursing to keep Heparin gtt stopped for 2 hours per protocol but then get a PTT after 2 hours to see where the PTT is at.
[2023-02-15] MEDS: 0.9% Saline Lock 10 ML Syringe IV (10:42)
[2023-02-15] MEDS: Heparin 10,000 UNITS/10 ML Vial IV (10:43)
[2023-02-15] MEDS: Gabapentin 100 MG Capsule PO ×2 (11:33→18:38)
[2023-02-15] MEDS: NIFEdipine 90 MG Tablet PO (11:34)
[2023-02-15] MEDS: Anastrozole 1 MG TABLET PO (11:34)
[2023-02-15] MEDS: Furosemide 100 MG/10 ML Vial 80 MG IV (11:35)
[2023-02-15] MEDS: Multivitamins,Therapeutic Tablet 1 TABLET PO (11:36)
[2023-02-15] MEDS: Folic Acid 1 MG Tablet PO (11:36)
--- NOTE | 2023-02-15 11:58 | NURSING ---
pt given yogurt and crackers w/ am meds, dialysis complete w/1150 off-pt tolerated well w/ hypotension during intiation of dialysis and pt stabilized affter 03 31/2 hour
--- NOTE | 2023-02-15 13:36 | PN.HOSP_ITS ---
Reason for Visit Reason for Visit: Diagnoses Anemia, unspecified (02/05/23) Acute embolism and thrombosis of unspecified deep veins of right lower extremity (02/05/23) Embolism and thrombosis of superficial veins of left lower extremity (02/05/23) Acute kidney failure, unspecified (02/05/23) Chronic kidney disease, unspecified (02/05/23) Presence of other vascular implants and grafts (02/05/23) Subjective Subjective No acute events overnight. Patient seen at bedside this morning. Was having her third session of hemodialysis this morning during my interview. States that she tolerated the first 2 sessions without issue. Continues to have upper leg pain but states she has not moved much this morning the pain has been manageable. She otherwise denies any fevers or chills, chest pain, shortness of breath. No other acute concerns this time. Objective Data Objective Data Vital Signs: Vital Signs Temp Pulse Resp BP Pulse Ox O2 Del Method O2 Flow Rate 97.5 F L 58 L 16 111/59 L 98 Nasal Cannula 2 02/15/23 11:00 02/15/23 11:00 02/15/23 11:00 02/15/23 11:00 02/15/23 11:00 02/15/23 11:00 02/15/23 11:00 Oxygen Flow Rate (L/min) 2 Oxygen Delivery Method Nasal Cannula Weight: 88.3 kg Body Mass Index (BMI) 31.3 Intake & Output: Intake and Output for Last 24 Hours 02/13/23 02/14/23 02/15/23 23:59 23:59 23:59 Intake Total 817.65 / 817.65 659.1 / 659.1 890.00 / 890.00 Output Total 3950 / 3950 5080 / 5080 2590 / 2590 Balance -3132.35 / -3132.35 -4420.9 / -4420.9 -1700.00 / -1700.00 Lab / Micro Data 02/15/23 06:43 02/15/23 06:43 Labs: Laboratory Results - last 24 hr 02/14/23 16:19: APTT 60.9 H 02/14/23 22:24: APTT 67.7 H 02/15/23 06:43: WBC 5.9, RBC 2.31 L, Hgb 7.2 L, Hct 23.2 L, MCV 100.4 H, MCH 31.2, MCHC 31.0 L, RDW Std Deviation 45.1 H, RDW Coeff of Tiffanie 12.4, Plt Count 187, MPV 10.4, PT 19.3 H, INR 1.6, APTT 53.3 H, Sodium 134 L, Potassium 3.9, Chloride 97 L, Carbon Dioxide 29.0, Anion Gap 8, BUN 60 H, Creatinine 5.87 H, Estim Creat Clear Calc 8.47, Est GFR (MDRD) Af Amer 9 L, Est GFR (MDRD) Non-Af 8 L, BUN/Creatinine Ratio 10.2, Glucose 119 H, Calcium 8.3 L 02/15/23 09:18: APTT Cancelled Physical Exam Const alert, oriented x3 and average body habitus Constitutional Narrative: Pleasant elderly female, fatigued and chronically ill-appearing, laying in bed, conversing normally. Mild distress due to lower extremity pain. General Appearance: cooperative HEENT normocephalic, head/scalp atraumatic, hearing grossly normal bilaterally, nasal mucous membranes and turbinates normal and moist oral mucous membranes Eyes PERRL, EOMs intact bilaterally and conjunctivae normal Neck full ROM, no lymphadenopathy and supple Lymph Lymphatic: no lymphadenopathy noted Resp Resp Narrative: Satting well on 2 L nasal cannula, no increased work of breathing noted. Mildly decreased breath sounds bilaterally. Cardio regular rate, regular rhythm, no murmurs and peripheral pulses 2+ throughout GI normal to inspection, nondistended, normoactive bowel sounds, soft to palpation and non-tender GI Narrative: Mildly distended. Back/Spine normal ROM Extremity Extremity Narrative: Moderate to severe tenderness to palpation in upper legs bilaterally, mild to moderate tenderness in lower legs bilaterally. No overt findings of cellulitis. +2-3 bilateral lower extremity pitting edema. Small areas of blistering noted on upper thighs bilaterally. Skin no rashes or lesions noted Skin Narrative: Tunneled HD catheter in place, site appears clean and dry. Psych mental status grossly normal Assessment & Plan Assessment/Plan (1) Deep vein thrombosis (DVT) of right lower extremity: (2) Acute kidney injury superimposed on CKD: (3) Anemia: QUALIFIERS: Anemia type: unspecified type Qualified Code(s): D64.9 - Anemia, unspecified PLAN: Plan Patient is a 67-year-old female who presented to [facility] ED on 02/05/2023 with worsening bilateral leg pain, dehydration and malaise. 1. BRITTNEY on CKD stage IV Suspected prerenal etiology complaint patient on admission, now with concern for some degree of ATN. No obstructive symptoms noted. Baseline creatinine around 3.9, creatinine 6.33 on admit. Creatinine mildly improved to 5.5, now mildly worsening on a daily basis, most recent creatinine 7.65, BUN 77 on 02/13. S/p placement of tunneled HD catheter line on 02/13 by surgery, patient tolerated line placement without issue. ? Nephrology following. Completed first HD session on evening of 02/13, second session on morning of 02/14, third session on morning of 02/15. Tolerating HD sessions without issue. Case management following for assistance with finding SNF for patient that will accommodate her dialysis needs. Continue BMP daily. 2. 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 Warfarin was being held apparently due to supratherapeutic INR prior to admission. Patient also had recently been diagnosed with right lower extremity cellulitis and was being treated with Keflex for this. Patient had previous history of DVT, had IVC filter inserted by Dr. Saucedo with vascular surgery a few years ago, IVC filter remains in place. Patient was initially anticoagulated with Eliquis, was switched to warfarin due to declining kidney function. Lower extremity Doppler admission showed acute DVT in right femoral vein down to soleus vein, as well as acute SVT in left great saphenous vein. Patient required heparin drip as bridge to therapeutic INR on admission, reached therapeutic level on 02/10, heparin drip discontinued. INR was reversed on 02/13 for HD catheter placement, heparin drip restarted on evening of 02/13. ? Restarted home warfarin on 02/14, continue heparin drip for bridge to therapeutic INR. Monitor INR daily. 3. Bilateral lower extremity pain Patient presumed to have bilateral lower extremity pain on admission due to acute DVT and SVT extremities. However, patient has now developed blistering and areas of upper thighs and has moderate to severe tenderness to palpation in those areas. Also has bruising noted in lower legs bilaterally with moderate tenderness to palpation. Repeat CT lower extremity on 02/11 was stable from previous. Initiated on IV Lasix 40 mg twice daily on 02/11 as patient had severe lower extremity volume overload. ? Vascular surgery following. Repeat lower extremity duplex ultrasound completed 02/14, read pending. Continue IV Lasix for now. Continue pain control medications as needed. 4. Acute on chronic anemia Baseline hemoglobin around 8-9. Hemoglobin 7.8 on admission, slowly down t rended to hemoglobin 7.0 on 02/09. Chronic anemia presumed secondary to severe chronic kidney disease. Patient took darbepoetin geni for about 2-[address] Sandhu, however she was concerned about the side/adverse effect profile of hypertension, stroke and polycythemia and discontinued it. S/p transfusion of 1 unit of packed red blood cells on 02/09 with improvement hemoglobin 8.5 on 02/10. Slowly downtrending, hemoglobin 7.6 on 02/12. ? Monitor CBC daily. Appreciate nephrology input regarding EPO versus iron infusion as needed. Plan to transfuse for hemoglobin less than 7 as needed. 5. Acute urinary retention ? Suspect secondary to acute lower extremity pain and effective immobility since admission. Bladder scan on 02/11 revealed greater than 800 cc of urine in bladder, s/p Marcus placement. Monitor urine output. Will plan for void trial prior to discharge. 6. Hypertension BP significantly elevated to 213/112 on admission. Suspected this was in part due to drug reaction to prednisone, prednisone discontinued on admission. Blood pressure has remained stable and much improved since that time. ? Continue home nifedipine and clonidine. 7. Debility ? Secondary to multiple medical issues as noted above. PT/OT/case management consulted. Planning for SNF on discharge. Chronic medical conditions: ? History of endometrial carcinoma: Diagnosed in spring 2019, s/p hysterectomy and treated with Keytruda for approximately 18 months (discontinued due to side effects). Continue home anastrozole. DVT prophylaxis: Warfarin with heparin drip for bridging CODE STATUS: Full code, verified Expected disposition: SNF, TBD Total clinical time spent by myself addressing the patient's medical issues, reviewing all the data, and collaborating with patient's care team: 35 minutes. Charges/Coding Visit Charges Inpatient E&M: 79288 Subs Hosp L2
[2023-02-15 15:00] LABS: Partial Thromboplast Time 91.7 Seconds (24.1-36.2)
[2023-02-15] MEDS: Acetaminophen 325 MG Tablet 650 MG PO ×2 (15:07→22:51)
[2023-02-15 21:17] LABS: Partial Thromboplast Time 74.2 Seconds (24.1-36.2)
[2023-02-16] VITALS (10 sets, daily range): BP systolic 112–136; BP diastolic 60–72; PULSE 78–88; RESP 17–18; TEMP 36.9–37.4; O2SAT 74–100; BMI 29.2
[2023-02-16] MEDS: Gabapentin 100 MG Capsule PO ×4 (01:11→23:25)
[2023-02-16] MEDS: oxyCODONE 5 MG Tablet PO ×4 (01:11→20:48)
[2023-02-16 03:40] LABS: Hematocrit 22.7 % (37-47); Hemoglobin 7.2 g/dL (12.0-15.0); Mean Corp Hgb Conc 31.7 g/dL (32-36); Mean Corpuscular Volume 100.9 fL (81-99); Mean Platelet Vol. 10.3 fl (6.2-12.0); Platelet Count 202 K/mm3 (150-450); RBC Distribution Width CV 12.3 % (11.6-14.6); RBC Distribution Width SD 44.4 fl (35.1-43.9); Red Blood Count 2.25 M/mm3 (4.2-5.4)
[2023-02-16 03:51] LABS: Prothrombin Time (Protime)PT. 22.6 SECONDS (11.7-14.9)
[2023-02-16 03:56] LABS: Partial Thromboplast Time 68.7 Seconds (24.1-36.2)
[2023-02-16 04:02] LABS: Anion Gap 11 (5-15); BUN 48 mg/dL (7-18); BUN/Creat Ratio 10.1 RATIO (10-20); Chloride 99 mmol/L (98-107); Creatinine, Serum 4.74 mg/dL (0.55-1.02); EST Glomerular Filtration Rate 10 mL/min (>60); Est Glom Filt Rate - Afr Amer 12 mL/min (>60); Estimated Creatinine Clearance 10.49 ml/min; Glucose 134 mg/dL (74-106); Potassium 3.9 mmol/L (3.5-5.1); Sodium Level 136 mmol/L (136-145)
[2023-02-16] MEDS: NIFEdipine 90 MG Tablet PO ×2 (08:21→20:45)
[2023-02-16] MEDS: Anastrozole 1 MG TABLET PO (08:22)
[2023-02-16] MEDS: Furosemide 100 MG/10 ML Vial 80 MG IV ×2 (08:22→18:39)
[2023-02-16] MEDS: Folic Acid 1 MG Tablet PO (08:23)
[2023-02-16] MEDS: Multivitamins,Therapeutic Tablet 1 TABLET PO (08:23)
[2023-02-16] MEDS: 0.9% Saline Lock 10 ML Syringe IV ×3 (08:33→20:53)
[2023-02-16] MEDS: Acetaminophen 325 MG Tablet 650 MG PO ×2 (08:46→20:48)
--- NOTE | 2023-02-16 09:30 | NURSING ---
Housekeeping found Partial Dentures wrapped in a tissue and on the floor. Almost thrown away but housekepper brought to this RN attention. This RN gave Thais a denture cup and told her not to put in a tissue again to use the denture cup for fear of it getting thrown out. Pt understands.
--- NOTE | 2023-02-16 11:55 | PN.HOSP_ITS ---
Reason for Visit Reason for Visit: Diagnoses Anemia, unspecified (02/05/23) Acute embolism and thrombosis of unspecified deep veins of right lower extremity (02/05/23) Embolism and thrombosis of superficial veins of left lower extremity (02/05/23) Acute kidney failure, unspecified (02/05/23) Chronic kidney disease, unspecified (02/05/23) Presence of other vascular implants and grafts (02/05/23) Subjective Subjective No acute events overnight. Patient seen at bedside this morning. Sitting in bedside chair, in mild to moderate distress due to lower extremity pain. Patient states that her left upper thigh in particular is very painful this morning and feels more tense than previous days. She had a lot of pain with being moved from bed to the bedside chair this morning. She otherwise tolerated her third HD session well yesterday. States she feels less volume overloaded, but her legs continue to remain somewhat swollen. Otherwise has no other concerns this morning. Objective Data Objective Data Vital Signs: Vital Signs Temp Pulse Resp BP Pulse Ox O2 Del Method O2 Flow Rate 98.8 F 80 17 117/60 96 Nasal Cannula 2 02/16/23 08:49 02/16/23 08:49 02/16/23 08:49 02/16/23 08:49 02/16/23 10:03 02/16/23 10:03 02/16/23 10:03 Oxygen Flow Rate (L/min) 2 Oxygen Delivery Method Nasal Cannula Weight: 82.5 kg Body Mass Index (BMI) 29.2 Intake & Output: Intake and Output for Last 24 Hours 02/14/23 02/15/23 02/16/23 23:59 23:59 23:59 Intake Total 659.1 / 659.1 1534.17 / 1774.17 502.87 / 502.87 Output Total 5080 / 5080 2890 / 3190 400 / 400 Balance -4420.9 / -4420.9 -1355.83 / -1415.83 102.87 / 102.87 Lab / Micro Data 02/16/23 03:17 02/16/23 03:17 Labs: Laboratory Results - last 24 hr 02/15/23 14:42: APTT 91.7 H* 02/15/23 20:50: APTT 74.2 H 02/16/23 03:17: WBC 6.0, RBC 2.25 L, Hgb 7.2 L, Hct 22.7 L, MCV 100.9 H, MCH 32.0, MCHC 31.7 L, RDW Std Deviation 44.4 H, RDW Coeff of Tiffanie 12.3, Plt Count 202, MPV 10.3, PT 22.6 H, INR 2.0, APTT 68.7 H, Sodium 136, Potassium 3.9, Chloride 99, Carbon Dioxide 26.0, Anion Gap 11, BUN 48 H, Creatinine 4.74 H, Estim Creat Clear Calc 10.49, Est GFR (MDRD) Af Amer 12 L, Est GFR (MDRD) Non-Af 10 L, BUN/Creatinine Ratio 10.1, Glucose 134 H, Calcium 8.0 L Physical Exam Const alert, oriented x3 and average body habitus Constitutional Narrative: Pleasant elderly female, fatigued and chronically ill-appearing, laying in bed, conversing normally. Mild distress due to lower extremity pain. General Appearance: cooperative HEENT normocephalic, head/scalp atraumatic, hearing grossly normal bilaterally, nasal mucous membranes and turbinates normal and moist oral mucous membranes Eyes PERRL, EOMs intact bilaterally and conjunctivae normal Neck full ROM, no lymphadenopathy and supple Lymph Lymphatic: no lymphadenopathy noted Resp Resp Narrative: Satting well on 2 L nasal cannula, no increased work of breathing noted. Mildly decreased breath sounds bilaterally. Cardio regular rate, regular rhythm, no murmurs and peripheral pulses 2+ throughout GI normal to inspection, nondistended, normoactive bowel sounds, soft to palpation and non-tender GI Narrative: Mildly distended. Back/Spine normal ROM Extremity Extremity Narrative: Moderate to severe tenderness to palpation in upper legs bilaterally, mild to moderate tenderness in lower legs bilaterally. No overt findings of cellulitis. Left upper thigh in particular feels quite tense on palpation. Small areas of blistering noted on upper thighs bilaterally. +1-2 to bilateral lower extremity pitting edema, improving. Skin no rashes or lesions noted Skin Narrative: Tunneled HD catheter in place, site appears clean and dry. Psych mental status grossly normal Assessment & Plan Assessment/Plan (1) Deep vein thrombosis (DVT) of right lower extremity: (2) Acute kidney injury superimposed on CKD: (3) Anemia: QUALIFIERS: Anemia type: unspecified type Qualified Code(s): D64.9 - Anemia, unspecified PLAN: Plan Patient is a 67-year-old female who presented to [facility] ED on 02/05/2023 with worsening bilateral leg pain, dehydration and malaise. 1. BRITTNEY on CKD stage IV Suspected prerenal etiology complaint patient on admission, now with concern for some degree of ATN. No obstructive symptoms noted. Baseline creatinine around 3.9, creatinine 6.33 on admit. Creatinine mildly improved to 5.5, now mildly worsening on a daily basis, most recent creatinine 7.65, BUN 77 on 02/13. S/p placement of tunneled HD catheter line on 02/13 by surgery, patient tolerated line placement without issue. ? Nephrology following. Completed first 3 HD sessions on 02/13-. Tolerated HD sessions without issue. Case management following for assistance with finding SNF for patient that will accommodate her dialysis needs. Continue BMP daily. 2. 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 Warfarin was being held apparently due to supratherapeutic INR prior to admission. Patient also had recently been diagnosed with right lower extremi ty cellulitis and was being treated with Keflex for this. Patient had previous history of DVT, had IVC filter inserted by Dr. Saucedo with vascular surgery a few years ago, IVC filter remains in place. Patient was initially anticoagulated with Eliquis, was switched to warfarin due to declining kidney function. Lower extremity Doppler admission showed acute DVT in right femoral vein down to soleus vein, as well as acute SVT in left great saphenous vein. Patient required heparin drip as bridge to therapeutic INR on admission, reached therapeutic level on 02/10, heparin drip discontinued. INR was reversed on 02/13 for HD catheter placement, heparin drip restarted on evening of 02/13. ? Restarted home warfarin on 02/14, achieve therapeutic INR on 02/16, heparin drip discontinued. Monitor INR daily. 3. Bilateral lower extremity pain Patient presumed to have bilateral lower extremity pain on admission due to acute DVT and SVT extremities. However, patient has now developed blistering and areas of upper thighs and has moderate to severe tenderness to palpation in those areas. Also has bruising noted in lower legs bilaterally with moderate tenderness to palpation. Repeat CT lower extremity on 02/11 was stable from previous. Initiated on IV Lasix 40 mg twice daily on 02/11 as patient had severe lower extremity volume overload. ? Vascular surgery following. Repeat lower extremity duplex ultrasound completed 02/14; unfortunately, the read is still pending and upon calling down to the ultrasound lab on 02/16, no one was available. Patient notably continues to have a good pulse in left lower extremity, no acute concern for compartment syndrome or other condition that would require urgent attention. Continue IV Lasix for now. Continue pain control medications as needed. 4. Acute on chronic anemia Baseline hemoglobin around 8-9. Hemoglobin 7.8 on admission, slowly down trended to hemoglobin 7.0 on 02/09. Chronic anemia presumed secondary to severe chronic kidney disease. Patient took darbepoetin geni for about 2-[address] Sandhu, however she was concerned about the side/adverse effect profile of hypertension, stroke and polycythemia and discontinued it. S/p transfusion of 1 unit of packed red blood cells on 02/09 with improvement hemoglobin 8.5 on 02/10. Slowly downtrending, hemoglobin 7.6 on 02/12. ? Monitor CBC daily. Appreciate nephrology input regarding EPO versus iron infusion as needed. Plan to transfuse for hemoglobin less than 7 as needed. 5. Acute urinary retention ? Suspect secondary to acute lower extremity pain and effective immobility since admission. Bladder scan on 02/11 revealed greater than 800 cc of urine in bladder, s/p Marcus placement. Monitor urine output. Will plan for void trial prior to discharge. 6. Hypertension BP significantly elevated to 213/112 on admission. Suspected this was in part due to drug reaction to prednisone, prednisone discontinued on admission. Blood pressure has remained stable and much improved since that time. ? Continue home nifedipine and clonidine. 7. Debility ? Secondary to multiple medical issues as noted above. PT/OT/case management consulted. Planning for SNF on discharge. Chronic medical conditions: ? History of endometrial carcinoma: Diagnosed in spring 2019, s/p hysterectomy and treated with Keytruda for approximately 18 months (discontinued due to side effects). Continue home anastrozole. DVT prophylaxis: Warfarin CODE STATUS: Full code, verified Expected disposition: SNF, TBD Total clinical time spent by myself addressing the patient's medical issues, reviewing all the data, and collaborating with patient's care team: 35 minutes. Charges/Coding Visit Charges Inpatient E&M: 43149 Subs Hosp L2
[2023-02-16] MEDS: tiZANidine HCl 2 MG Tablet PO ×2 (16:07→23:23)
[2023-02-17] VITALS (18 sets, daily range): BP systolic 36–203; BP diastolic 55–79; PULSE 65–135; RESP 16–18; TEMP 36.6–37.7; O2SAT 4–99; BMI 29.5; BMI 29.6; BMI 29.2
--- NOTE | 2023-02-17 00:11 | NURSING ---
02/17/23: 0010: Pt's arrived on unit to visit pt. following his shift at work.
--- NOTE | 2023-02-17 04:41 | NURSING ---
Offered PRN colace to patient for constipation. Pt adamantly refused. Day shift on 02/16 reported that patient's brief had a smear of BM, but otherwise it has been a few days... ~5?)
[2023-02-17 06:01] LABS: Hematocrit 22.1 % (37-47); Hemoglobin 7.2 g/dL (12.0-15.0); Mean Corp Hgb Conc 32.6 g/dL (32-36); Mean Corpuscular Hgb 32.1 pg (27.0-32.0); Mean Corpuscular Volume 98.7 fL (81-99); Mean Platelet Vol. 10.1 fl (6.2-12.0); Platelet Count 225 K/mm3 (150-450); RBC Distribution Width CV 12.2 % (11.6-14.6); RBC Distribution Width SD 43.9 fl (35.1-43.9); Red Blood Count 2.24 M/mm3 (4.2-5.4); White Blood Count 5.7 K/mm3 (4.4-11.0)
[2023-02-17 06:14] LABS: International Normalized Ratio 2.2; Partial Thromboplast Time 58.1 Seconds (24.1-36.2); Prothrombin Time (Protime)PT. 24.9 SECONDS (11.7-14.9)
[2023-02-17 06:33] LABS: Anion Gap 12 (5-15); BUN 57 mg/dL (7-18); BUN/Creat Ratio 9.9 RATIO (10-20); Chloride 98 mmol/L (98-107); Creatinine, Serum 5.75 mg/dL (0.55-1.02); EST Glomerular Filtration Rate 8 mL/min (>60); Est Glom Filt Rate - Afr Amer 9 mL/min (>60); Estimated Creatinine Clearance 8.64 ml/min; Glucose 99 mg/dL (74-106); Potassium 3.6 mmol/L (3.5-5.1); Sodium Level 136 mmol/L (136-145)
--- NOTE | 2023-02-17 08:28 | WOUNDNOTE ---
wound photo: left lateral thigh
--- NOTE | 2023-02-17 08:28 | WOUNDNOTE ---
wound photo: left medial thigh
--- NOTE | 2023-02-17 08:29 | WOUNDNOTE ---
wound photo: left lower leg
--- NOTE | 2023-02-17 08:29 | WOUNDNOTE ---
wound photo: right lower leg
--- NOTE | 2023-02-17 08:30 | WOUNDNOTE ---
In to reassess bilateral lower legs. pt has more painful discolored areas to bilateral lower legs with the blistering to the left medial and lateral thigh. blisters remain fluid filled. will discuss with hospitalist. possible calciphylaxis?
[2023-02-17] MEDS: Docusate Sodium 100 MG Capsule PO (08:51)
[2023-02-17] MEDS: Furosemide 100 MG/10 ML Vial 80 MG IV (08:51)
[2023-02-17] MEDS: Folic Acid 1 MG Tablet PO (08:51)
[2023-02-17] MEDS: Multivitamins,Therapeutic Tablet 1 TABLET PO (08:51)
[2023-02-17] MEDS: Acetaminophen 325 MG Tablet 650 MG PO (08:51)
[2023-02-17] MEDS: Gabapentin 100 MG Capsule PO ×2 (08:51→15:51)
[2023-02-17] MEDS: 0.9% Saline Lock 10 ML Syringe IV (08:52)
[2023-02-17] MEDS: Anastrozole 1 MG TABLET PO (08:55)
[2023-02-17] MEDS: NIFEdipine 90 MG Tablet PO (08:55)
--- NOTE | 2023-02-17 09:53 | CASEMGMT ---
Addendum entered by Leena Juares 02/17/23 11:27: ERICA spoke with [facility] who does not feel pt can tolerate 3 hours of therapy in IPR setting. SW notified pt dgt Jessica who is agreeable for placement at [facility]. Message sent to [facility] informing they are Facility of Choice and confirming they can accept. SW requested precert be started. [facility] is Dialysis center at [facility] and referral to be sent to for Dialysis. RNCM updated. Plan: [facility], pending precert and Dialysis set up [facility] Original Note: [facility] on site dialysis and are able to accept pt. SW met with pt to discuss discharge plan. Pt states she does not know what the plan is and provided number for her daughter Jessica ([phone]) Phone call to Jessica who is inquiring if pt can go to [facility] or [facility]. Referrals sent to both. [facility] does not have on site dialysis and cannot accept. [facility] is reviewing. Jessica states if Inpatient Rehab is not an option then family is agreeable to [facility]. SW to continue to follow. [facility]
--- NOTE | 2023-02-17 11:05 | PN.RENAL_ITS ---
Subjective Subjective Complaints of pain over the lower extremities Objective Data Objective Data Vital Signs: Vital Signs Temp Pulse Resp BP Pulse Ox O2 Del Method O2 Flow Rate 98.7 F 77 18 123/69 H 96 Nasal Cannula 4 02/17/23 08:41 02/17/23 08:41 02/17/23 08:41 02/17/23 08:41 02/17/23 08:41 02/17/23 08:41 02/17/23 08:41 Oxygen Flow Rate (L/min) 4 Oxygen Delivery Method Nasal Cannula Weight: 83.2 kg Body Mass Index (BMI) 29.5 Intake & Output: Intake and Output for Last 24 Hours 02/15/23 02/16/23 02/17/23 23:59 23:59 23:59 Intake Total 1534.17 / 1774.17 2001. / Output Total 2890 / 3190 1100 / 1100 150 / 150 Balance -1355.83 / -1415.83 902.87 / 902.87 -150 / -150 Lab / Micro Data 02/17/23 05:35 02/17/23 05:35 Labs: Laboratory Results - last 24 hr 02/17/23 05:35: WBC 5.7, RBC 2.24 L, Hgb 7.2 L, Hct 22.1 L, MCV 98.7, MCH 32.1 H , MCHC 32.6, RDW Std Deviation 43.9, RDW Coeff of Tiffanie 12.2, Plt Count 225, MPV 10.1, PT 24.9 H, INR 2.2, APTT 58.1 H, Sodium 136, Potassium 3.6, Chloride 98, Carbon Dioxide 26.0, Anion Gap 12, BUN 57 H, Creatinine 5.75 H, Estim Creat Clear Calc 8.64, Est GFR (MDRD) Af Amer 9 L, Est GFR (MDRD) Non-Af 8 L, BUN/Creatinine Ratio 9.9 L, Glucose 99, Calcium 8.0 L Physical Exam Narrative Alert awake oriented x 3 no obvious distress s1s2 no murmurs lungs clear, no wheezes, rhonchi or rales noted abdomen soft, nontender +++ edema bilateral lower legs Tunneled dialysis catheter right chest dressing clean, dry and intact Assessment & Plan Assessment/Plan (1) Acute kidney injury superimposed on CKD: PLAN: - CKD stage IV, baseline creatinine was around 3.0. At the time of last office visit, creatinine was 4. We increased the prednisone at that time e mpirically. Background CKD etiology unclear. 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 she did not tolerate prednisone due to adverse events. -New ESRD. Creatinine peaked 7.6 and patient hypervolemic. Patient began first HD treatment on 02/13 with around 1 L fluid removal. Dialysis today. We will maintain on 3 times a week dialysis schedule Lower extremity edema/pain. Today on examination edema is resolved. She is still pretty tender. Suspect this might be calciphylaxis. Reviewed CT images, she does have extensive calcium deposits in the vessels, even though it is not highly specific but might be pointing towards calciphylaxis. Would prefer not to biopsy. We will treat as though this is calciphylaxis Discussed with hospitalist, Coumadin needs to be switched to Eliquis We will check a PTH Add non calcium phosphate binder I have ordered sodium thiosulfate to be given after dialysis
--- NOTE | 2023-02-17 13:38 | CASEMGMT ---
Addendum entered by Dariana Varma 02/17/23 13:46: Reference number for referral is [id number]. Koby Jj at [id number] will be the warehouse person. Original Note: TC adrian Dotson, spoke with Debora, referral for dialysis made to be on site at [facility]. Information faxed to with requested information.
[2023-02-17] MEDS: PureFlow B 3K Dialysis Soln 1 BAG 6 BAG PF (14:07)
--- NOTE | 2023-02-17 15:33 | NURSING ---
dr Guardado on unit shown EKG, Metoprolol PO ordered, discussed last bp and new onset of AFib, discussed possible transfer to PCU. primary RN updated.
--- NOTE | 2023-02-17 15:37 | NURSING ---
1505: noted spo2 not reading well at nurses' station. this nurse into room, dialysis nurses x2 bedside. spo2 exchanged pt alert and responsive. noted slight tremors. noted on spo2 hr 140's. vitals checked by dialysis nurse- aware per HD nurse pt's heart rate noted to be irreg. Dr. Guardado on unit notified, EKG ordered, cps called. pt placed on school bus monitor.
--- NOTE | 2023-02-17 15:42 | NURSING ---
[employer] Yasmeen updated on patient.
[2023-02-17] MEDS: Metoprolol Tartrate 25 MG Tablet 50 MG PO (15:51)
[2023-02-17] MEDS: tiZANidine HCl 2 MG Tablet PO ×2 (15:51→22:07)
[2023-02-17] MEDS: SEVELAMER CARBONATE 800 MG TABLET PO (16:58)
[2023-02-17] MEDS: Polyethylene Glycol 3350 17 GM PACKET PO (16:58)
[2023-02-17] MEDS: Furosemide 80 MG Tablet PO (16:58)
--- NOTE | 2023-02-17 18:58 | PCM.PN.HOSP ---
Reason for Visit Reason for Visit: Diagnoses Anemia, unspecified (02/05/23) Acute embolism and thrombosis of unspecified deep veins of right lower extremity (02/05/23) Embolism and thrombosis of superficial veins of left lower extremity (02/05/23) Acute kidney failure, unspecified (02/05/23) Chronic kidney disease, unspecified (02/05/23) Presence of other vascular implants and grafts (02/05/23) Subjective Subjective Patient was seen and examined today, I talked with nephrology and vascular surgery concerning her care, patient's lower extremity venous duplex studies were unchanged from her previous studies, nephrology feels that the patient may have calciphylaxis, initiated treatment today, they recommended the patient go off Coumadin due to its association with calciphylaxis, vascular surgery recommended the patient be placed on Eliquis without a loading dose. Patient's INR today was 2.2, I have elected to repeat the INR tomorrow and if below 2, I will start the patient on Eliquis. Patient was noted to have an irregular heart rate today, EKG was obtained which showed the patient to be in atrial fibrillation with a tachycardia, I have elected to place her on a beta-dwight at this time and give her an IV dose of digoxin, patient states that to her knowledge she has never had atrial for before. Patient underwent dialysis today. Objective Data Objective Data Vital Signs: Vital Signs Temp Pulse Resp BP Pulse Ox O2 Del Method O2 Flow Rate 98.5 F 92 18 121/68 H 96 Nasal Cannula 4 02/17/23 15:44 02/17/23 16:57 02/17/23 15:44 02/17/23 15:44 02/17/23 16:57 02/17/23 16:57 02/17/23 16:57 Oxygen Flow Rate (L/min) 4 Oxygen Delivery Method Nasal Cannula Weight: 82.3 kg Body Mass Index (BMI) 29.2 Intake & Output: Intake and Output for Last 24 Hours 02/15/23 02/16/23 02/17/23 23:59 23:59 23:59 Intake Total 1534.17 / 1774.17 2001.87 / 87 200 / 200 Output Total 2890 / 3190 1100 / 1100 2100 / 2100 Balance -1355.83 / -1415.83 902.87 / 902.87 -1900 / -1900 Lab / Micro Data 02/17/23 05:35 02/17/23 05:35 Labs: Laboratory Results - last 24 hr 02/17/23 05:35: WBC 5.7, RBC 2.24 L, Hgb 7.2 L, Hct 22.1 L, MCV 98.7, MCH 32.1 H, MCHC 32.6, RDW Std Deviation 43.9, RDW Coeff of Tiffanie 12.2, Plt Count 225, MPV 10.1, PT 24.9 H, INR 2.2, APTT 58.1 H, Sodium 136, Potassium 3.6, Chloride 98, Carbon Dioxide 26.0, Anion Gap 12, BUN 57 H, Creatinine 5.75 H, Estim Creat Clear Calc 8.64, Est GFR (MDRD) Af Amer 9 L, Est GFR (MDRD) Non-Af 8 L, BUN/Creatinine Ratio 9.9 L, Glucose 99, Calcium 8.0 L Radiography Diagnostic Testing: Radiology Impression Venous Doppler Study 02/13/23 17:05 Interpretation Summary Acute superficial vein thrombosis is noted in the left saphenofemoral junction and great saphenous vein. Chronic deep vein thrombosis is noted in the left posterior tibial vein. Ordering Physician: Jade Carney Referring Physician: Cindy Griffith Performed By: Saji Valderrama, RVT Physical Exam Const alert, oriented x3 and no apparent distress General Appearance: cooperative, well kempt and well developed Orientation / Consciousness: awake, oriented to person, oriented to place and oriented to time HEENT normocephalic, head/scalp atraumatic and moist oral mucous membranes Eyes PERRL, EOMs intact bilaterally and conjunctivae normal Neck supple, no JVD, thyroid normal and no carotid bruits General: trachea midline Resp normal respiratory effort, no retractions, no use of accessory muscles and clear to auscultation bilaterally Auscultation: Negative for rales, rhonchi or wheezes Cardio S1 normal heart sound, S2 normal heart sound, no murmurs, no rub and no gallops Cardio Narrative: Heart rate and rhythm is irregular GI normal to inspection, nondistended, normoactive bowel sounds, soft to palpation, non-tender and non-distended Skin Skin Narrative: Patient has bilateral lower extremity skin lesions which appear scattered over both lower legs, these appear to be scarlike in nature General Skin Exam: no breakdown Neuro oriented x3, CN's II-XII intact bilaterally, moves all extremities, no focal motor deficits and no sensory deficits noted Sensorium / Orientation: awake, alert, oriented to person, oriented to place and oriented to time Speech: speech normal Psych affect normal Assessment & Plan Assessment/Plan (1) Deep vein thrombosis (DVT) of right lower extremity: PLAN: Plan 1. 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 #6 essential hypertension-patient will remain on nifedipine #7 anemia of chronic disease (chronic kidney disease)-hemoglobin be monitored as necessary Total clinical time spent by myself addressing the patient's medical issues, reviewing all of her data, and collaborating with patient's care team: 35 minutes Charges/Coding Visit Charges Inpatient E&M: 60694 Subs Hosp L2
--- NOTE | 2023-02-17 19:00 | ECHOD_ITS ---
Reason For Study: Afib/Flutter Procedure This was a 2D Doppler, Color Flow transthoracic echocardiogram. Exam performed portable in patient room. Left Ventricle Normal size and thickness. The left ventricular ejection fraction is 60 %. Diastolic function is indeterminate. Right Ventricle Normal right ventricle. Atria The left atrium is mildly enlarged. Suspect catheter tip in the right atrium. Mitral Valve Mild (1+) mitral valve insufficiency. Tricuspid Valve Mild tricuspid valve insufficiency. Right ventricular systolic pressure estimated to be 40 mmHg. Aortic Valve Trisinus/trileaflet aortic valve. Aortic sclerosis, no stenosis. Pulmonic Valve The pulmonic valve is not well visualized. Trivial pulmonic valve insufficiency. Great Vessels Normal sized aortic root. Pericardium/Pleural No pericardial effusion. MMode/2D Measurements & Calculations LVIDd: 5.3 cm IVSd: 1.1 cm Ao root diam: 3.2 cm LVIDs: 3.6 cm LVPWd: 1.0 cm LA dimension: 4.3 cm RVDd: 3.2 cm FS: 31.5 % LAV(MOD-bp): 72.9 ml LVAd ap4: 34.9 cm2 SV(MOD-sp4): 68.9 ml LAV(MOD-bp) Indexed: 38.4 ml/m2 LVLd ap4: 8.3 cm LAV(MOD-sp2): 76.0 ml EDV(MOD-sp4): 125.5 ml LAV(MOD-sp4): 67.1 ml EDV(sp4-el): 125.1 ml LVAs ap4: 21.1 cm2 LVLs ap4: 6.6 cm ESV(MOD-sp4): 56.5 ml ESV(sp4-el): 57.6 ml EF(MOD-sp4): 54.9 % EF(sp4-el): 54.0 % SV(sp4-el): 67.6 ml LA A4 area: 20.4 cm2 RA A4 area: 15.7 cm2 TAPSE: 2.1 cm Time Measurements MV dec time: 0.19 sec Doppler Measurements & Calculations MV E max varghese: 93.8 cm/sec Lat Peak E' Varghese: 8.2 cm/sec Med Peak E' Varghese: 6.7 cm/sec MV A max varghese: 105.1 cm/sec E/E' lat: 11.5 E/E' med: 14.0 MV E/A: 0.89 MV V2 max: 118.3 cm/sec MV P1/2t max varghese: 116.3 cm/sec Ao V2 max: 170.3 cm/sec MV max P.6 mmHg MV P1/2t: 68.8 msec Ao max P.6 mmHg MV V2 mean: 62.0 cm/sec MV dec slope: 495.3 cm/sec2 Ao V2 mean: 126.0 cm/sec MV mean P.9 mmHg Ao mean P.2 mmHg MV V2 VTI: 39.0 cm MVA(P1/2t): 3.2 cm2 Ao V2 VTI: 37.4 cm AV (velocity ratio): 0.78 LV V1 max: 137.7 cm/sec MR max varghese: 408.6 cm/sec PA V2 max: 109.7 cm/sec LV V1 max P.6 mmHg MR max P.8 mmHg LV V1 mean P.5 mmHg LV V1 mean: 99.4 cm/sec LV V1 VTI: 29.3 cm TR max varghese: 251.0 cm/sec TR max P.2 mmHg ECHO/Echo Complete Interpretation Summary The left ventricular ejection fraction is 60 %. Diastolic function is indeterminate. The left atrium is mildly enlarged. Suspect catheter tip in the right atrium Mild (1+) mitral valve insufficiency. Mild tricuspid valve insufficiency. Right ventricular systolic pressure estimated to be 40 mmHg. Aortic sclerosis, no stenosis. Ordering Physician: Soto Guardado Referring Physician: Cindy Griffith Performed By: Amador Vick RCS
[2023-02-17] MEDS: oxyCODONE 5 MG Tablet PO (21:31)
[2023-02-18] VITALS (8 sets, daily range): BP systolic 99–130; BP diastolic 56–70; PULSE 62–68; RESP 16–18; TEMP 36.5–37.3; O2SAT 94–100; BMI 28.5
[2023-02-18 06:19] LABS: Hematocrit 22.4 % (37-47); Hemoglobin 6.9 g/dL (12.0-15.0); Mean Corp Hgb Conc 30.8 g/dL (32-36); Mean Corpuscular Hgb 31.1 pg (27.0-32.0); Mean Corpuscular Volume 100.9 fL (81-99); Platelet Count 239 K/mm3 (150-450); RBC Distribution Width CV 12.5 % (11.6-14.6); RBC Distribution Width SD 45.2 fl (35.1-43.9); Red Blood Count 2.22 M/mm3 (4.2-5.4); White Blood Count 6.5 K/mm3 (4.4-11.0)
[2023-02-18 06:32] LABS: International Normalized Ratio 2.5; Prothrombin Time (Protime)PT. 27.1 SECONDS (11.7-14.9)
[2023-02-18 06:48] LABS: Anion Gap 13 (5-15); BUN 47 mg/dL (7-18); BUN/Creat Ratio 10.8 RATIO (10-20); Calcium,Total 8.7 mg/dL (8.5-10.1); Chloride 101 mmol/L (98-107); Creatinine, Serum 4.37 mg/dL (0.55-1.02); EST Glomerular Filtration Rate 11 mL/min (>60); Est Glom Filt Rate - Afr Amer 13 mL/min (>60); Estimated Creatinine Clearance 11.37 ml/min; Glucose 114 mg/dL (74-106); Potassium 3.8 mmol/L (3.5-5.1); Sodium Level 138 mmol/L (136-145)
[2023-02-18 08:02] LABS: PTHIN 290.8 pg/mL (18.4-80.1)
[2023-02-18] MEDS: Multivitamins,Therapeutic Tablet 1 TABLET PO (09:09)
[2023-02-18] MEDS: Folic Acid 1 MG Tablet PO (09:09)
[2023-02-18] MEDS: SEVELAMER CARBONATE 800 MG TABLET PO ×3 (09:10→16:47)
[2023-02-18] MEDS: Gabapentin 100 MG Capsule PO ×2 (09:12→16:47)
[2023-02-18] MEDS: Furosemide 80 MG Tablet PO ×2 (09:13→16:47)
[2023-02-18] MEDS: Anastrozole 1 MG TABLET PO (09:13)
[2023-02-18] MEDS: NIFEdipine 90 MG Tablet PO ×2 (09:15→23:58)
[2023-02-18] MEDS: Metoprolol Tartrate 50 MG Tablet PO (09:17)
--- NOTE | 2023-02-18 10:33 | CASEMGMT ---
TC to [facility] to check on status of dialysis chair time as pt is medically ready for dc, still awaitng precert. Spoke with Koby Jj who states that they will request a chair time but pt may need a hep b core and hep b surface antibody. Updated hospitalist and charge nurse for order placement. RN AYESHA will await returned call from Koby. She is aware that we are trying to coordinate precert with dialysis set up.
[2023-02-18 11:04] LABS: Hepatitis B Surface Antibody Non-Reactive
[2023-02-18] MEDS: Acetaminophen 325 MG Tablet 650 MG PO (11:38)
[2023-02-18] MEDS: Docusate Sodium 100 MG Capsule PO (11:38)
[2023-02-18] MEDS: oxyCODONE 5 MG Tablet PO ×2 (11:39→16:47)
[2023-02-18] MEDS: tiZANidine HCl 2 MG Tablet PO ×2 (11:40→23:59)
[2023-02-18] MEDS: HYDROmorphone 0.5 MG/0.5 ML SYRINGE IV (12:28)
[2023-02-18] MEDS: 0.9% Saline Lock 10 ML Syringe IV (12:28)
[2023-02-18] MEDS: Sertraline 50 MG Tablet PO (12:41)
--- NOTE | 2023-02-18 13:43 | CASEMGMT ---
Addendum entered by Dariana Varma 02/18/23 15:33: Uploaded dialysis run sheets and sent to [facility] via [employer] at this time per request of [facility]. Original Note: Received a chair time at [facility] for Friday at 5:30 am. They are unable to accommodate a Mon/Fri/Fri schedule. Discussed with nephrology that pt can be ran with dialysis tomorrow and then be ran on Friday for the next run. Pt does have precert. Per opal Self for pt to be run tomorrow with the next dialysis on Friday. Updated SW. RN CM into pt room, pt and aware of this information and deny any further questions. Updated hospitalist.
--- NOTE | 2023-02-18 15:37 | CASEMGMT ---
Social Work Precert has been obtained for admission to [facility]. Per RNCM, pt dialysis chair time at [facility] is set for Friday, , Friday at 5:30am with first treatment on Friday. Pt to receive dialysis here tomorrow and then she will discharge to [facility]. SNF updated and agreeable. Pt made aware by RNCM. Phone call to pt dgt Jessica and she is agreeable to dc plan. Plan: [facility], after dialysis on Friday HUGO Shields
--- NOTE | 2023-02-18 19:46 | PN.HOSP_ITS ---
Reason for Visit Reason for Visit: Diagnoses Anemia, unspecified (02/05/23) Acute embolism and thrombosis of unspecified deep veins of right lower extremity (02/05/23) Embolism and thrombosis of superficial veins of left lower extremity (02/05/23) Acute kidney failure, unspecified (02/05/23) Chronic kidney disease, unspecified (02/05/23) Presence of other vascular implants and grafts (02/05/23) Subjective Subjective Patient was seen and examined today, I told her that we would need to start her Eliquis back up, she was not in favor of taking Eliquis but I told her she could not continue on the Coumadin due to concerns about calciphylaxis. Patient's hemoglobin this morning was 6.9, I talked with nephrology and we will give her 1 unit of packed red blood cells tomorrow with dialysis. According to nursing today, patient was very emotional and tearful and appeared nervous, nursing discussed antianxiety and antidepressants with the patient's, she was open to taking either one if it would help her, I decided to place her on Zoloft 50 mg daily. Patient is currently in sinus rhythm at this time. Echocardiogram performed today showed a normal EF with no significant valvular heart disease, she had mild pulmonary hypertension. Objective Data Objective Data Vital Signs: Vital Signs Temp Pulse Resp BP Pulse Ox O2 Del Method O2 Flow Rate 98.1 F 65 18 116/61 98 Nasal Cannula 3 02/18/23 15:23 02/18/23 16:46 02/18/23 15:23 02/18/23 16:46 02/18/23 15:23 02/18/23 15:23 02/18/23 15:23 Oxygen Flow Rate (L/min) 3 Oxygen Delivery Method Nasal Cannula Weight: 80.3 kg Body Mass Index (BMI) 28.5 Intake & Output: Intake and Output for Last 24 Hours 02/16/23 02/17/23 02/18/23 23:59 23:59 23:59 Intake Total 200 / 200 Output Total 1100 / 1100 2450 / 2450 400 / 400 Balance 902.87 / 902.87 -2250 / -2250 -400 / -400 Lab / Micro Data 02/18/23 05:55 02/18/23 05:55 Labs: Laboratory Results - last 24 hr 02/17/23 05:35: Hep Bs Antibody Non-Reactive 02/18/23 05:55: WBC 6.5, RBC 2.22 L, Hgb 6.9 L, Hct 22.4 L, MCV 100.9 H, MCH 31.1, MCHC 30.8 L D, RDW Std Deviation 45.2 H, RDW Coeff of Tiffanie 12.5, Plt Count 239, MPV 10.0, PT 27.1 H, INR 2.5, Sodium 138, Potassium 3.8, Chloride 101, Carbon Dioxide 24.0, Anion Gap 13, BUN 47 H, Creatinine 4.37 H, Estim Creat Clear Calc 11.37, Est GFR (MDRD) Af Amer 13 L, Est GFR (MDRD) Non-Af 11 L, BUN/Creatinine Ratio 10.8, Glucose 114 H, Calcium 8.7, PTH Intact 290.8 H Radiography Diagnostic Testing: Radiology Impression Echocardiogram 02/17/23 19:00 Interpretation Summary The left ventricular ejection fraction is 60 %. Diastolic function is indeterminate. The left atrium is mildly enlarged. Suspect catheter tip in the right atrium Mild (1+) mitral valve insufficiency. Mild tricuspid valve insufficiency. Right ventricular systolic pressure estimated to be 40 mmHg. Aortic sclerosis, no stenosis. Ordering Physician: Soto Guardado Referring Physician: Cindy Griffith Performed By: Amador Vick RCS Physical Exam Narrative alert, oriented x3 and no apparent distress General Appearance: cooperative, well kempt and well developed Orientation / Consciousness: awake, oriented to person, oriented to place and oriented to time HEENT normocephalic, head/scalp atraumatic and moist oral mucous membranes Eyes PERRL, EOMs intact bilaterally and conjunctivae normal Neck supple, no JVD, thyroid normal and no carotid bruits General: trachea midline Resp normal respiratory effort, no retractions, no use of accessory muscles and clear to auscultation bilaterally Auscultation: Negative for rales, rhonchi or wheezes Cardio S1 normal heart sound, S2 normal heart sound, no murmurs, no rub and no gallops Cardio Narrative: Heart rate and rhythm is regular GI normal to inspection, nondistended, normoactive bowel sounds, soft to palpation, non-tender and non-distended Skin Skin Narrative: Patient has bilateral lower extremity skin lesions which appear scattered over both lower legs, these appear to be scarlike in nature General Skin Exam: no breakdown Neuro oriented x3, CN's II-XII intact bilaterally, moves all extremities, no focal motor deficits and no sensory deficits noted Sensorium / Orientation: awake, alert, oriented to person, oriented to place and oriented to time Speech: speech normal Psych Patient appears mildly anxious Assessment & Plan Assessment/Plan (1) Acute superficial venous thrombosis of left lower extremity: (2) Deep vein thrombosis (DVT) of right lower extremity: PLAN: Plan 1. Acute kidney injury on a backdrop of chronic kidney disease stage IV-patient will continue dialysis per nephrology at this time #2 acute DVT of the right lower extremity-patient's INR is therapeutic at this time, again I will recheck the INR tomorrow, patient's Coumadin has been stopped due to concerns of calciphylaxis, she will need to be started on Eliquis when her INR is below 2 #3 acute atrial fibrillation-converted to sinus rhythm at this time, patient remains on rate limiting agents #4 calciphylaxis-nephrology has elected to treat the patient currently #5 acute debility-patient is being seen by PT and OT, she will need placement for rehab services in a long-term facility for at least temporary rehab services. #6 essential hypertension-patient will remain on nifedipine #7 anemia of chronic disease (chronic kidney disease)-hemoglobin be monitored as necessary #8 anxiety/depression-I will start patient on Zoloft Total clinical time spent by myself addressing the patient's medical issues, reviewing all of her data, and collaborating with patient's care team: 35 minutes Charges/Coding Visit Charges Inpatient E&M: 65814 Subs Hosp L2
[2023-02-18] MEDS: cloNIDine HCl 0.1 MG Tablet PO (23:58)
[2023-02-19] VITALS (19 sets, daily range): BP systolic 105–1138; BP diastolic 56–87; PULSE 57–76; RESP 16–18; TEMP 35.5–36.7; O2SAT 94–100; BMI 28.6; BMI 28.3
[2023-02-19] MEDS: Gabapentin 100 MG Capsule PO ×2 (00:01→11:27)
[2023-02-19] MEDS: APIXABAN 5 MG TABLET PO ×2 (00:01→11:30)
[2023-02-19] MEDS: Metoprolol Tartrate 50 MG Tablet PO ×2 (00:01→11:28)
[2023-02-19] MEDS: 0.9% Saline Lock 10 ML Syringe IV (00:26)
[2023-02-19 06:08] LABS: Hepatitis B Core Ab Total Negative (Negative)
[2023-02-19] MEDS: tiZANidine HCl 2 MG Tablet PO ×2 (06:20→13:32)
[2023-02-19] MEDS: PureFlow B 2K Dialysis Soln 1 BAG 6 BAG PF (07:33)
[2023-02-19 07:51] LABS: Absolute Lymphocyte Count 0.39 X10^3/uL (0.83-4.51); Absolute Neutrophil Count 5.4 X10^3/uL (2.0-7.7); Basophil# 0.03 X10^3/uL; Basophil% 0.5 % (0-1); Eosinophil# 0.16 X10^3/uL; Eosinophils% 2.5 % (0-5); Hemoglobin 6.8 g/dL (12.0-15.0); Lymphocyte # 0.39 X10^3/ul (0.83-4.51); Mean Corp Hgb Conc 30.9 g/dL (32-36); Mean Corpuscular Hgb 30.8 pg (27.0-32.0); Mean Corpuscular Volume 99.5 fL (81-99); Monocyte# 0.36 X10^3/uL; Monocyte% 5.6 % (0-10); NRBC Flagged by Analyzer 0 % (0-5); Neutrophil % 83.7 % (47-70); POSITIVE DIFFERENTIAL YES; Platelet Count 253 K/mm3 (150-450); RBC Distribution Width CV 12.4 % (11.6-14.6); RBC Distribution Width SD 44.9 fl (35.1-43.9); Red Blood Count 2.21 M/mm3 (4.2-5.4); White Blood Count 6.5 K/mm3 (4.4-11.0)
--- NOTE | 2023-02-19 07:53 | PN.RENAL_ITS ---
Subjective Subjective no new complaints Objective Data Objective Data Vital Signs: Vital Signs Temp Pulse Resp BP Pulse Ox O2 Del Method O2 Flow Rate 96 F L 60 16 105/57 L 99 Nasal Cannula 2 02/19/23 07:23 02/19/23 07:44 02/19/23 07:23 02/19/23 07:44 02/19/23 03:33 02/19/23 07:44 02/19/23 03:34 Oxygen Flow Rate (L/min) 2 Oxygen Delivery Method Nasal Cannula Weight: 80.5 kg Body Mass Index (BMI) 28.6 Intake & Output: Intake and Output for Last 24 Hours 02/17/23 02/18/23 02/19/23 23:59 23:59 23:59 Intake Total 200 / 200 0 / 0 0 / 0 Output Total 2450 / 2450 400 / 400 150 / 150 Balance -2250 / -2250 -400 / -400 -150 / -150 Lab / Micro Data 02/18/23 05:55 02/18/23 05:55 Labs: Laboratory Results - last 24 hr 02/17/23 05:35: Hep Bs Antibody Non-Reactive, Hep B Core Total Ab Negative 02/18/23 05:55: PTH Intact 290.8 H 02/18/23 20:30: Blood Type A NEGATIVE, Antibody Screen NEGATIVE, Crossmatch See Detail Radiography Diagnostic Testing: Radiology Impression Echocardiogram 02/17/23 19:00 Interpretation Summary The left ventricular ejection fraction is 60 %. Diastolic function is indeterminate. The left atrium is mildly enlarged. Suspect catheter tip in the right atrium Mild (1+) mitral valve insufficiency. Mild tricuspid valve insufficiency. Right ventricular systolic pressure estimated to be 40 mmHg. Aortic sclerosis, no stenosis. Ordering Physician: Soto Guardado Referring Physician: Cindy Grififth Performed By: Amador Vick RCS Physical Exam Narrative Alert awake oriented x 3 no obvious distress s1s2 no murmurs lungs clear, no wheezes, rhonchi or rales noted abdomen soft, nontender +++ edema bilateral lower legs Tunneled dialysis catheter right chest dressing clean, dry and intact Assessment & Plan Assessment/Plan (1) Acute kidney injury superimposed on CKD: PLAN: - CKD stage IV, baseline creatinine was around 3.0. At the time of last office visit, creatinine was 4. We increased the prednisone at that time empirically. Background CKD etiology unclear. initially thought to be ICPI n ephritis, biopsy was not conclusive for it. she did not tolerate prednisone due to adverse events. -New ESRD. Creatinine peaked 7.6 and patient hypervolemic. Patient began first HD treatment on 02/13 with around 1 L fluid removal. Dialysis today. We will maintain on 3 times a week dialysis schedule Lower extremity edema/pain. likely calciphylaxis HD today sodium thiosulphate with HD possible dc today
[2023-02-19 07:58] LABS: Differential Indicated SCAN CRITERIA MET
[2023-02-19 08:15] LABS: International Normalized Ratio 3.2
[2023-02-19 08:30] LABS: Anion Gap 11 (5-15); BUN 60 mg/dL (7-18); BUN/Creat Ratio 11.7 RATIO (10-20); Calcium,Total 8.2 mg/dL (8.5-10.1); Chloride 101 mmol/L (98-107); Creatinine, Serum 5.13 mg/dL (0.55-1.02); EST Glomerular Filtration Rate 9 mL/min (>60); Est Glom Filt Rate - Afr Amer 11 mL/min (>60); Estimated Creatinine Clearance 9.69 ml/min; Glucose 107 mg/dL (74-106); Sodium Level 136 mmol/L (136-145)
[2023-02-19] MEDS: Heparin 10,000 UNITS/10 ML Vial IV (10:33)
--- NOTE | 2023-02-19 11:05 | CASEMGMT ---
Spoke with Shaista, she is aware pt will dc today after dialysis. She states that dialysis set up is complete and she will close the case.
--- NOTE | 2023-02-19 11:11 | TREXTCAR_ITS ---
Diet Diet Order/Speech Therapy: 02/17/23 10:23 Diet: Renal - General Is pt able to select menu?: Yes Routine Orders/Code Status Routine Lab Work: CBC (On 02/17/2023), INR (INR daily, continue until INR is under 2, then patient will be on Eliquis thereafter) and - Wound(s) rt leg: Wound Type: unsure scattered purple areas R leg: Wound Type: purple markings and random blisters Left thigh: Wound Type: intact blisters x3 RT CHEST: Wound Type: Surgical Incision Left Posterior Thigh: Wound Type: ruptured blister Right Posterior Calf: Wound Type: ruptured blister Bilateral Lower Extremities: Wound Type: scattered calciphylaxis Therapies Weight Bearing: Weight bearing as tolerated Problem/Diagnosis (1) Acute kidney injury superimposed on CKD: Status: Chronic Code(s): N17.9 - Acute kidney failure, unspecified; N18.9 - Chronic kidney disease, unspecified (2) Calciphylaxis: Status: Acute Code(s): E83.59 - Other disorders of calcium metabolism Plan 1. Acute kidney injury on a backdrop of chronic kidney disease stage IV-patient will continue dialysis per nephrology at this time #2 acute DVT of the right lower extremity-patient's INR is therapeutic at this time, again I will recheck the INR tomorrow, patient's Coumadin has been stopped due to concerns of it being associated with calciphylaxis, she will need to be started on Eliquis when her INR is below 2 #3 acute atrial fibrillation-converted to sinus rhythm at this time, patient remains on rate limiting agents #4 calciphylaxis-nephrology has elected to treat the patient currently #5 acute debility-patient is being seen by PT and OT, she will need placement for rehab services in a [facility] facility for at least temporary rehab services. #6 essential hypertension-patient will remain on nifedipine #7 anemia of chronic disease (chronic kidney disease)-hemoglobin be monitored as necessary #8 anxiety/depression-I will start patient on Zoloft #9 coagulopathy-secondary to recent Coumadin usage, patient has been off warfarin for several days now, her INR is still elevated however, her Eliquis cannot be started unless her INR is under 2, she will need daily INRs done at the longterm #10 bilateral lower leg pain secondary to calciphylaxis Total clinical time spent by myself addressing the patient's medical issues, reviewing all of her data, and collaborating with patient's care team: 35 minutes Allergies/Procedures Done in Hospital Allergies No Known Allergies Allergy (Verified 02/05/23 15:29) Procedures: Dialysis Type of Care/Length of Stay Estimated LOS: Convalescent Care Less Than 30 days Type of Care Needed: Skilled Rehab Potential: Good Prognosis: Good Additional Orders/Day of Discharge H&P will serve as current which was dated: 02/05/23 Day of Discharge: 02/19/23 Dietary and Speech Recommendations Dietitian Recommendations/Changes: RD will change diet to Renal General to manage ESRD. Discharge Plan Admission Admit Date/Time: 02/05/23 20:54 Primary Reason for Your Visit: Acute kidney injury on a backdrop of stage IV chronic kidney disease Attending Provider: Soto Guardado Primary Care Provider: Cindy Griffith Consulting Providers: Robbie Horta; Kehinde Saucedo; Keith Butler; Siva Argueta; Keith Reyes; Josue Brown Instructions Additional Instructions / Restrictions: When INR is under 2, start Eliquis 5 mg twice daily Discharge Orders/Prescriptions Prescriptions: New clonidine HCl 0.1 mg Tablet 0.1 mg PO BID Qty: 0 0RF tizanidine 2 mg Tablet 2 mg PO TID Qty: 0 0RF polyethylene glycol 3350 17 gram Powder In Packet 17 g PO DAILY Qty: 0 0RF furosemide 80 mg Tablet 80 mg PO BIDLX Qty: 0 0RF metoprolol tartrate 50 mg Tablet 50 mg PO BID Qty: 0 0RF docusate sodium 100 mg Capsule 100 mg PO BID PRN PRN (Reason: Constipation) Qty: 0 0RF folic acid 1 mg Tablet 1 mg PO BREAKFAST Qty: 0 0RF gabapentin 100 mg Capsule 100 mg PO Q8H Qty: 0 0RF oxycodone 5 mg Tablet 5 - 10 mg PO Q4H PRN PRN (Reason: Pain Score 4-10) 2 Days Qty: 15 0RF Rx Instructions: 5 to 10 mg p.o. every 4 hours as needed leg pain sertraline 50 mg Tablet 50 mg PO DAILY Qty: 0 0RF sevelamer carbonate 800 mg Tablet 800 mg PO TIDCM Qty: 0 0RF Pureflow B 2k Dialysis Soln 6 bag perfusion UD Qty: 0 0RF Continued sodium bicarbonate 325 mg tablet 325 mg PO TID multivitamin Tablet 1 tab PO DAILY anastrozole 1 mg tablet 1 mg PO DAILY nifedipine 90 mg tablet extended release 90 mg PO BID Patient Comments: TAKE 1 TABLET BY MOUTH TWICE A DAY clonidine 0.2 mg/24 hr patch weekly 1 patch transdermal .COMPLEX Patient Comments: APPLY 1 PATCH DIRECTED ONE TIME A WEEK. Rx Instructions: 1 patch transdermally; placed on saturdays Discontinued warfarin 2 mg tablet 5 mg PO QODAY warfarin 2.5 mg tablet 4 mg PO QODAY potassium citrate 5 mEq (540 mg) tablet extended release 5 meq PO DAILY cephalexin 500 mg capsule 500 mg PO Q8H Patient Comments: TAKE 1 CAPSULE BY MOUTH THREE TIMES A DAY Referrals / Follow Up: Cindy Griffith MD [Primary Care Provider] - Disposition Disposition (needs filled in before D/C Order can be placed): [facility]
[2023-02-19] MEDS: Polyethylene Glycol 3350 17 GM PACKET PO (11:27)
[2023-02-19] MEDS: Docusate Sodium 100 MG Capsule PO (11:27)
[2023-02-19] MEDS: Acetaminophen 325 MG Tablet 650 MG PO (11:27)
[2023-02-19] MEDS: Sertraline 50 MG Tablet PO (11:27)
[2023-02-19] MEDS: Furosemide 80 MG Tablet PO (11:28)
[2023-02-19] MEDS: oxyCODONE 5 MG Tablet PO (11:28)
[2023-02-19] MEDS: Multivitamins,Therapeutic Tablet 1 TABLET PO (11:29)
[2023-02-19] MEDS: NIFEdipine 90 MG Tablet PO (11:30)
[2023-02-19] MEDS: SEVELAMER CARBONATE 800 MG TABLET PO (11:30)
[2023-02-19] MEDS: Folic Acid 1 MG Tablet PO (11:30)
[2023-02-19] MEDS: Anastrozole 1 MG TABLET PO (11:30)
--- NOTE | 2023-02-19 11:34 | NURSING ---
see dialysis documentation as this was given during that time
--- NOTE | 2023-02-19 11:37 | PCM.DC.SUM ---
Providers Date of Admission: 02/05/23 Date of Discharge: 02/19/23 Primary Care Physician: Dr. Cindy Griffith MD Consultations 02/05/23 21:01 Consult: Nephrology Routine Consulting Provider: Robbie Horta Reason for Consult: Severe acute kidney injury on chronic kidney disease stage IV EMERGENT Consult: No Notified: Yes Date Notified: 02/06/23 Time Notified: 06:20 Method of Notification: Answering Service 02/05/23 21:16 Consult: Vascular Surgery Routine Consulting Provider: Kehinde Saucedo Reason for Consult: History of DVT; status post IVC filter placement with signs of claudication EMERGENT Consult: No MD Notified: Yes Date Notified: 02/06/23 Time Notified: 06:28 Method of Notification: Text 02/11/23 11:57 Consult: Onc/Wound/flexographic printing machinist Routine Comment: Reason for Consult:: follow along- 3 large intact blisters to left thigh 02/12/23 10:14 Consult: General Surgery Routine Consulting Provider: Keith Reyes Reason for Consult: BRITTNEY needs dialysis EMERGENT Consult: No Notified: Yes Date Notified: 02/12/23 Time Notified: 11:44 Method of Notification: 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 Acute kidney injury on a backdrop of chronic kidney disease stage IV-patient will continue dialysis per nephrology at this time #2 acute DVT of the right lower extremity-patient's INR is therapeutic at this time, again I will recheck the INR tomorrow, patient's Coumadin has been stopped due to concerns of it being associated with calciphylaxis, she will need to be started on Eliquis when her INR is below 2 #3 acute atrial fibrillation-converted to sinus rhythm at this time, patient remains on rate limiting agents #4 calciphylaxis-nephrology has elected to treat the patient currently #5 acute debility-patient is being seen by PT and OT, she will need placement for rehab services in a [facility] facility for at least temporary rehab services. #6 essential hypertension-patient will remain on nifedipine #7 anemia of chronic disease (chronic kidney disease)-hemoglobin be monitored as necessary #8 anxiety/depression-I will start patient on Zoloft #9 coagulopathy-secondary to recent Coumadin usage, patient has been off warfarin for several days now, her INR is still elevated however, her Eliquis cannot be started unless her INR is under 2, she will need daily INRs done at the long-term #10 bilateral lower leg pain secondary to calciphylaxis #11 mild pulmonary hypertension Total clinical time spent by myself addressing the patient's medical issues, reviewing all of her data, and collaborating with patient's care team: 35 minutes Medications at Discharge Home Medications sodium bicarbonate 325 mg tablet 325 mg PO TID HEARTBURN RELIEF 08/16/22 anastrozole 1 mg tablet 1 mg PO DAILY BREAST CANCER 09/18/22 multivitamin 1 tab PO DAILY HEALTH MAINTENANCE 09/18/22 clonidine 0.2 mg/24 hr weekly transdermal patch 1 patch transdermal .COMPLEX 02/05/23 nifedipine 90 mg tablet,extended release 90 mg PO BID 02/05/23 PureFlow B 2K Dialysis Soln 6 bag perfusion UD ##0 02/19/23 clonidine HCl 0.1 mg tablet 0.1 mg PO BID #0 tabs 02/19/23 docusate sodium 100 mg capsule 100 mg PO BID PRN PRN Constipation #0 caps 02/19/23 folic acid 1 mg tablet 1 mg PO BREAKFAST #0 tabs 02/19/23 furosemide 80 mg tablet 80 mg PO BIDLX #0 tabs 02/19/23 gabapentin 100 mg capsule 100 mg PO Q8H #0 caps 02/19/23 metoprolol tartrate 50 mg tablet 50 mg PO BID #0 tabs 02/19/23 oxycodone 5 mg tablet 5 - 10 mg (1 - 2 x 5 mg) PO Q4H PRN PRN Pain Score 4-10 2 days #15 tabs 02/19/23 polyethylene glycol 3350 17 gram oral powder packet 17 g PO DAILY #0 ea 02/19/23 sertraline 50 mg tablet 50 mg PO DAILY #0 tabs 02/19/23 sevelamer carbonate 800 mg tablet 800 mg PO TIDCM #0 tabs 02/19/23 tizanidine 2 mg tablet 2 mg PO TID #0 tabs 02/19/23 Hospital Course Operations - (Right tunneled dialysis temporary catheter placement) Procedures 2-D Echocardiogram and - (Venous Doppler of the lower extremities) Summary of Care Provided Minutes Spent on Discharge: 33 Hospital Course: 67-year-old white female was seen in the emergency room at [facility] with complaints of possible cellulitis to both lower extremities that has been worsening over the past 1 to 2 weeks. Patient states she was started on Keytruda for her endometrial cancer and had been taking prednisone. She had been placed on Keflex several days ago for possible cellulitis in her legs. Labs obtained in the emergency room showed a decreased hemoglobin at 7.8, patient's white blood cell count was 5.5, BUN was elevated at 73 and creatinine was elevated at 6.33. Patient had a history of chronic kidney disease. Patient was given IV fluids, she was admitted to [place] [address] and seen in consultation by nephrology. Venous duplex scans of the lower extremities showed deep venous thrombosis in her right leg and superficial thrombosis in the left leg, patient already had an IVC filter in place and was on Coumadin. Patient also had eschar like areas on both legs which were extremely painful, nephrology felt this was due to to calciphylaxis and recommended her Coumadin be stopped and recommended that she be transition to Eliquis. Patient required dialysis and so a tunnel catheter was placed, during her hospital stay she briefly went into atrial fibrillation and was given rate limiting agents and then converted to sinus rhythm. Echocardiogram was obtained which showed a normal ejection fraction and mild pulmonary hypertension. No significant valvular disease was noted. Patient's INR remained elevated although she was not on Coumadin, decision was made not to start her Eliquis until her INR fell below 2. Patient was seen by PT and OT and was felt to be appropriate for temporary skilled placement in a nursing facility. On 02/19/2023, patient was seen and examined:alert, oriented x3 and no apparent distress General Appearance: cooperative, well kempt and well developed Orientation / Consciousness: awake, oriented to person, oriented to place and oriented to time HEENT normocephalic, head/scalp atraumatic and moist oral mucous membranes Eyes PERRL, EOMs intact bilaterally and conjunctivae normal Neck supple, no JVD, thyroid normal and no carotid bruits General: trachea midline Resp normal respiratory effort, no retractions, no use of accessory muscles and clear to auscultation bilaterally Auscultation: Negative for rales, rhonchi or wheezes Cardio S1 normal heart sound, S2 normal heart sound, no murmurs, no rub and no gallops Cardio Narrative: Heart rate and rhythm is regular GI normal to inspection, nondistended, normoactive bowel sounds, soft to palpation, non-tender and non-distended Skin Skin Narrative: Patient has bilateral lower extremity skin lesions which appear scattered over both lower legs, these appear to be scarlike in nature General Skin Exam: no breakdown Neuro oriented x3, CN's II-XII intact bilaterally, moves all extremities, no focal motor deficits and no sensory deficits noted Sensorium / Orientation: awake, alert, oriented to person, oriented to place and oriented to time Speech: speech normal Psych Patient appears mildly anxious On 02/19/2023, patient appeared stable for discharge to an extended care facility for inpatient rehab services Weight / BMI Weight Weight: 79.52 kg Body Mass Index (BMI) 28.3 ABG / Lab / Microbiology Data 02/19/23 07:35 02/19/23 07:35 Laboratory: Laboratory Results - last 24 hr 02/17/23 05:35: Hep B Core Total Ab Negative 02/18/23 20:30: Blood Type A NEGATIVE, Antibody Screen NEGATIVE, Crossmatch See Detail 02/19/23 07:35: WBC 6.5, RBC 2.21 L, Hgb 6.8 L, Hct 22.0 L, MCV 99.5 H, MCH 30.8, MCHC 30.9 L, RDW Std Deviation 44.9 H, RDW Coeff of Tiffanie 12.4, Plt Count 253, MPV 10.0, Immature Gran % (Auto) 1.700 H, Neut % (Auto) 83.7 H, Lymph % (Auto) 6.0 L, Gaines % (Auto) 5.6, Eos % (Auto) 2.5, Baso % (Auto) 0.5, Absolute Neuts (auto) 5.4, Absolute Lymphs (auto) 0.39 L, Nucleated RBC % 0, Differential Comment COMMENT, PT 33.0 H, INR 3.2, Sodium 136, Potassium 4.0, Chloride 101, Carbon Dioxide 24.0, Anion Gap 11, BUN 60 H, Creatinine 5.13 H, Estim Creat Clear Calc 9.69, Est GFR (MDRD) Af Amer 11 L, Est GFR (MDRD) Non-Af 9 L, BUN/Creatinine Ratio 11.7, Glucose 107 H, Calcium 8.2 L Radiography Diagnostic Testing: Radiology Impression Echocardiogram 02/17/23 19:00 Interpretation Summary The left ventricular ejection fraction is 60 %. Diastolic function is indeterminate. The left atrium is mildly enlarged. Suspect catheter tip in the right atrium Mild (1+) mitral valve insufficiency. Mild tricuspid valve insufficiency. Right ventricular systolic pressure estimated to be 40 mmHg. Aortic sclerosis, no stenosis. Ordering Physician: Soto Guardado Referring Physician: Cindy Griffith Performed By: Amador Vick RCS Meaningful Use Info Meaningful Use Diagnoses (Choose all that apply): None applicable Discharge Plan Admission Admit Date/Time: 02/05/23 20:54 Primary Reason for Your Visit: Acute kidney injury on a backdrop of stage IV chronic kidney disease Attending Provider: Soto Guardado Primary Care Provider: Cindy Griffith Consulting Providers: Robbie Horta; Kehinde Saucedo; Keith Butler; Siva Argueta; Keith Reyes; Josue Brown Instructions Additional Instructions / Restrictions: When INR is under 2, start Eliquis 5 mg twice daily Discharge Orders/Prescriptions Prescriptions: New clonidine HCl 0.1 mg Tablet 0.1 mg PO BID Qty: 0 0RF tizanidine 2 mg Tablet 2 mg PO TID Qty: 0 0RF polyethylene glycol 3350 17 gram Powder In Packet 17 g PO DAILY Qty: 0 0RF furosemide 80 mg Tablet 80 mg PO BIDLX Qty: 0 0RF metoprolol tartrate 50 mg Tablet 50 mg PO BID Qty: 0 0RF docusate sodium 100 mg Capsule 100 mg PO BID PRN PRN (Reason: Constipation) Qty: 0 0RF folic acid 1 mg Tablet 1 mg PO BREAKFAST Qty: 0 0RF gabapentin 100 mg Capsule 100 mg PO Q8H Qty: 0 0RF oxycodone 5 mg Tablet 5 - 10 mg PO Q4H PRN PRN (Reason: Pain Score 4-10) 2 Days Qty: 15 0RF Rx Instructions: 5 to 10 mg p.o. every 4 hours as needed leg pain sertraline 50 mg Tablet 50 mg PO DAILY Qty: 0 0RF sevelamer carbonate 800 mg Tablet 800 mg PO TIDCM Qty: 0 0RF Pureflow B 2k Dialysis Soln 6 bag perfusion UD Qty: 0 0RF Continued sodium bicarbonate 325 mg tablet 325 mg PO TID multivitamin Tablet 1 tab PO DAILY anastrozole 1 mg tablet 1 mg PO DAILY nifedipine 90 mg tablet extended release 90 mg PO BID Patient Comments: TAKE 1 TABLET BY MOUTH TWICE A DAY clonidine 0.2 mg/24 hr patch weekly 1 patch transdermal .COMPLEX Patient Comments: APPLY 1 PATCH DIRECTED ONE TIME A WEEK. Rx Instructions: 1 patch transdermally; placed on saturdays Discontinued warfarin 2 mg tablet 5 mg PO QODAY warfarin 2.5 mg tablet 4 mg PO QODAY potassium citrate 5 mEq (540 mg) tablet extended release 5 meq PO DAILY cephalexin 500 mg capsule 500 mg PO Q8H Patient Comments: TAKE 1 CAPSULE BY MOUTH THREE TIMES A DAY Referrals / Follow Up: Cindy Griffith MD [Primary Care Provider] - Disposition Disposition (needs filled in before D/C Order can be placed): Residential Facility Charges/Coding Visit Charges Inpatient E&M: 23846 Disch Hosp >30min
--- NOTE | 2023-02-19 13:17 | CASEMGMT ---
Discharge Planning Discharge orders, signed med list, and transport time sent to [facility]. [facility] will transport patient by cot at 2:30p. Nursing, SW, and patient updated. Patient stated that she will update her . Suzanne Dahl, Discharge Planning Asst.
--- NOTE | 2023-02-19 13:27 | CASEMGMT ---
Social Work - Discharge Note Patient is being discharged to [facility], for skilled level of care. Convalescent exemption form completed via the [facility] system, for an anticipated less than 30 day stay. [facility] has in house dialysis and chair time has been set, as per prior documentation. Final discharge arrangements arranged as per Discharge library technical assistant. This tech writer did speak with daughter Jessica to update. No other services requested or indicated. PLAN: [facility], skilled level of care on a 30 day convalescent stay. -LORRIE Menjivar
== END 2023-02-19 14:13 | disposition skilled nursing facility (03) | DRG 674 ==
LOC: ED 20:32 → MS3 22:34
PROVIDERS: Anesthesiology; Hospitalist; Internal Medicine; Internal Medicine Nephrology; Nurse Practitioner Adult Health; Surgery; Admitting Provider Internal Medicine; Emergency Provider Emergency Medicine; PCP Family Medicine; Visit Provider Internal Medicine
PROC: 0JH63XZ Insertion of Tunneled Vascular Access Device into Chest Subcutaneous Tissue and Fascia, Percutaneous Approach (ICD-10-PCS; principal; 2023-02-13 14:15)
DX: N17.9 Acute kidney failure, unspecified (principal); I82.411 Acute embolism and thrombosis of right femoral vein; E87.20 Acidosis, unspecified; I82.431 Acute embolism and thrombosis of right popliteal vein; I82.441 Acute embolism and thrombosis of right tibial vein; I82.451 Acute embolism and thrombosis of right peroneal vein; I82.812 Embolism and thrombosis of superficial veins of left lower extremity; L03.115 Cellulitis of right lower limb; L03.116 Cellulitis of left lower limb; I27.20 Pulmonary hypertension, unspecified; D63.1 Anemia in chronic kidney disease; E83.59 Other disorders of calcium metabolism; N18.4 Chronic kidney disease, stage 4 (severe); E11.22 Type 2 diabetes mellitus with diabetic chronic kidney disease; E11.42 Type 2 diabetes mellitus with diabetic polyneuropathy; Z99.2 Dependence on renal dialysis; I48.91 Unspecified atrial fibrillation; I82.461 Acute embolism and thrombosis of right calf muscular vein; N18.6 End stage renal disease; I12.9 Hypertensive chronic kidney disease with stage 1 through stage 4 chronic kidney disease, or unspecified chronic kidney disease; F32.A Depression, unspecified; I16.0 Hypertensive urgency; F41.9 Anxiety disorder, unspecified; R33.9 Retention of urine, unspecified; Z79.01 Long term (current) use of anticoagulants; Z79.811 Long term (current) use of aromatase inhibitors; R79.1 Abnormal coagulation profile; R53.81 Other malaise; T38.0X5A Adverse effect of glucocorticoids and synthetic analogues, initial encounter; Z85.3 Personal history of malignant neoplasm of breast; Z85.42 Personal history of malignant neoplasm of other parts of uterus; Z90.710 Acquired absence of both cervix and uterus
CPT/HCPCS: 36415; 71045; 73700; 77001; 80048; 80053; 81001; 82550; 82607; 82728; 82746; 83010; 83036; 83540; 83550; 83615; 83735; 83970; 84100; 84443; 85014; 85018; 85025; 85027; 85045; 85610; 85730; 86704; 86706; 86850; 86900; 86901; 86920; 86922; 87340; 90937; 93005; 93306; 93970; 93971; 94668; 97110; 97162; 97166; 97530; 97535; 97802; 97803; 99284; J7030; J7040; J7050; J7120; P9016; P9017; P9040; A4216; G0257; J1940; J2405; J2916; Q5106